=== PATIENT | female | born 1945 | race Caucasian/White ===

== ENCOUNTER 2020-11-22 07:52 | Outpatient (CLI) | payer MEDICARE, SELFPAY ==
--- NOTE | ~2020-11-22 | CT_ITS ---
EXAMINATION: CT brain wo con DATE: 11/22/2020 08:17 INDICATION: Unsteadiness on feet TECHNIQUE: Computed tomography (CT) of the head was performed without intravenous contrast. The mA wa s adjusted according to patient size. Iterative reconstruction technique was employed. Exam dose: 60 5.33 mGy-cm total exam DLP. COMPARISON: None FINDINGS: There is cerebral atrophy, with preferential frontal cortical atrophy. There is moderate ce rebellar atrophy as well. Nonspecific diminished attenuation of the cerebral white matter, likely due to chronic small vessel i schemic changes. No intracranial mass lesion or hemorrhage or cerebrovascular accident is evident. No midline shift or mass effect effect. No subdural or epidural hematoma is detected. No orbital mass lesion is evident. No fracture or bone destruction of the cranial vault. Included mastoid air cells and paranasal sinuse s are normally developed and aerated. IMPRESSION: Cerebral and cerebellar atrophy; no acute intracranial finding Reviewed, dictated and finalized at [facility]. Reviewed, dictated and finalized at [facility].
== END 2020-11-22 07:53 | disposition home or self-care (01) ==
PROVIDERS: PCP Physician Assistant; Visit Provider Physician Assistant
DX: R26.81 Unsteadiness on feet (principal)
CPT/HCPCS: 70450

== ENCOUNTER 2021-03-01 11:39 | Emergency (ER) | payer MEDICARE, SELFPAY ==
[2021-03-01 11:49] VITALS: BP 131/67; PULSE 80; RESP 16; TEMP 36.6; O2SAT 98
--- NOTE | 2021-03-01 12:25 | ED.EYEPROB ---
HPI - Eye Problem General Chief complaint: Eye Problems Stated complaint: EAR/EYE PAIN Time Seen by Provider: 03/01/21 12:05 Source: patient and RN notes reviewed Mode of arrival: ambulatory Limitations: no limitations History of Present Illness HPI Narrative: Patient presents today complaining of left lower eyelid pain x2 days. Denies drainage. Patient has history of corneal dystrophy and uses an [id number] eyedrop 3 times per day on a regular basis. She is also complaining of of a sore inside of her right ear it has been there for months. She was seen initially several months ago by her PCP and told to put Neosporin on the area. States it is not healing. Denies drainage. Related Data Home Medications Medication Instructions Recorded Confirmed atorvastatin 20 mg tablet 20 mg PO DAILY 08/14/19 03/01/21 carvedilol 12.5 mg tablet 12.5 mg PO BID tablet 08/14/19 03/01/21 cholecalciferol (vitamin D3) 25 1,000 unit PO BID cap 08/14/19 03/01/21 mcg (1,000 unit) capsule sodium chloride 5 % eye drops 1 drop EACH EYE TID 08/15/19 03/01/21 losartan 25 mg tablet 12.5 mg PO BID tablet 09/14/20 03/01/21 Allergies Allergy/AdvReac Type Severity Reaction Status Date / Time Penicillins Allergy Unknown Unknown Verified 03/01/21 11:58 Sulfa (Sulfonamide Allergy Unknown Unknown Verified 03/01/21 11:58 Antibiotics) Review of Systems Review of Systems: Narrative: CONSTITUTIONAL: Denies body aches, fever, chills, or sweats. EYES: Denies visual changes, redness, or discharge. Pain to left lower eyelid ENT: Denies rhinorrhea, congestion, sore throat, or otalgia. CARDIOVASCULAR: Denies chest pain, palpitations, or edema. RESPIRATORY: Denies cough or dyspnea. GASTROINTESTINAL: Denies abdominal pain, nausea, vomiting, or diarrhea. GENITOURINARY: Denies dysuria or hematuria. SKIN: Sore to right external ear MUSCULOSKELETAL: Denies back pain, joint pain, or myalgia. NEUROLOGIC: Denies headache, numbness, tingling, or weakness. PSYCH: Denies depression or anxiety. [facility] Past Medical History Medical History (Updated 03/01/21 @ 12:35 by Akila Riley, [facility], ) Artificial pacemaker Breast cancer Heart failure Hyperlipidemia Hypertension LBBB (left bundle branch block) Ovarian cyst Surgical History Surgical History History of appendectomy History of lumpectomy Hx of removal of ovary Family History Family History Other Diabetes mellitus Family history of thyroid disease Social History Social History Smoking status: Never smoker Second hand tobacco smoke exposure: No Alcohol intake: current Alcohol use details: Glass of wine daily. Substance use: never Substance use type: does not use Gender identity (if verbalized by the patient): Female Comments At time of signature, I have reviewed and agree with nursing past medical, surgical, social and family history unless otherwise noted. Please see nursing chart for further information. There is no relevant family history pertinent to the presenting complaint Exam Narrative: Exam Narrative: GENERAL: Well-appearing, well-nourished, and in no acute distress. HEAD: Normocephalic, atraumatic. EYES: EOMI. No redness or drainage. Conjunctivae normal.Mild erythema to the lower lateral eyelid with subtle swelling, consistent with forming stye. No active drainage. ENT: Mucous membranes pink and moist. Nares clear. No rhinorrhea. + 2 to 3 mm scabbed sore to the roman. Scant surrounding erythema. NECK: Normal AROM. Supple. No lymphadenopathy. CHEST: No respiratory distress. EXTREMITIES: Normal range of motion. No edema. SKIN: Warm, dry, no rash. Capillary refill normal. Normal skin turgor. NEURO: No focal deficits. Alert and oriented x3. Gait steady. PSYCH: Normal affect. No s
== END 2021-03-01 12:55 | disposition home or self-care (01) ==
PROVIDERS: Emergency Provider Nurse Practitioner; PCP Family Medicine
DX: H00.025 Hordeolum internum left lower eyelid (principal); Z95.0 Presence of cardiac pacemaker; I11.0 Hypertensive heart disease with heart failure; I50.9 Heart failure, unspecified; E78.5 Hyperlipidemia, unspecified; Z85.3 Personal history of malignant neoplasm of breast; I44.7 Left bundle-branch block, unspecified
CPT/HCPCS: 99213; G0463

== ENCOUNTER 2021-03-01 18:03 | Emergency (ER) | payer MEDICARE, SELFPAY ==
[2021-03-01 18:11] VITALS: BP 135/83; PULSE 86; RESP 16; TEMP 36.4; O2SAT 99
[2021-03-01] MEDS: TETANUS/DIPHTHERIA TOXOIDS ADSORB 0.5 ML VIAL (*BKC) IM (18:22)
--- NOTE | 2021-03-01 18:39 | ED.WOUNDLAC ---
HPI - Wound/Laceration General Chief Complaint: Wound/Laceration Stated Complaint: cut finger Time Seen by Provider: 03/01/21 18:33 Source: patient and RN notes reviewed Mode of arrival: ambulatory Limitations: no limitations History of Present Illness HPI narrative: Patient presents today complaint of a laceration to her left third finger that was sustained 1 hour prior to arrival. She cut it while cutting grady at home with a kitchen knife. She is not up-to-date on her tetanus vaccine. Denies any current pain. Sought treatment today because she could not get it to stop bleeding. Related Data Home Medications Medication Instructions Recorded Confirmed atorvastatin 20 mg tablet 20 mg PO DAILY 08/14/19 03/01/21 carvedilol 12.5 mg tablet 12.5 mg PO BID tablet 08/14/19 03/01/21 cholecalciferol (vitamin D3) 25 1,000 unit PO BID cap 08/14/19 03/01/21 mcg (1,000 unit) capsule sodium chloride 5 % eye drops 1 drop EACH EYE TID 08/15/19 03/01/21 losartan 25 mg tablet 12.5 mg PO BID tablet 09/14/20 03/01/21 Allergies Allergy/AdvReac Type Severity Reaction Status Date / Time Penicillins Allergy Unknown Unknown Verified 03/01/21 18:12 Sulfa (Sulfonamide Allergy Unknown Unknown Verified 03/01/21 18:12 Antibiotics) Review of Systems Review of Systems: Narrative: CONSTITUTIONAL: Denies body aches, fever, chills, or sweats. EYES: Denies visual changes, redness, or discharge. ENT: Denies rhinorrhea, congestion, sore throat, or otalgia. CARDIOVASCULAR: Denies chest pain, palpitations, or edema. RESPIRATORY: Denies cough or dyspnea. GASTROINTESTINAL: Denies abdominal pain, nausea, vomiting, or diarrhea. GENITOURINARY: Denies dysuria or hematuria. SKIN: Denies rash, itching. + Left third finger laceration MUSCULOSKELETAL: Denies back pain, joint pain, or myalgia. NEUROLOGIC: Denies headache, numbness, tingling, or weakness. PSYCH: Denies depression or anxiety. [facility] Past Medical History Medical History Artificial pacemaker Breast cancer Heart failure Hyperlipidemia Hypertension LBBB (left bundle branch block) Ovarian cyst Surgical History Surgical History History of appendectomy History of lumpectomy Hx of removal of ovary Family History Family History Other Diabetes mellitus Family history of thyroid disease Social History Social History Smoking status: Never smoker Second hand tobacco smoke exposure: No Alcohol intake: current Alcohol use details: Glass of wine daily. Substance use: never Substance use type: does not use Gender identity (if verbalized by the patient): Female Comments At time of signature, I have reviewed and agree with nursing past medical, surgical, social and family history unless otherwise noted. Please see nursing chart for further information. There is no relevant family history pertinent to the presenting complaint Exam Narrative: Exam Narrative: GENERAL: Well-appearing, well-nourished, and in no acute distress. HEAD: Normocephalic, atraumatic. EYES: EOMI. No redness or drainage. Conjunctivae normal. ENT: Mucous membranes pink and moist. NECK: Normal AROM. CHEST: No respiratory distress. EXTREMITIES: Normal range of motion. No edema. SKIN: Warm, dry, no rash. Capillary refill normal. Normal skin turgor. 0.5 cm superficial flap laceration just lateral to the left third fingernail. No active bleeding. Distal sensation intact. Capillary refill normal. Nail normal. NEURO: No focal deficits. Alert and oriented x3. Gait steady. PSYCH: Normal affect. No signs of depression or anxiety. Course Vital Signs Vital signs: Vital Signs Temperature 97.6 F 03/01/21 18:11 Pulse Rate 86 03/01/21 18:11 Respirat
== END 2021-03-01 19:04 | disposition home or self-care (01) ==
PROVIDERS: Emergency Provider Nurse Practitioner; PCP Family Medicine
DX: S61.213A Laceration without foreign body of left middle finger without damage to nail, initial encounter (principal); W26.0XXA Contact with knife, initial encounter; Z23 Encounter for immunization; Z95.0 Presence of cardiac pacemaker; Z85.3 Personal history of malignant neoplasm of breast; I11.0 Hypertensive heart disease with heart failure; I50.9 Heart failure, unspecified; E78.5 Hyperlipidemia, unspecified
CPT/HCPCS: 12001; 90471; 90714; 90715; 99213; G0463

== ENCOUNTER 2022-03-14 00:12 | Day surgery (SDC) | payer MEDICARE, SELFPAY ==
[2022-02-24 10:05] VITALS: BMI 22.0
[2022-03-14 07:12] VITALS: BP 130/64; PULSE 73; RESP 17; TEMP 36.4; O2SAT 98
[2022-03-14] MEDS: LACTATED RINGERS 1,000 ML 150 ML IV CONT (07:18)
--- NOTE | 2022-03-14 07:30 | PM.IMHP ---
H&P: HPI History of Present Illness Date/Time: 03/14/22 07:30 Chief Complaint: Neoplasia screening. Narrative: This is a 76-year-old white female patient presents for neoplasia screening colonoscopy. Patient reports that her current weight appetite if bowel movements are normal. She denies abdominal pain. She has had no bleeding. Family history is noncontributory. Patient does have a past history of breast cancer and recently diagnosed with Parkinson's disease. Plan is for surveillance colonoscopy at this time. She also has a pacemaker placed. For bundle branch block. Review of Systems Review of Systems: Review of systems noncontributory. [facility] Past Medical History Medical History Artificial pacemaker Breast cancer Fatigue Heart failure Hyperlipidemia Hypertension LBBB (left bundle branch block) Ovarian cyst Parkinson's Disease Surgical History Surgical History History of appendectomy History of lumpectomy Hx of removal of ovary Family History Family History Mother Breast cancer Goiter Father Diabetes mellitus Grandparent Diabetes mellitus Sibling Breast cancer Sibling Cancer of mouth Daughter Fuchs' corneal dystrophy of both eyes Diabetes mellitus Other Family history of thyroid disease Social History Social History Smoking status: Never smoker Second hand tobacco smoke exposure: No Alcohol intake: current Drinks per week: 5 Alcohol use details: Glass of wine daily. Substance use: never Substance use type: does not use Living arrangements: with family Gender identity (if verbalized by the patient): Female Spiritual care concerns: No Agree to blood products: Yes Meds Home Medications and Allergies Home Medications Medication Instructions Recorded Confirmed Type atorvastatin 20 mg tablet 20 mg PO DAILY 08/14/19 03/14/22 History carvedilol 12.5 mg tablet 12.5 mg PO BID 08/14/19 03/14/22 History cholecalciferol (vitamin D3) 25 1,000 unit PO BID 08/14/19 03/14/22 History mcg (1,000 unit) capsule (Vitamin D3) sodium chloride 5 % eye drops 1 drop ophthalmic (eye) TID 08/15/19 03/14/22 History (Winnie 128) losartan 25 mg tablet 12.5 mg PO BID 09/14/20 03/14/22 History carbidopa 25 mg-levodopa 100 mg 1 tablet PO TID 04/07/21 03/14/22 History tablet escitalopram oxalate 20 mg tablet 20 mg PO DAILY 02/09/22 03/14/22 History omeprazole 20 mg capsule,delayed 20 mg PO DAILY 02/09/22 03/14/22 History release trazodone 50 mg tablet 50 mg PO QHS PRN Insomnia 02/09/22 03/14/22 History Allergies Allergy/AdvReac Type Severity Reaction Status Date / Time Penicillins Allergy Mild Rash Verified 03/14/22 07:09 Sulfa (Sulfonamide Allergy Mild Rash Verified 03/14/22 07:09 Antibiotics) Vital Signs Vital Signs - 24 hr 03/14/22 07:12 Temperature 97.5 F L Pulse Rate 73 Respiratory Rate 17 Blood Pressure 130/64 Pulse Oximetry 98 Oxygen Delivery Room Air Exam Narrative: Physical exam reveals patient to be alert. Vital signs stable. HEENT exam is unremarkable. Patient is anicteric. Lungs are clear to auscultation and percussion. Heart is without murmur or extra sounds. Abdominal exam bowel sounds present soft nontender with no hepatosplenomegaly. Digital external rectal exam is normal. Assessment and Plan Assessment and plan (1) Encounter for screening colonoscopy: Code(s): Z12.11 - Encounter for screening for malignant neoplasm of colon Status: Acute Assessment and Plan: Patient presents for screening colonoscopy. Appears to be at average risk for colon polyps. Further recommendations will be given after endoscopy.
--- NOTE | 2022-03-14 08:14 | WPDANESEPPF ---
Anes - Initial Pre Proc Eval Procedure: Operation Date: 03/14/22 08:30 Proposed Procedures p Screening Colonoscopy - Umberto Bunch MD Date/Time: 03/14/22 08:14 Surgeon: Umberto Bunch MD Pre Op Diagnosis: neoplasm screening Patient Data Age: 76 Gender: F Height: 1.65 m Weight: 57.2 kg Last Vital Signs Temp 97.5 F L 03/14/22 07:12 Pulse 73 03/14/22 07:12 Resp 17 03/14/22 07:12 BP 130/64 03/14/22 07:12 Pulse Ox 98 03/14/22 07:12 O2 Del Method Room Air 03/14/22 07:12 Allergies Allergy/AdvReac Type Severity Reaction Status Date / Time Penicillins Allergy Mild Rash Verified 03/14/22 07:09 Sulfa (Sulfonamide Allergy Mild Rash Verified 03/14/22 07:09 Antibiotics) Home Medications Medication Instructions Recorded Confirmed Type atorvastatin 20 mg tablet 20 mg PO DAILY 08/14/19 03/14/22 History carvedilol 12.5 mg tablet 12.5 mg PO BID 08/14/19 03/14/22 History cholecalciferol (vitamin D3) 25 1,000 unit PO BID 08/14/19 03/14/22 History mcg (1,000 unit) capsule (Vitamin D3) sodium chloride 5 % eye drops 1 drop ophthalmic (eye) TID 08/15/19 03/14/22 History (Winnie 128) losartan 25 mg tablet 12.5 mg PO BID 09/14/20 03/14/22 History carbidopa 25 mg-levodopa 100 mg 1 tablet PO TID 04/07/21 03/14/22 History tablet escitalopram oxalate 20 mg tablet 20 mg PO DAILY 02/09/22 03/14/22 History omeprazole 20 mg capsule,delayed 20 mg PO DAILY 02/09/22 03/14/22 History release trazodone 50 mg tablet 50 mg PO QHS PRN Insomnia 02/09/22 03/14/22 History Patient hx anesthesia problems: none Family hx anesthesia problems: none Results Review: All pre-operative results and documents have been reviewed as part of the pre-operative evaluation. [facility] Past Medical History Medical History Artificial pacemaker Breast cancer Fatigue Heart failure Hyperlipidemia Hypertension LBBB (left bundle branch block) Ovarian cyst Parkinson's Disease Surgical History Surgical History History of appendectomy History of lumpectomy Hx of removal of ovary Family History Family History Mother Breast cancer Goiter Father Diabetes mellitus Grandparent Diabetes mellitus Sibling Breast cancer Sibling Cancer of mouth Daughter Fuchs' corneal dystrophy of both eyes Diabetes mellitus Other Family history of thyroid disease Social History Social History Smoking status: Never smoker Second hand tobacco smoke exposure: No Alcohol intake: current Drinks per week: 5 Alcohol use details: Glass of wine daily. Substance use: never Substance use type: does not use Living arrangements: with family Gender identity (if verbalized by the patient): Female Spiritual care concerns: No Agree to blood products: Yes Anes - Eval Final PreProcedure Day of Procedure 03/14/22 08:14 Patient weight: normal Heart: regular rate and rhythm Lungs: clear to auscultation Airway: Mallampati scale class II Neurological: alert and oriented Last oral intake: >/= 8 hours ASA classification: III Emergent: no Anesthetic plan: proceed Anesthesia type and monitoring: general GIVS and standard monitoring Results Review: All pre-operative results and documents have been reviewed as part of the pre-operative evaluation. Informed Consent: The patient's anesthetic plan and its attendant risks and benefits were discussed with the patient/family/POA. Questions were solicited and answers provided to the satisfaction of the patient/family/POA.
[2022-03-14 08:49] VITALS: BP 93/43; PULSE 70; RESP 16; O2SAT 98
[2022-03-14 08:59] VITALS: BP 100/56; PULSE 62; RESP 20; O2SAT 98
[2022-03-14 09:09] VITALS: BP 132/58; PULSE 70; RESP 20; O2SAT 98
== END 2022-03-14 09:23 | disposition home or self-care (01) ==
PROVIDERS: PCP Family Medicine; Visit Provider Internal Medicine Gastroenterology
PROC: 0DJD8ZZ Inspection of Lower Intestinal Tract, Via Natural or Artificial Opening Endoscopic (ICD-10-PCS; CPT 45378; principal; 2022-03-14 08:30)
DX: Z12.11 Encounter for screening for malignant neoplasm of colon (principal); K57.30 Diverticulosis of large intestine without perforation or abscess without bleeding; I44.7 Left bundle-branch block, unspecified; Z85.3 Personal history of malignant neoplasm of breast; I11.0 Hypertensive heart disease with heart failure; I50.9 Heart failure, unspecified; R53.83 Other fatigue; G20 Parkinson's disease; E78.5 Hyperlipidemia, unspecified
CPT/HCPCS: G0121; J2704; J7120

== ENCOUNTER 2022-06-19 13:12 | Outpatient (CLI) | payer MEDICARE, SELFPAY ==
--- NOTE | 2022-06-19 13:44 | ECG_ITS ---
Measurements Intervals [place] Rate: 70 P: 72 MT: 162 QRS: 250 QRSD: 149 T: 76 QT: 418 QTc: 454 Interpretive Statements ELECTRONIC ATRIAL PACEMAKER WITH INHIBITION ELECTRONIC VENTRICULAR PACEMAKER NO FURTHER INTERPRETATION IS POSSIBLE ATYPICAL ECG NO PREVIOUS ECG AVAILABLE FOR COMPARISON Electronically Signed On 06-19-2022 14:45:02 [employer] by Balwinder Dougherty D.O.
== END 2022-06-19 13:13 | disposition home or self-care (01) ==
PROVIDERS: PCP Family Medicine; Visit Provider Podiatrist Foot & Ankle Surgery
DX: R03.0 Elevated blood-pressure reading, without diagnosis of hypertension (principal)
CPT/HCPCS: 93005

== ENCOUNTER 2023-06-08 17:05 | Emergency (ER) | payer MEDICARE, SELFPAY ==
--- NOTE | ~2023-06-08 | XR_ITS ---
XR elbow RT min 3V 06/08/2023 17:36 Indication: Right elbow pain after fall Procedure: 4 views right elbow Comparison: No prior studies for comparison. Findings: There is a distracted intra-articular fracture of the olecranon process. Large amount of ov erlying soft tissue swelling. There is a joint effusion. Impression: 1: Distracted intra-articular fracture of the olecranon process. Reviewed, dictated and finalized at location [facility]. Impression: 1: Distracted intra-articular fracture of the olecranon process.
--- NOTE | ~2023-06-08 | CT_ITS ---
EXAMINATION: CT cervical spine wo con DATE: 06/08/2023 17:29 INDICATION: Neck pain TECHNIQUE: Computed tomography (CT) of the cervical spine was performed without intravenous contrast. The dose-length product was 150 mGy-cm. Automated exposure control and iterative reconstruction tech nique were employed. COMPARISON: None FINDINGS: Straightening of cervical lordosis. There is multilevel disc narrowing with endplate degene rative change. There is degenerative anterolisthesis at C7-T1, T1-2 and T2-3. There is multilevel unc inate and facet hypertrophy. Lung apices are unremarkable. There is carotid atherosclerosis. No signi ficant paraspinal soft tissue abnormality. IMPRESSION: 1. No acute abnormality of the cervical spine. Reviewed, dictated and finalized at location [facility].
--- NOTE | ~2023-06-08 | CT_ITS ---
EXAMINATION: CT brain wo con DATE: 06/08/2023 17:29 INDICATION: Status post fall. Head injury. TECHNIQUE: Computed tomography (CT) of the head was performed without intravenous contrast. The dose- length product was 605.33 mGy-cm. Automated exposure control and iterative reconstruction technique w ere employed. COMPARISON: CT dated 11/22/2020 FINDINGS: Mild generalized atrophy. Chronic left lacunar infarction. There are scattered mild periven tricular and subcortical white matter changes, most likely related to small vessel ischemic disease ( microangiopathy). No ventriculomegaly or midline shift. There is intracranial atherosclerosis. Parana esme sinuses and mastoids are pneumatized. No depressed skull fractures. IMPRESSION: 1. No acute intracranial abnormality. 2: Chronic left lacunar infarction. Reviewed, dictated and finalized at location A.
[2023-06-08 17:07] VITALS: BP 148/72; PULSE 78; RESP 16; TEMP 36.8; O2SAT 98
--- NOTE | 2023-06-08 19:35 | ED.FALL ---
HPI - Fall General Chief Complaint: Fall Stated Complaint: fall Time Seen by Provider: 06/08/23 19:06 Source: patient Mode of arrival: EMS Limitations: no limitations History of Present Illness HPI Narrative: This is a 77-year-old female that presents to the emergency department for right elbow pain after an injury just prior to arrival. Reports she was walking inside carrying some decorations to put away. She lost her balance and fell backwards. She hit the back of her head and her right elbow. Reports swelling and pain to the elbow. Also reports a headache and neck pain. Denies vision changes, vomiting, numbness, or weakness. Related Data Home Medications Medication Instructions Recorded Confirmed atorvastatin 20 mg tablet 20 mg PO DAILY 08/14/19 10/13/22 carvedilol 12.5 mg tablet 12.5 mg PO BID 08/14/19 10/13/22 cholecalciferol (vitamin D3) 25 1,000 unit PO BID 08/14/19 10/13/22 mcg (1,000 unit) capsule (Vitamin D3) sodium chloride 5 % eye drops 1 drop ophthalmic (eye) TID 08/15/19 10/13/22 (Winnie 128) losartan 25 mg tablet 12.5 mg PO BID 09/14/20 10/13/22 carbidopa 25 mg-levodopa 100 mg 1 tablet PO TID 04/07/21 10/13/22 tablet escitalopram oxalate 20 mg tablet 20 mg PO DAILY 02/09/22 10/13/22 omeprazole 20 mg capsule,delayed 20 mg PO DAILY 02/09/22 10/13/22 release trazodone 50 mg tablet 50 mg PO QHS PRN Insomnia 02/09/22 10/13/22 mecobalamin (vitamin B12) 1,000 1,000 mcg sublingual DAILY 12/12/22 mcg disintegrating tablet,sublingual Allergies Allergy/AdvReac Type Severity Reaction Status Date / Time Penicillins Allergy Mild Rash Verified 06/08/23 17:11 Sulfa (Sulfonamide Allergy Mild Rash Verified 06/08/23 17:11 Antibiotics) Review of Systems Review of Systems: CONSTITUTIONAL: Denies fever EYES: Denies visual changes GASTROINTESTINAL: Denies vomiting MUSCULOSKELETAL: Reports joint pain, and myalgia. NEUROLOGIC: Reports headache. Denies numbness, or weakness. All systems reviewed & are unremarkable except as noted in HPI and below PMFSH Past Medical History Medical History (Updated 06/08/23 @ 19:38 by Liane Trotter PA-C) Artificial pacemaker Replaced 2021, [facility] Breast cancer Chronic diastolic CHF (congestive heart failure), NYHA class 2 Fatigue Heart failure Hyperlipidemia Hypertension LBBB (left bundle branch block) Ovarian cyst Parkinson's Disease Surgical History Surgical History History of appendectomy History of lumpectomy Hx of removal of ovary Family History Family History Mother Breast cancer Goiter Father Diabetes mellitus Grandparent Diabetes mellitus Sibling Breast cancer Sibling Cancer of mouth Daughter Fuchs' corneal dystrophy of both eyes Diabetes mellitus Other Family history of thyroid disease Social History Social History Smoking status: Never smoker Second hand tobacco smoke exposure: No Alcohol intake: current Drinks per week: 5 Alcohol use details: Glass of wine daily. Substance use: never Substance use type: does not use Lack of Transportation: No Lack of Food: Never True Current Housing: I Have Housing Concerned About Future Housing: No Difficulty Paying Gas/Electric Bills: No Difficulty Paying for Meds: No Currently Unemployed: No Education: High School Diploma/GED Difficulty w/ Childcare or Family Care: No Living arrangements: with family Occupation/Education: retired Gender identity (if verbalized by the patient): Female Spiritual care concerns: No Agree to blood products: Yes Exam Narrative: GENERAL: Well-appearing, well-nourished, and in no acute distress. HEAD: Normocephalic, atraumatic. EYES: PERRLA and EOMI. ENT: Nares clear, no rhinorrhea or epistaxis.
[2023-06-08 19:48] VITALS: BP 169/80; PULSE 79; RESP 15; O2SAT 98
[2023-06-08] MEDS: ONDANSETRON INJ 4 MG/2 ML VIAL IV PUSH (19:49)
[2023-06-08] MEDS: MORPHINE SULFATE (*CRX) 4 MG/ML INJ IV PUSH (19:49)
[2023-06-08] MEDS: HYDROcodone/acetaminophen (*CRX) 5-325 MG TABLET 1 TAB PO (20:34)
== END 2023-06-08 21:36 | disposition home or self-care (01) ==
PROVIDERS: Emergency Provider Physician Assistant; PCP Family Medicine
DX: S52.031A Displaced fracture of olecranon process with intraarticular extension of right ulna, initial encounter for closed fracture (principal); S09.90XA Unspecified injury of head, initial encounter; I11.0 Hypertensive heart disease with heart failure; I50.32 Chronic diastolic (congestive) heart failure; E78.5 Hyperlipidemia, unspecified; G20.A1 Parkinson's disease without dyskinesia, without mention of fluctuations; Z85.3 Personal history of malignant neoplasm of breast; Z90.721 Acquired absence of ovaries, unilateral; W18.39XA Other fall on same level, initial encounter
CPT/HCPCS: 29105; 70450; 72125; 73080; 96374; 96375; 99284; A4565; A9270; J2270; J2405

== ENCOUNTER 2024-04-30 19:01 | Emergency (ER) | payer MEDICARE, SELFPAY ==
[2024-04-30 19:08] VITALS: BP 143/69; PULSE 91; RESP 16; TEMP 36.8; O2SAT 98
--- NOTE | 2024-04-30 19:09 | ED.SKABFB ---
HPI - Skin/Abscess/Foreign Bdy General Chief complaint: Skin/Abscess/Foreign Body Stated complaint: bug bite/swollen elbow right arm Time Seen by Provider: 04/30/24 19:16 Source: patient and RN notes reviewed Mode of arrival: ambulatory Limitations: dementia History of Present Illness HPI narrative: 78-year-old female presents with concern for a wasp sting to her right elbow this morning. She reports after she got stone she noticed some swelling of the lateral elbow she reports the sting site is red and itchy but not painful. She reports the swelling in the elbow is not painful MD complaint: other (Redness) Related Data Home Medications Medication Instructions Recorded Confirmed atorvastatin 20 mg tablet 40 mg PO DAILY 08/14/19 04/30/24 carvedilol 12.5 mg tablet 25 mg PO BID 08/14/19 04/30/24 cholecalciferol (vitamin D3) 25 1,000 unit PO BID 08/14/19 04/30/24 mcg (1,000 unit) capsule (Vitamin D3) sodium chloride 5 % eye drops 1 drop ophthalmic (eye) TID 08/15/19 04/30/24 (Winnie 128) losartan 25 mg tablet 12.5 mg PO BID 09/14/20 04/30/24 carbidopa 25 mg-levodopa 100 mg 1 tablet PO TID 04/07/21 04/30/24 tablet escitalopram oxalate 20 mg tablet 40 mg PO DAILY 02/09/22 04/30/24 omeprazole 20 mg capsule,delayed 20 mg PO DAILY 02/09/22 04/30/24 release trazodone 50 mg tablet 50 mg PO QHS PRN Insomnia 02/09/22 04/30/24 mecobalamin (vitamin B12) 1,000 1,000 mcg sublingual DAILY 12/12/22 04/30/24 mcg disintegrating tablet,sublingual oxybutynin chloride 5 mg 5 mg PO DAILY 04/30/24 04/30/24 tablet,extended release 24 hr perfluorohexyloctane (PF) 100 % drp 04/30/24 eye drops (Miebo (PF)) timolol maleate 0.5 % eye drops drp 04/30/24 Allergies Allergy/AdvReac Type Severity Reaction Status Date / Time Penicillins Allergy Mild Rash Verified 04/30/24 19:16 Sulfa (Sulfonamide Allergy Mild Rash Verified 04/30/24 19:16 Antibiotics) Review of Systems Review of Systems: CONSTITUTIONAL: Denies malaise, chills, sweats, or fever. EYES: Denies redness, or discharge. ENT: Denies rhinorrhea, congestion, swollen lips, swollen tongue CARDIOVASCULAR: Denies chest pain, palpitations, or edema. RESPIRATORY: Denies cough or dyspnea. GASTROINTESTINAL: Denies abdominal pain, nausea, vomiting SKIN: Reports redness, itching to her right elbow at her sting site. Denies purulent drainage, vesicles, bullae, numbness, pain beyond proportion MUSCULOSKELETAL: Denies joint pain or myalgia. Reports swelling to the elbow NEUROLOGIC: Denies headache. 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 Heart failure Hyperlipidemia Hypertension LBBB (left bundle branch block) Ovarian cyst Parkinson's Disease Surgical History Surgical History History of appendectomy History of lumpectomy Hx of removal of ovary Family History Family History Mother Breast cancer Goiter Father Diabetes mellitus Grandparent Diabetes mellitus Sibling Breast cancer Sibling Cancer of mouth Daughter Fuchs' corneal dystrophy of both eyes Diabetes mellitus Other Family history of thyroid disease Social History Social History Smoking status: Never smoker Second hand tobacco smoke exposure: No Alcohol intake: current Drinks per week: 5 Alcohol use details: Glass of wine daily. Substance use: never Substance use type: does not use Lack of Transportation: No Lack of Food: Never True Current Housing: I Have
== END 2024-04-30 19:27 | disposition home or self-care (01) ==
PROVIDERS: Emergency Provider Nurse Practitioner; PCP Family Medicine
DX: M71.9 Bursopathy, unspecified (principal); T63.461A Toxic effect of venom of wasps, accidental (unintentional), initial encounter; I11.0 Hypertensive heart disease with heart failure; I50.32 Chronic diastolic (congestive) heart failure; E78.5 Hyperlipidemia, unspecified; G20.A1 Parkinson's disease without dyskinesia, without mention of fluctuations; Z95.0 Presence of cardiac pacemaker
CPT/HCPCS: 99213; G0463

== ENCOUNTER 2025-01-12 03:27 | Emergency (ER) | payer MEDICARE, SELFPAY ==
--- NOTE | ~2025-01-12 | XR_ITS ---
Right Humerus Technique: AP and lateral views were obtained. Clinical History: Pain Findings: Suspected acute minimally displaced fracture of the greater tuberosity humerus present. No other acute fracture or dislocation seen. Visualized joint spaces are grossly preserved. Soft tissues are unremarkable. Impression: Suspected acute, nearly nondisplaced fracture of the greater tuberosity humerus. Reviewed, dictated and finalized at location . Impression: Suspected acute, nearly nondisplaced fracture of the greater tuberosity humerus .
--- OUTSIDE RECORDS SUMMARY | 2025-01-12 03:31 | XMS_ITS | Encounter Summary ---
Author Organization [facility] Address [address] [place] [address] Phone Care Team Providers Care Dairy Technologist Name Role Phone Beka Gonzales MD Primary Care Provider [phone] Myron Martinez MD Unavailable [phone] Susan Ramirez RN Unavailable [phone] Lisha Bob RN Unavailable [phone] Sara Ceballos Unavailable Unavailable Pooja Durán MD Primary Care Provider [phone] Sapna Dumont MD Primary Care Provider [phone] Shelly Thomason RN Unavailable Unavailable Shelly Thomason RN Unavailable Unavailable Shelly Thomason RN Unavailable Unavailable Kina Campbell RN Unavailable Unavailab le Encounter Details Date Type Department Care Team (Late st Contact Info) Description 10/22/2013 Orders Only [facility] Provider, MD Vijay [address] [place] [address] Social History Tobacco Use Types Packs/Day Years Used Date Smoking Tobacco: Never Assessed Comments Unknown Sex and Gender Information Value Date Recorded Sex Assigned at Not on file Legal Sex Female 12:32 AM PEDIATRIC ALLERGIST Gender Identity Female 11/24/2020 8:34 AM CDT Sexual Orientation Straight 11/24/2020 8: 34 AM CDT documented as of this encounter Plan of Treatment Not on file documented as of this encounter Procedures Procedure Name Priority Date/Time Associated Diagnosis Comments CARDIOLOGY REPORT 10/22/2013 documented in this encounter Results * CARDIOLOGY REPORT (10/22/2013) Anatomical Region Laterality Modality Other Narrative 10/22/2013 Ordered by an unspecified provider. us Historical Provider [facility] JOHN REYNOLDS Final Result documented in this encounter Visit Diagnoses Not on filedocumented in this encounter Care Teams Dairy Technologist Relationship Specialty Start Date End Date Beka Gonzales MD [address] [place] [address] PCP - General 12/12/16 10/20/18 Pooja Durán MD PCP - General Family Practice 10/21/18 12/27/20 Sapna Dumont MD PCP - General Family Medicine 12/28/20 Myron Martinez MD [address] [place] [address] Cage Shift Manager Cardiology 06/18/18 Susan Ramirez, RN [address] [facility] [address] [place] [address] Registered Nurse Cardiology 06/18/18 08/23/23 Lisha Bob, BROCK [address] [facility] [address] [place] [address] Registered Nurse Cardiology 06/18/18 04/26/22 Sara Ceballos Primary Telegraph Editor Cardiology 06/18/18 Shelly Thomason, choir accompanistManager Policy Cardiology 04/27/22 09/05/23 Shelly Thomason, aircraft maintenance instructor Failure Coordinator 08/23/23 4 Shelly Thomason, aircraft maintenance instructor Failure Coordinator Transplant 09/05/23 Kina Campbell aircraft maintenance instructor Failure Coordinator Cardiology 01/01/24 documented as of this encounter
--- OUTSIDE RECORDS SUMMARY | 2025-01-12 03:31 | XMS_ITS | Encounter Summary ---
Author Organization [facility] Address [address] [place] [address] Care Team Providers Care Spectrograph Operator Name Role Phone Unavailable Primary Care Provider Unavailabl e Encounter Details Date Type Department Care Team (Late st Contact Info) Description 10/29/2023 Lab Requisition [facility] - DermPath Lab [address] [facility], [facility] [place] [id number] Eusebia Bolivar DO [address] [facility] 3 DEPT [place] [address] Social History Tobacco Use Types Packs/Day Years Used Date Smoking Tobacco: Never Assessed Comments Unknown Sex and Gender Information Value Date Recorded Sex Assigned at Not on file Legal Sex Female 6:22 PM ADDRESSING MACHINE 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 Gender Identity Not on file Sexual Orientation Not on file documented as of this encounter Plan of Treatment Not on file documented as of this encounter Procedures Procedure Name Priority Date/Time Associated Diagnosis Comments DERMATOPATHOLOGY Routine 10/29/2023 3:25 PM CDT documented in this encounter Results * DERMATOPATHOLOGY (10/29/2023 3:25 PM CDT) Case Report Dermatopathology Report Case: [id number] Authorizing Provider: Eusebia Bolivar DO Collected: 10/29/2023 03:25 PM Ordering Location: [facility] - Received: 10/30/2023 01:46 PM DermPath Lab Pathologist: Tiffanie Rodriguez MD Specimen: Skin, right second digit nail fold 4 2:22 PM CDT DERMATOPATHOLOGY LABORATORY Final Diagnosis Specimen A. SKIN, right second digit nail fold: STRATUM CORNEUM WITH INFLAMED SERUM SCALE CRUST WITHOUT CELLULAR EPIDERMIS OR DERMIS (L98.9) (see microscopic description) 4 2:22 PM CDT DERMATOPATHOLOGY LABORATORY at 1422 CDT Clinical History Pg R/O Atypia 2:22 PM CDT DERMATOPATHOLOGY LABORATORY Gross Description Specimen A: Received is one formalin filled container labeled with the patient's name and designated right second digit nail fold. The specimen consists of a shave biopsy measuring 4x3x1 mm. Jar 0. 2:22 PM CDT DERMATOPATHOLOGY LABORATORY Microscopic Description Specimen A. SKIN, right second digit nail fold: Sections reveal stratum corneum and focal inflamed serum scale crust. Cellular epidermis and dermis are not present for evaluation. Additional deeper sections were obtained and reviewed. 2:22 PM CDT DERMATOPATHOLOGY LABORATORY Disclaimer An external and internal positive and negative controls are appropriate for the histochemical, immunohistochemical and immunofluorescence stain(s) in this case (if any), except where stated explicitly. The performance characteristics of the stain(s) cited in this report were developed and its performance characteristic determined by the Dermatopathology Laboratory at [facility], directed by Dr. Chandu Guardado. These tests need not be, and therefore are not, approved by the [place] Food and Drug Administration. The tests are used for clinical purposes. Billing Codes Specimen Charges Stain Charges 35541 1 2:22 PM CDT DERMATOPATHOLOGY LABORATORY Embedded Images 2:22 PM CDT DERMATOPATHOLOGY LABORATORY Pathology/Cytolo gy TISSUE SPECIMEN FROM SKIN / Unknown 10/29/2023 3:25 PM CDT 10/30/2023 1:46 PM CDT us Eusebia Bolivar DO LAB - PATHOLOGY/CYTOLOGY ORDERABLES Final Result DERMATOPATHOLOGY LABORATORY [facility] - Department of Dermatology [address] [place] [address], [facility] [phone] documented in this encounter Visit Diagnoses Not on filedocumented in this encounter
--- OUTSIDE RECORDS SUMMARY | 2025-01-12 03:31 | XMS_ITS | Encounter Summary ---
Author Organization [facility] Address [address] [place] [address] Care Team Providers Care Senior Java Ui Developer Name Role Phone Unavailable Primary Care Provider Unavailabl e Encounter Details Date Type Department Care Team (Late st Contact Info) Description 02/04/2020 Lab Requisition [facility] DermPath Lab [address] 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 Gender Identity Not on file Sexual Orientation Not on file documented as of this encounter Plan of Treatment Not on file documented as of this encounter Procedures Procedure Name Priority Date/Time Associated Diagnosis Comments DERMATOPATHOLOGY Routine 02/03/2020 12:0 0 AM CDT documented in this encounter Results * DERMATOPATHOLOGY (02/03/2020 12:00 AM CDT) Case Report Dermatopathology Report Case: [id number] Authorizing Provider: Kaylah Santiago MD Collected: 02/03/2020 12:00 AM Ordering Location: [facility] DermPath Lab Received: 02/04/2020 10:49 AM Pathologist: Brandon Guardado MD Specimen: Skin, right post neck 0 1:39 PM CDT DERMATOPATHOLOGY LABORATORY Final Diagnosis Specimen A. SKIN, right post neck: BENIGN VERRUCOUS KERATOSIS (L82.1) EPIDERMAL NECROSIS SUGGESTIVE OF EXCORIATION (L98.499) 0 1:39 PM CDT DERMATOPATHOLOGY LABORATORY at 1339 CDT Clinical History R/O BCC. 0 1:39 PM CDT DERMATOPATHOLOGY LABORATORY Gross Description Specimen A: Received is one formalin filled container labeled with the patient's name and designated right post neck. The specimen consists of a shave biopsy measuring 7x7x1 mm. Jar 0. 0 1:39 PM CDT DERMATOPATHOLOGY LABORATORY Microscopic Description Specimen A. SKIN, right post neck: Sections show hyperkeratosis, papillomatosis, hypergranulosis, and acanthosis. These histological findings can be seen in a verruca vulgaris or a seborrheic keratosis. The epidermis is focally necrotic and covered with a scale-crust. There is fibrin at the base. 0 1:39 PM CDT DERMATOPATHOLOGY LABORATORY Disclaimer An external and internal positive and negative controls are appropriate for the histochemical, immunohistochemical and immunofluorescence stain(s) in this case (if any), except where stated explicitly. The performance characteristics of the stain(s) cited in this report were developed and its performance characteristic determined by the Dermatopathology Laboratory at [facility], directed by Dr. Chandu Guardado. These tests need not be, and therefore are not, approved by the [place] Food and Drug Administration. The tests are used for clinical purposes. Billing Codes Specimen Charges Stain Charges 39082 1 0 1:39 PM CDT DERMATOPATHOLOGY LABORATORY Embedded Images 0 1:39 PM CDT DERMATOPATHOLOGY LABORATORY Pathology/Cytolog y TISSUE SPECIMEN FROM SKIN / Unknown 02/03/2020 02/04/2020 10:49 AM CDT us Kaylah Santiago MD LAB - PATHOLOGY/CYTOLOGY ORD ERABLES Final Result DERMATOPATHOLOGY LABORATORY [facility] - Department of Dermatology [address] [address], [facility] [phone] documented in this encounter Visit Diagnoses Not on filedocumented in this encounter
--- OUTSIDE RECORDS SUMMARY | 2025-01-12 03:31 | XMS_ITS | Encounter Summary ---
Author Organization [facility] Address [address] [place] [address] Phone Care Team Providers Care Rn Support Services Name Role Phone Beka Gonzales MD Primary Care Provider [phone] Myron Martinez MD Unavailable [phone] Susan Ramirez RN Unavailable [phone] Lisha Bob RN Unavailable [phone] Sara Ceballos Unavailable Unavailable Pooja Durán MD Primary Care Provider [phone] Sapna Dumont MD Primary Care Provider [phone] Shelly Thomason RN Unavailable Unavailable Shelly Thomason RN Unavailable Unavailable Shelly Thomason RN Unavailable Unavailable Kina Campbell RN Unavailable Unavailab le Encounter Details Date Type Department Care Team (Late st Contact Info) Description 11/14/2017 Orders Only [facility] Provider, MD Vijay [address] [place] [id number] Social History Tobacco Use Types Packs/Day Years Used Date Smoking Tobacco: Never Comments Unknown Sex and Gender Information Value Date Recorded Sex Assigned at Not on file 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 us Historical Provider [facility] REYNOLDS Final Result documented in this encounter Visit Diagnoses Not on filedocumented in this encounter Care Teams Rn Support Services Relationship Specialty Start Date End Date Beka Gonzales MD [address] [place] [address] PCP - General 12/12/16 10/20/18 Pooja Durán MD PCP - General Family Practice 10/21/18 12/27/20 Sapna Dumont MD PCP - General Family Medicine 12/28/20 Myron Martinez MD [address] [place] [address] Manager Of Marketing Cardiology 06/18/18 Susan Ramirez, RN [address] [facility] [address] [place] [address] Registered Nurse Cardiology 06/18/18 08/23/23 Lisha Bob, BROCK [address] [facility] [address] [place] [address] Registered Nurse Cardiology 06/18/18 04/26/22 Sara Ceballos Primary Fire Technician Cardiology 06/18/18 Shelly Thomason, information systems directorBlack Leather Trimmer Cardiology 04/27/22 09/05/23 Shelly Thomason, account support associate Failure Coordinator 08/23/23 4 Shelly Thomason, account support associate Failure Coordinator Transplant 09/05/23 Kina Campbell account support associate Failure Coordinator Cardiology 01/01/24 documented as of this encounter
--- OUTSIDE RECORDS SUMMARY | 2025-01-12 03:31 | XMS_ITS | Clinical Summary ---
Author Organization [facility] Address [address] [place] [address] Care Team Providers Care General Scrap Worker Name Role Phone Unavailable Primary Care Provider Unavailabl e Source Comments [facility],non-owned Affiliates and Associated Physician Practices is amultiple site organization consisting of ambulatory clinics and hospital sitesin [place], [place], [place] and [place]. This disclosure is being madepursuant to the Care Everywhere program and may not contain all information available regarding this patient. 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 Gender Identity Not on file Sexual Orientation Not on file Plan of Treatment Health Maintenance Due Date Last Done Comments BONE DENSITY TESTING 1945 HEPATITIS C SCREENING 11/10/1965 DTAP/TDAP/TD VACCINES (1 - Tdap) 11/14/1966 PNEUMOCOCCAL VACCINE 50+ (1 of 1 - PCV) 11/14/1997 ZOSTER VACCINE (1 of 2) 11/14/1997 Respiratory Syncytial Virus (RSV) Vaccine Pt: or over 60 yrs (1 - 1-dose 75+ series) 11/14/2022 COVID-19 VACCINE ( - 2023-2 5 season) 2024 DEPRESSION SCREENING 08/06/2024 MEDICARE AWV CALENDAR YEAR 2024 INFLUENZA VACCINE (Season Ended) 2025 HEPATITIS B VACCINE Aged Out No longe r eligible based on patient's age to complete this topic HIB VACCINE Aged Out No longer eligi ble based on patient's age to complete this topic HPV VACCINE Aged Out No longer eligi ble based on patient's age to complete this topic MENINGOCOCCAL (Group B) VACC INE SHARED DECISION-MAKING Aged Out No longer eligibl e based on patient's age to complete this topic MENINGOCOCCAL GROUPS A/C/Y/W VACCINE Aged Out No longer eligible b ased on patient's age to complete this topic Insurance [employer] MEDICARE ADV
--- OUTSIDE RECORDS SUMMARY | 2025-01-12 03:31 | XMS_ITS | Encounter Summary ---
[facility] Organization [facility] Address [address] [place] [address] Care Team Providers Care Director Food And Beverage Name Role Phone Sapna Dumont MD Primary Care Provider Encounter Details Date Type Department Care Team (Latest Contact Info) Description 12/20/2007 Outpatient Historical HIS [facility] Stoddard Jr., Emily Calderon MD NO ADDRESS ON FILE Malignant Neoplasm of Breast (Female), Unspecified Site (CMS/HCC); Lump or Mass in Breast; Personal History of Malignant Neoplasm of Breast; Abnormal Mammogram, Unspecified Social History Tobacco Use Types Packs/Day Years Used Date Smoking Tobacco: Never Assessed Comments Unknown Sex and Gender Information Value Date Recorded Sex Assigned at Not on file Legal Sex Female 2:46 AM [employer] Gender Identity Not on file Sexual Orientation Not on file documented as of this encounter Plan of Treatment Not on file documented as of this encounter Procedures Procedure Name Priority Date/Time Associated Diagnosis Comments US BREAST Timed Study 12/20/2007 1:18 PM CDT MAMMO DIAGNOSTIC BILATERAL W OR WO CAD Timed Study 12/20/2007 12:47 PM CDT documented in this encounter Results * US BREAST (12/20/2007 1:18 PM CDT) Anatomical Region Laterality Modality Other 12/20/2007 1:18 PM CDT Narrative 12/20/2007 7:52 PM CDT [facility] [address], [place] [address] Admit Date: 12/20/2007 KATARZYNA COHN Sex: F Admit Prov: EMILY STODDARD Date: 1945 Primary Care Prov: PCP , NONE CMRN: [id number] Room: [facility] SSN: [id number] IMAGING SERVICES Ordering Prov: EMILY STODDARD Accession Number: [id number] Interpretation BILATERAL FULL FIELD DIGITAL DIAGNOSTIC MAMMOGRAMS WITH COMPUTER AIDED DIAGNOSIS AND LEFT BREAST ULTRASOUND, 12/20/2007 History: The patient has a history of right breast cancer which was treated with breast conservation. 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 Technique: Bilateral full field digital diagnostic mammograms were performed. CAD was utilized. No prior studies are available for comparison at this institution. Breast Composition: Heterogeneously dense, which lowers the sensitivity of mammography. Findings: Posttherapeutic changes are identified within the lower-inner aspect of the right breast. Correlation with the patient's previous mammograms is recommended. Asymmetry is identified in the inferior aspect of the left breast on both the mediolateral and mediolateral oblique projections. An ultrasound of this finding is warranted. Additionally, it is recommended that the patient's old films be obtained to assess for the stability of this finding. Scattered microcalcifications are identified in the upper-outer aspect of the left breast. No suspicious masses are identified within either breast. No suspicious calcifications are identified within either breast. Left breast ultrasound was performed in the upper-outer aspect of the left breast, which is where the patient's physician felt a palpable abnormality. Additionally, an ultrasound of the inferior aspect of left breast was performed which is where the patient has an asymmetric density on the mammogram. The ultrasound of the upper-outer quadrant of the left breast reveals what appears to be scar in the upper-outer quadrant. This is located at approximately the 2:00 position. This is at the site of the patient's reported previous biopsy. Dense tissue is identified elsewhere within the breast. No definite solid masses are identified within the left breast. Overall Assessment: BI-RADS Category: 0. Needs additional imaging evaluation. Recommendation: It is recommended the patient's old films be obtained to assess for the stability of the asymmetry in the inferior aspect of the left breast on the mediolateral and mediolateral oblique projections as well as the postlumpectomy changes within the right breast. Dictated by: TESSY MCCORMICK Electronically signed by: TESSY MCCORMICK 12/20/2007 19:52 Transcribed: 12/20/2007 17:05 DKT Procedure Note Tessy Mccormick - 12/20/2007 [facility] [address] [place], [place] [address] Admit Date: 12/20/2007 KATARZYNA COHN Sex: F Admit Prov: EMILY STODDARD Date: 1945 Primary Care Prov: PCP , NONE CMRN: [id number] Room: [facility] SSN: [id number] IMAGING SERVICES Ordering Prov: EMILY STODDARD Interpretation BILATERAL FULL FIELD DIGITAL DIAGNOSTIC MAMMOGRAMS WITH COMPUTERAIDED DIAGNOSIS AND LEFT BREAST ULTRASOUND, 12/20/2007 History: The patient has a history of right breast cancer which wastreated with breast conservation. The patient has a pacemaker in the leftupper chest. Technique: Bilateral full field digital diagnostic mammograms were performed. CAD was utilized. No prior studies are available forcomparison at this institution. Breast Composition: Heterogeneously dense, which lowers thesensitivity of mammography. Findings: Posttherapeutic changes are identified within thelower-inner aspect of the right breast. Correlation with the patient's previous mammograms is recommended. Asymmetry is identified in the inferioraspect of the left breast on both the mediolateral and mediolateraloblique projections. An ultrasound of this finding is warranted.Additionally, it is recommended that the patient's old films be obtained to assess forthe stability of this finding. Scattered microcalcifications areidentified in the upper-outer aspect of the left breast. No suspicious masses are identified within either breast. No suspicious calcifications are identified within either breast. Left breast ultrasound was performed in the upper-outer aspect of theleft breast, which is where the patient's physician felt a palpableabnormality. Additionally, an ultrasound of the inferior aspect of left breastwas performed which is where the patient has an asymmetric density onthe mammogram. The ultrasound of the upper-outer quadrant of the left breast revealswhat appears to be scar in the upper-outer quadrant. This is located at approximately the 2:00 position. This is at the site of thepatient's reported previous biopsy. Dense tissue is identified elsewhere withinthe breast. No definite solid masses are identified within the leftbreast. Overall Assessment: BI-RADS Category: 0. Needs additional imaging evaluation. Recommendation: It is recommended the patient's old films be obtainedto assess for the stability of the asymmetry in the inferior aspect ofthe left breast on the mediolateral and mediolateral oblique projectionsas well as the postlumpectomy changes within the right breast. Dictated by: TESSY MCCORMICK Electronically signed by: TESSY MCCORMICK 12/20/2007 19:52 Transcribed: 12/20/2007 17:05 DKT us Emily Stoddard Jr., MD ORDERABLES Final Resu lt * MAMMO DIGITAL DIAG BILAT (12/20/2007 12:47 PM CDT) Anatomical Region Laterality Modality Breast Bilateral Other 12/20/2007 12:4 7 PM CDT Narrative 01/01/2008 12:34 PM CDT [facility] [address] [place] [address] Admit Date: 12/20/2007 KATARZYNA COHN Sex: F Admit Prov: EMILY STODDARD Date: 1945 Primary Care Prov: PCP , NONE CMRN: [id number] Room: [facility] SSN: [address] [place] [address] IMAGING SERVICES Ordering Prov: EMILY STODDARD Accession Number: [id number] Addendum ADDENDUM TO MAMMOGRAPHY REPORT OF 12/20/2007 The patient's outside films from [facility] dated March 2006 have just been made available for comparison. When comparing with the previous examination, the postlumpectomy changes in the right breast are stable. Asymmetry in the inferior aspect of the left breast on the mediolateral and mediolateral oblique projections is also essentially stable. This does appear more prominent on the current examination due to fatty involution of the breast. However, it was present on the previous examination. Furthermore, no definite abnormality was identified on the patient's ultrasound at the time of the diagnostic mammogram. Overall Assessment: BI-RADS Category: 2, benign findings. Recommendation: Annual mammography is recommended. Assessment BIRADS: 2-Benign finding Recommendation: Normal interval follow-up Dictated by: TESSY MCCORMICK Electronically signed by: TESSY MCCORMICK 01/01/2008 12:34 Transcribed: 01/01/2008 10:12 DKT Interpretation BILATERAL FULL FIELD DIGITAL DIAGNOSTIC MAMMOGRAMS WITH COMPUTER AIDED DIAGNOSIS AND LEFT BREAST ULTRASOUND, 12/20/2007 History: The patient has a history of right breast cancer which was treated with breast conservation. 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 Technique: Bilateral full field digital diagnostic mammograms were performed. CAD was utilized. No prior studies are available for comparison at this institution. Breast Composition: Heterogeneously dense, which lowers the sensitivity of mammography. Findings: Posttherapeutic changes are identified within the lower-inner aspect of the right breast. Correlation with the patient's previous mammograms is recommended. Asymmetry is identified in the inferior aspect of the left breast on both the mediolateral and mediolateral oblique projections. An ultrasound of this finding is warranted. Additionally, it is recommended that the patient's old films be obtained to assess for the stability of this finding. Scattered microcalcifications are identified in the upper-outer aspect of the left breast. No suspicious masses are identified within either breast. No suspicious calcifications are identified within either breast. Left breast ultrasound was performed in the upper-outer aspect of the left breast, which is where the patient's physician felt a palpable abnormality. Additionally, an ultrasound of the inferior aspect of left breast was performed which is where the patient has an asymmetric density on the mammogram. The ultrasound of the upper-outer quadrant of the left breast reveals what appears to be scar in the upper-outer quadrant. This is located at approximately the 2:00 position. This is at the site of the patient's reported previous biopsy. Dense tissue is identified elsewhere within the breast. No definite solid masses are identified within the left breast. Overall Assessment: BI-RADS Category: 0. Needs additional imaging evaluation. Recommendation: It is recommended the patient's old films be obtained to assess for the stability of the asymmetry in the inferior aspect of the left breast on the mediolateral and mediolateral oblique projections as well as the postlumpectomy changes within the right breast. Report revised on 01/01/2008 12:34:08 PM by TESSY MCCORMICK Assessment BIRADS: 0-Incomplete: Need additional imaging evaluation Recommendation: Old films for comparison Dictated by: TESSY MCCORMICK Electronically signed by: TESSY MCCORMICK 12/20/2007 19:52 Transcribed: 12/20/2007 17:05 DKT Procedure Note Tessy Mccormick - 01/01/2008 [facility] [address] [place], [place] [address] Admit Date: 12/20/2007 KATARZYNA COHN Sex: F Admit Prov: EMILY STODDARD Date: 1945 Primary Care Prov: PCP , NONE CMRN: [id number] Room: A SSN: [id number] IMAGING SERVICES Ordering Prov: EMILY STODDARD Addendum ADDENDUM TO MAMMOGRAPHY REPORT OF 12/20/2007 The patient's outside films [facility] March 2006 have just been made available for comparison.When comparing with the previous examination, the postlumpectomy changesin the right breast are stable. Asymmetry in the inferior aspect of theleft breast on the mediolateral and mediolateral oblique projections isalso essentially stable. This does appear more prominent on the current examination due to fatty involution of the breast. However, it waspresent on the previous examination. Furthermore, no definite abnormalitywas identified on the patient's ultrasound at the time of thediagnostic mammogram. Overall Assessment: BI-RADS Category: 2, benign findings. Recommendation: Annual mammography is recommended. Assessment BIRADS: 2-Benign finding Recommendation: Normal interval follow-up Dictated by: TESSY MCCORMICK Electronically signed by: TESSY MCCORMICK 01/01/2008 12:34 Transcribed: 01/01/2008 10:12 DKT Interpretation BILATERAL FULL FIELD DIGITAL DIAGNOSTIC MAMMOGRAMS WITH COMPUTERAIDED DIAGNOSIS AND LEFT BREAST ULTRASOUND, 12/20/2007 History: The patient has a history of right breast cancer which wastreated with breast conservation. The patient has a pacemaker in the leftupper chest. Technique: Bilateral full field digital diagnostic mammograms were performed. CAD was utilized. No prior studies are available forcomparison at this institution. Breast Composition: Heterogeneously dense, which lowers thesensitivity of mammography. Findings: Posttherapeutic changes are identified within thelower-inner aspect of the right breast. Correlation with the patient's previous mammograms is recommended. Asymmetry is identified in the inferioraspect of the left breast on both the mediolateral and mediolateraloblique projections. An ultrasound of this finding is warranted.Additionally, it is recommended that the patient's old films be obtained to assess forthe stability of this finding. Scattered microcalcifications areidentified in the upper-outer aspect of the left breast. No suspicious masses are identified within either breast. No suspicious calcifications are identified within either breast. Left breast ultrasound was performed in the upper-outer aspect of theleft breast, which is where the patient's physician felt a palpableabnormality. Additionally, an ultrasound of the inferior aspect of left breastwas performed which is where the patient has an asymmetric density onthe mammogram. The ultrasound of the upper-outer quadrant of the left breast revealswhat appears to be scar in the upper-outer quadrant. This is located at approximately the 2:00 position. This is at the site of thepatient's reported previous biopsy. Dense tissue is identified elsewhere withinthe breast. No definite solid masses are identified within the leftbreast. Overall Assessment: BI-RADS Category: 0. Needs additional imaging evaluation. Recommendation: It is recommended the patient's old films be obtainedto assess for the stability of the asymmetry in the inferior aspect ofthe left breast on the mediolateral and mediolateral oblique projectionsas well as the postlumpectomy changes within the right breast. Report revised on 01/01/2008 12:34:08 PM by TESSY MCCORMICK Assessment BIRADS: 0-Incomplete: Need additional imagingevaluation Recommendation: Old films for comparison Dictated by: TESSY MCCORMICK Electronically signed by: TESSY MCCORMICK 12/20/2007 19:52 Transcribed: 12/20/2007 17:05 DKT us Emily Stoddard Jr., MD MAMMO ORDERABLES Edited documented in this encounter Visit Diagnoses Diagnosis Malignant neoplasm of breast (female), unspecified site Lump or mass in breast Personal history of malignant neoplasm of breast Abnormal mammogram, unspecified documented in this encounter Care Teams Director Food And Beverage Relationship Specialty Start Date End Date Sapna Dumont MD [address] [place] [id number] PCP - General Family Practice 03/31/21 documented as of this encounter
--- OUTSIDE RECORDS SUMMARY | 2025-01-12 03:31 | XMS_ITS | Referral Summary ---
Author Organization [facility] Address [address] [place] [address] Care Team Providers Care Medical Support Specialist Name Role Phone Myron Martinez MD Unavailable Sara Ceballos Unavailable Unavailable Sapna Dumont MD Primary Care Provider Shelly Thomason RN Unavailable Unavailable Kina Campbell RN Unavailable Unavailab le Encounters Date Type Department Care Team Description 01/06/2025 1:00 PM CDT Office Visit [facility] Cardiology [address] [place] [address] [place] [address] [place] [address] Myron Martinez MD Chronic combined systolic and diastolic congestive heart failure (HCC) (Primary Dx); Dilated cardiomyopathy (HCC) 12/28/2024 Telephone [facility] Cardiology [address] [place] [address] 8th [place] [address] [place] [address] Sumeet Ortiz MD PhD ICD Check 12/26/2024 Telephone [facility] Cardiology [address] [place] [address] 8th [place] [address] [place] [address] Deanna Ortiz 11/19/2024 Telephone [facility] Cardiology [address] [place] [address] 8th [place] [address] [place] [address] Sumeet Ortiz MD PhD 11/18/2024 8:00 AM CDT Ancillary Procedure [facility] Cardiology [address] [facility] [address] [place] [address] Chronic combined systolic and diastolic heart failure (HCC) 11/14/2024 4:36 PM CDT - 11/14/2024 8:19 PM CDT Emergency [address] [address] Yecenia Saucedo MD Chest wall pain (Primary Dx) Discharge Disposition: Discharge to home or self care 10/28/2024 Telephone [facility] Scheduling [address] [place] [address] Kamran Garcia NP Scheduling Appointments 10/14/2024 Orders Only [facility] Movement Disorders [address] [facility] Advanced Medicine 7th [place] [id number] Tosha Angulo MD PhD Progressive supranuclear palsy (HCC) (Primary Dx); Small fiber neuropathy; Parkinson's disease with dyskinesia, unspecified whether manifestations fluctuate (HCC) 10/14/2024 8:00 AM CDT Ancillary Procedure [facility] Cardiology [address] [address] Chronic combined systolic and diastolic heart failure (HCC) from Last 3 Months Allergies Active Allergy Reactions Criticality Noted Date Comments Amoxicillin Rash Medium 03/19/2018 Ibuprofen Rash Medium 03/19/2018 Lisinopril Cough Low 06/29/2020 Sulfa (Sulfonamide Antibiotics) Rash Medium 01/04 Medications sodium chloride (JOSE 128) 2 % ophthalmic solutionIndicat ions:Corneal Edema Administer 1 drop into both eyes 2 times daily Active cholecalciferol (VITAMIN D-3) 1,000 unitIndications :supplement Take 1 tablet/capsule (1,000 Units total) by mouth 2 times daily Active traZODone (DESYREL) 50 mg tabletIndicatio ns:insomnia associated with depression Take 1 tablet (50 mg total) by mouth nightly as needed for sleep Active senna (SENOKOT) 8.6 mg tablet Take 1 tablet by mouth 2 (two) times a day for 5 days While on narcotics 10 tablet Active Additional Information Patient not taking.Reported on 01/06/2025 Miebo 100 % drops 4 Active carvediloL (COREG) 12.5 mg tablet TAKE 1 TABLET BY MOUTH 2 TIMES A DAY. 180 tablet 3 4 Active timolol (TIMOPTIC) 0.5 % ophthalmic solution APPLY 1 DROP TO FINGER TWICE DAILY 4 Active losartan (COZAAR) 25 mg tablet TAKE 1/2 OF A TABLET (12.5 MG TOTAL) BY MOUTH TWICE A DAY 90 tablet 3 4 Active triamcinolone (KENALOG) 0.1 % ointment APPLY TO LEGS TWICE DAILY NEEDED 4 Active oxyBUTYnin XL (DITROPAN-XL) 5 mg 24 hr tablet Oral 4 Active carbidopa-levod opa (SINEMET) 25-100 mg per tabletIndicatio ns:Parkinson disease (HCC) Take 0.5 tab three to four times per day 180 tablet [address] (CYMBALTA) 60 mg capsule TAKE 1 CAPSULE BY MOUTH EVERYDAY AT BEDTIME Active QUEtiapine (SEROquel) 25 mg tablet Take 1 tablet (25 mg total) by mouth nightly 5 Active azelastine (OPTIVAR) 0.05 % ophthalmic solution INSTILL 1 DROP INTO EACH EYE TWICE A DAY FOR 7 DAYS 5 Active gabapentin (NEURONTIN) 300 mg capsule Take one pill by mouth before bed for one week. Then increase to one pill with lunch and one pill before bed for one week. Then add a pill at breakfast as well, so you are taking one pill three times a day. 90 capsule 11 5 Active atorvastatin (LIPITOR) 40 mg tablet TAKE 1 TABLET BY MOUTH EVERY DAY 90 tablet 5 Active Active Problems Problem Noted Date Diagnosed Date Progressive supranuclear palsy 07/23/2024 Assessment & Plan (10/08/2024 6:06 PM STUCCO WORKER): Mrs. Chambers is a very pleasant 78yo F with 5y of progressive lethargy, dysequilibrium (falls backwards), headaches, left-sided bradykinesia, and right-sided rigidity in the setting of restricted up-gaze and negative alpha-synuclein skin testing. At this time, her most likely diagnosis is PSP. We discussed that likely her biggest barrier at this time is her lethargy, for which she needs a sleep study with sleep medicine. She will remain on carbidopa/levodopa 0.5 tabs TID at this time, as stopping this medication worsened her anxiety and general malaise, although it has not helped her stiffness. She had a more dramatic wide-eyed stare during this visit. For the discomfort in her feet, which is likely small fiber neuropathy based on the results of her skin biopsy, we will start gabapentin. Although very unlikely, IgLON5 remains on the differential, will determine if single antibody testing can be ordered or if [place] paraneoplastic panel is indicated. Plan: - Sleep study with sleep medicine - Continue levodopa 0.5 tabs TID - Start gabapentin: 300mg qHS 1 week -> 300mg BID 1 week , 300mg TID 1 week, touch base to discuss if it is working and any worsening lethargy - Exercise as able - IgLON5 antibody testing Assessment & Plan (07/23/2024 12:01 PM STUCCO WORKER): Mrs. Chambers is a very pleasant 78yo F with 5y of progressive lethargy, dysequilibrium (falls backwards), headaches, left-sided bradykinesia, and right-sided rigidity in the setting of restricted up-gaze and negative alpha-synuclein skin testing. At this time, her most likely diagnosis is PSP. We discussed at length the likely sequale of this disease and its natural history, as well as the lack of treatment options. We discussed carbidopa/levodopa as one option although it does not work for many people, vs symptom management. We discussed that likely her biggest barrier at this time is her lethargy, for which she needs a sleep study with sleep medicine. She agreed to call and schedule an appointment with them [facility]. Lethargy: set up appointment with sleep medicine, rule out JC Small fiber neuropathy: consider gabapentin for foot discomfort following sleep study; currently risk of increased lethargy outweigh possible benefits PSP: slowly down-titrate levodopa to determine if it is beneficial. If helping, restart and titrate to effect. If not helping, remain off. Address likely orthostasis once off medication. Start with cold water trick, then can consider midodrine if needed. Next step is exercise and PT, once patient feels more awake and energetic. Plan: - To see sleep medicine - Decrease levodopa to 0.5 tabs TID for one week then stop, reach out after off meds for 1 week to discuss slowness, stiffness, and dizziness - Consider gabapentin for small fiber neuropathy after sleep study - Raise BP as needed (cold water vs midodrine) - PT and exercise as able, defer PT for now Small fiber neuropathy 07/23/2024 History of stroke 06/03/2024 Gait disorder 03/11/2024 Paresthesia 03/11/2024 Generalized anxiety disorder 12/10/2023 Insomnia related to another mental disorder 01/2024 Mild recurrent major depression 12/10/2023 Fractured elbow, right, closed, initial encounte r 06/20/2023 History of permanent cardiac pacemaker placement 06/20/2023 Fracture of right olecranon process, closed, initial encounter 06/18/2023 Encounter for fitting or adj ustment of implantable cardioverter-defibrillator (ICD) 11/04/2021 Overview (11/04/2021): Added automatically from request for surgery [id number] Essential hypertension 06/29/2020 Complete heart block 12/05/2017 NICM (nonischemic cardiomyopathy) 11/08/2015 Malignant neoplasm of breast 05/30/2010 Hyperlipidemia 05/30/2010 Chronic combined systolic and diastolic heart fa ilure 05/30/2010 Resolved Problems Problem Noted Date Diagnosed Date Resolved Date Parkinson's disease ([facility]) 11/07/2023 07/23/2024 Parkinson disease 02/02/2021 07/23/2024 Assessment & Plan (04/09/2024 5:58 PM CDT): Katarzyna Chambers is a 78yo F with a 5 year history of progressive lethargy, dysequilibrium with backward falls, mild headaches, and slowness who carries a diagnosis of PD. On exam, she has restricted up-gaze and some difficulty with fixation on primary gaze, a sensory deficit to vibration in all 4 limbs (worse in the feet) and to cold on the right side, with intact soft touch, pinprick, and proprioception. She has left sided bradykinesia with right-sided rigidity (possibly some cogwheeling) in the absence of tremor, and diminished arm swing on the right. Despite her relatively mild parkinsonism, she markedly fell on the pull test. She has minimal constipation and her sense of smell is intact. It is challenging to create a cohesive diagnosis for her different problems. She lacks many of the additional synucleopathy features that would be characteristic of PD, and her rigidity and bradykinesia appear on opposite sides of her body. However, she does have both findings and a pronounced lack of postural stability. Her eye movement abnormalities may increase the concern for a Parkinson's plus condition. She has not tried high enough doses of levodopa to rule out a response, but it is not clear what we would be treating at this time. A skin biopsy for synuclein would be helpful to clarify this. JC is a concern given her snoring and extended sleep, and should be evaluated. Her sensory loss speaks to possible neuropathy, which should also be assessed. At this time, we will proceed with a more thorough workup. Plan: - Continue carbidopa/levodopa 1 tab TID for now, change to taking medication every 5 hours - Refer to sleep medicine for JC evaluation - Start exercising again - EMG/NCS for sensory neuropathy - Skin biopsy for synuclein pending insurance approval - Return in 6 months, touch base sooner as results return - NPT at next visit Assessment & Plan (05/05/2021 11:50 AM CDT): Patient continues on Sinemet 25/100 t.i.d. with good tolerability and symptomatic easing of her prior parkinsonian features. She is pleased with her symptomatic response on therapy and is requesting renewal at this time. I have renewed her Sinemet at present dosing. She will follow-up in neurology clinic in 1 year or sooner on an as-needed basis. Assessment & Plan (02/02/2021 11:47 AM CDT): Patient has a 2 year history of progressive movement disorder with clinical features of cogwheeling bradykinesia consistent with Parkinson's disease. She does not have any gait festination or tremor at this time. I did discuss with patient how the diagnosis is established in treatment options. I will start her on a trial of Sinemet 25/100 t.i.d.. I have discussed with her treatment benefits and potential adverse effects with treatment. I will see her back in the office in 3 months time for reassessment on therapy. Immunizations Immunization Administration Dates Next Due Influenza, Quadrivalent, Hig h Dose, Preservative Free, Intrr 04/12/2020 Influenza, Trivalent, IM (MDV) 05/21/2014 Influenza, Trivalent, Preservative Free, Intramu scular 05/26/2008 Pneumococcal Conjugate PCV 13 10/18/2015 Pneumococcal Polysaccharide PPV23 08/28/2016,08/2009 TD Preservative Free 03/01/2021,08/06/2011 ZOSTER LIVE 07/12/2012 ZOSTER Recombinant 09/24/2021,07/07/2021 Social History Tobacco Use Types Packs/Day Years Used Date Smoking Tobacco: Never Passive Smoke Exposure: Past Smokeless Tobacco: Never Tobacco Cessation:Counseling Given: Not Answered Comments:No AUDIT-C Answer Date Recorded Q1: How often do you have a drink containing alcohol? 4 or more times a week 06/02/2024 Q2: How many drinks containi ng alcohol do you have on a typical day when you are drinking? 1 or 2 Frequency of Binge Drinking Not on file 05/07 Personal Safety Answer Date Recorded Have you ever been in or are you currently in a harmful physical or emotional relationship or is someone making you feel afraid or unsafe? Denies 11/14/2024 Comments No Sex and Gender Information Value Date Recorded Sex Assigned at Not on file Legal Sex Female 12:32 AM STUCCO WORKER Gender Identity Female 11/24/2020 8:34 AM CDT Sexual Orientation Straight 11/24/2020 8: 34 AM CDT Last Filed Vital Signs Vital Sign Reading Time Taken Comments Blood Pressure 96/61 01/06/2025 12:52 PM CDT Pulse 88 01/06/2025 12:52 PM CDT Temperature 36.2 C (97.1 F) 04/09/2024 2:36 PM CDT Respiratory Rate 15 11/14/2024 7:00 PM CDT Oxygen Saturation 97% 01/06/2025 12:52 PM CDT Inhaled Oxygen Concentration - - Weight 4.99 kg (11 lb) 01/06/2025 12:52 PM CDT Height 165.1 cm (5' 5) 01/06/2025 12:52 PM CDT Body Mass Index 1.83 01/06/2025 12:52 PM CDT Plan of Treatment Not on file Medical Devices Implanted Type Area General Maintenance Helper Device Identifier Shelf Expiration Date Model / Serial / Lot [employer] C.R.M. G126 Defibrillator Cardiac Resynchronization Therapy Defibrillator Momentum Lv1 - [id number] - [id number] Implanted:Qty: 1 on 11/08/2021 by Sumeet Ortiz MD PhD at [facility] ICD [employer] C.R.M. 09/27/2023 G126 / [id number] / [employer] Ra Lead 4470 Lead Heart [employer] C.R.M. 4470 / [id number] / [employer] Rv Lead 0185 Lead Heart [employer] C.R.M. 0185 / [id number] / [employer] Lv Lead 4518 Lead Heart [employer] C.R.M. 4518 / [id number] / Synthes Implant Bone Plate Compression Locking 20 Hole Lcp 2.7mm [id number] - S0 - [id number] Implanted:Qty: 1 on 06/20/2023 by Primitivo Clayton MD at [facility] Plate Right: Olecranon Synthes I 04/05/2033 02.247.3 90S / 0 / [id number] Synthes Lcp 59mm 7 Hole Shaft Low Profile Cut To Length Condylar Plate 249.679 - S0 - [id number] Implanted:Qty: 1 on 06/20/2023 by Primitivo Clayton MD at [facility] Plate Right: Olecranon Synthes I 249.679 / 0 / Synthes 2.7mm 5mm 16mm 2.5mm Self Tap Stardrive Cortical T8 Screw Bone 202.876 - S0 - [id number] Implanted:Qty: 1 on 06/20/2023 by Primitivo Clayton MD at [facility] Screw Right: Olecranon Synthes I 202.876 / 0 / Synthes 2.7mm 5mm 14mm 2.5mm Self Tap Stardrive Cortical T8 Screw Bone 202.874 - S0 - [id number] Implanted:Qty: 1 on 06/20/2023 by Primitivo Clayton MD at [facility] Screw Right: Olecranon Synthes I 202.874 / 0 / Synthes 2.7mm 5mm 28mm 2.5mm Self Tap Stardrive Cortical T8 Screw Bone 202.888 - S0 - [id number] Implanted:Qty: 1 on 06/20/2023 by Primitivo Clayton MD at [facility] Screw Right: Olecranon Synthes I 202.888 / 0 / Synthes 2.4mm 18mm Self Tap Stardrive Cortex T8 Screw Bone 201.768 - S0 - [id number] Implanted:Qty: 3 on 06/20/2023 by Primitivo Clayton MD at [facility] Screw Right: Olecranon Synthes I 201.768 / 0 / Synthes 2.4mm 20mm Self Tap Stardrive Cortex T8 Screw Bone 201.770 - S0 - [id number] Implanted:Qty: 2 on 06/20/2023 by Primitivo Clayton MD at [facility] Screw Right: Olecranon Synthes I 201.770 / 0 / Synthes 2.4mm 1.9mm 20mm Self Tap Lock Stardrive Conical Head T8 Screw 212.820 - S0 - [id number] Implanted:Qty: 2 on 06/20/2023 by Primitivo Clayton MD at [facility] Screw Right: Olecranon Synthes I 212.820 / 0 / Synthes 2.4mm 1.9mm 28mm Self Tap Lock Stardrive Conical Head T8 Screw 212.828 - S0 - [id number] Implanted:Qty: 1 on 06/20/2023 by Primitivo Clayton MD at [facility] Screw Right: Olecranon Synthes I 212.828 / 0 / Synthes 2.4mm 1.9mm 18mm Self Tap Lock Stardrive Conical Head T8 Screw 212.818 - S0 - [id number] Implanted:Qty: 1 on 06/20/2023 by Primitivo Clayton MD at [facility] Screw Right: Olecranon Synthes I 212.818 / 0 / Synthes 2.4mm 1.9mm 10mm Self Tap Lock Stardrive Conical Head T8 Screw 212.810 - S0 - [id number] Implanted:Qty: 1 on 06/20/2023 by Primitivo Clayton MD at [facility] Screw Right: Olecranon Synthes I 212.810 / 0 / Synthes 2.7mm 5mm 44mm 2.5mm Self Tap Stardrive Cortical T8 Screw Bone 202.963 - S0 - [id number] Implanted:Qty: 1 on 06/20/2023 by Primitivo Clayton MD at [facility] Screw Right: Olecranon Synthes I 202.963 / 0 / Synthes Screw Bone Cortical Solid St Full Thread Locking 2.7x90mm 02.202.990 - S0 - [id number] Implanted:Qty: 1 on 06/20/2023 by Primitivo Clayton MD at [facility] Screw Right: Olecranon Synthes I 202.9 90 / 0 / Synthes 2.7mm 5mm 26mm 2.5mm Self Tap Stardrive Cortical T8 Screw Bone 202.886 - S0 - [id number] Implanted:Qty: 1 on 06/20/2023 by Primitivo Clayton MD at [facility] Screw Right: Olecranon Synthes I 202.886 / 0 / Synthes 2.7mm 5mm 20mm 2.5mm Self Tap Stardrive Cortical T8 Screw Bone 202.880 - S0 - [id number] Implanted:Qty: 1 on 06/20/2023 by Primitivo Clayton MD at [facility] Screw Right: Olecranon Synthes I 202.880 / 0 / Explanted Type Area General Maintenance Helper Device Identifier Shelf Expiration Date Model / Serial / Lot Pacemaker/Icd -10/07/2012 Implanted:Qty : 1 on 10/07/2012 Explanted:Qty : 1 on 11/08/2021 Left: Chest [employer] Synthes 2.4mm 1.9mm 20mm Self Tap Lock Stardrive Conical Head T8 Screw 212.820 - [id number] Explanted:Qty : 1 on 06/20/2023 at [facility] Right: Olecranon Synthes I 212.820 / / Procedures Procedure Name Priority Date/Time Associated Diagnosis Comments CT CHEST PE W CONTRAST ED 5 6:49 PM CDT D-DIMER, QUANTITATIVE STAT 11/14/2024 6:11 PM CDT TROPONIN T HIGH-SENSITIVITY 4-HR Timed 11/14/2024 5:34 PM CDT XR CHEST 1 VIEW ED 11/14/2024 2:22 PM CDT ECG 12-LEAD STAT 11/14/2024 1:25 PM CDT EGFR STAT 11/14/2024 1:23 PM CDT DIFFERENTIAL AUTO STAT 11/14/2024 1:2 3 PM CDT TROPONIN T HIGH-SENSITIVITY SERIES (BASELINE, 2HR, 4HR, 6HR) STAT 11/14/2024 1:23 PM CDT COMPREHENSIVE METABOLIC PANEL STAT 11/14/2024 1:23 PM CDT CBC WITH AUTO DIFFERENTIAL STAT 11/14/2024 1:23 PM CDT from Last 3 Months Results * CT Chest PE (CTA) W Contrast (11/14/2024 6:49 PM CDT) Anatomical Region Laterality Modality Body N/A Computed Tomogra phy 11/14/2024 7:37 PM CDT Narrative 11/14/2024 7:41 PM CDT EXAM DESCRIPTION: CT CHEST PE (CTA) W CONTRAST REASON FOR STUDY: Pulmonary embolism (PE) suspected, low to intermediate prob, positive D-dimer, history of breast cancer, pleurytic pain Pt to ED for chest pain that started today. Pt endorses constant pain to L side of chest that worsens with deep inspiration. TECHNIQUE: CT angiogram of the chest performed with intravenous contrast using helical scanning technique with dynamic intravenous contrast injection. Reconstructed coronal and sagittal MPR images reviewed. All images stored on PACS. 3D MIP images rendered on scanning unit and reviewed at time of interpretation. Automated exposure control was used as a dose optimization technique for this examination. CONTRAST TYPE/DOSE: 80mL of IOVERSOL 350 MG IODINE/ML INTRAVENOUS SYRINGE injected via intravenous COMPARISON: None FINDINGS: VASCULATURE: No identified pulmonary emboli. LUNGS: No nodules or masses. No pneumonia. PLEURA: No effusion. No pneumothorax. MEDIASTINUM/YUNIEL: No identified masses or abnormal nodes. HEART: Heart size is mildly prominent with no pericardial effusion. AXILLA: No adenopathy. CHEST WALL: No masses. No subcutaneous air. HARDWARE/LINES/TUBES: Left-sided pacing device is noted. UPPER ABDOMEN: No significant abnormality. MUSCULOSKELETAL: No significant abnormality. OTHER: No significant abnormality. IMPRESSION: No evidence of pulmonary embolism is seen. No acute abnormality is seen. THIS IS AN ELECTRONICALLY VERIFIED FINAL REPORT 11/14/2024 7:41 PM - Electronically signed by Mike Edmond M.D. T: Report ID: [id number] Reading Location: [place] [address] Procedure Note Mike Edmond MD - 11/14/2024 EXAM DESCRIPTION: CT CHEST PE (CTA) W CONTRAST REASON FOR STUDY: Pulmonary embolism (PE) suspected, low to intermediate prob, positive D-dimer, history of breast cancer, pleurytic pain Pt to ED for chest pain that started today. Pt endorses constant pain to L side of chest that worsens with deep inspiration. TECHNIQUE: CT angiogram of the chest performed with intravenous contrastusing helical scanning technique with dynamic intravenous contrast injection. Reconstructed coronal and sagittal MPR images reviewed. All images storedon PACS. 3D MIP images rendered on scanning unit and reviewed at time of interpretation. Automated exposure control was used as a doseoptimization technique for this examination. CONTRAST TYPE/DOSE: 80mL of IOVERSOL 350 MG IODINE/ML INTRAVENOUSSYRINGE injected via intravenous COMPARISON: None FINDINGS: VASCULATURE: No identified pulmonary emboli. LUNGS: No nodules or masses. No pneumonia. PLEURA: No effusion. No pneumothorax. MEDIASTINUM/YUNIEL: No identified masses or abnormal nodes. HEART: Heart size is mildly prominent with no pericardial effusion. AXILLA: No adenopathy. CHEST WALL: No masses. No subcutaneous air. HARDWARE/LINES/TUBES: Left-sided pacing device is noted. UPPER ABDOMEN: No significant abnormality. MUSCULOSKELETAL: No significant abnormality. OTHER: No significant abnormality. IMPRESSION: No evidence of pulmonary embolism is seen. No acuteabnormality is seen. THIS IS AN ELECTRONICALLY VERIFIED FINAL REPORT 11/14/2024 7:41 PM - Electronically signed by Mike Edmond M.D. KH T: Report ID: [id number] Reading Location: [place] [address] Yecenia Saucedo MD IMG CT PROCEDURES Final Result * (ABNORMAL) D-dimer, quantitative (11/14/2024 6:11 PM CDT) D-Dimer 1,110(H) <=499 ng/mL FEU Comment: Interpretive data FDA approved the D-dimer, in conjunction with a low or moderate pretest probability score, to exclude venous thromboembolic events (VTE) (PE and DVT) in outpatients when the D-dimer result is < 500 ng/ml FEU. Evidence supports using an age-adjusted D-dimer cut-off for outpatients older than 50 (age x 10) to improve specificity without sacrificing sensitivity. Example: age 68, VTE cut-off 680 ng/ml FEU. References; Schouten HT et al. Brit Med J. 2013;346:f2492. Mark et al. Annals Int Med. 2015;163:701-11. Current interpretive data was last revised on 2019. Blood 11/14/2024 6:11 PM CDT 11/14/2024 6:12 PM CDT Yecenia Saucedo MD LAB BLOOD ORDERABLES Final Res ult [id number] [facility] Department [place] [address] * Troponin T high-sensitivity 4-hour (11/14/2024 5:34 PM CDT) Trop T hs 7 <=14 ng/L Comment: Interpretive Data For further hscTnT resources including the diagnostic algorithm and an aid in interpretation, copy and paste this link: [email or web address] Current Interpretive Data last revised 2020. Trop T hs delta 0 ng/L BARBER MORAES Trop T hs interp Insignificant BARBER MORAES Blood 11/14/2024 5:34 PM CDT 11/14/2024 5:36 PM CDT us Yomaira CHRISTINE LAB BLOOD ORDERABLES Final Resul t BARBER MORAES [address] [facility] Department [place] [address] * XR Chest 1 Vw Portable (if patient condition/safety warrant portable) (11/14/2024 2:22 PM CDT) Anatomical Region Laterality Modality Body, Chest N/A Computed Radiogr aphy 11/14/2024 3:26 PM CDT Narrative 11/14/2024 3:30 PM CDT EXAM DESCRIPTION: XR CHEST 1 VIEW REASON FOR STUDY: chest pain Pt to ED for chest pain that started today. Pt endorses constant pain to L side of chest that worsens with deep inspiration. Pt denies SOB. Pt also endorsing L hip pain; states, I have bursitis of my hip. Pt denies n/v/d. Denies abdominal pain. Endorses having pacemaker/defibrillator. A/ox4. NAD. 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 TECHNIQUE: PA upright radiographic view(s) of the chest. COMPARISON: 02/06/2024 FINDINGS: LUNGS: There is coarsening of interstitial markings within the lungs. There is hyperinflation. No localized consolidation. No effusion or pneumothorax. HEART/MEDIASTINUM: Cardiac silhouette and mediastinal contours are within normal limits. LINES/TUBES: Left-sided pacemaker is present. Surgical clips project over the inferior right chest. BONES: No acute osseous abnormality. IMPRESSION: Hyperinflation of the lungs, without consolidation, effusion or pneumothorax. THIS IS AN ELECTRONICALLY VERIFIED FINAL REPORT 11/14/2024 3:30 PM - Electronically signed by Marta Farmer M.D. TW T: Report ID: [id number] Reading Location: [id number] Procedure Note Marta Farmer MD - 11/14/2024 EXAM DESCRIPTION: XR CHEST 1 VIEW REASON FOR STUDY: chest pain Pt to ED for chest pain that started today. Pt endorses constant pain to L side of chest that worsens with deep inspiration. Pt denies SOB. Pt also endorsing L hip pain; states, I have bursitis of my hip. Pt deniesn/v/d. Denies abdominal pain. Endorses having pacemaker/defibrillator. A/ox4.NAD. 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 TECHNIQUE: PA upright radiographic view(s) of the chest. COMPARISON: 02/06/2024 FINDINGS: LUNGS: There is coarsening of interstitial markings within the lungs. There is hyperinflation. No localized consolidation. No effusionor pneumothorax. HEART/MEDIASTINUM: Cardiac silhouette and mediastinal contours are within normal limits. LINES/TUBES: Left-sided pacemaker is present. Surgical clips projectover the inferior right chest. BONES: No acute osseous abnormality. IMPRESSION: Hyperinflation of the lungs, without consolidation, effusionor pneumothorax. THIS IS AN ELECTRONICALLY VERIFIED FINAL REPORT 11/14/2024 3:30 PM - Electronically signed by aMrta Farmer M.D. T: Report ID: [id number] Reading Location: [place] [address] [facility] Sheryl JIMENEZ IMG XR PROCEDURES Final Result * ECG 12 lead (11/14/2024 1:25 PM CDT) Ventricular Rate EKG/Min 76 BPM [facility] Atrial Rate 100 BPM [facility] QRS-Interval (MSEC) 134 ms [facility] QT-Interval (MSEC) 384 ms [facility] QTc 432 ms [facility] P [place] 62 degrees [facility] R [place] 248 degrees [facility] T [place] 56 degrees [facility] Diagnosis Ventricular-p aced rhythm Biventricular pacemaker detected Abnormal ECG When compared with ECG of 18-JUN-2023 14:33, Vent. rate has decreased BY 17 BPM Confirmed by JEFFERSON TAN M.D. ([id number]) on 11/14/2024 2:58:10 PM [facility] 11/14/2024 1:25 PM CDT 11/14/2024 2:58 PM CDT Yecenia Saucedo MD ECG ORDERABLES Final Result Performing Organization Address City/[facility]/ZIP Co de Phone Number [facility] * Troponin T high-sensitivity series (baseline, 2hr, 4hr, 6hr) (11/14/2024 1:23 PM CDT) Trop T hs 7 <=14 ng/L Comment: Interpretive Data For further hscTnT resources including the diagnostic algorithm and an aid in interpretation, copy and paste this link: https://nrl.testcatalog.org/show/hsTrop Current Interpretive Data last revised 2020. Blood 11/14/2024 1:23 PM CDT 11/14/2024 1:35 PM CDT Yecenia Saucedo MD LAB BLOOD ORDERABLES Final Res ult Performing Organization Address City/[facility] Co de Phone Number [facility] [address] [facility] Department [place] [address] * eGFR (11/14/2024 1:23 PM CDT) eGFR >90 >=60 mL/min/1. 73 m2 Comment: Interpretive Data Reference Interval Normal >/= 90 mL/min/1.73m2 Mildly decreased* 60 - 89 mL/min/1.73m2 Mildly to moderately decreased 45 - 59 mL/min/1.73m2 Moderately to severely decreased 30 - 44 mL/min/1.73m2 Severely decreased 15 - 29 mL/min/1.73m2 Kidney Failure < 15 mL/min/1.73m2 *Relative to young adult level Estimated glomerular filtration rate is determined by the 2020 CKD-EPI equation recommended by the National Kidney Foundation (A Unifying Approach to GFR Estimation: Recommendations of the NKF-ASK Task Force on Reassessing the Inclusion of Race in Diagnosing Kidney Disease, JASN 2020). The CKD-EPI equation should not be used for patients with unstable renal function and has not been validated in children and those over 70. Current interpretive data was last reviewed 2021. Blood 11/14/2024 1:23 PM CDT 11/14/2024 1:35 PM CDT Yecenia Saucedo MD LAB BLOOD ORDERABLES Final Res ult [facility] [address] [facility] Department [place] [address] * Differential, auto (11/14/2024 1:23 PM CDT) Pathologist [facility] Neutrophil abs 4.90 1.50 - 6.50 K/cumm Imm gran abs 0.02 0.00 - 0.10 K/cumm [facility] Lymphocyte abs 1.25 0.80 - 3.30 K/cumm [facility] Monocyte abs 0.56 0.20 - 0.80 K/cumm [facility] Eosinophil abs 0.03 0.00 - 0.50 K/cumm [facility] Basophil abs 0.02 0.00 - 0.10 K/cumm [facility] Neutrophil pct 72.3 % [facility] Comment: Interpretive Data Percent cell count reference ranges are not reported, since discordance with absolute values may lead to misinterpretation of CBC data. Current Interpretive Data was last revised on 2017. Imm gran pct 0.3 % [facility] Comment: Interpretive Data Percent cell count reference ranges are not reported, since discordance with absolute values may lead to misinterpretation of CBC data. Current Interpretive Data was last revised on 2017. Lymphocyte pct 18.4 % [facility] Comment: Interpretive Data Percent cell count reference ranges are not reported, since discordance with absolute values may lead to misinterpretation of CBC data. Current Interpretive Data was last revised on 2017. Monocyte pct 8.3 % [facility] Comment: Interpretive Data Percent cell count reference ranges are not reported, since discordance with absolute values may lead to misinterpretation of CBC data. Current Interpretive Data was last revised on 2017. Eosinophil pct 0.4 % [facility] Comment: Interpretive Data Percent cell count reference ranges are not reported, since discordance with absolute values may lead to misinterpretation of CBC data. Current Interpretive Data was last revised on 2017. Basophil pct 0.3 % [facility] Comment: Interpretive Data Percent cell count reference ranges are not reported, since discordance with absolute values may lead to misinterpretation of CBC data. Current Interpretive Data was last revised on 2017. Blood 11/14/2024 1:23 PM CDT 11/14/2024 1:35 PM CDT us Yecenia Saucedo MD LAB BLOOD ORDERABLES Final Res ult [facility] [address] [facility] Department [place] [address] * (ABNORMAL) CBC with auto differential (11/14/2024 1:23 PM CDT) WBC 6.78 3.80 - 9.90 K/cumm Hgb 11.7(L) 11.9 - 15.5 g/dL [facility] Hct 36.5 35.6 - 45.5 % [facility] Plt 243 150 - 400 K/cumm [facility] MPV 9.5 9.1 - 12.3 fL [facility] RBC 3.96 3.90 - 5.20 M/cumm [facility] MCV 92.2 81.3 - 96.4 fL [facility] MCH 29.5 27.1 - 33.3 pg [facility] MCHC 32.1(L) 32.3 - 35.7 g/dL [facility] RDW CV 13.3 11.1 - 14.9 % [facility] RDW SD 45.9 35.7 - 48.1 fL [facility] NRBC abs 0.00 0.00 - 0.01 K/cumm [facility] Blood Venous blood specimen / Unknown 11/14/2024 1:23 PM CDT 11/14/2024 1:35 PM CDT us Yecenia Saucedo MD LAB BLOOD ORDERABLES Final Res ult Performing Organization Address [facility]/ZIP Co de Phone Number [facility] [address] [facility] [employer] [address] * Comprehensive metabolic panel (11/14/2024 1:23 PM CDT) Sodium 140 135 - 145 mmol/L Potassium, pl 3.5 3.3 - 4.9 mmol/L [facility] Chloride 103 97 - 110 mmol/L [facility] CO2 29 22 - 32 mmol/L [facility] Anion gap 8 2 - 15 mmol/L [facility] BUN 20 6 - 25 mg/dL [facility] Creatinine 0.61 0.60 - 1.10 mg/dL [facility] Glucose 106 70 - 199 mg/dL [facility] Comment: Interpretive Data Fasting glucose >/= 126 mg/dl is diagnostic for diabetes. Fasting is defined as no caloric intake for at least 8 hours. Fasting glucose between 100 mg/dl to 125 mg/dl is diagnostic of prediabetes. In a patient with classic symptoms of hyperglycemia or hyperglycemic crisis, a random glucose >/= 200 mg/dl is diagnostic for diabetes. In the absence of unequivocal hyperglycemia, results should be confirmed by repeat testing. The classification and Diagnosis of Diabetes Diabetes Care 202; 46: S19-S40. Current interpretive data was last revised 2022. Calcium 10.0 8.5 - 10.3 mg/dL [facility] Bilirubin, total 0.3 0.1 - 1.2 mg/dL [facility] Protein, pl 6.9 6.5 - 8.5 g/dL [facility] Albumin 3.9 3.5 - 5.0 g/dL [facility] Alk phos 81 40 - 130 Units/L [facility] ALT 16 7 - 45 Units/L [facility] AST 18 10 - 45 Units/L [facility] Blood 11/14/2024 1:23 PM CDT 11/14/2024 1:35 PM CDT Yecenia Saucedo MD LAB BLOOD ORDERABLES Final Res ult Performing Organization Address [facility]/ZIP Co de Phone Number [facility] [address] [facility] [place] [address] from Last 3 Months Insurance T MEDICARE AET MEDICARE Advance Directives For more information, please contact: [phone] Documents on File Type Date Recorded Patient Assembler Expl anation ADVANCE DIRECTIVE 05/27/2015 12:00 AM [facility] [employer] ENGINEER FINANCIAL/MEDICAL ADVANCE DIRECTIVE 11/30/2014 12:00 AM FAITH REDDY WILL Care Teams Medical Support Specialist Relationship Specialty Start Date End Date Sapna Dumont MD PCP - General Family Medicine 12/28/20 Myron Martinez MD [address] [facility] [address] [place] [address] Child Abuse Worker Cardiology 06/18/18 Sara Ceballos Primary Power Brake Rebuilder Cardiology 06/18/18 Shelly Thomason, acoustical logging engineer Failure Coordinator Transplant 09/05/23 Kina Campbell, acoustical logging engineer Failure Coordinator Cardiology 01/01/24
--- OUTSIDE RECORDS SUMMARY | 2025-01-12 03:31 | XMS_ITS | Encounter Summary ---
Author Organization [facility] Address [address] [place] [address] Phone Care Team Providers Care Dairy Inspector Name Role Phone Beka Gonzales MD Primary Care Provider [phone] Myron Martinez MD Unavailable [phone] Susan Ramirez RN Unavailable [phone] Lisha Bob RN Unavailable [phone] Sara Ceballos Unavailable Unavailable Pooja Durán MD Primary Care Provider [phone] Sapna Dumont MD Primary Care Provider [phone] Shelly Thomason RN Unavailable Unavailable Shelly Thomason RN Unavailable Unavailable Shelly Thomason RN Unavailable Unavailable Kina Campbell RN Unavailable Unavailab le Encounter Details Date Type Department Care Team (Late st Contact Info) Description 11/10/2015 Orders Only [facility] CAR CLINCONV Provider, MD Vijay [address] [place] [address] Social History Tobacco Use Types Packs/Day Years Used Date Smoking Tobacco: Never Assessed Comments Unknown Sex and Gender Information Value Date Recorded Sex Assigned at Not on file Legal Sex Female 12:32 AM GLASS SELECTOR Gender Identity Female 11/24/2020 8:34 AM CDT Sexual Orientation Straight 11/24/2020 8: 34 AM CDT documented as of this encounter Plan of Treatment Not on file documented as of this encounter Procedures Procedure Name Priority Date/Time Associated Diagnosis Comments CARDIOLOGY REPORT 11/10/2015 documented in this encounter Results * CARDIOLOGY REPORT (11/10/2015) Anatomical Region Laterality Modality Other Narrative 11/10/2015 Ordered by an unspecified provider. us Historical Provider [facility] JOHN REYNOLDS Final Result documented in this encounter Visit Diagnoses Not on filedocumented in this encounter Care Teams Dairy Inspector Relationship Specialty Start Date End Date Beka Gonzales MD [address] [place] [address] PCP - General 12/12/16 10/20/18 Pooja Durán MD PCP - General Family Practice 10/21/18 12/27/20 Sapna Dumont MD PCP - General Family Medicine 12/28/20 Myron Martinez MD [address] [place] [address] Flat Screen Worker Cardiology 06/18/18 Susan Ramirez, RN [address] [facility] [address] [place] [address] Registered Nurse Cardiology 06/18/18 08/23/23 Lisha Bob, BROCK [address] [facility] [address] [place] [address] Registered Nurse Cardiology 06/18/18 04/26/22 Sara Ceballos Primary Family Medicine Chair Cardiology 06/18/18 Shelly Thomason, is consultantPrecision Optics Technician Cardiology 04/27/22 09/05/23 Shelly Thomason, shed workers supervisor Failure Coordinator 08/23/23 4 Shelly Thomason, shed workers supervisor Failure Coordinator Transplant 09/05/23 Kina Campbell shed workers supervisor Failure Coordinator Cardiology 01/01/24 documented as of this encounter
--- OUTSIDE RECORDS SUMMARY | 2025-01-12 03:31 | XMS_ITS | Clinical Summary ---
Author Organization [facility] [place] Address [address] [place] [address] Phone Care Team Providers Care Parachute Cushion Installer Name Role Phone Sapna Dumont MD Primary Care Provider [phone] Allergies Active Allergy Reactions Criticality Noted Date Comments Sulfa (Sulfonamide Antibiotics) Rash Low 01/04 Medications CALCIUM CARBONATE (CALCIUM 600 ORAL) 600 mg daily. + D. Active atorvastatin (LIPITOR) 20 mg Oral tablet 20 mg daily. Active MULTIVITAMINS WITH FLUORIDE (MULTI-VITAMIN ORAL) Active sodium chloride (JOSE 128) 2 % OP solution 1 Drop PRN. Active carvedilol (COREG) 12.5 mg tabletIndication s:Breast cancer, right ([facility]) 03/09/2014 Act [place] escitalopram oxalate (LEXAPRO) 10 mg tabletIndication s:Breast cancer, right ([facility]) 02/06/2014 Act [place] Active Problems Patient Care Coordination No te Formatting of this note migh t be different from the original. Primary Care: Beka Gonzales MD Referring Provider: B[place] [address] Other: [facility] pharm# [phone] Problem Noted Date Diagnosed Date Breast Cancer- 01/17/2010 Overview (01/20/2011): DANN patient 07/27/03 Stage IIA (T2 N0 Mx) IDC RIGHT breast ER 35% OR - HER2/jamal 2.7 Ki67 65% BRCA 1/2 NEGATIVE S/p lumpectomy and SLND AC x 4 S/p Radiation December 2003 ARIMIDEX x 5 years (BMD 2009) Assessment & Plan (07/24/2013 2:07 PM CRUDE TESTER): 10 years out mammo january Assessment & Plan (07/19/2012 11:18 AM CRUDE TESTER): 9 years out tonya Trice Osteopenia ROV 1 year CM from chemo PPM being replaced in Aug Assessment & Plan (07/14/2011 10:00 AM CRUDE TESTER): 8 years out Mammo in January BMD -penia CM from chemo ROV 1 year Assessment & Plan (01/20/2011 2:24 PM CDT): 7 1/2 years out mammo today negative; saw LAZARO BMD - osteopenia CM from chemo ROV 6 months Assessment & Plan (02/01/2010 2:37 PM CDT): 6 1/2 years out Off all meds for breast cancer [place]amm[place] last month negative ECHO stable (CM form chemo) BMD this year ROV 1 year Hyperlipidemia Osteopenia Pacemaker Resolved Problems Problem Noted Date Diagnosed Date Resolved Date Abnormal mammogram of left breast 03/28/2017 04/02/2018 Encounters Date Type Department Care Team Description 01/06/2025 External Device Data ST[facility] ABSTRACTION Provider, Abstract 12/30/2024 External Device Data [facility] ABSTRACTION Provider, Abstract 12/30/2024 External Device Data [facility] ABSTRACTION Provider, Abstract 12/24/2024 External Device Data [facility] ABSTRACTION Provider, Abstract 12/23/2024 External Device Data [facility] ABSTRACTION Provider, Abstract 10/28/2024 External Device Data [facility] ABSTRACTION Provider, Abstract 10/28/2024 External Device Data [facility] ABSTRACTION Provider, Abstract 10/28/2024 External Device Data [facility] ABSTRACTION Provider, Abstract from Last 3 Months Family History Medical History Relation Name Comments Healthy Daughter 1 Healthy Daughter 2 Other Father diabetic Breast Cancer Mother Lung Cancer Mother Breast Cancer Sister 1 Franci Healthy Sister 2 10 years younger Relation Name Status Comments Daughter 1 Alive Daughter 2 Alive Father Mother Sister 1 Franci Alive Sister 2 10 years younger Alive Sister 3 Alive Social History Tobacco Use Types Packs/Day Years Used Date Smoking Tobacco: Never Smokeless Tobacco: Never Alcohol Use Standard Drinks/Week Comments Yes 0 (1 standard drink = 0.6 oz pur e alcohol) moderate Comments No Sex and Gender Information Value Date Recorded Sex Assigned at Not on file Legal Sex Female 2:46 AM CRUDE TESTER Gender Identity Not on file Sexual Orientation Not on file Occupation Industry Job Start Date Job End Date Not on file Not on file Not on file Not on file Last Filed Vital Signs Vital Sign Reading Time Taken Comments Blood Pressure 112/65 04/02/2018 11:41 AM CDT Pulse 76 04/02/2018 11:41 AM CDT Temperature 36.7 C (98.1 F) 07/24/2013 2:12 PM CRUDE TESTER Respiratory Rate 16 07/24/2013 2:12 PM CRUDE TESTER Oxygen Saturation - - Inhaled Oxygen Concentration - - Weight 60.7 kg (133 lb 12.8 oz) 018 11:41 AM CDT Height 165.1 cm (5' 5) 04/02/2018 11:4 1 AM CDT Body Mass Index 22.27 04/02/2018 11:41 AM CDT Plan of Treatment Health Maintenance Due Date Last Done Comments OSTEOPOROSIS SCREENING 11/14/2012 DTAP/TDAP/TD VACCINES (1 - Tdap) 03/02/2021 03/01/20 21, 08/06/2011 RSV VACCINE (60+ or ) (1 - 1-dose 75+ series) 11/14/2022 INFLUENZA VACCINE (#1) 2024 0, 05/21/2014, 05/26/2008 PNEUMOCOCCAL VACCINE 50+ YEARS Completed 0 08/28/2016, 10/18/2015, 08/06/2009 ZOSTER VACCINE Completed 09/24/2021, 120 09/2020, 07/12/2012 Insurance [employer] O [facility] Care Teams Parachute Cushion Installer Relationship Specialty Start Date End Date Sapna Dumont MD [address] [place] [address] PCP - General Family Practice 03/31/21
--- OUTSIDE RECORDS SUMMARY | 2025-01-12 03:31 | XMS_ITS | Encounter Summary ---
Author Organization [facility] Address [address] [place] [address] Care Team Providers Care Crater And Packer Name Role Phone Unavailable Primary Care Provider Unavailabl e Encounter Details Date Type Department Care Team (Late st Contact Info) Description 03/06/2018 Lab Requisition [facility] Care DermPath Lab [address] [facility] [place] [address] Kaylah Santiago MD [address] [facility] [address] [place] [address] Social History Tobacco Use Types Packs/Day Years Used Date Smoking Tobacco: Never Assessed Comments Unknown Sex and Gender Information Value Date Recorded Sex Assigned at Not on file Legal Sex Female 6:22 PM LANGUAGE PATHOLOGIST Gender Identity Not on file Sexual Orientation Not on file documented as of this encounter Plan of Treatment Not on file documented as of this encounter Procedures Procedure Name Priority Date/Time Associated Diagnosis Comments DERMATOPATH TECHNICAL REPORT Routine 03/04/2018 12:00 AM CDT documented in this encounter Results * DERMATOPATH TECHNICAL REPORT (03/04/2018 12:00 AM CDT) Case Report Dermatopathology Report Case: [id number] Authorizing Provider: Kaylah Santiago MD Collected: 03/04/2018 12:00 AM Pathologist: Brandon Guardado MD Received: 03/06/2018 07:29 AM Specimen: Skin, right buttock 8 4:41 PM CDT DERMATOPATHOLOGY LABORATORY Addendum 1 At the request of the diagnosing physician, the technical component for [place] methenamine silver was performed by [facility] Dermatopathology. 8 4:41 PM CDT DERMATOPATHOLOGY LABORATORY Addendum electronically signed by Brandon Guardado MD on 03/08/2018 at 1641 CDT Clinical History Favor fixed drug vs ICD. 8 4:41 PM CDT DERMATOPATHOLOGY LABORATORY Gross Description Specimen A: Received is one formalin filled container labeled with the patient's name and designated right buttock. The specimen consists of a punch biopsy measuring 4x4x3 mm. Jar 0. [facility] Dermatopathology Laboratory performed the technical component only. 8 4:41 PM CDT DERMATOPATHOLOGY LABORATORY Embedded Images 8 4:41 PM CDT DERMATOPATHOLOGY LABORATORY DISCLAIMER An external and internal positive and negative controls are appropriate for the histochemical, immunohistochemical and immunofluorescence stain(s) in this case (if any), except where stated explicitly. The performance characteristics of the stain(s) cited in this report were developed and its performance characteristic determined by the Dermatopathology Laboratory at [facility]. These tests need not be, and therefore are not, approved by the [place] Food and Drug Administration. The tests are used for clinical purposes. 8 4:41 PM CDT DERMATOPATHOLOGY LABORATORY at 1028 CDT Pathology/Cytolog y TISSUE SPECIMEN FROM SKIN / Unknown 03/04/2018 03/06/2018 7:29 AM CDT Kaylah Santiago MD LAB - PATHOLOGY/CYTOLOGY ORD ERABLES Edited Result - Final DERMATOPATHOLOGY LABORATORY [facility] - Department of Dermatology [address] [place] [address], 5th [place] [address], [facility] [phone] documented in this encounter Visit Diagnoses Not on filedocumented in this encounter
--- OUTSIDE RECORDS SUMMARY | 2025-01-12 03:31 | XMS_ITS ---
Author Organization [facility] Address [address] [place] [address] Care Team Providers Care Ironworker Foreman Name Role Phone Myron Martinez MD Unavailable [phone] Sara Ceballos Unavailable Unavailable Sapna Dumont MD Primary Care Provider Shelly Thomason RN Unavailable Unavailable Kina Campbell RN Unavailable Unavailab le Active Problems Problem Noted Date Diagnosed Date Progressive supranuclear palsy 07/23/2024 Assessment & Plan (10/08/2024 6:06 PM CHERRY DIPPER): Mrs. Chambers is a very pleasant 78yo [...] antibody testing can be ordered or if [place] paraneoplastic panel is indicated. Plan: - Sleep study with sleep medicine - Continue levodopa 0.5 tabs TID - Start gabapentin: 300mg qHS 1 week -> 300mg BID 1 week , 300mg TID 1 week, touch base to discuss if it is working and any worsening lethargy - Exercise as able - IgLON5 antibody testing Assessment & Plan (07/23/2024 12:01 PM CHERRY DIPPER): Mrs. 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 Past Treatment and Therapy Plans No past plan information found. Lifetime Dose Tracking * Chemical Lifetime Dose Automatic Entry Manual Entr y Fluoro Time 1.332 minutes 1.332 minutes 0 minutes Air kerma at the reference point (Ka,r) 7.996 mGy 3 .21 mGy 4.786 mGy DLP 137 mGycm 137 mGycm 0 mGycm Resolved Problems Problem Noted Date Diagnosed Date Resolved Date Parkinson's disease ([facility]) 11/07/2023 07/23/2024 Parkinson disease 02/02/2021 07/23/2024 Assessment [...]
--- OUTSIDE RECORDS SUMMARY | 2025-01-12 03:31 | XMS_ITS | Clinical Summary ---
Author Organization [facility] Address [address] [place] [address] Care Team Providers Care Fund Accountant Name Role Phone Myron Martinez MD Unavailable [phone] Sara Ceballos Unavailable Unavailable Sapna Dumont MD Primary Care Provider [phone] Shelly Thomason RN Unavailable Unavailable Kina Campbell RN Unavailable Unavailab le Allergies Active Allergy Reactions Criticality Noted Date [...] 5 days While on narcotics 10 tablet 3 Active Additional Information Patient not taking.Reported on [...] 07/23/2024 Assessment & Plan (10/08/2024 6:06 PM CLINICAL SALES CONSULTANT): Mrs. Chambers is a very pleasant 78yo [...] antibody testing can be ordered or if [place] paraneoplastic panel is indicated. Plan: - Sleep study with sleep medicine - Continue levodopa 0.5 tabs TID - Start gabapentin: 300mg qHS 1 week -> 300mg BID 1 week , 300mg TID 1 week, touch base to discuss if it is working and any worsening lethargy - Exercise as able - IgLON5 antibody testing Assessment & Plan (07/23/2024 12:01 PM CLINICAL SALES CONSULTANT): Mrs. 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 Encounters Date Type Department Care Team Description 01/06/2025 1:00 PM CDT Office Visit [facility] Cardiology [facility] 8th [place] [address] [place] [address] Myron Martinez MD Chronic combined systolic and diastolic congestive heart failure (HCC) (Primary Dx); Dilated cardiomyopathy (HCC) 12/28/2024 Telephone [facility] Cardiology [facility] 8th [place] [address] [place] [address] Sumeet Ortiz MD PhD ICD Check 12/26/2024 Telephone [facility] Cardiology [address] [place] [address] 8th [place] [address] [place] [address] Diana Deanna 11/19/2024 Telephone [facility] Cardiology [address] [place] [address] [place] [address] [place] [address] Sumeet Ortiz MD PhD 11/18/2024 8:00 AM CDT Ancillary Procedure [facility] Cardiology [facility] access hospital[facility] [address] [address] Chronic combined systolic and diastolic heart failure (HCC) 11/14/2024 4:36 PM CDT - 11/14/2024 8:19 PM CDT Emergency [address] [address] Yecenia Saucedo MD Chest wall pain (Primary Dx) Discharge Disposition: Discharge to home or self care 10/28/2024 Telephone [facility] Scheduling [facility] [place] [address] Kamran Garcia NP Scheduling Appointments 10/14/2024 8:00 AM CDT Ancillary Procedure [facility] Cardiology Critical access hospital[facility] [address] [address] Chronic combined systolic and diastolic heart failure (HCC) 10/14/2024 Orders Only [facility] Movement Disorders [address] [place] [address] [address] [place] [address] Tosha Angulo MD PhD Progressive supranuclear palsy (HCC) (Primary Dx); Small fiber neuropathy; Parkinson's disease with dyskinesia, unspecified whether manifestations fluctuate (HCC) from Last 3 Months Immunizations Immunization Administration Dates Next Due Influenza, Quadrivalent, Hig h Dose, Preservative Free, Intrr 04/12/2020 Influenza, Trivalent, IM (MDV) 05/21/2014 Influenza, Trivalent, Preservative Free, Intramu scular 05/26/2008 Pneumococcal Conjugate PCV 13 10/18/2015 Pneumococcal Polysaccharide PPV23 08/28/2016,08/2009 TD Preservative Free 03/01/2021,08/06/2011 ZOSTER LIVE 07/12/2012 ZOSTER Recombinant 09/24/2021,07/07/2021 Surgical History Surgery Date Site/Laterality Comments CARDIAC DEFIBRILLATOR PLACEMENT 11/05/2006, 10/07/2012 BREAST LUMPECTOMY 08/06/2012 - 08/05/2013 Right COLONOSCOPY x2 OVARIAN CYST SURGERY 08/06/1978 - 08/05/1979 CATARACT EXTRACTION W/ INTRA OCULAR LENS IMPLANT 2000's Bilateral INSERT / REPLACE / REMOVE PACEMAKER 08/06/2021 - 022 Medical History Medical History Date Comments 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.] on file Legal Sex Female 12:32 AM CLINICAL SALES CONSULTANT Gender Identity Female 11/24/2020 8:34 AM CDT Sexual Orientation Straight 11/24/2020 8: 34 AM CDT Obstetrics History Last Filed Vital Signs Vital Sign Reading [...] 01/06/2025 12:52 PM CDT Plan of Treatment Health Maintenance Due Date Last Done Comments Hepatitis C Screening 1945 Osteoporosis Screening-Bone Density Scan 1945 Hepatitis B Screening 11/14/1965 Well Visit 65+ 11/14/2012 DTaP/Tdap/Td Vaccine (1 - Tdap) 03/02/2021 , 08/06/2011 Covid-19 Vaccine (6 2023-2 5 season) 2024 07/17/2022, 12/07/2021, 06/03/2021, Additional history exists Fall Risk Assessment 06/20/2024 06/20/2023 Influenza Vaccine (Season Ended) 2025 04/13/2023, 04/12/2020, 05/21/2014, Additional history exists Depression Screening 10/08/2025 10/08/2024 Pneumococcal vaccine 65+ Completed 017, 10/18/2015, 08/06/2009 Zoster Vaccine Completed 09/24/2021, 12/09/2020, 07/12/2012 Breast Cancer Screening-Mammogram Discontinued 04/16/2024, 04/16/2024, 04/05/2021, Additional history exists Medical Devices Implanted Type Area Supervisor Framing Mill Device Identifier Shelf Expiration Date Model / Serial / Lot [employer] C.R.M. G126 Defibrillator Cardiac Resynchronization Therapy Defibrillator Momentum Lv1 - [id number] - [id number] Implanted:Qty: 1 on 11/08/2021 by Sumeet Ortiz MD PhD at [facility] ICD [employer] C.R.M. 09/27/2023 G126 / [id number] / [employer] Ra Lead 4470 Lead Heart [employer] C.R.M. 4470 / [id number] / [employer] Rv Lead 0185 Lead Heart [employer] C.R.M. 0185 / [id number] / [employer] Lv Lead 4518 Lead Heart [employer] C.R.M. 4518 / [id number] / Synthes Implant Bone Plate Compression Locking 20 Hole Lcp 2.7mm [id number] - S0 - [id number] Implanted:Qty: 1 on 06/20/2023 by Primitivo Clayton MD at [facility] Plate Right: Olecranon Synthes I 04/05/2033 02.247.3 90S / 0 / [id number] Synthes Lcp 59mm 7 Hole Shaft Low Profile Cut To Length Condylar Plate 249.679 - S0 - [id number] Implanted:Qty: 1 on 06/20/2023 by Primitivo Clayton MD at [facility] Plate Right: Olecranon Synthes I 249.679 / 0 / Synthes 2.7mm 5mm 16mm 2.5mm Self Tap Stardrive Cortical T8 Screw Bone 202.876 - S0 - [id number] Implanted:Qty: 1 on 06/20/2023 by Primitivo Clayton MD at [facility] Screw Right: Olecranon Synthes I 202.876 / 0 / Synthes 2.7mm 5mm 14mm 2.5mm Self Tap Stardrive Cortical T8 Screw Bone 202.874 - S0 - [id number] Implanted:Qty: 1 on 06/20/2023 by Primitivo Clayton MD at [facility] Screw Right: Olecranon Synthes I 202.874 / 0 / Synthes 2.7mm 5mm 28mm 2.5mm Self Tap St[employer]rive Cortical T8 Screw Bone 202.888 - S0 - [id number] Implanted:Qty: 1 on 06/20/2023 by Primitivo Clayton MD at [facility] Screw Right: Olecranon Synthes I 202.888 / 0 / Synthes 2.4mm 18mm Self Tap Stardrive Cortex T8 Screw Bone 201.768 - S0 - [id number] Implanted:Qty: 3 on 06/20/2023 by Primitivo Clayton MD at [facility] Screw Right: Olecranon Synthes I 201.768 / 0 / Synthes 2.4mm 20mm Self Tap Stardrive Cortex T8 Screw Bone 201.770 - S0 - [id number] Implanted:Qty: 2 on 06/20/2023 by Primitivo Clayton MD at [facility] Screw Right: Olecranon Synthes I 201.770 / 0 / Synthes 2.4mm 1.9mm 20mm Self Tap Lock Stardrive Conical Head T8 Screw 212.820 - S0 - [id number] Implanted:Qty: 2 on 06/20/2023 by Primitivo Clayton MD at [facility] Screw Right: Olecranon Synthes I 212.820 / 0 / Synthes 2.4mm 1.9mm 28mm Self Tap Lock Stardrive Conical Head T8 Screw 212.828 - S0 - [id number] Implanted:Qty: 1 on 06/20/2023 by Primitivo Clayton MD at [facility] Screw Right: Olecranon Synthes I 212.828 / 0 / Synthes 2.4mm 1.9mm 18mm Self Tap Lock Stardrive Conical Head T8 Screw 212.818 - S0 - [id number] Implanted:Qty: 1 on 06/20/2023 by Primitivo Clayton MD at [facility] Screw Right: Olecranon Synthes I 212.818 / 0 / Synthes 2.4mm 1.9mm 10mm Self Tap Lock Stardrive Conical Head T8 Screw 212.810 - S0 - [id number] Implanted:Qty: 1 on 06/20/2023 by Primitivo Clayton MD at [facility] Screw Right: Olecranon Synthes I 212.810 / 0 / Synthes 2.7mm 5mm 44mm 2.5mm Self Tap Stardrive Cortical T8 Screw Bone 202.963 - S0 - [id number] Implanted:Qty: 1 on 06/20/2023 by Primitivo Clayton MD at [facility] Screw Right: Olecranon Synthes I 202.963 / 0 / Synthes Screw Bone Cortical Solid St Full Thread Locking 2.7x90mm 02..990 - S0 - [id number] Implanted:Qty: 1 on 06/20/2023 by Primitivo Clayton MD at [facility] Screw Right: Olecranon Synthes I 202.9 90 / 0 / Synthes 2.7mm 5mm 26mm 2.5mm Self Tap Stardrive Cortical T8 Screw Bone 202.886 - S0 - [id number] Implanted:Qty: 1 on 06/20/2023 by Primitivo Clayton MD at [facility] Screw Right: Olecranon Synthes I 202.886 / 0 / Synthes 2.7mm 5mm 20mm 2.5mm Self Tap Stardrive Cortical T8 Screw Bone 202.880 - S0 - [id number] Implanted:Qty: 1 on 06/20/2023 by Primitivo Clayton MD at [facility] Screw Right: Olecranon Synthes I 202.880 / 0 / Explanted Type Area Supervisor Framing Mill Device Identifier Shelf Expiration Date Model / Serial / Lot Pacemaker/Icd -10/07/2012 Implanted:Qty : 1 on 10/07/2012 Explanted:Qty : 1 on 11/08/2021 Left: Chest [employer] Synthes 2.4mm 1.9mm 20mm Self Tap Lock Stardrive Conical Head T8 Screw 212.820 - [id number] Explanted:Qty : 1 on 06/20/[address] [facility] Right: Olecranon Synthes I 212.820 / / Procedures Procedure Name Priority Date/Time Associated Diagnosis Comments CT CHEST PE W CONTRAST ED 6:49 PM CDT D-DIMER, QUANTITATIVE STAT 11/14/2024 [...] Mike Edmond M.D. KH T: Report ID: [id number] Reading Location: [id number] Procedure Note Mike Edmond MD - 11/14/2024 [...] Mike Edmond M.D. KH T: Report ID: [id number] Reading Location: [id number] Yecenia Saucedo MD IMG CT PROCEDURES Final [...] MD LAB BLOOD ORDERABLES Final Res ult [facility] [address] [facility] Department [place] [address] * Troponin T high-sensitivity 4-hour (11/14/2024 5:34 PM CDT) Trop T hs 7 <=14 ng/L Comment: Interpretive Data For further hscTnT resources including the diagnostic algorithm and an aid in interpretation, copy and paste this link: https://nrl.testcatalog.org/show/hsTrop Current Interpretive Data last revised 2020. Trop T hs delta 0 ng/L BARBER Trop T hs interp Insignificant BARBER Blood 11/14/2024 5:34 PM CDT 11/14/2024 5:36 PM CDT us Yomaira CHRISTINE LAB BLOOD ORDERABLES Final Resul t BARBER MORAES [address] [facility] Department [place] [address] * XR Chest 1 Vw Portable (if [...] administered 324mg ASA and 1x 0.1mg nitroglycerin NEON TUBE PUMPER. TECHNIQUE: PA upright radiographic view(s) of the [...] Marta Farmer M.D. TW T: Report ID: [id number] Reading Location: [id number] Procedure Note Marta Farmer MD - 11/14/2024 [...] administered 324mg ASA and 1x 0.1mg nitroglycerin NEON TUBE PUMPER. TECHNIQUE: PA upright radiographic view(s) of the [...] Marta Farmer M.D. TW T: Report ID: [id number] Reading Location: [place] [address] Yecenia Saucedo MD IMG XR PROCEDURES Final Result * ECG 12 lead (11/14/2024 1:25 PM CDT) Ventricular Rate EKG/Min 76 BPM [facility] Atrial Rate 100 BPM [facility] QRS-Interval (MSEC) 134 ms [facility] QT-Interval (MSEC) 384 ms [facility] QTc 432 ms [facility] P [place] 62 degrees [facility] R [place] 248 degrees [facility] T [place] 56 degrees [facility] Diagnosis Ventricular-p aced rhythm Biventricular pacemaker detected Abnormal ECG When compared with ECG of 18-JUN-2023 14:33, Vent. rate has decreased BY 17 BPM Confirmed by JEFFERSON TAN M.D. ([id number]) on 11/14/2024 2:58:10 PM [facility] 11/14/2024 1:25 PM CDT 11/14/2024 2:58 PM CDT us Yecenia Saucedo MD ECG ORDERABLES Final Result [facility] * Troponin T high-sensitivity series (baseline, 2hr, [...] MD LAB BLOOD ORDERABLES Final Res ult BARBER [facility] Department of Laboratories [place] [id number] * eGFR (11/14/2024 1:23 PM CDT) eGFR [...] MD LAB BLOOD ORDERABLES Final Res ult [facility] [address] [facility] [place] [address] * Differential, auto (11/14/2024 1:23 PM CDT) Neutrophil abs 4.90 1.50 - 6.50 K/cumm Imm gran abs 0.02 0.00 - 0.10 K/cumm [facility] Lymphocyte abs 1.25 0.80 - 3.30 K/cumm [facility] Monocyte abs 0.56 0.20 - 0.80 K/cumm [facility] Eosinophil abs 0.03 0.00 - 0.50 K/cumm [facility] Basophil abs 0.02 0.00 - 0.10 K/cumm [facility] Neutrophil pct 72.3 % [facility] Comment: Interpretive Data Percent cell count reference ranges are not reported, since discordance with absolute values may lead to misinterpretation of CBC data. Current Interpretive Data was last revised on 2017. Imm gran pct 0.3 % [facility] Comment: Interpretive Data Percent cell count reference ranges are not reported, since discordance with absolute values may lead to misinterpretation of CBC data. Current Interpretive Data was last revised on 2017. Lymphocyte pct 18.4 % [facility] Comment: Interpretive Data Percent cell count reference ranges are not reported, since discordance with absolute values may lead to misinterpretation of CBC data. Current Interpretive Data was last revised on 2017. Monocyte pct 8.3 % [facility] Comment: Interpretive Data Percent cell count reference ranges are not reported, since discordance with absolute values may lead to misinterpretation of CBC data. Current Interpretive Data was last revised on 2017. Eosinophil pct 0.4 % [facility] Comment: Interpretive Data Percent cell count reference ranges are not reported, since discordance with absolute values may lead to misinterpretation of CBC data. Current Interpretive Data was last revised on 2017. Basophil pct 0.3 % [facility] Comment: Interpretive Data Percent cell count reference ranges are not reported, since discordance with absolute values may lead to misinterpretation of CBC data. Current Interpretive Data was last revised on 2017. Blood 11/14/2024 1:23 PM CDT 11/14/2024 1:35 PM CDT Yecenia Saucedo MD LAB BLOOD ORDERABLES Final Res ult Performing Organization Address City/[facility] Co de Phone Number [facility] [place] [place] [address] * (ABNORMAL) CBC with auto differential (11/14/2024 1:23 PM CDT) WBC 6.78 3.80 - 9.90 K/cumm Hgb 11.7(L) 11.9 - 15.5 g/dL [facility] Hct 36.5 35.6 - 45.5 % [facility] Plt 243 150 - 400 K/cumm [facility] MPV 9.5 9.1 - 12.3 fL [facility] RBC 3.96 3.90 - 5.20 M/cumm [facility] MCV 92.2 81.3 - 96.4 fL [facility] MCH 29.5 27.1 - 33.3 pg [facility] MCHC 32.1(L) 32.3 - 35.7 g/dL [facility] RDW CV 13.3 11.1 - 14.9 % [facility] RDW SD 45.9 35.7 - 48.1 fL [facility] NRBC abs 0.00 0.00 - 0.01 K/cumm [facility] Blood Venous blood specimen / Unknown 11/14/2024 1:23 PM CDT 11/14/2024 1:35 PM CDT Yecenia Saucedo MD LAB BLOOD ORDERABLES Final Res ult Performing Organization Address City/[facility]/ZIP Co de Phone Number [facility] [address] Department [place] [address] * Comprehensive metabolic panel (11/14/2024 1:23 PM CDT) Sodium 140 135 - 145 mmol/L Potassium, pl 3.5 3.3 - 4.9 mmol/L [facility] Chloride 103 97 - 110 mmol/L [facility] CO2 29 22 - 32 mmol/L [facility] Anion gap 8 2 - 15 mmol/L [facility] BUN 20 6 - 25 mg/dL [facility] Creatinine 0.61 0.60 - 1.10 mg/dL [facility] Glucose 106 70 - 199 mg/dL [facility] Comment: Interpretive Data Fasting glucose >/= [...] classification and Diagnosis of Diabetes Diabetes Care 2021; 46: S19-S40. Current interpretive data was last revised 2022. Calcium 10.0 8.5 - 10.3 mg/dL [facility] Bilirubin, total 0.3 0.1 - 1.2 mg/dL [facility] Protein, pl 6.9 6.5 - 8.5 g/dL [facility] Albumin 3.9 3.5 - 5.0 g/dL [facility] Alk phos 81 40 - 130 Units/L [facility] ALT 16 7 - 45 Units/L [facility] AST 18 10 - 45 Units/L [facility] Blood 11/14/2024 1:23 PM CDT 11/14/2024 1:35 PM CDT Yecenia Saucedo MD LAB BLOOD ORDERABLES Final Res ult BARBER [address] [facility] Department [place] [address] from Last 3 Months Insurance T MEDICARE T MEDICARE Advance Directives For more information, please contact: [phone] Documents on File Type Date Recorded Patient Logistics Tech Expl anation ADVANCE DIRECTIVE 05/27/2015 12:00 AM [facility]LEMA ER OF OIL PIT ATTENDANT FINANCIAL/MEDICAL ADVANCE DIRECTIVE 11/30/2014 12:00 AM FAITH REDDY WILL Care Teams Fund Accountant Relationship Specialty Start Date End Date Sapna Dumont MD PCP - General Family Medicine 12/28/20 Myron Martinez MD [address] [place] [address] Prosthetic Aides Teacher Cardiology 06/18/18 Sara Ceballos Primary Electrotyper Cardiology 06/18/18 Shelly Thomason, lock tender Failure Coordinator Transplant 09/05/23 Kina Campbell, lock tender Failure Coordinator Cardiology 01/01/24
--- OUTSIDE RECORDS SUMMARY | 2025-01-12 03:31 | XMS_ITS | Encounter Summary ---
Author Organization [facility] Address [address] [facility] [place] [address] Care Team Providers Care Radiology Assistant Name Role Phone Unavailable Primary Care Provider Unavailabl e Encounter Details Date Type Department Care Team (Late st Contact Info) Description 03/31/2024 Lab Requisition [facility] - DermPath Lab [address] [facility], [facility] [place] [phone] Kaylah Santiago MD [address] [facility] [address] [place] [address] Social History Tobacco Use Types Packs/Day Years Used Date Smoking Tobacco: Never Assessed Comments Unknown Sex and Gender Information Value Date Recorded Sex Assigned at Not on file Legal Sex Female 6:22 PM POLYSOMNOGRAPHY TECHNOLOGIST Gender Identity Not on file Sexual Orientation Not on file documented as of this encounter Plan of Treatment Not on file documented as of this encounter Procedures Procedure Name Priority Date/Time Associated Diagnosis Comments DERMATOPATHOLOGY Routine 03/31/2024 11:2 1 AM CDT documented in this encounter Results * DERMATOPATHOLOGY (03/31/2024 11:21 AM CDT) Case Report Dermatopathology Report Case: [id number] Authorizing Provider: Kaylah Santiago MD Collected: 03/31/2024 11:21 AM Ordering Location: [facility] - Received: 03/31/2024 05:01 PM DermPath Lab Pathologist: Angela Pearson MD Specimen: Skin, right index finger 3:09 PM CDT DERMATOPATHOLOGY LABORATORY Final Diagnosis Specimen A. SKIN, right index finger: HEALING SKIN CHANGES, ERODED (L90.5) (see microscopic description and comment) 3:09 PM CDT DERMATOPATHOLOGY LABORATORY at 1509 CDT Clinical History Eroded papule at nail fold pg cyst no atypia 4 3:09 PM CDT DERMATOPATHOLOGY LABORATORY Gross Description Specimen A: Received is one formalin filled container labeled with the patient's name and designated right index finger. The specimen consists of a non-oriented ellipse of skin measuring 6x3x1 mm. The epidermal surface is unremarkable. The margin is inked green. The 12 o'clock and 6 o'clock tips are submitted in cassette 1. The remainder of the ellipse is serially sectioned and submitted in cassette 2. Jar 0. 4 3:09 PM CDT DERMATOPATHOLOGY LABORATORY Microscopic Description Specimen A. SKIN, right index finger: There is epidermal hyperplasia beneath which there are vascular proliferation, fibroblasts, and an edematous stroma. There is a focal epidermal erosion. Additional deeper sections were obtained and reviewed. COMMENT: Given the superficial nature of the biopsy specimen, a deeper dermal process cannot be excluded. 4 3:09 PM CDT DERMATOPATHOLOGY LABORATORY Disclaimer An external and internal positive and negative controls are appropriate for the histochemical, immunohistochemical and immunofluorescence stain(s) in this case (if any), except where stated explicitly. The performance characteristics of the stain(s) cited in this report were developed and its performance characteristic determined by the Dermatopathology Laboratory at [facility], directed by Dr. Chandu Guardado. These tests need not be, and therefore are not, approved by the [place] Food and Drug Administration. The tests are used for clinical purposes. Billing Codes Specimen Charges Stain Charges 79286 1 4 3:09 PM CDT DERMATOPATHOLOGY LABORATORY Embedded Images 4 3:09 PM CDT DERMATOPATHOLOGY LABORATORY Pathology/Cytolo gy TISSUE SPECIMEN FROM SKIN / Unknown 03/31/2024 11:21 AM CDT 03/31/2024 5:01 PM CDT us Kaylah Santiago MD LAB - PATHOLOGY/CYTOLOGY ORD ERABLES Final Result DERMATOPATHOLOGY LABORATORY [facility] - Department of Dermatology [address], [address] [phone] documented in this encounter Visit Diagnoses Not on filedocumented in this encounter
--- OUTSIDE RECORDS SUMMARY | 2025-01-12 03:31 | XMS_ITS | Encounter Summary ---
Author Organization [facility] Address [address] [place] [address] Phone Care Team Providers Care Resource Recovery Engineer Name Role Phone Beka Gonzales MD Primary Care Provider [phone] Myron Martinez MD Unavailable [phone] Susan Ramirez RN Unavailable [phone] Lisha Bob RN Unavailable [phone] Sara Ceballos Unavailable Unavailable Pooja Durán MD Primary Care Provider [phone]- [phone] Sapna Dumont MD Primary Care Provider [phone] Shelly Thomason RN Unavailable Unavailable Shelly Thomason RN Unavailable Unavailable Shelly Thomason RN Unavailable Unavailable Kina Campbell RN Unavailable Unavailab le Encounter Details Date Type Department Care Team (Late st Contact Info) Description 11/04/2014 Orders Only [facility] CLINCONV Provider, MD Vijay [address] [place] [address] Social History Tobacco Use Types Packs/Day Years Used Date Smoking Tobacco: Never Assessed Comments Unknown Sex and Gender Information Value Date Recorded Sex Assigned at Not on file Legal Sex Female 12:32 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 us Historical Provider [facility] JOHN REYNOLDS Final Result documented in this encounter Visit Diagnoses Not on filedocumented in this encounter Care Teams Resource Recovery Engineer Relationship Specialty Start Date End Date Beka Gonzales MD [address] [place] [address] PCP - General 12/12/16 10/20/18 Pooja Durán MD PCP - General Family Practice 10/21/18 12/27/20 Sapna Dumont MD PCP - General Family Medicine 12/28/20 Myron Martinez MD [address] [place] [address] Solutions Specialist Cardiology 06/18/18 Susan Ramirez, RN [address] [facility] [address] [place] [address] Registered Nurse Cardiology 06/18/18 08/23/23 Lisha Bob, BROCK [address] [facility] [address] [place] [address] Registered Nurse Cardiology 06/18/18 04/26/22 Sara Ceballos Primary Credit Associate Cardiology 06/18/18 Shelly Thomason, digital photographerSide Laster Staple Cardiology 04/27/22 09/05/23 Shelly Thomason, electrical subcontractor Failure Coordinator 08/23/23 4 Shelly Thomason, electrical subcontractor Failure Coordinator Transplant 09/05/23 Kina Campbell electrical subcontractor Failure Coordinator Cardiology 01/01/24 documented as of this encounter
--- OUTSIDE RECORDS SUMMARY | 2025-01-12 03:31 | XMS_ITS | Encounter Summary ---
Author Organization [facility] Address [address] [facility] [place] [address] Care Team Providers Care Meat Seafood Associate Name Role Phone Unavailable Primary Care Provider Unavailabl e Encounter Details Date Type Department Care Team (Late st Contact Info) Description 03/28/2023 Lab Requisition [facility] - DermPath Lab [address] [facility], [facility] [place] [address] Kaylah Santiago MD [address] [facility] [address] [place] [address] Social History Tobacco Use Types Packs/Day Years Used Date Smoking Tobacco: Never Assessed Comments Unknown Sex and Gender Information Value Date Recorded Sex Assigned at Not on file 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 Gender Identity Not on file Sexual Orientation Not on file documented as of this encounter Plan of Treatment Not on file documented as of this encounter Procedures Procedure Name Priority Date/Time Associated Diagnosis Comments DERMATOPATHOLOGY Routine 03/28/2023 2:37 PM CDT documented in this encounter Results * DERMATOPATHOLOGY (03/28/2023 2:37 PM CDT) Case Report Dermatopathology Report Case: [id number] Authorizing Provider: Kaylah Santiago MD Collected: 03/28/2023 02:37 PM Ordering Location: [facility] DermPath Lab Received: 03/30/2023 07:13 AM Pathologist: Tiffanie Rodriguez MD Specimen: Skin, lower back 3:57 PM CDT DERMATOPATHOLOGY LABORATORY Final Diagnosis Specimen A. SKIN, lower back: HEALING SKIN CHANGES (L90.5) DILATED PORE OF DANIELLE (L70.8) 3:57 PM CDT DERMATOPATHOLOGY LABORATORY at 1557 CDT Clinical History CYST CRUSTED PAPULE R/O SCC, SK 3 3:57 PM CDT DERMATOPATHOLOGY LABORATORY Gross Description Specimen A: Received is one formalin filled container labeled with the patient's name and designated lower back. The specimen consists of a shave biopsy measuring 10x8x2 mm. Jar 0. 3 3:57 PM CDT DERMATOPATHOLOGY LABORATORY Microscopic Description Specimen A. SKIN, lower back: There is epidermal hyperplasia beneath which there are vascular proliferation, fibroblasts, and an edematous stroma. There is a central, broad epidermal invagination lined by epithelium with a prominent rete pattern. 3 3:57 PM CDT DERMATOPATHOLOGY LABORATORY Disclaimer An external and internal positive and negative controls are appropriate for the histochemical, immunohistochemical and immunofluorescence stain(s) in this case (if any), except where stated explicitly. The performance characteristics of the stain(s) cited in this report were developed and its performance characteristic determined by the Dermatopathology Laboratory at [facility], directed by Dr. Chandu Guardado. These tests need not be, and therefore are not, approved by the [place] Food and Drug Administration. The tests are used for clinical purposes. Billing Codes Specimen Charges Stain Charges 51199 1 3 3:57 PM CDT DERMATOPATHOLOGY LABORATORY Embedded Images 3 3:57 PM CDT DERMATOPATHOLOGY LABORATORY Pathology/Cytolo gy TISSUE SPECIMEN FROM SKIN / Unknown 03/28/2023 2:37 PM CDT 03/30/2023 7:13 AM CDT us Kaylah Santiago MD LAB - PATHOLOGY/CYTOLOGY ORD ERABLES Final Result DERMATOPATHOLOGY LABORATORY [facility] - Department of Dermatology [address] [phone] documented in this encounter Visit Diagnoses Not on filedocumented in this encounter
--- OUTSIDE RECORDS SUMMARY | 2025-01-12 03:31 | XMS_ITS | Continuity of Care Document ---
Author Organization [facility] Address [address] [place] [address] Phone Care Team Providers Care Pattern Generator Operator Name Role Phone Angel Callahan Unavailable Unavailable [...] Pack Therapeutic Activities Neuromuscular Re-Ed Therapeutic Exercise Hot or Cold Pack Manual Therapy Therapeutic [...] Diagnoses Date Provider Providers Copied on Encounter [facility] [place] [address], [place], [place], [id number], tel:[phone] [place] No Information 4 Pernell Ortiz. . Referring Provider: Primitivo Clayton [facility] 6th floor [address], [place], [address]. tel:[phone] [facility] [facility] [employer] [address], [place], [place], [id number], tel:[phone] [place] No Information 4 Pernell Angel. . Referring Provider: Kyra Dupont [address], [place], [address]. tel:[phone] [place] [address], [address], [place], [place], [id number], [place] tel:[phone] [place] No Information 4 Pernell Jerniganyne. . Referring Provider: Kyra Dupont [address], [place], [address]. tel:[phone] [facility], [address], [place], [place], [id number], [place] tel:[phone] [place] No Information 4 Pernell Jerniganyne. . Referring Provider: Kyra Dupont [address], [place], [address]. tel:[phone] [place] [address], [address], [place], [place], [id number], [place] tel:[phone] [place] No Information 4 Pernell Jerniganyne. . Referring Provider: Kyra Dupont [address], [place], [address]. tel:[phone] [facility], [address], [place], [place], [id number], [place] tel:[phone] [place] No Information 4 Pernell Jerniganyne. . Referring Provider: Krya Dupont [address], [place], [address]. tel:[phone] [facility], [address], [place], [place], [id number], [place] tel:[phone] [place] No Information 4 Pernell Jerniganyne. . Referring Provider: Kyra Dupont [address], [place], [address]. tel:[phone] [facility], [address], [place], [place], [address], [place] tel:[phone] [place] No Information Aug-0 5- 4 Pernell Angel. . Referring Provider: Kyra Dupont [address], [place], [address]. tel:[phone] [place] [address], [address] [place], [place] [address], [place], [place], [address], [place] tel:[phone] [place] No Information Aug-0 3-202 4 Pernell Angel. . Referring Provider: Kyra Dupont [address], [place], [address]. tel:[phone] [place] [address], [place], [address], [place] tel:[phone] [place] No Information Dec-2 - 3 Pernell Angel. . Referring Provider: Kyra Dupont [address], [place], [address]. tel:[phone] [place] [address], [address] [place], [place] [address] [address], [place], [place], [id number], [place] tel:[phone] [place] No Information Dec-2 7- 3 Pernell Angel. . Referring Provider: Kyra Dupont [address], [place], [address]. tel:[phone] [place] [address], [place], [place], [id number], [place] tel:[phone] [place] No Information Dec-2 2-202 3 Pernell Angel. . Referring Provider: Kyra Dupont [address], [place], [address]. tel:[phone] [facility], [facility] [address], [place], [place], [address], [place] tel:[phone] [place] No Information Dec-2 0-202 3 Pernell Angel. . Referring Provider: Kyra Dupont [address], [place], [address]. tel:[phone] [facility], [address] [facility] [address], [place], [place], [id number], tel:[phone] [place] No Information 3 Pernell Ortiz. . Referring Provider: Primitivo Clayton [address] [facility] 6th floor [address], [place], [address]. tel:[phone] [facility], [address] [facility] [address], [place], [place], [id number], tel:[phone] [place] No Information 3 Pernell Ortiz. . Referring Provider: Primitivo Clayton [address] [facility] 6th floor [address], [place], [address]. tel:[phone] Family History Family Member Type Diagnosis Age At Onset No Information Payers Payer name Insurance type Covered green party ID Rogelio burciaga(s) [employer] Medicare Replacement CI [id number] Social History Type Description Quantity Date Captured [...]
--- OUTSIDE RECORDS SUMMARY | 2025-01-12 03:31 | XMS_ITS | Encounter Summary ---
Author Organization [facility] Address 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
--- OUTSIDE RECORDS SUMMARY | 2025-01-12 03:31 | XMS_ITS | Encounter Summary ---
Author Organization [facility] Address [address] [place] [address] Phone Care Team Providers Care Contract Clerk Automobile Name Role Phone Beka Gonzales MD Primary Care Provider [phone] Myron Martinez MD Unavailable [phone] Susan Ramirez RN Unavailable [phone] Lisha Bob RN Unavailable [phone] Sara Ceballos Unavailable Unavailable Pooja Durán MD Primary Care Provider [phone] Sapna Dumont MD Primary Care Provider [phone] Shelly Thomason RN Unavailable Unavailable Shelly Thomason RN Unavailable Unavailable Shelly Thomason RN Unavailable Unavailable Kina Campbell RN Unavailable Unavailab le Encounter Details Date Type Department Care Team (Late st Contact Info) Description 2016 Orders Only [facility] IM CAR CLINCONV Provider, MD Vijay [address] [place] [address] Social History Tobacco Use Types Packs/Day Years Used Date Smoking Tobacco: Never Assessed Comments Unknown Sex and Gender Information Value Date Recorded Sex Assigned at Not on file 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 us Historical Provider [facility] JOHN REYNOLDS Final Result documented in this encounter Visit Diagnoses Not on filedocumented in this encounter Care Teams Contract Clerk Automobile Relationship Specialty Start Date End Date Beka Gonzales MD [address] [place] [address] PCP - General 12/12/16 10/20/18 Pooja Durán MD PCP - General Family Practice 10/21/18 12/27/20 Sapna Dumont MD PCP - General Family Medicine 12/28/20 Myron Martinez MD [address] [place] [address] Textile Pin Worker Cardiology 06/18/18 Susan Ramirez, RN [address] [facility] [address] [place] [address] Registered Nurse Cardiology 06/18/18 08/23/23 Lisha Bob, BROKC [address] [facility] [address] [place] [address] Registered Nurse Cardiology 06/18/18 04/26/22 Sara Ceballos Primary Special Technical Operations Officer Cardiology 06/18/18 Shelly Thomason, chiller operatorGrubber Cardiology 04/27/22 09/05/23 Shelly Thomason, insurance instructor Failure Coordinator 08/23/23 4 Shelly Thomason, insurance instructor Failure Coordinator Transplant 09/05/23 Kina Campbell insurance instructor Failure Coordinator Cardiology 01/01/24 documented as of this encounter
--- OUTSIDE RECORDS SUMMARY | 2025-01-12 03:31 | XMS_ITS | Patient Health Record ---
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 Teacher Name Role Phone Sapna Dumont MD Primary Care Provider Jason Daily Unavailable [phone] Allergies Allergen (clinical drug ingredient) Drug/Non Drug Allergy documented on EMR Reaction Allergy Type Onset Date Status Substance with sulfonamide structure and antibacterial mechanism of action (substance) SULFA (SULFONAMIDE ANTIBIOTICS) (uncoded) Unknown Allergy 12/10/2023 Active Reason For Referral No Information Medications Medication SIG (Take, Route, Frequency, Duration) Notes Start Date End Date Status Carbidopa-Levodopa 25-100 MG Oral 12/10/2023 Active Fluconazole 200 MG Oral 12/10/2023 Active QUEtiapine Fumarate 25 MG 1 tablet at bedtime Orally Once a day for 90 days Active Losartan Potassium 25 MG Oral 12/10/2023 Active HYDROcodone-Acetami nophen 5-325 MG Oral 12/10/2023 Active DULoxetine HCl 60 MG TAKE 1 CAPSULE BY MOUTH AT BEDTIME for 90 Not-Taking oxyCODONE-Acetamino phen 5-325 MG Oral 12/10/2023 Active QUEtiapine Fumarate 25 MG TAKE 1 TABLET BY MOUTH EVERYDAY AT BEDTIME for 90 Active Mupirocin 2% External 12/10/2023 Active Doxycycline Hyclate 100 MG Oral 12/10/2023 Active MIEBO 100 % EYE DROPS *Reorder from [employer] for eRx and Interaction Alerts* 12/10/2023 Active oxyBUTYnin Chloride ER 5 MG Oral 12/10/2023 Active Carvedilol 12.5 MG Oral 12/10/2023 Active Atorvastatin Calcium 20 MG Oral 12/10/2023 Active DULoxetine HCl 60 MG 1 capsule Orally Once a day for 14 days 08/21/2024 Active DULoxetine HCl 60 MG 1 capsule Oral Once a day for 90 days Active Immunizations Vaccine Route Administration Date Status Comme nts RSV-MAb (Respiratory syncyti al virus immune globulin) Unknown 08/14/2023 Administered Pfizer Biontech Covid-19 Vac cine 2nd dose Unknown 06/03/2021 Administered Pfizer [employer] Covid-19 Vac cine 2nd dose Unknown 12/07/2021 Administered Moderna Covid-19 Vaccine 2nd dose Unknown 07/17/2022 Ad ministered Moderna Covid-19 Vaccine 1st dose Unknown 09/06/2020 Ad ministered Moderna Covid-19 Vaccine 1st dose Unknown 10/04/2020 Ad ministered Influenza, unspecified formulation Unknown 04/13/2023 A dministered Social History Sex Assigned At : Social History Observation Description Sex Assigned At Female Problems Problem Type SNOMED Code ICD Code Onset Dates Problem Status W/U Status Risk Notes Problem Mild recurrent major depression (96698283) Major depressive disorder, recurrent, mild (F33.0) 4 Active confirmed Problem Generalized anxiety disorder (F41.1) 4 Active confirmed Problem Insomnia disorder related to another mental disorder (38117980) Insomnia due to other mental disorder (F51.05) 4 Active confirmed Problem 213017601 Small fiber neuropathy (G62.9) Active confirmed Vital Signs Heart Rate 100 /min 10/16/2024 Height-cm 165.10 cm 10/16/2024 Blood pressure diastolic 77 mm Hg 10/16/2024 Weight-kg 49.44 kg 10/16/2024 Height 65.00 in 10/16/2024 Blood pressure systolic 130 mm Hg 10/16/2024 Weight 109 lbs 10/16/2024 BMI 18.14 kg/m2 10/16/2024 Encounters Encounter Location Date Provider Diagnosis [facility] [employer] [address] [place] [address] 04/10/2024 Jason Bolanos Insomnia due to othe r mental disorder F51.05 ; Major depressive disorder, recurrent, mild F33.0 and Generalized anxiety disorder F41.1 [facility] [employer] [address] [place] [address] 08/21/2024 Jason Bolanos Insomnia due to othe r mental disorder F51.05 ; Major depressive disorder, recurrent, mild F33.0 ; Generalized anxiety disorder F41.1 ; Small fiber neuropathy G62.9 and Progressive supranuclear palsy G23.1 [place] [address] [address] [facility] [address] [place] [address] 09/18/2024 Jason Bolanos Benign essential HTN I10 ; Insomnia due to other mental disorder F51.05 ; Major depressive disorder, recurrent, mild F33.0 ; Generalized anxiety disorder F41.1 ; Small fiber neuropathy G62.9 and Progressive supranuclear palsy G23.[address] [place] [address] 10/16/2024 Jason Bolanos Major depressive disorder, recurrent, mild F33.0 ; Encounter for screening for cardiovascular disorders Z13.6 ; Encounter for screening for depression Z13.31 ; Benign essential HTN I10 ; Insomnia due to other mental disorder F51.05 ; Generalized anxiety disorder F41.1 ; Small fiber neuropathy G62.9 and Progressive supranuclear palsy G23.1 Assessments Encounter Date Diagnosis (ICD Code) Assessment Notes Treatment Notes Treatment Clinical Notes Section Notes 04/10/2024 Insomnia due to other mental disorder (ICD-10 - F51.05) trazodone 50 mg tablet take 1-2 tablets at bedtime as needed 1. Mood and Anxiety: - Patient reports stable mood and denies depression. She experiences occasional anxiety but does not report significant interference with daily activities. Plan: - Continue current treatment with Lexapro (escitalopram) 20 mg daily. - Encourage patient to engage in regular physical activity to help manage anxiety. 2. Sleep: - Patient reports good sleep with the help of Trazodone 50 mg, one to two tablets at bedtime. Plan: - Continue current treatment and monitor for any changes in sleep quality. 3. General Health: - Patient reports feeling tired and has some difficulty with physical tasks. Plan: - Encourage patient to engage in regular physical activity and maintain a healthy lifestyle. - Monitor for any changes in energy levels or physical abilities. Plan: - Refill Lexapro (escitalopram) 20 mg daily and Trazodone 50 mg, one to two tablets at bedtime. [facility] - Encourage patient to engage in regular physical activity and maintain a healthy lifestyle. - Schedule a follow-up appointment in four months to monitor progress and address any concerns. - Continue to monitor Parkinson's symptoms, mood, anxiety, sleep, and general health. Adjust treatment as needed. 08/21/2024 Insomnia due to other mental disorder (ICD-10 - F51.05) trazodone 50 mg tablet take 1-2 tablets at bedtime as needed 09/18/2024 Benign essential HTN (ICD-10 - I10) 10/16/2024 Major depressive disorder, recurrent, mild (ICD-10 - F33.0) 10/16/2024 Encounter for screening for cardiovascular disorders (ICD-10 - Z13.6) 08/21/2024 Major depressive disorder, recurrent, mild (ICD-10 - F33.0) 09/18/2024 Insomnia due to other mental disorder (ICD-10 - F51.05) trazodone 50 mg tablet take 1-2 tablets at bedtime as needed [employer] Response got Denied on 2024-10-16 14:51:54 for 'traZODone HCl 50 MG Tablet'Pharmac y Notes: Prescription not found. Contact Pharmacy by other means 04/10/2024 Major depressive disorder, recurrent, mild (ICD-10 - F33.0) escitalopram 20mg daily 1. Mood and Anxiety: - Patient reports stable mood and denies depression. She experiences occasional anxiety but does not report significant interference with daily activities. Plan: - Continue current treatment with Lexapro (escitalopram) 20 mg daily. - Encourage patient to engage in regular physical activity to help manage anxiety. 2. Sleep: - Patient reports good sleep with the help of Trazodone 50 mg, one to two tablets at bedtime. Plan: - Continue current treatment and monitor for any changes in sleep quality. 3. General Health: - Patient reports feeling tired and has some difficulty with physical tasks. Plan: - Encourage patient to engage in regular physical activity and maintain a healthy lifestyle. - Monitor for any changes in energy levels or physical abilities. Plan: - Refill Lexapro (escitalopram) 20 mg daily and Trazodone 50 mg, one to two tablets at bedtime. [facility] - Encourage patient to engage in regular physical activity and maintain a healthy lifestyle. - Schedule a follow-up appointment in four months to monitor progress and address any concerns. - Continue to monitor Parkinson's symptoms, mood, anxiety, sleep, and general health. Adjust treatment as needed. 04/10/2024 Generalized anxiety disorder (ICD-10 - F41.1) 1. Mood and Anxiety: - Patient reports stable mood and denies depression. She experiences occasional anxiety but does not report significant interference with daily activities. Plan: - Continue current treatment with Lexapro (escitalopram) 20 mg daily. - Encourage patient to engage in regular physical activity to help manage anxiety. 2. Sleep: - Patient reports good sleep with the help of Trazodone 50 mg, one to two tablets at bedtime. Plan: - Continue current treatment and monitor for any changes in sleep quality. 3. General Health: - Patient reports feeling tired and has some difficulty with physical tasks. Plan: - Encourage patient to engage in regular physical activity and maintain a healthy lifestyle. - Monitor for any changes in energy levels or physical abilities. Plan: - Refill Lexapro (escitalopram) 20 mg daily and Trazodone 50 mg, one to two tablets at bedtime. [facility] - Encourage patient to engage in regular physical activity and maintain a healthy lifestyle. - Schedule a follow-up appointment in four months to monitor progress and address any concerns. - Continue to monitor Parkinson's symptoms, mood, anxiety, sleep, and general health. Adjust treatment as needed. 09/18/2024 Major depressive disorder, recurrent, mild (ICD-10 - F33.0) 08/21/2024 Generalized anxiety disorder (ICD-10 - F41.1) 10/16/2024 Encounter for screening for depression (ICD-10 - Z13.31) 10/16/2024 Benign essential HTN (ICD-10 - I10) 08/21/2024 Small fiber neuropathy (ICD-10 - G62.9) 09/18/2024 Generalized anxiety disorder (ICD-10 - F41.1) 09/18/2024 Small fiber neuropathy (ICD-10 - G62.9) 08/21/2024 Progressive supranuclear palsy (ICD-10 - G23.1) managed by neurologist 10/16/2024 Insomnia due to other mental disorder (ICD-10 - F51.05) trazodone 50 mg tablet take 1-2 tablets at bedtime as needed 10/16/2024 Generalized anxiety disorder (ICD-10 - F41.1) 09/18/2024 Progressive supranuclear palsy (ICD-10 - G23.1) managed by neurologist 10/16/2024 Small fiber neuropathy (ICD-10 - G62.9) 10/16/2024 Progressive supranuclear palsy (ICD-10 - G23.1) managed by neurologist 08/21/2024 Other 1. Progressive supranuclear palsy: - Patient was recently diagnosed with progressive supranuclear palsy, a degenerative neurological condition causing slowness, stiffness, changes in eye movements, palsy, and eventually changes in speaking and walking. Plan: - No specific treatment plan for this condition at this time. - Continue to monitor symptoms and provide support. 2. Anxiety: - Patient reports increased anxiety since the diagnosis of progressive supranuclear palsy. - Currently on Lexapro 20 mg daily. Plan: - Discontinue Lexapro. Taper down to 10 mg daily for one week and then stop. - Start Duloxetine 30 mg daily for two weeks, then increase to 60 mg daily. - Follow up in one month to assess response to medication change. 3. Small fiber neuropathy: - Patient reports numbness and tingling in her feet due to small fiber neuropathy. Plan: - Switch from Lexapro to Duloxetine, which may help with neuropathy symptoms in addition to anxiety. - Follow up in one month to assess response to medication change. 4. Insomnia: - Patient is currently taking Trazodone 50 mg, 1-2 tablets at bedtime for sleep. Plan: - Continue Trazodone for sleep as it seems to be helping. - No changes needed at this time. 5. Memory problems: - Patient reports some forgetfulness, which may be related to her progressive supranuclear palsy or anxiety. Plan: - Monitor memory issues during follow-up visits. - If memory problems worsen or become more concerning, consider further evaluation and potential interventions. Follow-up: - Schedule a follow-up appointment in one month to assess the patient's response to the medication change and monitor her symptoms related to progressive supranuclear palsy, anxiety, neuropathy, and memory problems. 09/18/2024 Other 1. Major Depressive Disorder: - Patient is currently on duloxetine 60 mg, started last month. - Reports some improvement in mood but still experiencing fatigue and anxiety. Plan: - Continue duloxetine 60 mg daily. - Monitor for further improvement in depressive symptoms. 2. Anxiety: - Patient reports fluctuating anxiety levels, affecting sleep and daily activities. Plan: - Add quetiapine 25 mg at bedtime to help with anxiety, depression, and sleep. - Reevaluate in 4 weeks or sooner if needed. 3. Insomnia: - Patient reports inconsistent sleep patterns, sometimes sleeping too much or not enough. Plan: - Discontinue trazodone. - Start quetiapine 25 mg at bedtime for sleep, depression, and anxiety. - Reassess sleep quality in 4 weeks or sooner if needed. 4. Poor appetite and weight loss: - Patient reports a poor appetite and weight loss, currently at 107 pounds. Plan: - Add quetiapine 25 mg at bedtime, which may help increase appetite. - Encourage patient to eat small, frequent meals and monitor weight. - Reevaluate in 4 weeks or sooner if needed. 5. Peripheral neuropathy: - Patient reports persistent tingling in hands and feet, causing discomfort. Plan: - Continue monitoring symptoms. - Encourage patient to report any worsening or new symptoms. - Consider referral to a neurologist if symptoms persist or worsen. 6. Follow-up: - Schedule a follow-up appointment in 4 weeks to assess the effectiveness of the new medication regimen and address any concerns or side effects. 10/16/2024 Other 1. Depression and Anxiety: - Patient reports improvement in symptoms with current medication regimen. - Describes mood as decent with better sleep and increased appetite. - Addition of quetiapine at bedtime has been beneficial for sleep, appetite, depression, and anxiety. - Reports positive psychosocial factors, including a recent enjoyable visit from family members. Plan: - Continue current medication regimen: * Quetiapine at bedtime (dose not specified) * Duloxetine 60 mg (frequency and route not specified) - Discontinue trazodone (previously stopped) Follow-up: - Schedule a follow-up appointment in 3 months Plan Of Treatment No Information Insurance Providers Payer Name Payer Address Payer Phone Subscriber Number Group Number Insured Name Patient Relationship to Insured Coverage Start Date Coverage End Date [employer] Replacemen t/Advantag e - Ppo [address] [place] [address] [id number] DRAKE COHN Self - patient is the insured Medical (General) History Medical History History ICD Code Problems: Anxiety Fuchs' corneal dystrophy Generalized anxiety disorder Insomnia disorder related to another men yolette disorder Mild recurrent major depression Moderate recurrent major depression Parkinson's disease , Surgical History Surgery Date(Month/Year) Cataract surgery (86274) Cardiac pacemaker procedure ([id number]) Unlisted procedure breast (88112) Appendectomy (87137) Breast surgery () 06/06/2003
[2025-01-12 03:38] VITALS: BP 131/69; PULSE 90; RESP 20; O2SAT 98
--- NOTE | 2025-01-12 04:25 | ED_ITS ---
HPI - General Adult General Chief complaint: Extremity Injury, Upper Stated complaint: broke my right arm Time Seen by Provider: 01/12/25 04:18 History of Present Illness HPI narrative: Patient is a 79-year-old female who presents the emergency department this evening status post a fall that occurred at home. Patient states that she slipped and fell hitting her right humerus on her bathtub. Patient is able to move the right shoulder but states that it does hurt with movement. She has full range of motion at the right shoulder joint. No deformity noted. Denies hitting her head and denies any loss of consciousness. Admits that the fall was purely mechanical. No additional symptoms or concerns at this time. Related Data Home Medications ?Medication ?Instructions ?Recorded ?Confirmed ?Last Taken ?Type carvedilol 12.5 mg tablet 25 mg PO BID 08/14/19 10/22/24 03/13/22 History cholecalciferol (vitamin D3) 25 1,000 unit PO BID 08/14/19 10/22/24 03/13/22 History mcg (1,000 unit) capsule (Vitamin D3) sodium chloride 5 % eye drops 1 drop ophthalmic (eye) TID 08/15/19 10/22/24 03/13/22 History (Winnie 128) losartan 25 mg tablet 12.5 mg PO BID 09/14/20 10/22/24 03/13/22 History carbidopa 25 mg-levodopa 100 mg 1 tablet PO TID 04/07/21 10/22/24 03/13/22 History tablet trazodone 50 mg tablet 50 mg PO QHS PRN Insomnia 02/09/22 10/22/24 03/13/22 History mecobalamin (vitamin B12) 1,000 1,000 mcg sublingual DAILY 12/12/22 10/22/24 Unknown History mcg disintegrating tablet,sublingual oxybutynin chloride 5 mg 5 mg PO DAILY 04/30/24 10/22/24 Unknown History tablet,extended release 24 hr perfluorohexyloctane (PF) 100 % drp 04/30/24 10/22/24 Unknown History eye drops (Miebo (PF)) timolol maleate 0.5 % eye drops drp 04/30/24 10/22/24 Unknown History atorvastatin 40 mg tablet 40 mg PO .QD 08/17/24 10/22/24 Unknown History Allergies Allergy/AdvReac Type Severity Reaction Status Date / Time Penicillins Allergy Mild Rash Verified 01/12/25 03:37 Sulfa (Sulfonamide Allergy Mild Rash Verified 01/12/25 03:37 Antibiotics) Review of Systems Review of Systems: All systems are reviewed and are negative unless stated otherwise in the HPI. [facility] Past Medical History Medical History Fracture of olecranon process of right ulna with intraarticular extension Chronic diastolic CHF (congestive heart failure), NYHA class 2 Fatigue Parkinson's Disease Hypertension Hyperlipidemia Ovarian cyst Heart failure LBBB (left bundle branch block) Artificial pacemaker Replaced 2021, [facility] Breast cancer Surgical History Surgical History History of appendectomy Hx of removal of ovary History of lumpectomy Family History Family History Mother Breast cancer Goiter Father Diabetes mellitus Grandparent Diabetes mellitus Sibling Breast cancer Sibling Cancer of mouth Daughter Fuchs' corneal dystrophy of both eyes Diabetes mellitus Other Family history of thyroid disease Social History Social History Smoking status: Never smoker Second hand tobacco smoke exposure: No Alcohol intake: current Drinks per week: 5 Alcohol use details: Glass of wine daily. Substance use: never Substance use type: does not use Lack of Transportation: No Lack of Food: Never True Current Housing: I Have Housing Concerned About Future Housing: No Difficulty Paying Gas/Electric Bills: No Difficulty Paying for Meds: No Currently Unemployed: No Education: High School Diploma/GED Difficulty w/ Childcare or Family Care: No Living arrangements: with family Occupation/Education: retired Gender identity (if verbalized by the patient): Female Spiritual care concerns: No Agree to blood products: Yes Exam Narrative: General: Alert, awake, afebrile, in no acute distress. HEENT: PERRL, no rhinorrhea, no post nasal drip, oropharynx clear. Neck: Trachea midline, no JVD, no lymphadenopathy. Cardiovascular: Regular rate and rhythm, no murmurs, rubs or gallops, no peripheral edema. Respiratory: Clear to auscultation bilaterally, no tachypnea, no wheezing, no rhonchi, no rubs, no respiratory distress. Abdomen: Soft, nontender, nondistended, no rebound, no guarding, no peritoneal signs. Musculoskeletal: No joint swelling or deformity specifically in the right shoulder joint/humerus, intact full range of motion at the right shoulder joint patient does have mild pain with shoulder abduction past 90, normal muscle tone. Skin: No rashes or petechia, no signs of infection. Psychiatric: Alert and oriented, normal behavior and judgment for situation. Neurological: Alert and oriented to person, place, and time. Follows all commands. No focal deficits, speech is clear and fluent. Course Vital Signs Vital signs: Vital Signs Pulse Rate 90 01/12/25 03:38 Respiratory Rate 20 01/12/25 03:38 Blood Pressure 131/69 01/12/25 03:38 Pulse Oximetry 98 01/12/25 03:38 Pulse Rate 90 01/12/25 03:38 Respiratory Rate 20 01/12/25 03:38 Blood Pressure 131/69 01/12/25 03:38 Pulse Oximetry 98 01/12/25 03:38 Medical Decision Making MDM Narrative Medical decision making narrative: The patient was evaluated by myself in the emergency department. History is obtained from patient who is an independent historian and physical exam was performed. External medical records were reviewed at this time. Patient was administered 400 mg of oral ibuprofen. Imaging studies obtained included right humerus x-ray which was independently interpreted by me revealing no acute process, which is pending final radiology interpretation. Differential diagnosis considerations include shoulder dislocation, humerus fracture, musculoskeletal sprain, rotator cuff injury. Comorbidities impacting this visit include none. I have evaluated and discussed social determinants of health with the patient that could potentially impact subsequent diagnosis and treatment plans. On repeat assessment of the patient, reevaluation revealed that the patient is doing well and is in no acute distress. Patient symptoms have improved since she arrived to our emergency department. Repeat vital signs were all reviewed and noted to be stable. Differential diagnosis and treatment plan were discussed with the patient at bedside. Patient agrees with discussion and after shared medical decision making agrees with discharge. All questions were answered to the patient's satisfaction. Patient will follow up with her PCP in 3-5 days. Patient was provided with strict return precautions and instructed to return to the emergency department if any new or worsening symptoms develop. The patient was discharged in stable condition. Vital Signs Vital Signs: Vital Signs Pulse Rate 90 01/12/25 03:38 Respiratory Rate 20 01/12/25 03:38 Blood Pressure 131/69 01/12/25 03:38 Pulse Oximetry 98 01/12/25 03:38 Pulse Rate 90 01/12/25 03:38 Respiratory Rate 20 01/12/25 03:38 Blood Pressure 131/69 01/12/25 03:38 Pulse Oximetry 98 01/12/25 03:38 Discharge Plan Discharge Clinical Impression: Fall from ground level, Injury of right shoulder Patient Disposition: Home Condition: Improved Instructions: Antibiotic Form, Shoulder Sprain (ED) Additional Instructions: Please follow-up with your family doctor within the next 3-5 days. Rest, ice your right shoulder joint. Take ibuprofen and Tylenol alternating between the 2 for pain. Return to the ED if any new or worsening symptoms develop. Patient Language: Azeri Prescriptions: No Action oxybutynin chloride 5 mg tablet extended release 24hr 5 mg PO DAILY timolol maleate 0.5 % drops Miebo (PF) 100 % drops atorvastatin 40 mg tablet 40 mg PO .QD azelastine 0.05 % drops 1 drp EACH EYE BID 7 Days Qty: 6 0RF trazodone 50 mg tablet 50 mg PO QHS PRN (Reason: Insomnia) mecobalamin (vitamin B12) 1,000 mcg tablet,disintegrating 1,000 mcg sublingual DAILY Rx Instructions: place tablet under tongue and allow to dissolve for at least30 secs before swallowing sodium chloride [Winnie 128] 5 % drops 1 drop EACH EYE TID carbidopa-levodopa 25-100 mg tablet 1 tablet PO TID carvedilol 12.5 mg tablet 25 mg PO BID Rx Instructions: take 1 tablet by oral route 2 times every day with food cholecalciferol (vitamin D3) [Vitamin D3] 25 mcg (1,000 unit) capsule 1,000 unit PO BID Rx Instructions: One twice daily losartan 25 mg tablet 12.5 mg PO BID Patient Comments: 1/2 tablet bid per cardiology appt 06/29/2020 tramadol 50 mg tablet 50 mg PO Q6H PRN (Reason: pain) Qty: 30 0RF Follow-up/Referrals: Sapna Dumont MD [Primary Care Provider] - 3 Days Time of Disposition: 04:26
--- OUTSIDE RECORDS SUMMARY | 2025-01-12 04:45 | XMS_ITS | Continuity of Care Document ---
Author Organization [facility] Address [address] [place] [address] Phone Care Team Providers Care Disk Sharpener Name Role Phone Angel Callahan Unavailable Unavailable [...] Diagnoses Date Provider Providers Copied on Encounter [facility] [address], [place], [place], [id number], tel:[phone] [place] No Information 4 Pernell Ortiz. . Referring Provider: Primitivo Clayton [facility] 6th floor [address], [place], [address]. tel:[phone] [facility], [place], [place], [id number], tel:[phone] [place] No Information 4 Pernell Angel. . Referring Provider: Kyra Dupont [address], [place], [address]. tel:[phone] [place] [address], [address], [place], [place], [address], [place] tel:[phone] [place] No Information 4 Pernell Jerniganyne. . Referring Provider: Kyra Dupont [address], [place], [address]. tel:[phone] [facility], [address], [place], [place], [id number], [place] tel:[phone] [place] No Information 4 Pernell Jerniganyne. . Referring Provider: Kyra Dupont [address], [place], [address]. tel:[phone] [place] [address], [address], [place], [place], [address], [place] tel:[phone] [place] No Information 4 Pernell Jerniganyne. . Referring Provider: Kyra Dupont [address], [place], [address]. tel:[phone] [facility], [address], [place], [place], [address], [place] tel:[phone] [place] No Information 4 Pernell Jerniganyne. . Referring Provider: Kyra Dupont [address], [place], [address]. tel:[phone] [facility], [address], [place], [place], [id number], [place] tel:[phone] [place] No Information 4 Pernell Jerniganyne. . Referring Provider: Kyra Dupont [address], [place], [address]. tel:[phone] [facility], [address], [place], [place], [id number], [place] tel:[phone] [place] No Information Aug-0 5- 4 Pernell Angel. . Referring Provider: Kyra Dupont [address], [place], [address]. tel:[phone] [place] [address], [address] [place], [place] [address], [place], [place], [address], [place] tel:[phone] [place] No Information Aug-0 3-202 4 Pernell Angel. . Referring Provider: Kyra Dupont [address], [place], [address]. tel:[phone] [place] [address], [place], [id number], [place] tel:[phone] [place] No Information Dec-2 - 3 Pernell Angel. . Referring Provider: Kyra Dupont [address], [place], [address]. tel:[phone] [place] [address], [address] [place], [place] [address], [place], [place], [address], [place] tel:[phone] [place] No Information Dec-2 7- 3 Pernell Angel. . Referring Provider: Kyra Dupont [address], [place], [address]. tel:[phone] [place] [address], [place], [id number], [place] tel:[phone] Pear[place] No Information Dec-2 2-202 3 Pernell Angel. . Referring Provider: Kyra Dupont [address], [place], [address]. tel:[phone] [facility], [facility], [place], [place], [id number], [place] tel:[phone] [place] No Information Dec-2 0-202 3 Pernell Angel. . Referring Provider: Kyra Dupont [address], [place], [address]. tel:[phone] [facility], [address] [facility] [address], [place], [place], [address], tel:[phone] [place] No Information 3 Pernell Ortiz. . Referring Provider: Primitivo Clayton [address] [facility] 6th floor [address], [place], [address]. tel:[phone] [facility], [address] [facility] 300, [place], [place], [id number], tel:[phone] [place] No Information 3 Pernell Ortiz. . Referring Provider: Primtiivo Clayton [address] [facility] 6th floor [address], [place], [address]. tel:[phone] Family History Family Member Type Diagnosis Age At Onset No Information Payers Payer name Insurance type Covered republican ID Rogelio burciaga(s) [employer] Medicare Replacement CI [id number] Social History Type Description Quantity Date Captured [...]
--- OUTSIDE RECORDS SUMMARY | 2025-01-12 04:45 | XMS_ITS | Encounter Summary ---
Author Organization [facility] Address [address] [place] [address] Care Team Providers Care Bag Filler Name Role Phone Unavailable Primary Care Provider Unavailabl e Encounter Details Date Type Department Care Team (Late st Contact Info) Description 03/06/2018 Lab Requisition [facility] Care DermPath Lab [address] [facility], [place] [id number] Kaylah Santiago MD [address] [facility] 3 [place] [address] Social History Tobacco Use Types Packs/Day Years Used Date Smoking Tobacco: Never Assessed Comments Unknown Sex and Gender Information Value Date Recorded Sex Assigned at Not on file 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 Gender Identity Not on file Sexual Orientation Not on file documented as of this encounter Plan of Treatment Not on file documented as of this encounter Procedures Procedure Name Priority Date/Time Associated Diagnosis Comments DERMATOPATH TECHNICAL REPORT Routine 03/04/2018 12:00 AM CDT documented in this encounter Results * DERMATOPATH TECHNICAL REPORT (03/04/2018 12:00 AM CDT) Case Report Dermatopathology Report Case: [id number] Authorizing Provider: Kaylah Santiago MD Collected: 03/04/2018 12:00 AM Pathologist: Brandon Guardado MD Received: 03/06/2018 07:29 AM Specimen: Skin, right buttock 8 4:41 PM CDT DERMATOPATHOLOGY LABORATORY Addendum 1 At the request of the diagnosing physician, the technical component for [place] methenamine silver was performed by [facility] Dermatopathology. 8 4:41 PM CDT DERMATOPATHOLOGY LABORATORY Addendum electronically signed by Brandon Guardado MD on 03/08/2018 at 1641 CDT Clinical History Favor fixed drug vs ICD. 8 4:41 PM CDT DERMATOPATHOLOGY LABORATORY Gross Description Specimen A: Received is one formalin filled container labeled with the patient's name and designated right buttock. The specimen consists of a punch biopsy measuring 4x4x[address] [facility] Dermatopathology Laboratory performed the technical component only. [...] characteristic determined by the Dermatopathology Laboratory at [facility]. These tests need not be, and therefore are not, approved by the [place] Food and Drug Administration. The tests are used for clinical purposes. 8 4:41 PM CDT DERMATOPATHOLOGY LABORATORY at 1028 CDT Pathology/Cytolog y TISSUE SPECIMEN FROM SKIN / Unknown 03/04/2018 03/06/2018 7:29 AM CDT Kaylah Santiago MD LAB - PATHOLOGY/CYTOLOGY ORD ERABLES Edited Result - Final DERMATOPATHOLOGY LABORATORY [facility] - Department of Dermatology [address] [place] [address], 5th [place] [address], [facility] [phone] documented in this encounter Visit Diagnoses Not on filedocumented in this encounter
--- OUTSIDE RECORDS SUMMARY | 2025-01-12 04:45 | XMS_ITS | Clinical Summary ---
Author Organization [facility] Address [address] [facility] [place] [address] Care Team Providers Care Tunnel Elastic Operator Lockstitch Name Role Phone Unavailable Primary Care Provider Unavailabl e Source Comments [facility],non-owned Affiliates and Associated Physician Practices is amultiple site organization consisting of ambulatory clinics and hospital sitesin [place], [place], [place] and [place]. This disclosure is being madepursuant to the Care Everywhere program and may not contain all information available regarding this patient. 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
--- OUTSIDE RECORDS SUMMARY | 2025-01-12 04:46 | XMS_ITS | Encounter Summary ---
Author Organization [facility] Address [address] [place] [address] Phone Care Team Providers Care Entry Level Name Role Phone Beka Gonzales MD Primary Care Provider [phone] Myron Martinez MD Unavailable [phone] Susan Ramirez RN Unavailable [phone] Lisha Bob RN Unavailable [phone] Sara Ceballos Unavailable Unavailable Pooja Durán MD Primary Care Provider [phone] Sapna Dumont MD Primary Care Provider [phone] Shelly Thomason RN Unavailable Unavailable Shelly Thomason RN Unavailable Unavailable Shelly Thomason RN Unavailable Unavailable Kina Campbell RN Unavailable Unavailab le Encounter Details Date Type Department Care Team (Late st Contact Info) Description 11/04/2014 Orders Only [facility] Provider, MD Vijay [address] [place] [address] Social History Tobacco Use Types Packs/Day Years Used Date Smoking Tobacco: Never Assessed Comments Unknown Sex and Gender Information Value Date Recorded Sex Assigned at Not on file 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 Sex Female 12:32 AM 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 Gender Identity Female 11/24/2020 8:34 AM CDT [...] on filedocumented in this encounter Care Teams Entry Level Relationship Specialty Start Date End Date Beka Gonzales MD [address] [place] [address] PCP - General 12/12/16 10/20/18 Pooja Durán MD PCP - General Family Practice 10/21/18 12/27/20 Sapna Dumont MD PCP - General Family Medicine 12/28/20 Myron Martinez MD [address] [place] [address] Nursing Service Director Cardiology 06/18/18 Susan Ramirez, RN [address] [facility] [address] [place] [address] Registered Nurse Cardiology 06/18/18 08/23/23 Lisha Bob, [place] [address] [facility] [address] [place] [address] Registered Nurse Cardiology 06/18/18 04/26/22 Sara Ceballos Primary Distillery Worker General Cardiology 06/18/18 Shelly Thomason, auto care center managerAccess Clerk Cardiology 04/27/22 09/05/23 Shelly Thomason, online activist Failure Coordinator 08/23/23 4 Shelly Thomason, online activist Failure Coordinator Transplant 09/05/23 Kina Campbell online activist Failure Coordinator Cardiology 01/01/24 documented as of this encounter
--- OUTSIDE RECORDS SUMMARY | 2025-01-12 04:46 | XMS_ITS | Encounter Summary ---
Author Organization [facility] Address [address] [place] [address] Phone Care Team Providers Care Manager Risk Management Name Role Phone Beka Gonzales MD Primary Care Provider [phone] Myron Martinez MD Unavailable [phone] Susan Ramirez RN Unavailable [phone] Lisha Bob RN Unavailable [phone] Sara Ceballos Unavailable Unavailable Pooja Durán MD Primary Care Provider [phone] Sapna Dumont MD Primary Care Provider [phone] Shelly Thomason RN Unavailable Unavailable Shelly Thomason RN Unavailable Unavailable Shelly Thomason RN Unavailable Unavailable Kina Campbell RN Unavailable Unavailab le Encounter Details Date Type Department Care Team (Late st Contact Info) Description 11/14/2017 Orders Only [facility] Provider, MD Vijay [address] [place] [address] Social History Tobacco Use Types Packs/Day Years Used Date Smoking Tobacco: Never Comments Unknown Sex and Gender Information Value Date Recorded Sex Assigned at Not on file 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 Gender Identity Female 11/24/2020 8:34 AM CDT [...] on filedocumented in this encounter Care Teams Manager Risk Management Relationship Specialty Start Date End Date Beka Gonzales MD [address] [place] [address] PCP - General 12/12/16 10/20/18 Pooja Durán MD PCP - General Family Practice 10/21/18 12/27/20 Sapna Dumont MD PCP - General Family Medicine 12/28/20 Myron Martinez MD [address] [place] [address] Automatic I Threading Machine Feeder Cardiology 06/18/18 Susan Ramirez, RN [address] [facility] [address] [place] [address] Registered Nurse Cardiology 06/18/18 08/23/23 Lisha Bob, BROCK [address] [facility] [address] [place] [address] Registered Nurse Cardiology 06/18/18 04/26/22 Sara Ceballos Primary Paper Stacker Cardiology 06/18/18 Shelly Thomason, motorcycle sales associateIndustrial Workers Cardiology 04/27/22 09/05/23 Shelly Thomason, torch operator Failure Coordinator 08/23/23 4 Shelly Thomason, torch operator Failure Coordinator Transplant 09/05/23 Kina Campbell torch operator Failure Coordinator Cardiology 01/01/24 documented as of this encounter
--- OUTSIDE RECORDS SUMMARY | 2025-01-12 04:46 | XMS_ITS | Encounter Summary ---
Author Organization [facility] Address [address] [place] [address] Phone Care Team Providers Care Prop Setter Name Role Phone Beka Gonzales MD Primary Care Provider [phone] Myron Martinez MD Unavailable [phone] Susan Ramirez RN Unavailable [phone] Lisha Bob RN Unavailable [phone] Sara Ceballos Unavailable Unavailable Pooja Durán MD Primary Care Provider [phone] Sapna Dumont MD Primary Care Provider [phone] Shelly Thomason RN Unavailable Unavailable Shelly Thomason RN Unavailable Unavailable Shelly Thomason RN Unavailable Unavailable Kina Campbell RN Unavailable Unavailab le Encounter Details Date Type Department Care Team (Late st Contact Info) Description 2016 Orders Only [facility] Provider, MD Vijay [address] [place] [address] Social History Tobacco Use Types Packs/Day Years Used Date Smoking Tobacco: Never Assessed Comments Unknown Sex and Gender Information Value Date Recorded Sex Assigned at Not on file 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 [address] [place] [address] Registered Nurse Cardiology 06/18/18 08/23/23 Lisha Bob, BROCK [address] [facility] [address] [place] [address] Registered Nurse Cardiology 06/18/18 04/26/22 Sara Ceballos Primary Revenue Stamp Cutter Cardiology 06/18/18 Shelly Thomason, real estate brokerCity Weighmaster Cardiology 04/27/22 09/05/23 Shelly Thomason, manager media relations Failure Coordinator 08/23/23 4 Shelly Thomason, manager media relations Failure Coordinator Transplant 09/05/23 Kina Campbell manager media relations Failure Coordinator Cardiology 01/01/24 documented as of this encounter
--- OUTSIDE RECORDS SUMMARY | 2025-01-12 04:46 | XMS_ITS | Encounter Summary ---
Author Organization [facility] Address [address] [place] [address] Care Team Providers Care User Experience Architect Name Role Phone Unavailable Primary Care Provider Unavailabl e Encounter Details Date Type Department Care Team (Late st Contact Info) Description 02/04/2020 Lab Requisition [facility] DermPath Lab [address] [facility], [place] [id number] Kaylah Santiago MD [address] 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 Gender Identity Not on file Sexual Orientation Not on file documented as of this encounter Plan of Treatment Not on file documented as of this encounter Procedures Procedure Name Priority Date/Time Associated Diagnosis Comments DERMATOPATHOLOGY Routine 02/03/2020 12:0 0 AM CDT documented in this encounter Results * DERMATOPATHOLOGY (02/03/2020 12:00 AM CDT) Case Report Dermatopathology Report Case: [id number] Authorizing Provider: Kaylah Santiago MD Collected: 02/03/2020 12:00 AM Ordering Location: [facility] DermPath Lab Received: 02/04/2020 10:49 [...] characteristic determined by the Dermatopathology Laboratory at [facility], directed by Dr. Chandu Guardado. These tests need not be, and therefore are not, approved by the [place] Food and Drug Administration. The tests are used for clinical purposes. Billing Codes Specimen Charges Stain Charges 29632 1 0 1:39 PM CDT DERMATOPATHOLOGY LABORATORY Embedded Images 0 1:39 PM CDT DERMATOPATHOLOGY LABORATORY Pathology/Cytolog y TISSUE SPECIMEN FROM SKIN / Unknown 02/03/2020 02/04/2020 10:49 AM CDT us Kaylah Santiago MD LAB - PATHOLOGY/CYTOLOGY ORD ERABLES Final Result DERMATOPATHOLOGY LABORATORY [facility] - Department of Dermatology Outreach Representative [place] [address], [facility] [phone] documented in this encounter Visit Diagnoses Not on filedocumented in this encounter
--- OUTSIDE RECORDS SUMMARY | 2025-01-12 04:46 | XMS_ITS ---
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 Chambers is a very pleasant 78yo [...] antibody testing can be ordered or if [place] paraneoplastic panel is indicated. Plan: - Sleep study with sleep medicine - Continue levodopa 0.5 tabs TID - Start gabapentin: 300mg qHS 1 week -> 300mg BID 1 week , 300mg TID 1 week, touch base to discuss if it is working and any worsening lethargy - Exercise as able - IgLON5 antibody testing Assessment & Plan (07/23/2024 12:01 PM HAND OUTSIDE CUTTER): Mrs. Chambers is a very pleasant 78yo [...] (11/04/2021): Added automatically from request for surgery [id number] Essential hypertension 06/29/2020 Complete heart block 12/05/2017 [...] Date Diagnosed Date Resolved Date Parkinson's disease ([facility]) 11/07/2023 07/23/2024 Parkinson disease 02/02/2021 07/23/2024 Assessment [...]
--- OUTSIDE RECORDS SUMMARY | 2025-01-12 04:46 | XMS_ITS | Referral Summary ---
Author Organization [facility] Address [address] [place] [address] Care Team Providers Care Network Systems Administrator Name Role Phone Myron Martinez MD Unavailable [phone] Sara Ceballos Unavailable Unavailable Sapna Dumont MD Primary Care Provider Shelly Thomason RN Unavailable Unavailable Kina Campbell RN Unavailable Unavailab le Encounters Date Type Department Care Team Description 01/06/2025 1:00 PM CDT Office Visit [facility] [address] [place] [address] [place] [address] [place] [address] Myron Martinez MD Chronic combined systolic and diastolic congestive heart failure (HCC) (Primary Dx); Dilated cardiomyopathy (HCC) 12/28/2024 Telephone [facility] [address] [place] [address] 8th [place] [address] [place] [address] Sumeet Ortiz MD PhD ICD Check 12/26/2024 Telephone [facility] [address] [place] [address] 8th [place] [address] [place] [address] Deanna Ortiz 11/19/2024 Telephone [facility] [address] [place] [address] 8th [place] [address] [place] [address] Sumeet Ortiz MD PhD 11/18/2024 8:00 AM CDT Ancillary Procedure [facility] [address] [facility] [address] [place] [address] Chronic combined systolic and diastolic heart failure (HCC) 11/14/2024 4:36 PM CDT - 11/14/2024 8:19 PM CDT Emergency [address] [address] Yecenia Saucedo MD Chest wall pain (Primary Dx) Discharge Disposition: Discharge to home or self care 10/28/2024 Telephone [facility] [address] [place] [address] Kamran Garcia NP Scheduling Appointments 10/14/2024 Orders Only [facility] [address] [facility] Advanced Medicine 7th [place] [address] Tosha Angulo MD PhD Progressive supranuclear palsy (HCC) (Primary Dx); Small fiber neuropathy; Parkinson's disease with dyskinesia, unspecified whether manifestations fluctuate (HCC) 10/14/2024 8:00 AM CDT Ancillary Procedure [facility] [address] [address] Chronic combined systolic and diastolic heart failure [...] 07/23/2024 Assessment & Plan (10/08/2024 6:06 PM TRANSPORTATION PLANNING TECHNICIAN): Mrs. Chambers is a very pleasant 78yo [...] antibody testing can be ordered or if Rogers paraneoplastic panel is indicated. Plan: - Sleep study with sleep medicine - Continue levodopa 0.5 tabs TID - Start gabapentin: 300mg qHS 1 week -> 300mg BID 1 week , 300mg TID 1 week, touch base to discuss if it is working and any worsening lethargy - Exercise as able - IgLON5 antibody testing Assessment & Plan (07/23/2024 12:01 PM TRANSPORTATION PLANNING TECHNICIAN): Mrs. Chambers is a very pleasant 78yo [...] (11/04/2021): Added automatically from request for surgery [id number] Essential hypertension 06/29/2020 Complete heart block 12/05/2017 NICM (nonischemic cardiomyopathy) 11/08/2015 Malignant neoplasm of breast 05/30/2010 Hyperlipidemia 05/30/2010 Chronic combined systolic and diastolic heart fa ilure 05/30/2010 Resolved Problems Problem Noted Date Diagnosed Date Resolved Date Parkinson's disease ([facility]) 11/07/2023 07/23/2024 Parkinson disease 02/02/2021 07/23/2024 Assessment [...] on file Legal Sex Female 12:32 AM TRANSPORTATION PLANNING TECHNICIAN Gender Identity Female 11/24/2020 8:34 AM CDT [...] on file Medical Devices Implanted Type Area Air Table Operator Device Identifier Shelf Expiration Date Model / Serial / Lot [employer] C.R.M. G126 Defibrillator Cardiac Resynchronization Therapy Defibrillator Momentum Lv1 - [id number] - [id number] Implanted:Qty: 1 on 11/08/2021 by Sumeet Ortiz MD PhD at [facility] ICD [employer] C.R.M. 09/27/2023 G126 / [id number] / [employer] Ra Lead 4470 Lead Heart [employer] C.R.M. 4470 / [id number] / [employer] Rv Lead 0185 Lead Heart [employer] C.R.M. 0185 / [id number] / [employer] Lv Lead 4518 Lead Heart [employer] C.R.M. 4518 / [id number] / Synthes Implant Bone Plate Compression Locking 20 Hole Lcp 2.7mm [id number] - S0 - [id number] Implanted:Qty: 1 on 06/20/2023 by Primitivo Clayton MD at [facility] Plate Right: Olecranon Synthes I 04/05/2033 02.247.3 90S / 0 / [id number] Synthes Lcp 59mm 7 Hole Shaft Low Profile Cut To Length Condylar Plate 249.679 - S0 - [id number] Implanted:Qty: 1 on 06/20/2023 by Primitivo Clayton MD at [facility] Plate Right: Olecranon Synthes I 249.679 / 0 / Synthes 2.7mm 5mm 16mm 2.5mm Self Tap Stardrive Cortical T8 Screw Bone 202.876 - S0 - [id number] Implanted:Qty: 1 on 06/20/2023 by Primitivo Clayton MD at [facility] Screw Right: Olecranon Synthes I 202.876 / 0 / Synthes 2.7mm 5mm 14mm 2.5mm Self Tap Stardrive Cortical T8 Screw Bone 202.874 - S0 - [id number] Implanted:Qty: 1 on 06/20/2023 by Primitivo Clayton MD at [facility] Screw Right: Olecranon Synthes I 202.874 / 0 / Synthes 2.7mm 5mm 28mm 2.5mm Self Tap Stardrive Cortical T8 Screw Bone 202.888 - S0 - [id number] Implanted:Qty: 1 on 06/20/2023 by Primitivo Clayton MD at [facility] Screw Right: Olecranon Synthes I 202.888 / 0 / Synthes 2.4mm 18mm Self Tap St[employer]rive Cortex T8 Screw Bone 201.768 - S0 - [id number] Implanted:Qty: 3 on 06/20/2023 by Primitivo Clayton MD at [facility] Screw Right: Olecranon Synthes I 201.768 / 0 / Synthes 2.4mm 20mm Self Tap Stardrive Cortex T8 Screw Bone 201.770 - S0 - [id number] Implanted:Qty: 2 on 06/20/2023 by Primitivo Clayton MD at [facility] Screw Right: Olecranon Synthes I 201.770 / 0 / Synthes 2.4mm 1.9mm 20mm Self Tap Lock Stardrive Conical Head T8 Screw 212.820 - S0 - [id number] Implanted:Qty: 2 on 06/20/2023 by Primitivo Clayton MD at [facility] Screw Right: Olecranon Synthes I 212.820 / 0 / Synthes 2.4mm 1.9mm 28mm Self Tap Lock Stardrive Conical Head T8 Screw 212.828 - S0 - [id number] Implanted:Qty: 1 on 06/20/2023 by Primitivo Clayton MD at [facility] Screw Right: Olec[employer]on Synthes I 212.828 / 0 / Synthes 2.4mm 1.9mm 18mm Self Tap Lock Stardrive Conical Head T8 Screw 212.818 - S0 - [id number] Implanted:Qty: 1 on 06/20/2023 by Primitivo Clayton MD at [facility] Screw Right: Olecranon Synthes I 212.818 / 0 / Synthes 2.4mm 1.9mm 10mm Self Tap Lock Stardrive Conical Head T8 Screw 212.810 - S0 - [id number] Implanted:Qty: 1 on 06/20/2023 by Primitivo Clayton MD at [facility] Screw Right: Olecranon Synthes I 212.810 / 0 / Synthes 2.7mm 5mm 44mm 2.5mm Self Tap Stardrive Cortical T8 Screw Bone 202.963 - S0 - [id number] Implanted:Qty: 1 on 06/20/2023 by Primitivo Clayton MD at [facility] Screw Right: Olecranon Synthes I 202.963 / 0 / Synthes Screw Bone Cortical Solid St Full Thread Locking 2.7x90mm 02.202.990 - S0 - [id number] Implanted:Qty: 1 on 06/20/2023 by Primitivo Clayton MD at [facility] Screw Right: Olecranon Synthes I 202.9 90 / 0 / Synthes 2.7mm 5mm 26mm 2.5mm Self Tap Stardrive Cortical T8 Screw Bone 202.886 - S0 - [id number] Implanted:Qty: 1 on 06/20/2023 by Primitivo Clayton MD at [facility] Screw Right: Olecranon Synthes I 202.886 / 0 / Synthes 2.7mm 5mm 20mm 2.5mm Self Tap Stardrive Cortical T8 Screw Bone 202.880 - S0 - [id number] Implanted:Qty: 1 on 06/20/2023 by Primitivo Clayton MD at [facility] Screw Right: Olecranon Synthes I 202.880 / 0 / Explanted Type Area Air Table Operator Device Identifier Shelf Expiration Date Model / Serial / Lot Pacemaker/Icd -10/07/2012 Implanted:Qty : 1 on 10/07/2012 Explanted:Qty : 1 on 11/08/2021 Left: Chest [employer] Synthes 2.4mm 1.9mm 20mm Self Tap Lock Stardrive Conical Head T8 Screw 212.820 - [id number] Explanted:Qty : 1 on 06/20/2023 at [facility] Right: Olecranon Synthes I 212.820 / / [...] by Mike Edmond M.D. T: Report ID: [id number] Reading Location: [place] [address] Procedure Note Mike Edmond MD - 11/14/2024 [...] Mike Edmond M.D. KH T: Report ID: [id number] Reading Location: [place] [address] Yecenia Saucedo MD IMG CT PROCEDURES Final [...] MD LAB BLOOD ORDERABLES Final Res ult [id number] [address] [facility] Department [place] [address] * Troponin T high-sensitivity 4-hour [...] ORDERABLES Final Resul t BARBER MORAES [address] [facility] [place] [address] * XR Chest 1 Vw Portable (if [...] administered 324mg ASA and 1x 0.1mg nitroglycerin TECHNICAL SALES SUPPORT SPECIALIST. TECHNIQUE: PA upright radiographic view(s) of the [...] Marta Farmer M.D. TW T: Report ID: [id number] Reading Location: [id number] Procedure Note Marta Farmer MD - 11/14/2024 [...] administered 324mg ASA and 1x 0.1mg nitroglycerin TECHNICAL SALES SUPPORT SPECIALIST. TECHNIQUE: PA upright radiographic view(s) of the [...] - Electronically signed by Marta Farmer M.D. T: Report ID: [id number] Reading Location: [place] [address] [facility] Sheryl JIMENEZ IMG XR PROCEDURES Final Result * ECG 12 lead (11/14/2024 1:25 PM CDT) Ventricular Rate EKG/Min 76 BPM [facility] Atrial Rate 100 BPM [facility] QRS-Interval (MSEC) 134 ms [facility] QT-Interval (MSEC) 384 ms [facility] QTc 432 ms [facility] P [place] 62 degrees [facility] R [place] 248 degrees [facility] T [place] 56 degrees [facility] Diagnosis Ventricular-p aced rhythm Biventricular pacemaker detected Abnormal ECG When compared with ECG of 18-JUN-2023 14:33, Vent. rate has decreased BY 17 BPM Confirmed by JEFFERSON TAN M.D. ([id number]) on 11/14/2024 2:58:10 PM [facility] 11/14/2024 1:25 PM CDT 11/14/2024 2:58 PM CDT Yecenia Saucedo MD ECG ORDERABLES Final Result Performing Organization Address City/[facility]/ZIP Co de Phone Number [facility] * Troponin T high-sensitivity series (baseline, [...] ORDERABLES Final Res ult Performing Organization Address City/[facility] Co de Phone Number BARBER [address] [facility] Department [place] [address] * eGFR (11/14/2024 1:23 PM CDT) eGFR [...] MD LAB BLOOD ORDERABLES Final Res ult [facility] [address] [facility] [place] [address] * Differential, auto (11/14/2024 1:23 PM CDT) Pathologist [facility] Neutrophil abs 4.90 1.50 - 6.50 K/cumm Imm gran abs 0.02 0.00 - 0.10 K/cumm [facility] Lymphocyte abs 1.25 0.80 - 3.30 K/cumm [facility] Monocyte abs 0.56 0.20 - 0.80 K/cumm [facility] Eosinophil abs 0.03 0.00 - 0.50 K/cumm [facility] Basophil abs 0.02 0.00 - 0.10 K/cumm [facility] Neutrophil pct 72.3 % [facility] Comment: Interpretive Data Percent cell count reference ranges are not reported, since discordance with absolute values may lead to misinterpretation of CBC data. Current Interpretive Data was last revised on 2017. Imm gran pct 0.3 % [facility] Comment: Interpretive Data Percent cell count reference ranges are not reported, since discordance with absolute values may lead to misinterpretation of CBC data. Current Interpretive Data was last revised on 2017. Lymphocyte pct 18.4 % [facility] Comment: Interpretive Data Percent cell count reference ranges are not reported, since discordance with absolute values may lead to misinterpretation of CBC data. Current Interpretive Data was last revised on 2017. Monocyte pct 8.3 % [facility] Comment: Interpretive Data Percent cell count reference ranges are not reported, since discordance with absolute values may lead to misinterpretation of CBC data. Current Interpretive Data was last revised on 2017. Eosinophil pct 0.4 % [facility] Comment: Interpretive Data Percent cell count reference ranges are not reported, since discordance with absolute values may lead to misinterpretation of CBC data. Current Interpretive Data was last revised on 2017. Basophil pct 0.3 % [facility] Comment: Interpretive Data Percent cell count reference ranges are not reported, since discordance with absolute values may lead to misinterpretation of CBC data. Current Interpretive Data was last revised on 2017. Blood 11/14/2024 1:23 PM CDT 11/14/2024 1:35 PM CDT us Yecenia Saucedo MD LAB BLOOD ORDERABLES Final Res ult [facility] [address] [facility] Department [place] [address] * (ABNORMAL) CBC with auto differential (11/14/2024 1:23 PM CDT) WBC 6.78 3.80 - 9.90 K/cumm Hgb 11.7(L) 11.9 - 15.5 g/dL [facility] Hct 36.5 35.6 - 45.5 % [facility] Plt 243 150 - 400 K/cumm [facility] MPV 9.5 9.1 - 12.3 fL [facility] RBC 3.96 3.90 - 5.20 M/cumm [facility] MCV 92.2 81.3 - 96.4 fL [facility] MCH 29.5 27.1 - 33.3 pg [facility] MCHC 32.1(L) 32.3 - 35.7 g/dL [facility] RDW CV 13.3 11.1 - 14.9 % [facility] RDW SD 45.9 35.7 - 48.1 fL [facility] NRBC abs 0.00 0.00 - 0.01 K/cumm [facility] Blood Venous blood specimen / Unknown 11/14/2024 1:23 PM CDT 11/14/2024 1:35 PM CDT us Yecenia Saucedo MD LAB BLOOD ORDERABLES Final Res ult Performing Organization Address [facility]/ZIP Co de Phone Number BARBER [address] [facility] [employer] [place] [address] * Comprehensive metabolic panel (11/14/2024 1:23 PM CDT) Sodium 140 135 - 145 mmol/L Potassium, pl 3.5 3.3 - 4.9 mmol/L [facility] Chloride 103 97 - 110 mmol/L [facility] CO2 29 22 - 32 mmol/L [facility] Anion gap 8 2 - 15 mmol/L [facility] BUN 20 6 - 25 mg/dL [facility] Creatinine 0.61 0.60 - 1.10 mg/dL [facility] Glucose 106 70 - 199 mg/dL [facility] Comment: Interpretive Data Fasting glucose >/= [...] 2022. Calcium 10.0 8.5 - 10.3 mg/dL [facility] Bilirubin, total 0.3 0.1 - 1.2 mg/dL [facility] Protein, pl 6.9 6.5 - 8.5 g/dL [facility] Albumin 3.9 3.5 - 5.0 g/dL [facility] Alk phos 81 40 - 130 Units/L [facility] ALT 16 7 - 45 Units/L [facility] AST 18 10 - 45 Units/L [facility] Blood 11/14/2024 1:23 PM CDT 11/14/2024 1:35 PM CDT Yecenia Saucedo MD LAB BLOOD ORDERABLES Final Res ult Performing Organization Address [facility]/ZIP Co de Phone Number BARBER [address] [facility] [place] [address] from Last 3 Months Insurance T MEDICARE AET MEDICARE Advance Directives For more information, please contact: [phone] Documents on File Type Date Recorded Patient County Historian Expl anation ADVANCE DIRECTIVE 05/27/2015 12:00 AM [facility] [place] HELPER FINANCIAL/MEDICAL ADVANCE DIRECTIVE 11/30/2014 12:00 AM [facility] Care Teams Network Systems Administrator Relationship Specialty Start Date End Date Sapna Dumont MD PCP - General Family Medicine 12/28/20 Myron Martinez MD [address] [facility] [address] [place] [address] Entry Level Sales Representative Cardiology 06/18/18 Sara Ceballos Primary Former Hand Cardiology 06/18/18 Shelly Thomason, sounding device operator Failure Coordinator Transplant 09/05/23 Kina Campbell, sounding device operator Failure Coordinator Cardiology 01/01/24
--- OUTSIDE RECORDS SUMMARY | 2025-01-12 04:46 | XMS_ITS | Encounter Summary ---
Author Organization [facility] Address [address] [facility] [place] [address] Care Team Providers Care Agricultural Engineering Technologist Name Role Phone Unavailable Primary Care Provider Unavailabl e Encounter Details Date Type Department Care Team (Late st Contact Info) Description 03/31/2024 Lab Requisition [facility] - DermPath Lab [address] [facility], [facility] [place] [address] Kaylah Santiago MD [address] [facility] 3 [place] [address] Social History Tobacco Use Types Packs/Day Years Used Date Smoking Tobacco: Never Assessed Comments Unknown Sex and Gender Information Value Date Recorded Sex Assigned at Not on file Legal Sex Female 6:22 PM BYPRODUCTS SUPERVISOR Gender Identity Not on file Sexual Orientation Not on file documented as of this encounter Plan of Treatment Not on file documented as of this encounter Procedures Procedure Name Priority Date/Time Associated Diagnosis Comments DERMATOPATHOLOGY Routine 03/31/2024 11:2 1 AM CDT documented in this encounter Results * DERMATOPATHOLOGY (03/31/2024 11:21 AM CDT) Case Report Dermatopathology Report Case: [id number] Authorizing Provider: Kaylah Santiago MD Collected: 03/31/2024 11:21 AM Ordering Location: [facility] - Received: 03/31/2024 05:01 PM [...] characteristic determined by the Dermatopathology Laboratory at [facility], directed by Dr. Chandu Guardado. These tests need not be, and therefore are not, approved by the [place] Food and Drug Administration. The tests are used for clinical purposes. Billing Codes Specimen Charges Stain Charges 22860 1 4 3:09 PM CDT DERMATOPATHOLOGY LABORATORY Embedded Images 4 3:09 PM CDT DERMATOPATHOLOGY LABORATORY Pathology/Cytolo gy TISSUE SPECIMEN FROM SKIN / Unknown 03/31/2024 11:21 AM CDT 03/31/2024 5:01 PM CDT us Kaylah Santiago MD LAB - PATHOLOGY/CYTOLOGY ORD ERABLES Final Result DERMATOPATHOLOGY LABORATORY [facility] - Department of Dermatology [address], [address] [phone] documented in this encounter Visit Diagnoses Not on filedocumented in this encounter
--- OUTSIDE RECORDS SUMMARY | 2025-01-12 04:46 | XMS_ITS | Encounter Summary ---
Author Organization [facility] Address [address] [facility] [place] [address] Care Team Providers Care Sql Database Programmer Name Role Phone Unavailable Primary Care Provider Unavailabl e Encounter Details Date Type Department Care Team (Late st Contact Info) Description 03/28/2023 Lab Requisition [facility] - DermPath Lab [address] [facility], [facility] [place] [address] Kaylah Santiago MD [address] [facility] 3 [place] [address] Social History Tobacco Use Types Packs/Day Years Used Date Smoking Tobacco: Never Assessed Comments Unknown Sex and Gender Information Value Date Recorded Sex Assigned at Not on file Legal Sex Female 6:22 PM DRY GOODS CLERK Gender Identity Not on file Sexual Orientation Not on file documented as of this encounter Plan of Treatment Not on file documented as of this encounter Procedures Procedure Name Priority Date/Time Associated Diagnosis Comments DERMATOPATHOLOGY Routine 03/28/2023 2:37 PM CDT documented in this encounter Results * DERMATOPATHOLOGY (03/28/2023 2:37 PM CDT) Case Report Dermatopathology Report Case: [id number] Authorizing Provider: Kaylah Santiago MD Collected: 03/28/2023 02:37 PM Ordering Location: [facility] DermPath Lab Received: 03/30/2023 07:13 AM [...] characteristic determined by the Dermatopathology Laboratory at [facility], directed by Dr. Chandu Guardado. These tests need not be, and therefore are not, approved by the [place] Food and Drug Administration. The tests are used for clinical purposes. Billing Codes Specimen Charges Stain Charges 59375 1 3 3:57 PM CDT DERMATOPATHOLOGY LABORATORY Embedded Images 3 3:57 PM CDT DERMATOPATHOLOGY LABORATORY Pathology/Cytolo gy TISSUE SPECIMEN FROM SKIN / Unknown 03/28/2023 2:37 PM CDT 03/30/2023 7:13 AM CDT us Kaylah Santiago MD LAB - PATHOLOGY/CYTOLOGY ORD ERABLES Final Result DERMATOPATHOLOGY LABORATORY [facility] - Department of Dermatology [address], [address] [phone] documented in this encounter Visit Diagnoses Not on filedocumented in this encounter
--- OUTSIDE RECORDS SUMMARY | 2025-01-12 04:46 | XMS_ITS | Encounter Summary ---
Author Organization [facility] Address [address] [place] [address] Care Team Providers Care Pari Mutuel Ticket Cashier Name Role Phone Unavailable Primary Care Provider Unavailabl e Encounter Details Date Type Department Care Team (Late st Contact Info) Description 10/29/2023 Lab Requisition [facility] - DermPath Lab [address] [facility], [facility] [place] [address] Eusebia Bolivar DO [address] [facility] 3 [place] [address] Social History Tobacco Use Types Packs/Day Years Used Date Smoking Tobacco: Never Assessed Comments Unknown Sex and Gender Information Value Date Recorded Sex Assigned at Not on file Legal Sex Female 6:22 PM METAL ENGRAVER Gender Identity Not on file Sexual Orientation Not on file documented as of this encounter Plan of Treatment Not on file documented as of this encounter Procedures Procedure Name Priority Date/Time Associated Diagnosis Comments DERMATOPATHOLOGY Routine 10/29/2023 3:25 PM CDT documented in this encounter Results * DERMATOPATHOLOGY (10/29/2023 3:25 PM CDT) Case Report Dermatopathology Report Case: [id number] Authorizing Provider: Eusebia Bolivar DO Collected: 10/29/2023 03:25 PM Ordering Location: [facility] Physician [facility] - Received: 10/30/2023 01:46 PM DermPath Lab [...] characteristic determined by the Dermatopathology Laboratory at [facility], directed by Dr. Chandu Guardado. These tests need not be, and therefore are not, approved by the [place] Food and Drug Administration. The tests are used for clinical purposes. Billing Codes Specimen Charges Stain Charges 12290 1 2:22 PM CDT DERMATOPATHOLOGY LABORATORY Embedded Images 2:22 PM CDT DERMATOPATHOLOGY LABORATORY Pathology/Cytolo gy TISSUE SPECIMEN FROM SKIN / Unknown 10/29/2023 3:25 PM CDT 10/30/2023 1:46 PM CDT us Eusebia Bolivar DO LAB - PATHOLOGY/CYTOLOGY ORDERABLES Final Result DERMATOPATHOLOGY LABORATORY [facility] - Department of Dermatology [address] [place] [address], [facility] [phone] documented in this encounter Visit Diagnoses Not on filedocumented in this encounter
--- OUTSIDE RECORDS SUMMARY | 2025-01-12 04:46 | XMS_ITS | Encounter Summary ---
Author Organization [facility] Address [address] [place] [address] Care Team Providers Care Explosives Detonator Name Role Phone Sapna Dumont MD Primary Care Provider [phone] Encounter Details Date Type Department Care Team (Latest Contact Info) Description 06/20/2004 Outpatient Historical [facility] Umberto Rodriguez MD [address] [place] [address] MALIGN NEOPL BREAST NOS (CMS/HCC) (Primary Dx) Social History Tobacco Use Types Packs/Day Years Used Date Smoking Tobacco: Never Assessed Comments Unknown Sex and Gender Information Value Date Recorded Sex Assigned at Not on file Legal Sex Female 2:46 AM CASTING CARRIER Gender Identity Not on file Sexual Orientation Not on file documented as of this encounter Plan of Treatment Not on file documented as of this encounter Visit Diagnoses Diagnosis Malignant neoplasm of breast (female), unspecified site- Primary documented in this encounter Care Teams Explosives Detonator Relationship Specialty Start Date End Date Sapna Dumont MD [address] [place] [id number] PCP - General Family Practice 03/31/21 documented as of this encounter
--- OUTSIDE RECORDS SUMMARY | 2025-01-12 04:46 | XMS_ITS | Clinical Summary ---
Author Organization [facility] Address [address] [place] [address] Phone Care Team Providers Care Tassel Making Machine Operator Name Role Phone Sapna Dumont MD Primary Care Provider [phone] Allergies Active Allergy Reactions Criticality Noted Date Comments Sulfa (Sulfonamide Antibiotics) Rash Low 01/04 Medications CALCIUM CARBONATE (CALCIUM 600 ORAL) 600 mg daily. + D. Active atorvastatin (LIPITOR) 20 mg Oral tablet 20 mg daily. Active MULTIVITAMINS WITH FLUORIDE (MULTI-VITAMIN ORAL) Active sodium chloride (JOSE 128) 2 % OP solution 1 Drop PRN. Active carvedilol (COREG) 12.5 mg tabletIndication s:Breast cancer, right ([facility]) 03/09/2014 Act [facility]all escitalopram oxalate (LEXAPRO) 10 mg tabletIndication s:Breast cancer, right ([facility]) 02/06/2014 Act marshall Active Problems Patient Care Coordination No te Formatting of this note migh t be different from the original. Primary Care: Beka Gonzales MD Referring Provider: Beka Gonzales [place] [address] Other: [facility] pharm# [id number] Problem Noted Date Diagnosed Date Breast Cancer- 01/17/2010 Overview (01/20/2011): [facility] patient 07/27/03 Stage IIA (T2 N0 Mx) IDC RIGHT breast ER 35% [place] - HER2/jamal 2.7 Ki67 65% BRCA 1/2 NEGATIVE S/p lumpectomy and SLND AC x 4 S/p Radiation December 2003 ARIMIDEX x 5 years (BMD 2009) Assessment & Plan (07/24/2013 2:07 PM FAMILY SPECIALIST): 10 years out mammo january Assessment & Plan (07/19/2012 11:18 AM FAMILY SPECIALIST): 9 years out tonya Trice Osteopenia ROV 1 year CM from chemo PPM being replaced in Aug Assessment & Plan (07/14/2011 10:00 AM FAMILY SPECIALIST): 8 years out Mammo in January BMD [...] on file Legal Sex Female 2:46 AM FAMILY SPECIALIST Gender Identity Not on file Sexual Orientation Not on file Occupation Industry Job Start Date Job End Date Not on file Not on file Not on file Not on file Last Filed Vital Signs Vital Sign Reading Time Taken Comments Blood Pressure 112/65 04/02/2018 11:41 AM CDT Pulse 76 04/02/2018 11:41 AM CDT Temperature 36.7 C (98.1 F) 07/24/2013 2:12 PM FAMILY SPECIALIST Respiratory Rate 16 07/24/2013 2:12 PM FAMILY SPECIALIST Oxygen Saturation - - Inhaled Oxygen Concentration [...] 09/24/2021, 120 09/2020, 07/12/2012 Insurance [employer] O [facility] Care Teams Tassel Making Machine Operator Relationship Specialty Start Date End Date Sapna Dumont MD [address] [place] [address] PCP - General Family Practice 03/31/21
--- OUTSIDE RECORDS SUMMARY | 2025-01-12 04:46 | XMS_ITS | Encounter Summary ---
Author Organization [facility] Address [address] [place] [address] Phone Care Team Providers Care Residential Pest Control Technician Name Role Phone Beka Gonzales MD Primary Care Provider [phone] Myron Martinez MD Unavailable [phone] Susan Ramirez RN Unavailable [phone] Lisha Bob RN Unavailable [phone] Sara Ceballos Unavailable Unavailable Pooja Durán MD Primary Care Provider [phone] Sapna Dumont MD Primary Care Provider [phone] Shelly Thomason RN Unavailable Unavailable Shelly Thomason RN Unavailable Unavailable Shelly Thomason RN Unavailable Unavailable Kina Campbell RN Unavailable Unavailab le Encounter Details Date Type Department Care Team (Late st Contact Info) Description 11/10/2015 Orders Only [facility] CAR CLINCONV Provider, MD Vijay [address] [place] [address] Social History Tobacco Use Types Packs/Day Years Used Date Smoking Tobacco: Never Assessed Comments Unknown Sex and Gender Information Value Date Recorded Sex Assigned at Not on file Legal Sex Female 12:32 AM GAS CHARGER Gender Identity Female 11/24/2020 8:34 AM CDT [...] on filedocumented in this encounter Care Teams Residential Pest Control Technician Relationship Specialty Start Date End Date Beka Gonzales MD [address] [place] [address] PCP - General 12/12/16 10/20/18 Pooja Durán MD PCP - General Family Practice 10/21/18 12/27/20 Sapna Dumont MD PCP - General Family Medicine 12/28/20 Myron Martinez MD [address] [place] [address] Bulb Planter Cardiology 06/18/18 Susan Ramirez, RN [address] [facility] [address] [place] [address] Registered Nurse Cardiology 06/18/18 08/23/23 Lisha Bob, BROCK [address] [facility] [address] [place] [address] Registered Nurse Cardiology 06/18/18 04/26/22 Sara Ceballos Primary Electrical Line Mechanic Cardiology 06/18/18 Shelly Thomason, bleacher lardWash And Greaser Cardiology 04/27/22 09/05/23 Shelly Thomason, pipe changer Failure Coordinator 08/23/23 4 Shelly Thomason, pipe changer Failure Coordinator Transplant 09/05/23 Kina Campbell pipe changer Failure Coordinator Cardiology 01/01/24 documented as of this encounter
--- OUTSIDE RECORDS SUMMARY | 2025-01-12 04:46 | XMS_ITS | Encounter Summary ---
Author Organization [facility] Address [address] [place] [address] Care Team Providers Care Principal Technical Architect Name Role Phone Sapna Dumont MD Primary Care Provider [phone] Encounter Details Date Type Department Care Team (Latest Contact Info) Description 12/20/2007 Outpatient Historical [facility] Stoddard Jr., Emily Calderon MD [...] on file Legal Sex Female 2:46 AM HSE COORDINATOR Gender Identity Not on file Sexual Orientation [...] PM CDT Narrative 12/20/2007 7:52 PM CDT [facility] [address], [place] [address] Admit Date: 12/20/2007 KATARZYNA COHN Sex: F Admit Prov: EMILY STODDARD Date: 1945 Primary Care Prov: PCP , NONE CMRN: [id number] Room: [facility] SSN: [id number] IMAGING SERVICES Ordering Prov: EMILY STODDARD Accession Number: [id number] Interpretation BILATERAL FULL FIELD DIGITAL DIAGNOSTIC MAMMOGRAMS [...] DKT Procedure Note Tessy Mccormick - 12/20/2007 [facility] [address] [place], [place] [address] Admit Date: 12/20/2007 KATARZYNA COHN Sex: F Admit Prov: EMILY STODDARD Date: 1945 Primary Care Prov: PCP , NONE CMRN: [id number] Room: [facility] SSN: [id number] IMAGING SERVICES Ordering Prov: EMILY STODDARD Interpretation [...] PM CDT Narrative 01/01/2008 12:34 PM CDT [facility] [address] [place] [address] Admit Date: 12/20/2007 KATARZYNA COHN Sex: F Admit Prov: EMILY STODDARD Date: 1945 Primary Care Prov: PCP , NONE CMRN: [id number] Room: [facility] SSN: [id number] [place] [address] IMAGING SERVICES Ordering Prov: EMILY STODDARD Accession Number: [id number] Addendum ADDENDUM TO MAMMOGRAPHY REPORT OF 12/20/2007 The patient's outside films from [facility] dated March 2006 [...] DKT Procedure Note Tessy Mccormick - 01/01/2008 [facility] [address] [facility] [address] [place], [place] [address] Admit Date: 12/20/2007 KATARZYNA COHN Sex: F Admit Prov: EMILY STODDARD Date: 1945 Primary Care Prov: PCP , NONE CMRN: [id number] Room: A SSN: [id number] IMAGING SERVICES Ordering Prov: EMILY STODDARD Addendum ADDENDUM TO MAMMOGRAPHY REPORT OF 12/20/2007 The patient's outside films from [facility] dated March 2006 have [...] unspecified documented in this encounter Care Teams Principal Technical Architect Relationship Specialty Start Date End Date Sapna Dumont MD [address] [place] [id number] PCP - General Family Practice 03/31/21 documented as of this encounter
--- OUTSIDE RECORDS SUMMARY | 2025-01-12 04:46 | XMS_ITS | Clinical Summary ---
Author Organization [facility], formerly [facility] Address [address] [place] [address] Care Team Providers Care It Security Consultant Name Role Phone Myron Martinez MD Unavailable [phone] Sara Ceballos Unavailable Unavailable Sapna Dumont MD Primary Care Provider [phone] Shelly Thomason RN Unavailable Unavailable Kina Campbell [...] 07/23/2024 Assessment & Plan (10/08/2024 6:06 PM WINDOWS AND DOORS INSTALLER): Mrs. Chambers is a very pleasant 78yo [...] antibody testing can be ordered or if [place] paraneoplastic panel is indicated. Plan: - Sleep study with sleep medicine - Continue levodopa 0.5 tabs TID - Start gabapentin: 300mg qHS 1 week -> 300mg BID 1 week , 300mg TID 1 week, touch base to discuss if it is working and any worsening lethargy - Exercise as able - IgLON5 antibody testing Assessment & Plan (07/23/2024 12:01 PM WINDOWS AND DOORS INSTALLER): Mrs. Chambers is a very pleasant 78yo [...] (11/04/2021): Added automatically from request for surgery [id number] Essential hypertension 06/29/2020 Complete heart block 12/05/2017 NICM (nonischemic cardiomyopathy) 11/08/2015 Malignant neoplasm of breast 05/30/2010 Hyperlipidemia 05/30/2010 Chronic combined systolic and diastolic heart fa ilure 05/30/2010 Resolved Problems Problem Noted Date Diagnosed Date Resolved Date Parkinson's disease ([facility]) 11/07/2023 07/23/2024 Parkinson disease 02/02/2021 07/23/2024 Assessment [...] Description 01/06/2025 1:00 PM CDT Office Visit [facility] Cardiology [facility] 8th [place] [address] [place] [address] Myron Martinez MD Chronic combined systolic and diastolic congestive heart failure (HCC) (Primary Dx); Dilated cardiomyopathy (HCC) 12/28/2024 Telephone [facility] Cardiology [facility] 8th [place] [address] [place] [address] Sumeet Ortiz MD PhD ICD Check 12/26/2024 Telephone [facility] Cardiology [address] [place] [address] 8th [place] [address] [place] [address] Diana Deanna 11/19/2024 Telephone [facility] Cardiology [address] [place] [address] [place] [address] [place] [address] Sumeet Ortiz MD PhD 11/18/2024 8:00 AM CDT Ancillary Procedure [facility] Cardiology [facility] [address] [address] Chronic combined systolic and diastolic heart failure (HCC) 11/14/2024 4:36 PM CDT - 11/14/2024 8:19 PM CDT Emergency [address] [address] Yecenia Saucedo MD Chest wall pain (Primary Dx) Discharge Disposition: Discharge to home or self care 10/28/2024 Telephone [facility] Scheduling [facility] [place] [address] Kamran Garcia NP Scheduling Appointments 10/14/2024 8:00 AM CDT Ancillary Procedure [facility] Cardiology [facility] [address] [address] Chronic combined systolic and diastolic heart failure (HCC) 10/14/2024 Orders Only [facility] Movement Disorders [address] [place] [address] [address] [place] [address] Tosha Angulo MD PhD Progressive supranuclear palsy [...] History Date Comments 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 G126 Defibrillator Cardiac Resynchronization Therapy Defibrillator Momentum Lv1 - [id number] - [id number] Implanted:Qty: 1 on 11/08/2021 by Sumeet Ortiz MD PhD at [facility] ICD [employer] C.[employer].M. 09/27/2023 [id number] / [id number] / [employer] Ra Lead 4470 Lead Heart [employer] C.R.M. 4470 / [id number] / [employer] Rv Lead 0185 Lead Heart [employer] C.R.M. 0185 / [id number] / [employer] Lv Lead 4518 Lead Heart [employer] C.R.M. 4518 / [id number] / Synthes Implant Bone Plate Compression Locking 20 Hole Lcp 2.7mm [id number] - S0 - [id number] Implanted:Qty: 1 on 06/20/2023 by Primitivo Clayton MD at [facility] Plate Right: Olecranon Synthes I 04/05/2033 02.247.3 90S / 0 / [id number] Synthes Lcp 59mm 7 Hole Shaft Low Profile Cut To Length Condylar Plate 249.679 - S0 - [id number] Implanted:Qty: 1 on 06/20/2023 by Primitivo Clayton MD at [facility] Plate Right: [employer] Synthe[employer] I 249.679 / 0 / Synthes 2.7mm 5mm 16mm 2.5mm Self Tap Stardrive Cortical T8 Screw Bone 202.876 - S0 - [id number] Implanted:Qty: 1 on 06/20/2023 by Primitivo Clayton MD at [facility] Screw Right: [employer] Synthes I 202.876 / 0 / Synthes 2.7mm 5mm 14mm 2.5mm Self Tap [employer] Cortical T8 Screw Bone 202.874 - S0 - [id number] Implanted:Qty: 1 on 06/20/2023 by Primitivo Clayton MD at [facility] Screw Right: [employer] Synthes I 202.874 / 0 / Synthes 2.7mm 5mm 28mm 2.5mm Self Tap [employer] Cortical T8 Screw Bone 202.888 - S0 - [id number] Implanted:Qty: 1 on 06/20/2023 by Primitivo Clayton MD at [facility] Screw Right: Olecranon Synthes I 202.888 / 0 / Synthes 2.4mm 18mm Self Tap [employer] Cortex T8 Screw Bone 201.768 - S0 - [id number] Implanted:Qty: 3 on 06/20/2023 by Primitivo Clayton MD at [facility] Screw Right: [employer] Synthes I 201.768 / 0 / Synthes 2.4mm 20mm Self Tap [employer] Cortex T8 Screw Bone 201.770 - S0 - [id number] Implanted:Qty: 2 on 06/20/2023 by Primitivo Clayton MD at [facility] Screw Right: [employer] Synthes I 201.770 / 0 / Synthes 2.4mm 1.9mm 20mm Self Tap Lock [employer]rive Conical Head T8 Screw 212.820 - S0 - [id number] Implanted:Qty: 2 on 06/20/2023 by Primitivo Clayton MD at [facility] Screw Right: Ole[employer] Synthes I 212.820 / 0 / Synthes 2.4mm 1.9mm 28mm Self Tap Lock [employer]rive Conical Head T8 Screw 212.828 - S0 - [id number] Implanted:Qty: 1 on 06/20/2023 by Primitivo Clayton MD at [facility] Screw Right: Ole[employer]ynthe[employer] I 212.828 / 0 / Synthes 2.4mm 1.9mm 18mm Self Tap Lock [employer]rive Conical Head T8 Screw 212.818 - S0 - [id number] Implanted:Qty: 1 on 06/20/2023 by Primitivo Clayton MD at [facility] Screw Right: Olecranon Synthes I 212.818 / 0 / Synthes 2.4mm 1.9mm 10mm Self Tap Lock St[employer]rive Conical Head T8 Screw 212.810 - S0 - [id number] Implanted:Qty: 1 on 06/20/2023 by Primitivo Clayton MD at [facility] Screw Right: Olecranon Synthes I 212.810 / 0 / Synthes 2.7mm 5mm 44mm 2.5mm Self Tap St[employer]rive Cortical T8 Screw Bone 202.963 - S0 - [id number] Implanted:Qty: 1 on 06/20/2023 by Primitivo Clayton MD at [facility] Screw Right: Olecranon Synthes I 202.963 / 0 / Synthes Screw Bone Cortical Solid St Full Thread Locking 2.7x90mm 02..990 - S0 - [id number] Implanted:Qty: 1 on 06/20/2023 by Primitivo Clayton MD at [facility] Screw Right: Olec[employer]on Synthes I 202.9 90 / 0 / Synthes 2.7mm 5mm 26mm 2.5mm Self Tap St[employer]rive Cortical T8 Screw Bone 202.886 - S0 - [id number] Implanted:Qty: 1 on 06/20/2023 by Primitivo Clayton MD at [facility] Screw Right: Olec[employer]on Synthes I 202.886 / 0 / Synthes 2.7mm 5mm 20mm 2.5mm Self Tap St[employer]rive Cortical T8 Screw Bone 202.880 - S0 - [id number] Implanted:Qty: 1 on 06/20/2023 by Primitivo Clayton MD at [facility] Screw Right: Olecranon Synthes I 202.880 / 0 / Explanted Type Area Leadership Program Intern Device Identifier Shelf Expiration Date Model / Serial / Lot Pacemaker/Icd -10/07/2012 Implanted:Qty : 1 on 10/07/2012 Explanted:Qty : 1 on 11/08/2021 Left: Chest [employer] Synthes 2.4mm 1.9mm 20mm Self Tap Lock Stardrive Conical Head T8 Screw 212.820 - [id number] Explanted:Qty : 1 on 06/20/2023 at [facility] Right: Olecranon Synthes I [...] Mike Edmond M.D. KH T: Report ID: [id number] Reading Location: [id number] Procedure Note Mike Edmond MD - 11/14/2024 [...] Mike Edmond M.D. KH T: Report ID: [id number] Reading Location: [id number] Yecenia Saucedo MD IMG CT PROCEDURES Final [...] LAB BLOOD ORDERABLES Final Res ult [facility] [address] [facility] Department [place] [address] * Troponin T high-sensitivity 4-hour [...] ORDERABLES Final Resul t [facility]BER MORAES [address] [facility] Department [place] [address] * XR Chest 1 Vw Portable (if [...] administered 324mg ASA and 1x 0.1mg nitroglycerin SPRIGGER. TECHNIQUE: PA upright radiographic view(s) of the [...] Marta Farmer M.D. TW T: Report ID: [id number] Reading Location: [id number] Procedure Note Marta Farmer MD - 11/14/2024 [...] administered 324mg ASA and 1x 0.1mg nitroglycerin SPRIGGER. TECHNIQUE: PA upright radiographic view(s) of the [...] Marta Farmer M.D. TW T: Report ID: [id number] Reading Location: [place] [address] Yecenia Saucedo MD IMG XR PROCEDURES Final Result * ECG 12 lead (11/14/2024 1:25 PM CDT) Ventricular Rate EKG/Min 76 BPM [facility] Atrial Rate 100 BPM [facility] QRS-Interval (MSEC) 134 ms [facility] QT-Interval (MSEC) 384 ms [facility] QTc 432 ms [facility] P [place] 62 degrees [facility] R [place] 248 degrees [facility] T [place] 56 degrees [facility] Diagnosis Ventricular-p aced rhythm Biventricular pacemaker detected Abnormal ECG When compared with ECG of 18-JUN-2023 14:33, Vent. rate has decreased BY 17 BPM Confirmed by JEFFERSON TAN M.D. ([id number]) on 11/14/2024 2:58:10 PM [facility] 11/14/2024 1:25 PM CDT 11/14/2024 2:58 PM CDT us Yecenia Saucedo MD ECG ORDERABLES Final Result [facility] * Troponin T high-sensitivity series (baseline, 2hr, [...] LAB BLOOD ORDERABLES Final Res ult [facility] Department of Laboratories [place] [id number] * eGFR (11/14/2024 1:23 PM CDT) eGFR [...] MD LAB BLOOD ORDERABLES Final Res ult [facility] [address] [facility] Department [place] [address] * Differential, auto (11/14/2024 1:23 PM CDT) Neutrophil abs 4.90 1.50 - 6.50 K/cumm Imm gran abs 0.02 0.00 - 0.10 K/cumm [facility] Lymphocyte abs 1.25 0.80 - 3.30 K/cumm [facility] Monocyte abs 0.56 0.20 - 0.80 K/cumm [facility] Eosinophil abs 0.03 0.00 - 0.50 K/cumm [facility] Basophil abs 0.02 0.00 - 0.10 K/cumm [facility] Neutrophil pct 72.3 % [facility] Comment: Interpretive Data Percent cell count reference ranges are not reported, since discordance with absolute values may lead to misinterpretation of CBC data. Current Interpretive Data was last revised on 2017. Imm gran pct 0.3 % [facility] Comment: Interpretive Data Percent cell count reference ranges are not reported, since discordance with absolute values may lead to misinterpretation of CBC data. Current Interpretive Data was last revised on 2017. Lymphocyte pct 18.4 % [facility] Comment: Interpretive Data Percent cell count reference ranges are not reported, since discordance with absolute values may lead to misinterpretation of CBC data. Current Interpretive Data was last revised on 2017. Monocyte pct 8.3 % [facility] Comment: Interpretive Data Percent cell count reference ranges are not reported, since discordance with absolute values may lead to misinterpretation of CBC data. Current Interpretive Data was last revised on 2017. Eosinophil pct 0.4 % [facility] Comment: Interpretive Data Percent cell count reference ranges are not reported, since discordance with absolute values may lead to misinterpretation of CBC data. Current Interpretive Data was last revised on 2017. Basophil pct 0.3 % [facility] Comment: Interpretive Data Percent cell count reference ranges are not reported, since discordance with absolute values may lead to misinterpretation of CBC data. Current Interpretive Data was last revised on 2017. Blood 11/14/2024 1:23 PM CDT 11/14/2024 1:35 PM CDT Yecenia Saucedo MD LAB BLOOD ORDERABLES Final Res ult Performing Organization Address City/[facility] Co de Phone Number [facility] [place] [address] * (ABNORMAL) CBC with auto differential (11/14/2024 1:23 PM CDT) WBC 6.78 3.80 - 9.90 K/cumm Hgb 11.7(L) 11.9 - 15.5 g/dL [facility] Hct 36.5 35.6 - 45.5 % [facility] Plt 243 150 - 400 K/cumm [facility] MPV 9.5 9.1 - 12.3 fL [facility] RBC 3.96 3.90 - 5.20 M/cumm [facility] MCV 92.2 81.3 - 96.4 fL [facility] MCH 29.5 27.1 - 33.3 pg [facility] MCHC 32.1(L) 32.3 - 35.7 g/dL [facility] RDW CV 13.3 11.1 - 14.9 % [facility] RDW SD 45.9 35.7 - 48.1 fL [facility] NRBC abs 0.00 0.00 - 0.01 K/cumm [facility] Blood Venous blood specimen / Unknown 11/14/2024 1:23 PM CDT 11/14/2024 1:35 PM CDT Yecenia Saucedo MD LAB BLOOD ORDERABLES Final Res ult Performing Organization Address City/[facility]/ZIP Co de Phone Number [facility] [address] Department [place] [address] * Comprehensive metabolic panel (11/14/2024 1:23 PM CDT) Sodium 140 135 - 145 mmol/L Potassium, pl 3.5 3.3 - 4.9 mmol/L [facility] Chloride 103 97 - 110 mmol/L [facility] CO2 29 22 - 32 mmol/L [facility] Anion gap 8 2 - 15 mmol/L [facility] BUN 20 6 - 25 mg/dL [facility] Creatinine 0.61 0.60 - 1.10 mg/dL [facility] Glucose 106 70 - 199 mg/dL [facility] Comment: Interpretive Data Fasting glucose >/= [...] 2022. Calcium 10.0 8.5 - 10.3 mg/dL [facility] Bilirubin, total 0.3 0.1 - 1.2 mg/dL [facility] Protein, pl 6.9 6.5 - 8.5 g/dL [facility] Albumin 3.9 3.5 - 5.0 g/dL [facility] Alk phos 81 40 - 130 Units/L [facility] ALT 16 7 - 45 Units/L [facility] AST 18 10 - 45 Units/L [facility] Blood 11/14/2024 1:23 PM CDT 11/14/2024 1:35 PM CDT Yecenia Saucedo MD LAB BLOOD ORDERABLES Final Res ult [facility] [address] [facility] Department [place] [address] from Last 3 Months Insurance T MEDICARE T MEDICARE Advance Directives For more information, please contact: [phone] Documents on File Type Date Recorded Patient Vegetable Sorter Expl anation ADVANCE DIRECTIVE 05/27/2015 12:00 AM [facility] [employer] FINANCIAL/MEDICAL ADVANCE DIRECTIVE 11/30/2014 12:00 AM FAITH REDDY WILL Care Teams It Security Consultant Relationship Specialty Start Date End Date Sapna Dumont MD PCP - General Family Medicine 12/28/20 Myron Martinez MD [address] [place] [address] Ironworker Apprentice Shop Cardiology 06/18/18 Sara Ceballos Primary Detective Bowling [place]ley Cardiology 06/18/18 Shelly Thomason, vegetable thinner Failure Coordinator Transplant 09/05/23 Kina Campbell, vegetable thinner Failure Coordinator Cardiology 01/01/24
--- OUTSIDE RECORDS SUMMARY | 2025-01-12 04:46 | XMS_ITS | Encounter Summary ---
Author Organization [facility] Address [address] [place] [address] Phone Care Team Providers Care Business Administration Teacher Name Role Phone Beka Gonzales MD Primary Care Provider [phone] Myron Martinez MD Unavailable [phone] Susan Ramirez RN Unavailable [phone] Lisha Bob RN Unavailable [phone] Sara Ceballos Unavailable Unavailable Pooja Durán MD Primary Care Provider [phone] Sapna Dumont MD Primary Care Provider [phone] Shelly Thomason RN Unavailable Unavailable Shelly Thomason RN Unavailable Unavailable Shelly Thomason RN Unavailable Unavailable Kina Campbell RN Unavailable Unavailab le Encounter Details Date Type Department Care Team (Late st Contact Info) Description 10/22/2013 Orders Only [facility] IM CAR CLINCONV Provider, MD Vijay [address] [place] [id number] Social History Tobacco Use Types Packs/Day Years Used Date Smoking Tobacco: Never Assessed Comments Unknown Sex and Gender Information Value Date Recorded Sex Assigned at Not on file Legal Sex Female 12:32 AM INSPECTOR FUEL HOSE Gender Identity Female 11/24/2020 8:34 AM CDT [...] on filedocumented in this encounter Care Teams Business Administration Teacher Relationship Specialty Start Date End Date Beka Gonzales MD [address] [place] [address] PCP - General 12/12/16 10/20/18 Pooja Durán MD PCP - General Family Practice 10/21/18 12/27/20 Sapna Dumont MD PCP - General Family Medicine 12/28/20 Myron Martinez MD [address] [place] [address] Profile Grinder Technician Cardiology 06/18/18 Susan Ramirez, RN [address] [facility] [address] [place] [address] Registered Nurse Cardiology 06/18/18 08/23/23 Lisha Bob, BROCK [address] [facility] [address] [place] [address] Registered Nurse Cardiology 06/18/18 04/26/22 Sara Ceballos Primary Photoengraver Cardiology 06/18/18 Shelly Thomason, safety coordinatorPark Naturalist Cardiology 04/27/22 09/05/23 Shelly Thomason, therapy site coordinator Failure Coordinator 08/23/23 4 Shelly Thomason, therapy site coordinator Failure Coordinator Transplant 09/05/23 Kina Campbell therapy site coordinator Failure Coordinator Cardiology 01/01/24 documented as of this encounter
[2025-01-12] MEDS: IBUPROFEN 400 MG TABLET PO (04:52)
== END 2025-01-12 04:56 | disposition home or self-care (01) ==
LOC: ANHED 04:44
PROVIDERS: Emergency Provider Emergency Medicine; PCP Family Medicine
DX: S49.91XA Unspecified injury of right shoulder and upper arm, initial encounter (principal); I11.0 Hypertensive heart disease with heart failure; I50.9 Heart failure, unspecified; Z95.0 Presence of cardiac pacemaker; G20.A1 Parkinson's disease without dyskinesia, without mention of fluctuations; E78.5 Hyperlipidemia, unspecified; Z85.3 Personal history of malignant neoplasm of breast; W01.0XXA Fall on same level from slipping, tripping and stumbling without subsequent striking against object, initial encounter
CPT/HCPCS: 73060; 99283; A9270

== ENCOUNTER 2025-03-20 06:49 | Emergency (ER) | payer OTHER, MEDICARE, SELFPAY ==
--- NOTE | ~2025-03-20 | CT_ITS ---
EXAMINATION: CT cervical spine wo con DATE: 03/20/2025 07:30 INDICATION: Status post fall. Neck pain TECHNIQUE: Computed tomography (CT) of the cervical spine was performed without intravenous contrast. The dose-length product was 151 mGy-cm. Automated exposure control and iterative reconstruction tech [email or web address]laque were employed. COMPARISON: CT dated 06/08/2023 FINDINGS: Straightening of cervical lordosis. There is multilevel degenerative spondylosis involving C3-4 through C6-7. Craniovertebral junction is normal. No evidence for perched facet. Spinous process es are normal. No paraspinal soft tissue abnormality. Lung apices are normal. There is carotid atherosclerosis. Ther e is advanced multilevel uncinate and facet hypertrophy. There is levocurvature of the cervical spine . IMPRESSION: 1. No acute abnormality of the cervical spine. 2: Moderate-severe cervical spondylosis. Reviewed, dictated and finalized at location A.
--- NOTE | ~2025-03-20 | CT_ITS ---
EXAMINATION: CT facial bones wo con DATE: 03/20/2025 08:15 INDICATION: Possible left orbital floor fracture TECHNIQUE: Computed tomography (CT) of the facial bones was performed without intravenous contrast. T he dose-length product was 308.65 mGy-cm. COMPARISON: CT brain dated 03/20/2025 FINDINGS: There is a left orbital floor fracture. No evidence for entrapment of the rectus muscle. No post septal abnormality. Mild left periorbital soft tissue swelling with locules of gas above the orbit, most likely secondary to laceration. There is air-fluid level in the left maxillary sinus, con sistent with hemorrhage. Zygomatic arches are normal. Pterygoid plates intact. No mandibular fracture . Leftward nasal septal deviation. IMPRESSION: 1. Left orbital floor fracture with hemorrhage in the left maxillary sinus. Reviewed, dictated and finalized at location A.
--- NOTE | ~2025-03-20 | CT_ITS ---
EXAMINATION: CT brain wo con DATE: 03/20/2025 07:31 INDICATION: Status post fall. Headache. TECHNIQUE: Computed tomography (CT) of the head was performed without intravenous contrast. The dose- length product was 605.33 mGy-cm. Automated exposure control and iterative reconstruction technique w ere employed. COMPARISON: CT dated 06/08/2023 FINDINGS: Generalized atrophy. There are scattered mild periventricular and subcortical white matter changes, most likely related to small vessel ischemic disease (microangiopathy). Chronic left lacunar infarction. Normal boo-white differentiation. No acute intracranial hemorrhage, infarction, mass or mass effect. There is a probable left orbital floor fracture with fluid in the left maxillary sinus, consistent with hemorrhage. Mastoids are pneumatized. Mild left frontal scalp hematoma. Midline sagi ttal images demonstrate a normal corpus callosum and craniovertebral junction. IMPRESSION: 1. Probable left orbital floor fracture, although the orbit is incompletely visualized. Probable hemo rrhage left maxillary sinus. Correlate with maxillofacial CT. 2: No acute intracranial abnormality. Reviewed, dictated and finalized at location A. IMPRESSION: 1. Probable left orbital floor fracture, although the orbit is incompletely vis ualized. Probable hemorrhage left maxillary sinus. Correlate with maxillofacial CT. 2: No acute intracranial abnormality.
[2025-03-20 06:49] VITALS: PULSE 95; RESP 15; TEMP 36.6; O2SAT 98
--- NOTE | 2025-03-20 07:01 | PC.NURSE ---
This RN just called [facility] to discuss faxing over pt DNR. This RN was told that the pt Nurse would be notified and will fax.
--- NOTE | 2025-03-20 08:04 | ED_ITS ---
HPI - General Adult General Chief complaint: Fall Stated complaint: FALL, CRANE Time Seen by Provider: 03/20/25 06:59 History of Present Illness HPI narrative: This is a 79-year-old female with history PSP presenting after a fall. She is in her wheelchair and fell forward. She struck her head. She did not lose consciousness. She is not on blood thinners. She sustained a laceration over left eyebrow. No other injuries. Related Data Home Medications ?Medication ?Instructions ?Recorded ?Confirmed ?Last Taken ?Type carvedilol 12.5 mg tablet 25 mg PO BID 08/14/19 10/22/24 03/13/22 History cholecalciferol (vitamin D3) 25 1,000 unit PO BID 08/14/19 10/22/24 03/13/22 History mcg (1,000 unit) capsule (Vitamin D3) sodium chloride 5 % eye drops 1 drop ophthalmic (eye) TID 08/15/19 10/22/24 03/13/22 History (Winnie 128) losartan 25 mg tablet 12.5 mg PO BID 09/14/20 10/22/24 03/13/22 History carbidopa 25 mg-levodopa 100 mg 1 tablet PO TID 04/07/21 10/22/24 03/13/22 History tablet trazodone 50 mg tablet 50 mg PO QHS PRN Insomnia 02/09/22 10/22/24 03/13/22 History mecobalamin (vitamin B12) 1,000 1,000 mcg sublingual DAILY 12/12/22 10/22/24 Unknown History mcg disintegrating tablet,sublingual oxybutynin chloride 5 mg 5 mg PO DAILY 04/30/24 10/22/24 Unknown History tablet,extended release 24 hr perfluorohexyloctane (PF) 100 % drp 04/30/24 10/22/24 Unknown History eye drops (Miebo (PF)) timolol maleate 0.5 % eye drops drp 04/30/24 10/22/24 Unknown History atorvastatin 40 mg tablet 40 mg PO .QD 08/17/24 10/22/24 Unknown History Allergies Allergy/AdvReac Type Severity Reaction Status Date / Time Penicillins Allergy Mild Rash Verified 03/20/25 06:58 Sulfa (Sulfonamide Allergy Mild Rash Verified 03/20/25 06:58 Antibiotics) [facility] Past Medical History Medical History Fracture of olecranon process of right ulna with intraarticular extension Chronic diastolic CHF (congestive heart failure), NYHA class 2 Fatigue Parkinson's Disease Hypertension Hyperlipidemia Ovarian cyst Heart failure LBBB (left bundle branch block) Artificial pacemaker Replaced 2021, [facility] Breast cancer Surgical History Surgical History History of appendectomy Hx of removal of ovary History of lumpectomy Family History Family History Mother Breast cancer Goiter Father Diabetes mellitus Grandparent Diabetes mellitus Sibling Breast cancer Sibling Cancer of mouth Daughter Fuchs' corneal dystrophy of both eyes Diabetes mellitus Other Family history of thyroid disease Social History Social History Smoking status: Never smoker Second hand tobacco smoke exposure: No Alcohol intake: current Drinks per week: 5 Alcohol use details: Glass of wine daily. Substance use: never Substance use type: does not use Lack of Transportation: No Lack of Food: Never True Current Housing: I Have Housing Concerned About Future Housing: No Difficulty Paying Gas/Electric Bills: No Difficulty Paying for Meds: No Currently Unemployed: No Education: High School Diploma/GED Difficulty w/ Childcare or Family Care: No Living arrangements: with family Occupation/Education: retired Gender identity (if verbalized by the patient): Female Spiritual care concerns: No Agree to blood products: Yes Exam Narrative: APPEARANCE: No apparent distress. Head: 3 cm laceration over left eyebrow EYES: EOMI, NOSE: Atraumatic NECK: Trachea midline RESPIRATORY: No increased rate of breathing clear to auscultation CARDIOVASCULAR: RRR, ABDOMINAL: Non-distended MUSCULOSKELETAl: Head to toe trauma exam performed with no obvious injuries NEURO: Alert. Cranial nerves 2-12 grossly intact. Sensation light touch, motor function cerebellar function intact for 3/4 extremities. Gait exam was deferred. Patient has weakness in her right arm which is chronic for last 2 months since a fall. SKIN:: Warm, dry. Normal color PSYCHIATRIC: Normal affect Course Vital Signs Vital signs: Vital Signs Temperature 98 F 03/20/25 06:49 Pulse Rate 95 03/20/25 06:49 Respiratory Rate 15 03/20/25 06:49 Pulse Oximetry 98 03/20/25 06:49 Oxygen Delivery Room Air 03/20/25 06:49 Temperature 98 F 03/20/25 06:49 Pulse Rate 95 03/20/25 06:49 Respiratory Rate 15 03/20/25 06:49 Pulse Oximetry 98 03/20/25 06:49 Oxygen Delivery Room Air 03/20/25 06:49 Procedures Laceration Laceration 1: Date: 03/20/25 Site: face Side (If applicable): left Size (cm): 3 Description: linear Depth: simple, single layer Local Anesthetic: bupivacaine 0.25% Amount of anesthesia used (mL): 3 Pre-repair: wound explored, irrigated extensively and deep structures intact ====== Skin Level ====== Skin layer closed with: prolene Size (cm): 4-0 Number of sutures: 5 ====== Subcutaneous Layer ====== ====== Muscle Layer ====== ====== Tendon Layer ====== Medical Decision Making MDM Narrative Medical decision making narrative: -Course: 79-year-old female presenting ED after a mechanical fall. Patient has unsteady gait due to PSP. CT brain negative but caught a portion of an orbital wall fracture. CT facial bones showed a orbital wall fracture with hemorrhage in the maxillary sinus. No evidence of entrapment on exam. No eye pain or blurry vision. Her wound was repaired. She will be discharged follow-up with ophthalmology. Further care per hospice. -DDX includes but is not limited to: Intracranial hemorrhage, concussion, orbital wall fracture, facial laceration -Co-morbidities complicating care: PSP Vital Signs Vital Signs: Vital Signs Temperature 98 F 03/20/25 06:49 Pulse Rate 95 03/20/25 06:49 Respiratory Rate 15 03/20/25 06:49 Pulse Oximetry 98 03/20/25 06:49 Oxygen Delivery Room Air 03/20/25 06:49 Temperature 98 F 03/20/25 06:49 Pulse Rate 95 03/20/25 06:49 Respiratory Rate 15 03/20/25 06:49 Pulse Oximetry 98 03/20/25 06:49 Oxygen Delivery Room Air 03/20/25 06:49 Discharge Plan Discharge Clinical Impression: Closed fracture of orbital wall, Facial laceration Patient Disposition: Home Condition: Stable Instructions: Antibiotic Form, Care For Your Stitches (DC), Facial Fracture (DC) Additional Instructions: He was seen after a fall. The stitches in your eyebrow need to be removed in 5- 7 days. You have a orbital wall fracture. Please follow-up with your practice management consultant in 24-48 hours for an eye exam. Return if you develop any new or worsening symptoms. Patient Language: Georgian Prescriptions: No Action oxybutynin chloride 5 mg tablet extended release 24hr 5 mg PO DAILY timolol maleate 0.5 % drops Miebo (PF) 100 % drops atorvastatin 40 mg tablet 40 mg PO .QD azelastine 0.05 % drops 1 drp EACH EYE BID 7 Days Qty: 6 0RF trazodone 50 mg tablet 50 mg PO QHS PRN (Reason: Insomnia) mecobalamin (vitamin B12) 1,000 mcg tablet,disintegrating 1,000 mcg sublingual DAILY Rx Instructions: place tablet under tongue and allow to dissolve for at least30 secs before swallowing sodium chloride [Winnie 128] 5 % drops 1 drop EACH EYE TID carbidopa-levodopa 25-100 mg tablet 1 tablet PO TID carvedilol 12.5 mg tablet 25 mg PO BID Rx Instructions: take 1 tablet by oral route 2 times every day with food cholecalciferol (vitamin D3) [Vitamin D3] 25 mcg (1,000 unit) capsule 1,000 unit PO BID Rx Instructions: One twice daily losartan 25 mg tablet 12.5 mg PO BID Patient Comments: 1/2 tablet bid per cardiology appt 06/29/2020 tramadol 50 mg tablet 50 mg PO Q6H PRN (Reason: pain) Qty: 30 0RF Follow-up/Referrals: Sapna Dumont MD [Primary Care Provider] -
[2025-03-20 09:00] VITALS: BP 150/79; PULSE 95; RESP 17; TEMP 36.6; O2SAT 98
--- NOTE | 2025-03-20 09:23 | PC.NURSE ---
Attempted to call pt spouse Jey Maddox with pt approval as she is up for discharge. Attempted to call pt twice, no answer. Message left
--- NOTE | 2025-03-20 09:32 | PC.NURSE ---
Pt requests RN call her again, RN attempted to contact pt , received no answer
--- NOTE | 2025-03-20 09:50 | PC.NURSE ---
Pt requested RN call her again, This RN called pt , call was forwarded and this RN left another message
== END 2025-03-20 10:05 | disposition home or self-care (01) ==
PROVIDERS: Emergency Provider Emergency Medicine; PCP Family Medicine
DX: S02.32XA Fracture of orbital floor, left side, initial encounter for closed fracture (principal); S01.112A Laceration without foreign body of left eyelid and periocular area, initial encounter; I50.32 Chronic diastolic (congestive) heart failure; I11.0 Hypertensive heart disease with heart failure; G20.A1 Parkinson's disease without dyskinesia, without mention of fluctuations; E78.5 Hyperlipidemia, unspecified; Z95.0 Presence of cardiac pacemaker; Z85.3 Personal history of malignant neoplasm of breast; Z79.899 Other long term (current) drug therapy; M47.812 Spondylosis without myelopathy or radiculopathy, cervical region; W05.0XXA Fall from non-moving wheelchair, initial encounter
CPT/HCPCS: 12013; 70450; 70486; 72125; 99284

== ENCOUNTER 2025-03-28 05:40 | Emergency (ER) | payer MEDICARE, SELFPAY ==
--- OUTSIDE RECORDS SUMMARY | 2023-09-07 06:00 | XMS_ITS | Continuity of Care Document ---
Author Organization [facility] Address [address] [place] [phone] Phone Care Team Providers Care Commercial Lines Assistant Name Role Phone Angel Callahan Unavailable Unavailable [...] Date Provider Providers Copied on Encounter [facility] [address], [place], [place], [address], tel:[phone] [place] No Information 4 Pernell Ortiz. . Referring Provider: Primitivo Clayton [facility]1 [facility] 6th floor [address], [place], [address]. tel:[phone] [facility], [place], [place], [address], tel:[phone] [place] No Information 4 Pernell Angel. . Referring Provider: Kyra Dupont [address] [place] [address], [place], [address]. tel:[phone] [place] [address], [address], [place], [place], [address], [place] tel:[phone] [place] No Information 4 Pernell Jerniganyne. . Referring Provider: Kyra Dupont [address], [place], [address]. tel:[phone] [facility], [address], [place], [place], [address], [place] tel:[phone] [place] No Information 4 Pernell Jerniganyne. . Referring Provider: Kyra Dupont [address], [place], [address]. tel:[phone] [place] [address], [address], [place], [place], [address], [place] tel:[phone] [place] No Information 4 Pernell Jerniganyne. . Referring Provider: Kyra Dupont [address], [place], [address]. tel:[phone] [facility], [address], [place], [place], [address], [place] tel:[phone] [place] No Information 4 Pernell Jerniganyne. . Referring Provider: Kyra Dupont [address] [place] [address], [place], [address]. tel:[phone] [facility], [address], [place], [place], [address], [place] tel:[phone] [place] No Information 4 Pernell Jerniganyne. . Referring Provider: Kyra Dupont [address], [place], [address]. tel:[phone] [facility], [address], [place], [place], [address], [place] tel:[phone] [place] No Information Aug-0 5- 4 Pernell Angel. . Referring Provider: Kyra Dupont [address], [place], [address]. tel:[phone] [place] [address], [address] [place], [place] [address], [place], [place], [address], [place] tel:[phone] [place] No Information Aug-0 3-202 4 Pernell Angel. . Referring Provider: Kyra Dupont [address], [place], [address]. tel:[phone] [place] [address], [place], [place], [address], [place] tel:[phone] [place] No Information Dec-2 - 3 Pernell Angel. . Referring Provider: Kyra Dupont [address], [place], [address]. tel:[phone] [place] [address], [address] [place], [place] [address], [place], [place], [address], [place] tel:[phone] [place] No Information Dec-2 7- 3 Pernell Angel. . Referring Provider: Kyra Dupont [address], [place], [address]. tel:[phone] [place] [address], [place], [place], [address], [place] tel:[phone] [place] No Information Dec-2 2-202 3 Pernell Angel. . Referring Provider: Kyra Dupont [address], [place], [address]. tel:[phone] [facility], [facility], [place], [place], [address], [place] tel:[phone] [place] No Information Dec-2 0-202 3 Pernell Angel. . Referring Provider: Kyra Dupont [address], [place], [address]. tel:[phone] [facility], [address] [facility] 300, [place], [place], [address], tel:[phone] [place] No Information 3 Pernell Ortiz. . Referring Provider: Primitivo Clayton [address] [facility] 6th floor [address], [place], [address]. tel:[phone] [facility], [address] [facility] 300, [place], [place], [address], tel:[phone] [place] No Information 3 Pernell Ortiz. . Referring Provider: Primitivo Clayton [address] [facility] 6th floor [address], [place], [address]. tel:[phone] Family History Family Member Type Diagnosis Age At Onset No Information Payers Payer name Insurance type Covered libertarian ID Rogelio burciaga(s) Aetna Medicare Replacement CI [id number] Social History Type Description Quantity Date Captured [...]
--- NOTE | ~2025-03-28 | XR_ITS ---
XR forearm RT 2V 03/28/2025 06:05 INDICATION: Right forearm pain after fall PROCEDURE: 2 views right forearm COMPARISON: 06/08/2023 FINDINGS: Fracture, dislocation or subluxation is not identified. There is a side plate and screws transfixing the proximal aspect of the ulna. The soft tissues appear within normal limits. No foreign bodies are identified. IMPRESSION: 1: NO ACUTE BONE OR JOINT ABNORMALITY IDENTIFIED. Reviewed, dictated and finalized at location O.
--- NOTE | ~2025-03-28 | CT_ITS ---
EXAMINATION: CT brain wo con DATE: 03/28/2025 06:15 INDICATION: Status post fall. Head trauma. TECHNIQUE: Computed tomography (CT) of the abdomen and pelvis was performed without intravenous contrast. The dose-length product was 605.33 mGy-cm. Automated exposure control and iterative reconstruction technique were employed. COMPARISON: CT dated 03/20/2025. FINDINGS: No ventriculomegaly or midline shift. Mild generalized atrophy. There are scattered mild periventricular and subcortical white matter changes, most likely related to small vessel ischemic disease (microangiopathy). Basilar cisterns are patent. Paranasal sinuses and mastoids are pneumatized. No depressed skull fractures. IMPRESSION: 1. No acute intracranial abnormality. Reviewed, dictated and finalized at location O.
--- NOTE | ~2025-03-28 | CT_ITS ---
EXAMINATION: CT facial bones wo con DATE: 03/28/2025 06:15 INDICATION: Status post fall. TECHNIQUE: Computed tomography (CT) of the maxillofacial bones was performed without intravenous contrast. The dose-length product was 325.27 mGy-cm. Automated exposure control and iterative reconstruction technique were employed. COMPARISON: CT dated 03/20/2025 FINDINGS: Persistent mildly displaced left orbital floor fracture with herniation of extraconal fat into the maxillary sinus. No significant change. Mild mucosal thickening left maxillary sinus and right maxillary sinuses. Mastoids are pneumatized. No acute maxillofacial fractures. The ocular globes, e xtraocular muscles and optic nerves are within normal limits. IMPRESSION: 1. No significant change to left orbital floor fracture 03/20/2025. No new facial fractures. Reviewed, dictated and finalized at location O. IMPRESSION: 1. No significant change to left orbital floor fracture 03/20/2025. No new facia l fractures.
[2025-03-28 05:42] VITALS: BP 135/70; PULSE 80; RESP 14; TEMP 36.8; O2SAT 98
--- OUTSIDE RECORDS SUMMARY | 2025-03-28 06:01 | XMS_ITS | Encounter Summary ---
Author Organization [facility] Address [address] [place] [address] Care Team Providers Care Kier Pleater Name Role Phone Unavailable Primary Care Provider Unavailabl e Encounter Details Date Type Department Care Team (Late st Contact Info) Description 03/28/2023 Lab Requisition [facility] - DermPath Lab [address] [facility] [place] [address] Kaylah Santiago MD [address] [facility] [address] [place] [address] Social History Tobacco Use Types Packs/Day Years Used Date Smoking Tobacco: Never Assessed Comments Unknown Sex and Gender Information Value Date Recorded Sex Assigned at Not on file Legal Sex 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 Gender Identity Not on file Sexual Orientation Not on file documented as of this encounter Plan of Treatment Not on file documented as of this encounter Procedures Procedure Name Priority Date/Time Associated Diagnosis Comments DERMATOPATHOLOGY Routine 03/28/2023 2:37 PM CDT documented in this encounter Results * DERMATOPATHOLOGY (03/28/2023 2:37 PM CDT) Case Report Dermatopathology Report Case: [id number] Authorizing Provider: Kaylah Santiago MD Collected: 03/28/2023 02:37 PM Ordering Location: [facility] DermPath Lab Received: 03/30/2023 [...] characteristic determined by the Dermatopathology Laboratory at [facility], directed by Dr. Chandu Guardado. These tests need not be, and therefore are not, approved by the [place] Food and Drug Administration. The tests are used for clinical purposes. Billing Codes Specimen Charges Stain Charges 60654 1 3 3:57 PM CDT DERMATOPATHOLOGY LABORATORY Embedded Images 3 3:57 PM CDT DERMATOPATHOLOGY LABORATORY Pathology/Cytolo gy TISSUE SPECIMEN FROM SKIN / Unknown 03/28/2023 2:37 PM CDT 03/30/2023 7:13 AM CDT us Kaylah Santiago MD LAB - PATHOLOGY/CYTOLOGY ORD ERABLES Final Result DERMATOPATHOLOGY LABORATORY [facility] - Department of Dermatology [address], [address] [phone] documented in this encounter Visit Diagnoses Not on filedocumented in this encounter
--- OUTSIDE RECORDS SUMMARY | 2025-03-28 06:01 | XMS_ITS ---
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 Chambers is a very pleasant 78yo [...] antibody testing can be ordered or if Steptoe paraneoplastic panel is indicated. Plan: - Sleep study with sleep medicine - Continue levodopa 0.5 tabs TID - Start gabapentin: 300mg qHS 1 week -> 300mg BID 1 week , 300mg TID 1 week, touch base to discuss if it is working and any worsening lethargy - Exercise as able - IgLON5 antibody testing Assessment & Plan (07/23/2024 12:01 PM COFFEE FARMER): Mrs. Chambers is a very pleasant 78yo [...] (11/04/2021): Added automatically from request for surgery [id number] Essential hypertension 06/29/2020 Complete heart block 12/05/2017 [...] Diagnosed Date Resolved Date Parkinson's disease ([facility]) 11/07/2023 07/23/2024 Parkinson disease 02/02/2021 07/23/2024 [...]
--- OUTSIDE RECORDS SUMMARY | 2025-03-28 06:01 | XMS_ITS | Encounter Summary ---
Author Organization [facility] Address [address] [facility] [place] [address] Care Team Providers Care Government Auditor Name Role Phone Unavailable Primary Care Provider Unavailabl e Encounter Details Date Type Department Care Team (Late st Contact Info) Description 10/29/2023 Lab Requisition [facility] - DermPath Lab [address] [facility] [place] [address] Eusebia Bolivar DO [address] [facility] [address] [place] [address] Social History Tobacco Use Types Packs/Day Years Used Date Smoking Tobacco: Never Assessed Comments Unknown Sex and Gender Information Value Date Recorded Sex Assigned at Not on file Legal Sex Female 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 Gender Identity Not on file Sexual Orientation Not on file documented as of this encounter Plan of Treatment Not on file documented as of this encounter Procedures Procedure Name Priority Date/Time Associated Diagnosis Comments DERMATOPATHOLOGY Routine 10/29/2023 3:25 PM CDT documented in this encounter Results * DERMATOPATHOLOGY (10/29/2023 3:25 PM CDT) Case Report Dermatopathology Report Case: [id number] Authorizing Provider: Eusebia Bolivar DO Collected: 10/29/2023 03:25 PM Ordering Location: [facility] - Received: 10/30/2023 01:46 PM DermPath Lab [...] characteristic determined by the Dermatopathology Laboratory at [facility], directed by Dr. Chandu Guardado. These tests need not be, and therefore are not, approved by the [place] Food and Drug Administration. The tests are used for clinical purposes. Billing Codes Specimen Charges Stain Charges 98761 1 2:22 PM CDT DERMATOPATHOLOGY LABORATORY Embedded Images 2:22 PM CDT DERMATOPATHOLOGY LABORATORY Pathology/Cytolo gy TISSUE SPECIMEN FROM SKIN / Unknown 10/29/2023 3:25 PM CDT 10/30/2023 1:46 PM CDT us Eusebia Bolivar DO LAB - PATHOLOGY/CYTOLOGY ORDERABLES Final Result DERMATOPATHOLOGY LABORATORY [facility] - Department of Dermatology [address] [place] [address], [facility] [phone] documented in this encounter Visit Diagnoses Not on filedocumented in this encounter
--- OUTSIDE RECORDS SUMMARY | 2025-03-28 06:01 | XMS_ITS | Encounter Summary ---
Author Organization [facility] Address [address] [facility] [place] [address] Care Team Providers Care Advertising Project Manager Name Role Phone Unavailable Primary Care Provider Unavailabl e Encounter Details Date Type Department Care Team (Late st Contact Info) Description 03/31/2024 Lab Requisition [facility] - DermPath Lab [address] 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 Gender Identity Not on file Sexual Orientation Not on file documented as of this encounter Plan of Treatment Not on file documented as of this encounter Procedures Procedure Name Priority Date/Time Associated Diagnosis Comments DERMATOPATHOLOGY Routine 03/31/2024 11:2 1 AM CDT documented in this encounter Results * DERMATOPATHOLOGY (03/31/2024 11:21 AM CDT) Case Report Dermatopathology Report Case: [id number] Authorizing Provider: Kaylah Santiago MD Collected: 03/31/2024 11:21 AM Ordering Location: [facility] - Received: 03/31/2024 05:01 [...] characteristic determined by the Dermatopathology Laboratory at [facility], directed by Dr. Chandu Guardado. These tests need not be, and therefore are not, approved by the [place] Food and Drug Administration. The tests are used for clinical purposes. Billing Codes Specimen Charges Stain Charges 50488 1 4 3:09 PM CDT DERMATOPATHOLOGY LABORATORY Embedded Images 4 3:09 PM CDT DERMATOPATHOLOGY LABORATORY Pathology/Cytolo gy TISSUE SPECIMEN FROM SKIN / Unknown 03/31/2024 11:21 AM CDT 03/31/2024 5:01 PM CDT us Kaylah Santiago MD LAB - PATHOLOGY/CYTOLOGY ORD ERABLES Final Result DERMATOPATHOLOGY LABORATORY [facility] - Department of Dermatology [address] [phone] documented in this encounter Visit Diagnoses Not on filedocumented in this encounter
--- OUTSIDE RECORDS SUMMARY | 2025-03-28 06:01 | XMS_ITS | Encounter Summary ---
Author Organization [facility] Address [address] [place] [address] Phone Care Team Providers Care Blacksmith Farm Name Role Phone Beka Gonzales MD Primary Care Provider [phone] Myron Martinez MD Unavailable Susan Ramirez RN Unavailable [phone] Lisha Bob RN Unavailable [phone] Sara Ceballos Unavailable Unavailable Pooja Durán MD Primary Care Provider [phone] Sapna Dumont MD Primary Care Provider [phone] Shelly Thomason RN Unavailable Unavailable Shelly Thomason RN Unavailable Unavailable Shelly Thomason RN Unavailable Unavailable Kina Campbell RN Unavailable Unavailab le Encounter Details Date Type Department Care Team (Late st Contact Info) Description 2016 Orders Only [facility] CLINCONV Provider, MD Vijay [address] [place] [address] Social History Tobacco Use Types Packs/Day Years Used Date Smoking Tobacco: Never Assessed Comments Unknown Sex and Gender Information Value Date Recorded Sex Assigned at Not on file Legal Sex Female 12:32 AM OUTSIDE CONTRACTOR SALES Gender Identity Female 11/24/2020 8:34 AM CDT [...] on filedocumented in this encounter Care Teams [employer]smith Farm Relationship Specialty Start Date End Date Beka Gonzales MD [address] [place] [address] PCP - General 12/12/16 10/20/18 Pooja Durán MD PCP - General Family Practice 10/21/18 12/27/20 Sapna Dumont MD PCP - General Family Medicine 12/28/20 Myron Martinez MD [address] [place] [address] Vegetable Tier Cardiology 06/18/18 Susan Ramirez, RN [address] [address] Registered Nurse Cardiology 06/18/18 08/23/23 Lisha Bob RN [address] [address] Registered Nurse Cardiology 06/18/18 04/26/22 Sara Ceballos Primary Pastor Cardiology 06/18/18 Shelly Thomason, ship harbor pilotRug Cleaner Cardiology 04/27/22 09/05/23 Shelly Thomason, special education bus driver Failure Coordinator 08/23/23 4 Shelly Thomason, special education bus driver Failure Coordinator Transplant 09/05/23 Kina Campbell special education bus driver Failure Coordinator Cardiology 01/01/24 documented as of this encounter
--- OUTSIDE RECORDS SUMMARY | 2025-03-28 06:01 | XMS_ITS | Encounter Summary ---
Author Organization [facility] Address [address] [place] [address] Care Team Providers Care Pet Counselor Name Role Phone Unavailable Primary Care Provider Unavailabl e Encounter Details Date Type Department Care Team (Late st Contact Info) Description 02/04/2020 Lab Requisition [facility] [address] [place] [id number] Kaylah Santiago MD [address] [facility] [address] [place] [address] Social History Tobacco Use Types Packs/Day Years Used Date Smoking Tobacco: Never Assessed Comments Unknown Sex and Gender Information Value Date Recorded Sex Assigned at Not on file 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 Sex Female 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 Gender Identity Not on file Sexual Orientation Not on file documented as of this encounter Plan of Treatment Not on file documented as of this encounter Procedures Procedure Name Priority Date/Time Associated Diagnosis Comments DERMATOPATHOLOGY Routine 02/03/2020 12:0 0 AM CDT documented in this encounter Results * DERMATOPATHOLOGY (02/03/2020 12:00 AM CDT) Case Report Dermatopathology Report Case: [id number] Authorizing Provider: Kaylah Santiago MD Collected: 02/03/2020 12:00 AM Ordering Location: [facility] Received: 02/04/2020 10:49 AM Pathologist: [...] characteristic determined by the Dermatopathology Laboratory at [facility], directed by Dr. Chandu Guardado. These tests need not be, and therefore are not, approved by the [place] Food and Drug Administration. The tests are used for clinical purposes. Billing Codes Specimen Charges Stain Charges 02450 1 0 1:39 PM CDT DERMATOPATHOLOGY LABORATORY Embedded Images 0 1:39 PM CDT DERMATOPATHOLOGY LABORATORY Pathology/Cytolog y TISSUE SPECIMEN FROM SKIN / Unknown 02/03/2020 02/04/2020 10:49 AM CDT us Kaylah Santiago MD LAB - PATHOLOGY/CYTOLOGY ORD ERABLES Final Result DERMATOPATHOLOGY LABORATORY [facility] - Department of Dermatology [employer] [place] [address], [facility] [phone] documented in this encounter Visit Diagnoses Not on filedocumented in this encounter
--- OUTSIDE RECORDS SUMMARY | 2025-03-28 06:01 | XMS_ITS | Encounter Summary ---
Author Organization [facility] Address [address] [place] [address] Phone Care Team Providers Care Apprentice Technician Name Role Phone Beka Gonzales MD Primary Care Provider [phone] Myron Martinez MD Unavailable [phone] Suasn Ramirez RN Unavailable [phone] Lisha Bob RN Unavailable [phone] Sara Ceballos Unavailable Unavailable Pooja Durán MD Primary Care Provider [phone] aSpna Dumont MD Primary Care Provider [phone] Shelly Thomason RN Unavailable Unavailable Shelly Thomason RN Unavailable Unavailable Shelly Thomason RN Unavailable Unavailable Kina Campbell RN Unavailable Unavailab le Encounter Details Date Type Department Care Team (Late st Contact Info) Description 11/10/2015 Orders Only [facility] Provider, MD Vijay [address] [place] [address] Social History Tobacco Use Types Packs/Day Years Used Date Smoking Tobacco: Never Assessed Comments Unknown Sex and Gender Information Value Date Recorded Sex Assigned at Not on file Legal Sex Female 12:32 AM DOCTOR PODIATRIC MEDICINE Gender Identity Female 11/24/2020 8:34 AM CDT [...] on filedocumented in this encounter Care Teams Apprentice Technician Relationship Specialty Start Date End Date Beka Gonzales MD [address] [place] [address] PCP - General 12/12/16 10/20/18 Pooja Durán MD PCP - General Family Practice 10/21/18 12/27/20 Sapna Dumont MD PCP - General Family Medicine 12/28/20 Myron Martinez MD [address] [place] [address] Electron Beam Welder Setter Cardiology 06/18/18 Susan Ramirez, RN [address] [address] Registered Nurse Cardiology 06/18/18 08/23/23 Lisha Bob RN [address] [address] Registered Nurse Cardiology 06/18/18 04/26/22 Sara Ceballos Primary Nurse Staff [facility] Cardiology 06/18/18 Shelly Thomason, baking factory workerRenewable Energy Consultant Cardiology 04/27/22 09/05/23 Shelly Thomason, supply controller Failure Coordinator 08/23/23 4 Shelly Thomason, supply controller Failure Coordinator Transplant 09/05/23 Kina Campbell supply controller Failure Coordinator Cardiology 01/01/24 documented as of this encounter
--- OUTSIDE RECORDS SUMMARY | 2025-03-28 06:01 | XMS_ITS | Encounter Summary ---
Author Organization [facility] Address [address] [place] [address] Phone Care Team Providers Care Exchange Floor Manager Name Role Phone Beka Gonzales MD Primary Care Provider [phone] Myron Martinez MD Unavailable Susan Ramirez RN Unavailable [phone] Lisha Bob RN Unavailable [phone] Sara Ceballos Unavailable Unavailable Pooja Durán MD Primary Care Provider [phone] Sapna Dumont MD Primary Care Provider [phone] Shelly Thomason RN Unavailable Unavailable Shelly Thomason RN Unavailable Unavailable Shelly Thomason RN Unavailable Unavailable Kina Campbell RN Unavailable Unavailab le Encounter Details Date Type Department Care Team (Late st Contact Info) Description 11/14/2017 Orders Only [facility] Provider, MD Vijay [address] [place] [address] Social History Tobacco Use Types Packs/Day Years Used Date Smoking Tobacco: Never Comments Unknown Sex and Gender Information Value Date Recorded Sex Assigned at Not on file Legal Sex Female 12:32 AM TUGBOAT ENGINEER Gender Identity Female 11/24/2020 8:34 AM CDT [...] on filedocumented in this encounter Care Teams Exchange Floor Manager Relationship Specialty Start Date End Date Beka Gonzales MD [address] [place] [address] PCP - General 12/12/16 10/20/18 Pooja Durán MD PCP - General Family Practice 10/21/18 12/27/20 Sapna Dumont MD PCP - General Family Medicine 12/28/20 Myron Martinez MD [address] [place] [address] Consultant Technology Cardiology 06/18/18 Susan Ramirez, RN [address] [address] Registered Nurse Cardiology 06/18/18 08/23/23 Lisha Bob RN [address] [address] Registered Nurse Cardiology 06/18/18 04/26/22 Sara Ceballos Primary Intelligence Consultant Cardiology 06/18/18 Shelly Thomason, online merchantSanitation Manager Cardiology 04/27/22 09/05/23 Shelly Thomason, cold header Failure Coordinator 08/23/23 4 Shelly Thomason, cold header Failure Coordinator Transplant 09/05/23 Kina Campbell cold header Failure Coordinator Cardiology 01/01/24 documented as of this encounter
--- OUTSIDE RECORDS SUMMARY | 2025-03-28 06:01 | XMS_ITS | Clinical Summary ---
Author Organization [facility] Address [address] [place] [address] Phone Care Team Providers Care Marketing Producer Name Role Phone Sapna Dumont MD Primary Care Provider [phone] Allergies Active Allergy Reactions Criticality Noted Date Comments Sulfa (Sulfonamide Antibiotics) Rash Low 01/04 Medications CALCIUM CARBONATE (CALCIUM 600 ORAL) 600 mg daily. + D. Active atorvastatin (LIPITOR) 20 mg Oral tablet 20 mg daily. Active MULTIVITAMINS WITH FLUORIDE (MULTI-VITAMIN ORAL) Active sodium chloride (JOSE 128) 2 % OP solution 1 Drop PRN. Active carvedilol (COREG) 12.5 mg tabletIndication s:Breast cancer, right ([facility]) 03/09/2014 Act marshall escitalopram oxalate (LEXAPRO) 10 mg tabletIndication s:Breast cancer, right ([facility]) 02/06/2014 Act marshall Active Problems Patient Care Coordination No te Formatting of this note migh t be different from the original. Primary Care: Beka Gonzales MD Referring Provider: [place] [address] Other: [facility] pharm# [id number] Problem Noted Date Diagnosed Date Breast Cancer- 01/17/2010 Overview (01/20/2011): DANN patient 07/27/03 Stage IIA (T2 N0 Mx) IDC RIGHT breast ER 35% WA - HER2/jamal 2.7 Ki67 65% BRCA 1/2 NEGATIVE S/p lumpectomy and SLND AC x 4 S/p Radiation December 2003 ARIMIDEX x 5 years (BMD 2009) Assessment & Plan (07/24/2013 2:07 PM CSR): 10 years out mammo january Assessment & Plan (07/19/2012 11:18 AM CSR): 9 years out tonya Trice Osteopenia ROV 1 year CM from chemo PPM being replaced in Aug Assessment & Plan (07/14/2011 10:00 AM CSR): 8 years out Mammo in January BMD [...] Encounters Date Type Department Care Team Description 03/25/2025 External Device Data ST[facility] ABSTRACTION Provider, Abstract 03/10/2025 External Device Data [facility] ABSTRACTION Provider, Abstract 02/18/2025 External Device Data [facility] ABSTRACTION Provider, Abstract 02/17/2025 External Device Data [facility] ABSTRACTION Provider, Abstract 01/27/2025 External Device Data [facility] ABSTRACTION Provider, Abstract 01/06/2025 External Device Data [facility] ABSTRACTION Provider, [...] on file Legal Sex Female 2:46 AM CSR Gender Identity Not on file Sexual Orientation Not on file Occupation Industry Job Start Date Job End Date Not on file Not on file Not on file Not on file Last Filed Vital Signs Vital Sign Reading Time Taken Comments Blood Pressure 112/65 04/02/2018 11:41 AM CDT Pulse 76 04/02/2018 11:41 AM CDT Temperature 36.7 C (98.1 F) 07/24/2013 2:12 PM CSR Respiratory Rate 16 07/24/2013 2:12 PM CSR Oxygen Saturation - - Inhaled Oxygen Concentration [...] 1-dose 75+ series) 11/14/2022 INFLUENZA VACCINE (#1) 2025 0, 05/21/2014, 05/26/2008 PNEUMOCOCCAL VACCINE 50+ YEARS Completed 0 08/28/2016, 10/18/2015, 08/06/2009 ZOSTER VACCINE Completed 09/24/2021, 120 09/2020, 07/12/2012 Insurance [employer] O [facility] Care Teams Marketing Producer Relationship Specialty Start Date End Date Sapna Dumont MD [address] [place] [address] PCP - General Family Practice 03/31/21
--- OUTSIDE RECORDS SUMMARY | 2025-03-28 06:01 | XMS_ITS | Clinical Summary ---
Author Organization [facility] Address [address] [place] [address] Care Team Providers Care Special Education Director Name Role Phone Unavailable Primary Care Provider Unavailabl e Source Comments [facility] [employer],non-owned Affiliates and Associated Physician Practices is amultiple site organization consisting of ambulatory clinics and hospital sitesin [place], [place], [place] and [place]. This disclosure is being madepursuant to the Care Everywhere program and may not contain all information available regarding this patient. Last updated 18.[facility] [employer] Social History Tobacco Use Types Packs/Day Years Used Date Smoking Tobacco: Never Assessed Comments Unknown Sex and Gender Information Value Date Recorded Sex Assigned at Not on file Legal Sex Female 6:22 PM SYSTEM CONFIGURATION SPECIALIST Gender Identity Not on file Sexual [...] MEDICARE AWV CALENDAR YEAR 2024 INFLUENZA VACCINE (#1) 2025 HEPATITIS B VACCINE Aged Out No [...]
--- OUTSIDE RECORDS SUMMARY | 2025-03-28 06:01 | XMS_ITS | Encounter Summary ---
Author Organization [facility] Address [address] [place] [address] Phone Care Team Providers Care Director Of Dance Name Role Phone Beka Gonzales MD Primary Care Provider [phone] Myron Martinez MD Unavailable [phone] Susan Ramirez RN Unavailable [phone] Lisha Bob RN Unavailable Sara Ceballos Unavailable Unavailable Pooja Durán MD Primary Care Provider [phone] Sapna Dumont MD Primary Care Provider [phone] Shelly Thomason RN Unavailable Unavailable Shelly Thomason RN Unavailable Unavailable Shelly Thomason RN Unavailable Unavailable Kina Campbell RN Unavailable Unavailab le Encounter Details Date Type Department Care Team (Late st Contact Info) Description 11/04/2014 Orders Only [facility]IN[facility] Provider, MD Vijay [address] [place] [address] Social History Tobacco Use Types Packs/Day Years Used Date Smoking Tobacco: Never Assessed Comments Unknown Sex and Gender Information Value Date Recorded Sex Assigned at Not on file Legal Sex Female 12:32 AM PROJECT MANAGER Gender Identity Female 11/24/2020 8:34 AM CDT [...] on filedocumented in this encounter Care Teams Director Of Dance Relationship Specialty Start Date End Date Beka Gonzales MD [address] [place] [address] PCP - General 12/12/16 10/20/18 Pooja Durán MD PCP - General Family Practice 10/21/18 12/27/20 Sapna Dumont MD PCP - General Family Medicine 12/28/20 Myron Martinez MD [address] [place] [address] Director Of Counterintelligence Cardiology 06/18/18 Susan Ramirez, RN [address] [address] Registered Nurse Cardiology 06/18/18 08/23/23 Lisha Bob RN [address] [address] Registered Nurse Cardiology 06/18/18 04/26/22 Sara Ceballos Primary Automotive Service Cashier Cardiology 06/18/18 Shelly Thomason, perch menderHydrogen Plant Operator Cardiology 04/27/22 09/05/23 Shelly Thomason, vacuum pan operator Failure Coordinator 08/23/23 4 Shelly Thomason, vacuum pan operator Failure Coordinator Transplant 09/05/23 Kina Campbell vacuum pan operator Failure Coordinator Cardiology 01/01/24 documented as of this encounter
--- OUTSIDE RECORDS SUMMARY | 2025-03-28 06:01 | XMS_ITS | Encounter Summary ---
Author Organization [facility] Address [address] [place] [address] Care Team Providers Care Agricultural Mechanic Name Role Phone Sapna Dumont MD Primary Care Provider [phone] Encounter Details Date Type Department Care Team (Latest Contact Info) Description 06/20/2004 Outpatient Historical [facility] Umberto Rodriguez MD [address] [place] [address] MALIGN NEOPL BREAST NOS (CMS/HCC) (Primary Dx) Social History Tobacco Use Types Packs/Day Years Used Date Smoking Tobacco: Never Assessed Comments Unknown Sex and Gender Information Value Date Recorded Sex Assigned at Not on file Legal Sex Female 2:46 AM JINRIKISHA DRIVER Gender Identity Not on file Sexual Orientation Not on file documented as of this encounter Plan of Treatment Not on file documented as of this encounter Visit Diagnoses Diagnosis Malignant neoplasm of breast (female), unspecified site- Primary documented in this encounter Care Teams Agricultural Mechanic Relationship Specialty Start Date End Date Sapna Dumont MD [address] [place] [address] PCP - General Family Practice 03/31/21 documented as of this encounter
--- OUTSIDE RECORDS SUMMARY | 2025-03-28 06:01 | XMS_ITS | Clinical Summary ---
Author Organization [facility] Address [address] [place] [address] Care Team Providers Care Scuba Diver Name Role Phone Myron Martinez MD Unavailable [phone] Sara Ceballos Unavailable Unavailable Sapna Dumont MD Primary Care Provider [phone] Shelly Thomason RN Unavailable Unavailable Kina Campbell [...] 07/23/2024 Assessment & Plan (10/08/2024 6:06 PM JEWELRY APPRAISER): Mrs. Chambers is a very pleasant 78yo [...] antibody testing can be ordered or if [place] paraneoplastic panel is indicated. Plan: - Sleep study with sleep medicine - Continue levodopa 0.5 tabs TID - Start gabapentin: 300mg qHS 1 week -> 300mg BID 1 week , 300mg TID 1 week, touch base to discuss if it is working and any worsening lethargy - Exercise as able - IgLON5 antibody testing Assessment & Plan (07/23/2024 12:01 PM JEWELRY APPRAISER): Mrs. Chambers is a very pleasant 78yo [...] (11/04/2021): Added automatically from request for surgery [id number] Essential hypertension 06/29/2020 Complete heart block 12/05/2017 NICM (nonischemic cardiomyopathy) 11/08/2015 Malignant neoplasm of breast 05/30/2010 Hyperlipidemia 05/30/2010 Chronic combined systolic and diastolic heart fa ilure 05/30/2010 Resolved Problems Problem Noted Date Diagnosed Date Resolved Date Parkinson's disease ([facility]) 11/07/2023 07/23/2024 Parkinson disease 02/02/2021 [...] Description 01/06/2025 1:00 PM CDT Office Visit [facility] Cardiology [address] [place] [address] [place] [id number] Myron Martinez MD Chronic combined systolic and diastolic congestive heart failure (HCC) (Primary Dx); Dilated cardiomyopathy (HCC) 12/28/2024 Telephone [facility] Cardiology [address] [place] [address] [place] [phone] Sumeet Ortiz MD PhD ICD Check 12/26/2024 Telephone [facility] Cardiology [address] [place] [address] [place] [phone] Deanna Ortiz from Last 3 Months Immunizations Immunization Administration [...] History Date Comments 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 - (Added by TW Conv) Cataract Cataract of both eyes - (Added by TW Conv) Cardiomyopathy Complete heart block (HCC) CHF (congestive heart [...] on file Legal Sex Female 12:32 AM JEWELRY APPRAISER Gender Identity Female 11/24/2020 8:34 AM CDT [...] - Tdap) 03/02/2021 , 08/06/2011 Covid-19 Vaccine (2023-2 5 season) 2024 07/17/2022, 12/07/2021, 06/03/2021, Additional history exists Fall Risk Assessment 06/20/2024 06/20/2023 Influenza Vaccine (#1) 2025 , 04/12/2020, 05/21/2014, Additional history exists Depression Screening 10/08/2025 10/08/2024 Pneumococcal vaccine 65+ Completed 017, 10/18/2015, 08/06/2009 Zoster Vaccine Completed 09/24/2021, 1209/2020, 07/12/2012 Breast Cancer Screening-Mammogram Discontinued 04/16/2024, 04/16/2024, 04/05/2021, Additional history exists Medical Devices Implanted Type Area Environmental Aid Device Identifier Shelf Expiration Date Model / Serial / Lot [employer] C.R.M. G126 Defibrillator Cardiac Resynchronization Therapy Defibrillator Momentum Lv1 - [id number] - [id number] Implanted:Qty: 1 on 11/08/2021 by Sumeet Ortiz MD PhD at [facility] ICD [employer] C.R.M. 09/27/2023 G126 / [id number] / [employer] Ra Lead 4470 Lead Heart [employer] C.R.M. 4470 / [id number] / [employer] Rv Lead 0185 Lead Heart [employer] C.R.M. 0185 / [id number] / [employer] Lv Lead 4518 Lead Heart [employer] C.R.M. 4518 / [id number] / Synthes Implant Bone Plate Compression Locking 20 Hole Lcp 2.7mm [id number] - S0 - [id number] Implanted:Qty: 1 on 06/20/2023 by Primitivo Clayton MD at [facility] Plate Right: Olecranon Synthes I 04/05/2033 02.247.3 90S / 0 / [id number] Synthes Lcp 59mm 7 Hole Shaft Low Profile Cut To Length Condylar Plate 249.679 - S0 - [id number] Implanted:Qty: 1 on 06/20/2023 by Primitivo Clayton MD at [facility] Plate Right: [employer]ran[employer] Synthes I 249.679 / 0 / Synthes 2.7mm 5mm 16mm 2.5mm Self Tap Stardrive Cortical T8 Screw Bone 202.876 - S0 - [id number] Implanted:Qty: 1 on 06/20/2023 by Primitivo Clayton MD at [facility] Screw Right: [employer]ran[employer] Synthes I 202.876 / 0 / Synthes 2.7mm 5mm 14mm 2.5mm Self Tap Stardrive Cortical T8 Screw Bone 202.874 - S0 - [id number] Implanted:Qty: 1 on 06/20/2023 by Primitivo Clayton MD at [facility] Screw Right: Ole[employer]ranon Synthes I 202.874 / 0 / Synthes 2.7mm 5mm 28mm 2.5mm Self Tap Stardrive Cortical T8 Screw Bone 202.888 - S0 - [id number] Implanted:Qty: 1 on 06/20/2023 by Primitivo Clayton MD at [facility] Screw Right: Ole[employer]ranon Synthes I 202.888 / 0 / Synthes 2.4mm 18mm Self Tap Stardrive Cortex T8 Screw Bone 201.768 - S0 - [id number] Implanted:Qty: 3 on 06/20/2023 by Primitivo Clayton MD at [facility] Screw Right: Ole[employer] Synthes I 201.768 / 0 / Synthes 2.4mm 20mm Self Tap Stardrive Cortex T8 Screw Bone 201.770 - S0 - [id number] Implanted:Qty: 2 on 06/20/2023 by Primitivo Clayton MD at [facility] Screw Right: Ole[employer]ranon Synthes I 201.770 / 0 / Synthes 2.4mm 1.9mm 20mm Self Tap Lock Stardrive Conical Head T8 Screw 212.820 - S0 - [id number] Implanted:Qty: 2 on 06/20/2023 by Primitivo Clayton MD at [facility] Screw Right: [employer] Synthes I 212.820 / 0 / Synthes 2.4mm 1.9mm 28mm Self Tap Lock Stardrive Conical Head T8 Screw 212.828 - S0 - [id number] Implanted:Qty: 1 on 06/20/2023 by Primitivo Clayton MD at [facility] Screw Right: Ole[employer]ran[employer] Synthes I 212.828 / 0 / Synthes 2.4mm 1.9mm 18mm Self Tap Lock Stardrive Conical Head T8 Screw 212.818 - S0 - [id number] Implanted:Qty: 1 on 06/20/2023 by Primitivo Clayton MD at [facility] Screw Right: Ole[employer]ranon Synthes I 212.818 / 0 / Synthes 2.4mm 1.9mm 10mm Self Tap Lock Stardrive Conical Head T8 Screw 212.810 - S0 - [id number] Implanted:Qty: 1 on 06/20/2023 by Primitivo Clayton MD at [facility] Screw Right: Ole[employer]ranon Synthes I 212.810 / 0 / Synthes 2.7mm 5mm 44mm 2.5mm Self Tap Stardrive Cortical T8 Screw Bone 202.963 - S0 - [id number] Implanted:Qty: 1 on 06/20/2023 by Primitivo Clayton MD at [facility] Screw Right: Ole[employer] Synthes I 202.963 / 0 / Synthes Screw Bone Cortical Solid St Full Thread Locking 2.7x90mm 02.202.990 - S0 - [id number] Implanted:Qty: 1 on 06/20/2023 by Primitivo Clayton MD at [facility] Screw Right: Ole[employer] Synthes I 02.202.9 90 / 0 / Synthes 2.7mm 5mm 26mm 2.5mm Self Tap Stardrive Cortical T8 Screw Bone 202.886 - S0 - [id number] Implanted:Qty: 1 on 06/20/2023 by Primitivo Clayton MD at [facility] Screw Right: [employer] Synthes I 202.886 / 0 / Synthes 2.7mm 5mm 20mm 2.5mm Self Tap Stardrive Cortical T8 Screw Bone 202.880 - S0 - [id number] Implanted:Qty: 1 on 06/20/2023 by Primitivo Clayton MD at [facility] Screw Right: Ole[employer] Synthes I 202.880 / 0 / Explanted Type Area Environmental Aid Device Identifier Shelf Expiration Date Model / Serial / Lot Pacemaker/Icd -10/07/2012 Implanted:Qty : 1 on 10/07/2012 Explanted:Qty : 1 on 11/08/2021 Left: Chest [employer] Synthes 2.4mm 1.9mm 20mm Self Tap Lock Stardrive Conical Head T8 Screw 212.820 - [id number] Explanted:Qty : 1 on 06/20/2023 at [facility] Right: Ole[employer]ranon Synthes I 212.820 / / Insurance [facility] MEDICARE AET MEDICARE Advance Directives For more information, please contact: [phone] Documents on File Type Date Recorded Patient Wood Machine Carver Expl anation ADVANCE DIRECTIVE 05/27/2015 12:00 AM POW ER OF DUPLICATING MACHINE MECHANIC FINANCIAL/MEDICAL ADVANCE DIRECTIVE 11/30/2014 12:00 AM FAITH REDDY WILL Care Teams Scuba Diver Relationship Specialty Start Date End Date Sapna Dumont MD PCP - General Family Medicine 12/28/20 Myron Martinez MD [address] [facility] [address] [place] [address] Slurry Tank Operator Cardiology 06/18/18 Sara Ceballos Primary Territory Sales Professional Cardiology 06/18/18 Shelly Thomason, avionics shop supervisor Failure Coordinator Transplant 09/05/23 Kina Campbell avionics shop supervisor Failure Coordinator Cardiology 01/01/24
--- OUTSIDE RECORDS SUMMARY | 2025-03-28 06:01 | XMS_ITS | Encounter Summary ---
Author Organization [facility] Address [address] [place] [address] Phone Care Team Providers Care Powder Room Attendant Name Role Phone Beka Gonzales MD Primary Care Provider [phone] Myron Martinez MD Unavailable [phone] Susan Ramirez RN Unavailable [phone] Lisha Bob RN Unavailable [phone] Sara Ceballos Unavailable Unavailable Pooja Durán MD Primary Care Provider [phone] Sapna Dumont MD Primary Care Provider [phone] Shelly Thomason RN Unavailable Unavailable Shelly Thomason RN Unavailable Unavailable Shelly Thomason RN Unavailable Unavailable Kina Campbell RN Unavailable Unavailab le Encounter Details Date Type Department Care Team (Late st Contact Info) Description 10/22/2013 Orders Only [facility] CAR CLINCONV Provider, MD Vijay [address] [place] [address] Social History Tobacco Use Types Packs/Day Years Used Date Smoking Tobacco: Never Assessed Comments Unknown Sex and Gender Information Value Date Recorded Sex Assigned at Not on file Legal Sex Female 12:32 AM CODER Gender Identity Female 11/24/2020 8:34 AM CDT [...] on filedocumented in this encounter Care Teams Powder Room Attendant Relationship Specialty Start Date End Date Beka Gonzales MD [address] [place] [address] PCP - General 12/12/16 10/20/18 Pooja Durán MD PCP - General Family Practice 10/21/18 12/27/20 Sapna Dumont MD PCP - General Family Medicine 12/28/20 Myron Martinez MD [address] [place] [address] Waste Cotton Cleaner Cardiology 06/18/18 Susan Ramirez, RN [address] [address] Registered Nurse Cardiology 06/18/18 08/23/23 Lisha Bob RN [address] [address] Registered Nurse Cardiology 06/18/18 04/26/22 Sara Ceballos Primary Sling Operator Cardiology 06/18/18 Shelly Thomason, finger cobblerBook Cutter Cardiology 04/27/22 09/05/23 Shelly Thomason, bureau chief Failure Coordinator 08/23/23 4 Shelly Thomason, bureau chief Failure Coordinator Transplant 09/05/23 Kina Campbell bureau chief Failure Coordinator Cardiology 01/01/24 documented as of this encounter
--- OUTSIDE RECORDS SUMMARY | 2025-03-28 06:01 | XMS_ITS | Encounter Summary ---
Author Organization [facility] Address [address] [place] [address] Care Team Providers Care Photoengraving Proofer Name Role Phone Sapna Dumont MD Primary Care Provider [phone] Encounter Details Date Type Department Care Team (Latest Contact Info) Description 12/20/2007 Outpatient Historical HIS [facility] Stoddard Jr., Emily Calderon MD NO [...] on file Legal Sex Female 2:46 AM MACHINE PACK ASSEMBLER Gender Identity Not on file Sexual Orientation [...] PM CDT Narrative 12/20/2007 7:52 PM CDT [facility] [place] [address], [place] [address] Admit Date: 12/20/2007 KATARZYNA COHN Sex: F Admit Prov: EMILY STODDARD Date: 1945 Primary Care Prov: PCP , NONE CMRN: [id number] Room: [facility] SSN: [id number] IMAGING SERVICES Ordering Prov: EMILY STODDARD Accession Number: [id number] Interpretation BILATERAL FULL FIELD DIGITAL DIAGNOSTIC MAMMOGRAMS [...] DKT Procedure Note Tessy Mccormick - 12/20/2007 [facility] [place] [address] [place], [place] [address] Admit Date: 12/20/2007 KATARZYNA COHN Sex: F Admit Prov: EMILY STODDARD Date: 1945 Primary Care Prov: PCP , NONE CMRN: [id number] Room: [facility] SSN: [id number] IMAGING SERVICES Ordering Prov: EMILY STODDARD Interpretation [...] PM CDT Narrative 01/01/2008 12:34 PM CDT [facility] [place] [address] [place] [address] Admit Date: 12/20/2007 KATARZYNA COHN Sex: F Admit Prov: EMILY STODDARD Date: 1945 Primary Care Prov: PCP , NONE CMRN: [id number] Room: [facility] SSN: [id number] [address] IMAGING SERVICES Ordering Prov: EMILY STODDARD Accession Number: [id number] Addendum ADDENDUM TO MAMMOGRAPHY REPORT OF 12/20/2007 The patient's outside films from [facility] dated March [...] DKT Procedure Note Tessy Mccormick - 01/01/2008 [facility] [place] [address] [place], [place] [address] Admit Date: 12/20/2007 KATARZYNA COHN Sex: F Admit Prov: EMILY STODDARD Date: 1945 Primary Care Prov: PCP , NONE CMRN: [id number] Room: A SSN: [id number] IMAGING SERVICES Ordering Prov: EMILY STODDARD Addendum ADDENDUM TO MAMMOGRAPHY REPORT OF 12/20/2007 The patient's outside films from [facility] dated March 2006 [...] unspecified documented in this encounter Care Teams Photoengraving Proofer Relationship Specialty Start Date End Date Sapna Dumont MD [address] [place] [address] PCP - General Family Practice 03/31/21 documented as of this encounter
--- OUTSIDE RECORDS SUMMARY | 2025-03-28 06:01 | XMS_ITS | Encounter Summary ---
Author Organization [facility] Address [address] [place] [address] Care Team Providers Care Manager Corporate Responsibility Name Role Phone Unavailable Primary Care Provider Unavailabl e Encounter Details Date Type Department Care Team (Late st Contact Info) Description 03/06/2018 Lab Requisition [facility] Care DermPath Lab [address] [place] [id number] Kaylah Santiago MD [address] [facility] [address] [place] [address] Social History Tobacco Use Types Packs/Day Years Used Date Smoking Tobacco: Never Assessed Comments Unknown Sex and Gender Information Value Date Recorded Sex Assigned at Not on file Legal Sex Female 6:22 PM 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 Gender Identity Not on file Sexual Orientation Not on file documented as of this encounter Plan of Treatment Not on file documented as of this encounter Procedures Procedure Name Priority Date/Time Associated Diagnosis Comments DERMATOPATH TECHNICAL REPORT Routine 03/04/2018 12:00 AM CDT documented in this encounter Results * DERMATOPATH TECHNICAL REPORT (03/04/2018 12:00 AM CDT) Case Report Dermatopathology Report Case: [id number] Authorizing Provider: Kaylah Santiago MD Collected: 03/04/2018 12:00 AM Pathologist: Brandon Guardado MD Received: 03/06/2018 07:29 AM Specimen: Skin, right buttock 8 4:41 PM CDT DERMATOPATHOLOGY LABORATORY Addendum 1 At the request of the diagnosing physician, the technical component for [place] methenamine silver was performed by [facility] Dermatopathology. 8 4:41 PM CDT [...] punch biopsy measuring 4x4x3 mm. Jar 0. [facility] Dermatopathology Laboratory performed the technical [...] characteristic determined by the Dermatopathology Laboratory at [facility]. These tests need not be, and therefore are not, approved by the [place] Food and Drug Administration. The tests are used for clinical purposes. 8 4:41 PM CDT DERMATOPATHOLOGY LABORATORY at 1028 CDT Pathology/Cytolog y TISSUE SPECIMEN FROM SKIN / Unknown 03/04/2018 03/06/2018 7:29 AM CDT Kaylah Santiago MD LAB - PATHOLOGY/CYTOLOGY ORD ERABLES Edited Result - Final DERMATOPATHOLOGY LABORATORY [facility] - Department of Dermatology [address] [place] [address], 5th [place] [address], [facility] [phone] documented in this encounter Visit Diagnoses Not on filedocumented in this encounter
--- NOTE | 2025-03-28 06:02 | ED.FALL ---
HPI - Fall General Chief Complaint: Fall Stated Complaint: Fall Time Seen by Provider: 03/28/25 05:40 History of Present Illness HPI Narrative: Patient is a 79-year-old female who presents to the emergency department this morning from local long term status post a ground level unwitnessed fall. Patient states that she was in the bathroom and she tripped falling forward hitting her right eyebrow on the ground. Denies any loss of consciousness. Denies any blood thinner use. Patient does have some bruising to the left orbital region from a recent fall. Patient is complaining of pain to her right forearm otherwise denies any additional symptoms or concerns. Denies any neck pain. Related Data Home Medications ?Medication ?Instructions ?Recorded ?Confirmed ?Last Taken ?Type carvedilol 12.5 mg tablet 25 mg PO BID 08/14/19 10/22/24 03/13/22 History cholecalciferol (vitamin D3) 25 1,000 unit PO BID 08/14/19 10/22/24 03/13/22 History mcg (1,000 unit) capsule (Vitamin D3) sodium chloride 5 % eye drops 1 drop ophthalmic (eye) TID 08/15/19 10/22/24 03/13/22 History (Winnie 128) losartan 25 mg tablet 12.5 mg PO BID 09/14/20 10/22/24 03/13/22 History carbidopa 25 mg-levodopa 100 mg 1 tablet PO TID 04/07/21 10/22/24 03/13/22 History tablet trazodone 50 mg tablet 50 mg PO QHS PRN Insomnia 02/09/22 10/22/24 03/13/22 History mecobalamin (vitamin B12) 1,000 1,000 mcg sublingual DAILY 12/12/22 10/22/24 Unknown History mcg disintegrating tablet,sublingual oxybutynin chloride 5 mg 5 mg PO DAILY 04/30/24 10/22/24 Unknown History tablet,extended release 24 hr perfluorohexyloctane (PF) 100 % drp 04/30/24 10/22/24 Unknown History eye drops (Miebo (PF)) timolol maleate 0.5 % eye drops drp 04/30/24 10/22/24 Unknown History atorvastatin 40 mg tablet 40 mg PO .QD 08/17/24 10/22/24 Unknown History Allergies Allergy/AdvReac Type Severity Reaction Status Date / Time Penicillins Allergy Mild Rash Verified 03/20/25 06:58 Sulfa (Sulfonamide Allergy Mild Rash Verified 03/20/25 06:58 Antibiotics) Review of Systems Review of Systems: All systems are reviewed and are negative unless stated otherwise in the HPI. [facility] Past Medical History Medical History Fracture of olecranon process of right ulna with intraarticular extension Chronic diastolic CHF (congestive heart failure), NYHA class 2 Fatigue Parkinson's Disease Hypertension Hyperlipidemia Ovarian cyst Heart failure LBBB (left bundle branch block) Artificial pacemaker Replaced 2021, [facility] Breast cancer Surgical History Surgical History History of appendectomy Hx of removal of ovary History of lumpectomy Family History Family History Mother Breast cancer Goiter Father Diabetes mellitus Grandparent Diabetes mellitus Sibling Breast cancer Sibling Cancer of mouth Daughter Fuchs' corneal dystrophy of both eyes Diabetes mellitus Other Family history of thyroid disease Social History Social History Smoking status: Never smoker Second hand tobacco smoke exposure: No Alcohol intake: current Drinks per week: 5 Alcohol use details: Glass of wine daily. Substance use: never Substance use type: does not use Lack of Transportation: No Lack of Food: Never True Current Housing: I Have Housing Concerned About Future Housing: No Difficulty Paying Gas/Electric Bills: No Difficulty Paying for Meds: No Currently Unemployed: No Education: High School Diploma/GED Difficulty w/ Childcare or Family Care: No Living arrangements: with family Occupation/Education: retired Gender identity (if verbalized by the patient): Female Spiritual care concerns: No Agree to blood products: Yes Exam Narrative: General: Alert, awake, afebrile, in no acute distress. HEENT: PERRL, no rhinorrhea, no post nasal drip, oropharynx clear, ecchymosis to left orbital region, small abrasion to right eyebrow. Neck: Trachea midline, no JVD, no lymphadenopathy, no midline tenderness to palpation over the cervical spine. Cardiovascular: Regular rate and rhythm, no murmurs, rubs or gallops, no peripheral edema. Respiratory: Clear to auscultation bilaterally, no tachypnea, no wheezing, no rhonchi, no rubs, no respiratory distress. Abdomen: Soft, nontender, nondistended, no rebound, no guarding, no peritoneal signs. Musculoskeletal: No joint swelling or deformity noted to the right upper extremity, normal muscle tone. Skin: No rashes or petechia, no signs of infection. Psychiatric: Alert and oriented, normal behavior and judgment for situation. Neurological: Alert and oriented to person, place, and time. Follows all commands. No focal deficits, speech is clear and fluent. Course Vital Signs Vital signs: Vital Signs Temperature 98.3 F 03/28/25 05:42 Pulse Rate 80 03/28/25 05:42 Respiratory Rate 14 03/28/25 05:42 Blood Pressure 135/70 03/28/25 05:42 Pulse Oximetry 98 03/28/25 05:42 Oxygen Delivery Room Air 03/28/25 05:42 Temperature 98.3 F 03/28/25 05:42 Pulse Rate 80 03/28/25 05:42 Respiratory Rate 14 03/28/25 05:42 Blood Pressure 135/70 03/28/25 05:42 Pulse Oximetry 98 03/28/25 05:42 Oxygen Delivery Room Air 03/28/25 05:42 MDM - Fall MDM Narrative Medical decision making narrative: The patient was evaluated by myself in the emergency department. History is obtained from patient who is an independent historian and physical exam was performed. External medical records were reviewed at this time. Imaging studies obtained included CT brain and facial bones without IV contrast, right forearm x-ray which was independently interpreted by me revealing no acute process, which is pending final radiology interpretation. Differential diagnosis considerations include fractures, dislocations, intracranial hemorrhage. Comorbidities impacting this visit include none. I have evaluated and discussed social determinants of health with the patient that could potentially impact subsequent diagnosis and treatment plans. On repeat assessment of the patient, reevaluation revealed that the patient is doing well and is in no acute distress. Patient symptoms have improved since she arrived to our emergency department. Repeat vital signs were all reviewed and noted to be stable. Differential diagnosis and treatment plan were discussed with the patient at bedside. Patient agrees with discussion and after shared medical decision making agrees with discharge. All questions were answered to the patient's satisfaction. Patient will follow up with her PCP in 3-5 days. Patient was provided with strict return precautions and instructed to return to the emergency department if any new or worsening symptoms develop. The patient was discharged in stable condition. Discharge Plan Discharge Clinical Impression: Fall from ground level, Head injury Patient Disposition: SNF Condition: Improved Instructions: Fall Prevention for Older Adults (ED), Head Injury (ED) Additional Instructions: Please follow-up with the family doctor within the next 3-5 days. Return to the emergency department if any new or worsening symptoms develop. Patient Language: Irish Prescriptions: No Action oxybutynin chloride 5 mg tablet extended release 24hr 5 mg PO DAILY timolol maleate 0.5 % drops Miebo (PF) 100 % drops atorvastatin 40 mg tablet 40 mg PO .QD azelastine 0.05 % drops 1 drp EACH EYE BID 7 Days Qty: 6 0RF trazodone 50 mg tablet 50 mg PO QHS PRN (Reason: Insomnia) mecobalamin (vitamin B12) 1,000 mcg tablet,disintegrating 1,000 mcg sublingual DAILY Rx Instructions: place tablet under tongue and allow to dissolve for at least30 secs before swallowing sodium chloride [Winnie 128] 5 % drops 1 drop EACH EYE TID carbidopa-levodopa 25-100 mg tablet 1 tablet PO TID carvedilol 12.5 mg tablet 25 mg PO BID Rx Instructions: take 1 tablet by oral route 2 times every day with food cholecalciferol (vitamin D3) [Vitamin D3] 25 mcg (1,000 unit) capsule 1,000 unit PO BID Rx Instructions: One twice daily losartan 25 mg tablet 12.5 mg PO BID Patient Comments: 1/2 tablet bid per cardiology appt 06/29/2020 tramadol 50 mg tablet 50 mg PO Q6H PRN (Reason: pain) Qty: 30 0RF Follow-up/Referrals: Sapna Dumont MD [Primary Care Provider, Family Practice] - 3 Days Time of Disposition: 07:07
[2025-03-28] MEDS: ACETAMINOPHEN 500 MG TABLET 1000 MG PO (06:44)
[2025-03-28 07:21] VITALS: BP 135/70; PULSE 88; RESP 16; O2SAT 99
--- NOTE | 2025-03-28 08:06 | PC.NURSE ---
Family here to take pt back to [facility] via private car.
== END 2025-03-28 08:07 ==
PROVIDERS: Emergency Provider Emergency Medicine; PCP Family Medicine
DX: S05.12XA Contusion of eyeball and orbital tissues, left eye, initial encounter (principal); S00.211A Abrasion of right eyelid and periocular area, initial encounter; I50.32 Chronic diastolic (congestive) heart failure; I11.0 Hypertensive heart disease with heart failure; G20.A1 Parkinson's disease without dyskinesia, without mention of fluctuations; E78.5 Hyperlipidemia, unspecified; Z95.0 Presence of cardiac pacemaker; Z85.3 Personal history of malignant neoplasm of breast; Z90.721 Acquired absence of ovaries, unilateral; W18.30XA Fall on same level, unspecified, initial encounter
CPT/HCPCS: 70450; 70486; 73090; 99284; A9270

== ENCOUNTER 2025-04-02 20:23 | Emergency (ER) | payer MEDICARE, SELFPAY ==
--- OUTSIDE RECORDS SUMMARY | 2023-09-07 06:00 | XMS_ITS | Continuity of Care Document ---
Author Organization [facility] Address [address] [place] [phone] Phone Care Team Providers Care Filbert Grower Name Role Phone Angel Callahan Unavailable Unavailable [...] or Cold Pack Therapeutic Activities Neuromuscular Re-Ed Manual Therapy Therapeutic Exercise Therapeutic Activities Neuromuscular Re-Ed Therapeutic Exercise Manual [...] Diagnoses Date Provider Providers Copied on Encounter [facility] [address], [place], [place], [address], tel:[phone] [place] No Information 4 Pernell Ortiz. . Referring Provider: Primitivo Clayton [facility]1 [facility] [place] [facility] 6th floor [address], [place], [address]. tel:[phone] [facility], [place], [place], [address], tel:[phone] [place] No Information 4 Pernell Angel. . Referring Provider: Kyra Dupont [address], [place], [address]. tel:[phone] [place] [address], [address], [place], [place], [address], [place] tel:[phone] [place] No Information 4 Pernell Jerniganyne. . Referring Provider: Kyra Dupont [address], [place], [address]. tel:[phone] [facility], [address], [place], [place], [address], [place] tel:[phone] [place] No Information 4 Pernell Jerniganyne. . Referring Provider: Kyra Dupont [address], [place], [address]. tel:[phone] [place] [address], [address], [place], [place], [address], [place] tel:[phone] [place] No Information 4 Pernell Jerniganyne. . Referring Provider: Kyra Dupont [address], [place], [address]. tel:[phone] [facility], [address], [place], [place], [address], [place] tel:[phone] [place] No Information 4 Pernell Jerniganyne. . Referring Provider: Kyra Dupont [address], [place], [address]. tel:[phone] [facility], [address], [place], [place], [address], [place] tel:[phone] [place] No Information 4 Pernell Jerniganyne. . Referring Provider: Kyra Dupont [address], [place], [address]. tel:[phone] [facility], [address], [place], [place], [address], [place] tel:[phone] [place] No Information Aug-0 5- 4 Pernell Angel. . Referring Provider: Kyra Dupont [address], [place], [address]. tel:[phone] [place] [address], [address] [place], [place] [address] [address], [place], [place], [address], [place] tel:[phone] [place] No Information Aug-0 3-202 4 Pernell Angel. . Referring Provider: Kyra Dupont [address], [place], [address]. tel:[phone] [place] [address], [place], [place], [address], [place] tel:[phone] [place] No Information Dec-2 - 3 Pernell Angel. . Referring Provider: Kyra Dupont [address], [place], [address]. tel:[phone] [place] [address], [address] [place], [place] [address], [place], [place], [address], [place] tel:[phone] [place] No Information Dec-2 7- 3 Pernell Angel. . Referring Provider: Kyra Dupont [address], [place], [address]. tel:[phone] [place] [address], [place], [place], [address], [place] tel:[phone] [place] No Information Dec-2 2-202 3 Pernell Angel. . Referring Provider: Kyra Dupont [address], [place], [address]. tel:[phone] [facility], [facility], [place], [place], [address], [place] tel:[phone] [place] No Information Dec-2 0-202 3 Pernell Angel. . Referring Provider: Kyra Dupont [address], [place], [address]. tel:[phone] [facility], [address] [facility] [address], [place], [place], [address], tel:[phone] [place] No Information 3 Pernell Ortiz. . Referring Provider: Primitivo Clayton [address] [facility] 6th floor [address], [place], [address]. tel:[phone] [facility], [address] [facility] [address], [place], [place], [address], tel:[phone] [place] No Information 3 Pernell Ortiz. . Referring Provider: Primitivo Clayton [address] [facility] 6th floor [address], [place], [address]. tel:[phone] Family History Family Member Type Diagnosis Age At Onset No Information Payers Payer name Insurance type Covered constitution party ID Rogelio burciaga(s) Aetna Medicare Replacement CI [id number] Social History Type Description Quantity Date Captured [...]
--- OUTSIDE RECORDS SUMMARY | 2025-04-01 02:15 | XMS_ITS ---
Author Organization [facility] Address [address] [place] [address] [id number] Care Team Providers Care Rehab Liaison Name Role Phone MYKEL BRIEC Primary Care Provider Keila Banksberly Unavailable [phone] REASON FOR VISIT LV, ED f/u dx: fall (03/28) Medications Medication SIG (Take, Route, Frequency, Duration) Notes Start Date End Date Status Gabapentin 300 MG Capsule 1 capsule Oral ly 3 times a day Active Ondansetron 4 MG Tablet Disintegrating 1 tablet on the tongue and allow to dissolve Orally every 8 hours As needed Active Morphine Sulfate (Concentrat e) 100 MG/5ML Solution 0.25 mL as needed Orally every 4 hrs Active Perfluorohexyloctane 1.338 GM/ML Solution 1 drop into both eyes as needed Ophthalmic every 2 hours Active Losartan Potassium 25 MG Tablet 0.5 tabl et Orally twice a day Active Cipro 250 MG Tablet 1 tablet Orally ever y 12 hrs Active traMADol HCl 25 MG Tablet 1 tablet Orally every 6 hours As needed Active SEROquel 25 MG Tablet 1 tablet at bedtim e Orally Once a day Active Senna Lax 8.6 MG Tablet 1 tablet Orally twice a day As needed Active QUEtiapine Fumarate 50 MG Tablet 1 tablet at bedtime Orally Once a day Active LORazepam 0.5 MG Tablet 1 tablet at bedt festus as needed Orally twice a day Active Carvedilol 12.5 MG Tablet 1 tablet with food Orally Twice a day Active Bisacodyl 10 MG Suppository 1 suppositor y as needed Rectal Once a day Active Atropine Sulfate 1 % Solution 2 drops as needed sublingual every 4 hours Active Acetaminophen 650 MG Suppository 1 suppository as needed Rectal every 6 hrs Active DULoxetine HCl 60 MG Capsule Delayed Release Particles 1 capsule Orally Once a day Active Encounters Encounter Location Date Provider Diagnosis [facility] [address] [place] [address] 04/01/2025 Mary Banks Falls frequently R29.6 Assessments Encounter Date Diagnosis (ICD Code) Assessment Notes Treatment Notes Treatment Clinical Notes Section Notes 04/01/2025 Falls frequently (ICD-10 - R29.6) Patient has had numerous falls since admitting to the facility due to her condition. She is on hospice. She was seen in the emergency room on 03/20/2025 due to falling out of her wheelchair and sustaining a laceration to the left eyebrow. She does have five sut[address] that will be removed on 03/27/2025. 04/01/2025 Other Continue current treatment plan. Staff to continue to monitor and report any changes. Patient education provided and questions/marlo rns addressed. Follow up in 2-4 weeks unless necessary sooner. Plan Of Treatment Treatment Notes Assessment Notes Falls frequently Patient has had nume singh falls since admitting to the facility due to her condition. She is on hospice. She was seen in the emergency room on 03/20/2025 due to falling out of her wheelchair and sustaining a laceration to the left eyebrow. She does have five sut[address] that will be removed on 03/27/2025. Other Continue current treatment plan. Staff to continue to monitor and report any changes. Patient education provided and questions/concerns addressed. Follow up in 2-4 weeks unless necessary sooner. Next Appt Details Follow Up: 2-4 Weeks, Reason : History and Physical Notes * Examination Category Sub-Category Detail Notes Category Not es General Examination General appearance: alert, p leasant, well-nourished and in no acute distress Head: normocephalic, atrau matic Ears: normal Nose: nares patent Throat: clear, no erythema, no exudate, uvula midline Neck / thyroid: no masses and/or ten derness, normal thyroid size and shape without nodules, or tenderness, trachea midline Heart: regular rate and rhy thm without murmurs, gallops, clicks or rubs, no jugular venous distention Lungs: clear to auscultatio n bilaterally, with good air movement and no rales, rhonchi or wheezes Abdomen: soft with good bowel sounds, nontender, and no masses or hepatosplenomegaly Neurologic: alert, cooperative w ith exam, gait abnormal, abnormal upper and lower extremity motor strength and function Skin: bruising noted aroun d the entire left eye and small laceration with five sutures noted on left eyebrow Extremities: normal extremity wit h no clubbing, cyanosis or edema Musculoskeletal: wheelchair for ambul ation Lymph nodes: no axillary, supracl avicular or inguinal lymphadenopathy, nontender Psych: alert and oriented x 2, cooperative with exam, maintains good eye contact, normal affect / mood Oral cavity: normal, mucosa moist Progress Notes * Katarzyna COHNDOB:1945 (79 yo F)Acc No.[id number]:04/01/2025 Patient: Katarzyna Chapin Provider: PARESH Reid :1945 A ge:79 Y S ex:Female Date:04/01/2025 Address:[address] [place] [address] Pcp:MYKEL BRICE Subjective: * Chief Complaints: * L V, ED f/u dx: fall (shannan 03/28) * HPI: T ransition of Care: Patient is being seen at [facility] for an ED evaluation. Patient was seen in the emergency room on 03/20/2025 due to falling out of her wheelchair and sustaining a laceration to her left eyebrow. She was seen in the emergency room and they did a brain CT that was negative, but it caught a portion of an orbital wall fracture. So a CT of the facial bones was done and it showed orbital wall fracture with hemorrhage in the maxillary sinus. They did put in five sutures to the laceration to the left eyebrow. Once discharged, she was stabilized and discharged back to the facility with orders to follow-up with an dog breeder outpatient and to remove the sutures in 5-7 days. They have an order to remove the sutures on 03/27/2025. was going to talk with hospice about if she would be able to go to the ophthalmology appointment and he would let them know. Patient is alert and oriented x2, able to make needs known. Staff do not have any other concerns other than her frequent falls. Patient encouraged to use call light when needing help. * ROS: G eneral / Constitutional: Patient denies f atigue, headache, lightheadedness, sleep disturbance, weight gain. P atient complains of w eakness. E NT: Patient denies e ar pain, hoarseness, nasal congestion, pain, sinus pain, sore throat. R espiratory: Patient denies c hest pain, cough, shortness of breath, sputum production. C ardiovascular: Patient denies c hest pain, chest pain with exertion, irregular heartbeat, palpitations, shortness of breath. G astrointestinal: Patient denies a bdominal pain, constipation, diarrhea, rectal bleeding, vomiting, weight loss, blood in stool. G enitourinary: Patient denies b lood in the urine, difficulty urinating, frequent urination, painful urination. M usculoskeletal: Patient denies a rthritis / arthralgia, back pain, back problems, painful joints. P eripheral Vascular: Patient denies c old extremities, decreased sensation in extremities, painful extremities. S kin: Patient denies d ry skin, rash, ulcerations, itching. P atient complains of d iscoloration, laceration with sutures noted to the left eyebrow. N eurologic: Patient denies c onfusion, dizziness, tingling / numbness, tremor. P atient complains of g ait abnormality, loss of strength. P sychiatric: Patient denies a nxiety, depressed mood, loss of appetite, mood disorder, suicidal thoughts. * Medications: T akingLORazepam 0.5 MG Tablet 1 tablet at bedtime as needed Orally twice a day Cipro 250 MG Tablet 1 tablet Orally every 12 hrs traMADol HCl 25 MG Tablet 1 tablet Orally every 6 hours As neededSEROquel 25 MG Tablet 1 tablet at bedtime Orally Once a day Senna Lax 8.6 MG Tablet 1 tablet Orally twice a day As neededQUEtiapine Fumarate 50 MG Tablet 1 tablet at bedtime Orally Once a day Ondansetron 4 MG Tablet Disintegrating 1 tablet on the tongue and allow to dissolve Orally every 8 hours As neededMorphine Sulfate (Concentrate) 100 MG/5ML Solution 0.25 mL as needed Orally every 4 hrs Perfluorohexyloctane 1.338 GM/ML Solution 1 drop into both eyes as needed Ophthalmic every 2 hours Losartan Potassium 25 MG Tablet 0.5 tablet Orally twice a day Gabapentin 300 MG Capsule 1 capsule Orally 3 times a day DULoxetine HCl 60 MG Capsule Delayed Release Particles 1 capsule Orally Once a day Carvedilol 12.5 MG Tablet 1 tablet with food Orally Twice a day Bisacodyl 10 MG Suppository 1 suppository as needed Rectal Once a day Atropine Sulfate 1 % Solution 2 drops as needed sublingual every 4 hours Acetaminophen 650 MG Suppository 1 suppository as needed Rectal every 6 hrs Taking LORazepam 0.5 MG Tablet 1 tablet at bedtime as needed Orally twice a day Taking Cipro 250 MG Tablet 1 tablet Orally every 12 hrs Taking traMADol HCl 25 MG Tablet 1 tablet Orally every 6 hours As neededTaking SEROquel 25 MG Tablet 1 tablet at bedtime Orally Once a day Taking Senna Lax 8.6 MG Tablet 1 tablet Orally twice a day As neededTaking QUEtiapine Fumarate 50 MG Tablet 1 tablet at bedtime Orally Once a day Taking Ondansetron 4 MG Tablet Disintegrating 1 tablet on the tongue and allow to dissolve Orally every 8 hours As neededTaking Morphine Sulfate (Concentrate) 100 MG/5ML Solution 0.25 mL as needed Orally every 4 hrs Taking Perfluorohexyloctane 1.338 GM/ML Solution 1 drop into both eyes as needed Ophthalmic every 2 hours Taking Losartan Potassium 25 MG Tablet 0.5 tablet Orally twice a day Taking Gabapentin 300 MG Capsule 1 capsule Orally 3 times a day Taking DULoxetine HCl 60 MG Capsule Delayed Release Particles 1 capsule Orally Once a day Taking Carvedilol 12.5 MG Tablet 1 tablet with food Orally Twice a day Taking Bisacodyl 10 MG Suppository 1 suppository as needed Rectal Once a day Taking Atropine Sulfate 1 % Solution 2 drops as needed sublingual every 4 hours Taking Acetaminophen 650 MG Suppository 1 suppository as needed Rectal every 6 hrs Objective: * Examination: G eneral Examination: General appearance: a lert, pleasant, well-nourished and in no acute distress. Head: n ormocephalic, atraumatic. Ears: n ormal. Nose: n yen patent. Oral cavity: n ormal, mucosa moist. Throat: c lear, no erythema, no exudate, uvula midline.? Neck / thyroid: n o masses and/or tenderness, normal thyroid size and shape without nodules, or tenderness, trachea midline. Lymph nodes: n o axillary, supraclavicular or inguinal lymphadenopathy, nontender. Skin: b ruising noted around the entire left eye and small laceration with five sutures noted on left eyebrow. Heart: r egular rate and rhythm without murmurs, gallops, clicks or rubs, no jugular venous distention. Lungs: c lear to auscultation bilaterally, with good air movement and no rales, rhonchi or wheezes. Abdomen: s oft with good bowel sounds, nontender, and no masses or hepatosplenomegaly. Musculoskeletal: w heelchair for ambulation. Extremities: n ormal extremity with no clubbing, cyanosis or edema. Neurologic: a lert, cooperative with exam, gait abnormal, abnormal upper and lower extremity motor strength and function. Psych: a lert and oriented x 2, cooperative with exam, maintains good eye contact, normal affect / mood. Assessment: * Assessment: 1. F alls frequently - R29.6 (Primary) Plan: * Treatment: 2. O thers Notes: Continue current treatment plan. Staff to continue to monitor and report any changes. Patient education provided and questions/concerns addressed. Follow up in 2-4 weeks unless necessary sooner. * Follow Up: 2 -4 Weeks * Electronic signature of BEVERLY Bartlett on 04/02/2025 at 09:35 PM CDT Sign off status: Pending * Provider: PARESH Reid Date: 04/01/2025 Generated for Guillermo ryan/Renee/Graceitting on: 04/02/2025 09:35 PM CDT
--- NOTE | ~2025-04-02 | CT_ITS ---
EXAMINATION: CT BRAIN W/O DATE: 04/02/2025 22:03 INDICATION: Status post fall. Head injury. TECHNIQUE: Computed tomography (CT) of the head was performed without intravenous contrast. The dose-length product was 605.33 mGy-cm. Automated exposure control and iterative reconstruction technique were employed. COMPARISON: CT dated 03/28/2025 FINDINGS: Normal brain parenchymal volume for age. Normal boo-white differentiation. No acute intracranial hemorrhage, infarction, mass or mass effect. Mild posterior scalp swelling with subcutaneous gas. No ventriculomegaly or midline shift. Midline sagittal images demonstrate a normal corpus callosum, craniovertebral junction and sella turcica. Basilar cisterns are patent. Paranasal sinuses and mastoids are pneumatized. No depressed skull fractures. IMPRESSION: 1. No acute intracranial abnormality. Reviewed, dictated and finalized at location O.
--- NOTE | ~2025-04-02 | XR_ITS ---
XR shoulder RT min 2V 04/02/2025 21:24 Indication: Right shoulder pain after fall Procedure: 3 views right shoulder Comparison: 01/12/2025 Findings: There is mildly angulated comminuted right humeral neck fracture. There are degenerative changes of the shoulder. Osteopenia. There are surgical clips in the axilla. Impression: 1: Mildly angulated comminuted right humeral neck fracture. Reviewed, dictated and finalized at location O. Impression: 1: Mildly angulated comminuted right humeral neck fracture.
--- NOTE | ~2025-04-02 | CT_ITS ---
EXAMINATION: CT cervical spine wo con DATE: 04/02/2025 22:04 INDICATION: Neck pain after fall TECHNIQUE: Computed tomography (CT) of the cervical spine was performed without intravenous contrast. The dose-length product was 120 mGy-cm. COMPARISON: CT dated 03/20/2025 and 06/08/2023 FINDINGS: Lung apices are normal. No significant soft tissue abnormality. Reversal of cervical lordosis. There is disc narrowing and endplate degenerative change at C3-4 through C7-T1. Odontoid process is normal. Moderate multilevel uncinate hypertrophy. Craniovertebral junction is normal. Odontoid process within normal limits. No evidence for perched facet. IMPRESSION: 1. No acute abnormality of the cervical spine. Reviewed, dictated and finalized at location O.
[2025-04-02 20:28] VITALS: BP 173/75; PULSE 103; RESP 21; TEMP 37; O2SAT 100
[2025-04-02 20:30] VITALS: BP 170/95; PULSE 101; RESP 21; O2SAT 93
[2025-04-02] MEDS: ONDANSETRON INJ 4 MG/2 ML VIAL IV PUSH (21:19)
[2025-04-02] MEDS: MORPHINE SULFATE (*CRX) 4 MG/ML INJ IV PUSH (21:19)
--- NOTE | 2025-04-02 21:25 | ED.FALL ---
HPI - Fall General Chief Complaint: Fall <Guille Berger MD - Last Filed: 04/02/25 21:35> Stated Complaint: FALL, HEAD LAC, ?LOC <Guille Berger MD - Last Filed: 04/02/25 21:35> Time Seen by Provider: 04/02/25 21:05 <Guille Berger MD - Last Filed: 04/02/25 21:35> Source: patient <Guille Berger MD - Last Filed: 04/02/25 21:35> Mode of arrival: EMS <Guille Berger MD - Last Filed: 04/02/25 21:35> Limitations: no limitations <Guille Berger MD - Last Filed: 04/02/25 21:35> History of Present Illness HPI Narrative: Parkinson's with the was but was brought in from local assisted with a complains of fall. Patient states that she was at the toilet lost her balance and fell hit her head. No LOC complains of right shoulder pain. In 79-year-old with a history of CAD diastolic CHF, frequent falls, <Guille Berger MD - Last Filed: 04/02/25 21:35> complaint: fall <Guille Berger MD - Last Filed: 04/02/25 21:35> Onset (ago): hour(s) (1) <Guille Berger MD - Last Filed: 04/02/25 21:35> Fall from: standing <Guille Berger MD - Last Filed: 04/02/25 21:35> Fall witnessed: no <Guille Berger MD - Last Filed: 04/02/25 21:35> Place fall occurred: assisted/SNF <Guille Berger MD - Last Filed: 04/02/25 21:35> Loss of consciousness: none <Guille Berger MD - Last Filed: 04/02/25 21:35> Symptoms prior to fall: none <Guille Berger MD - Last Filed: 04/02/25 21:35> Context: history of frequent falls <Guille Berger MD - Last Filed: 04/02/25 21:35> Location of injury: head <Guille Berger MD - Last Filed: 04/02/25 21:35> Related Data Home Medications: Home Medications ?Medication ?Instructions ?Recorded ?Confirmed ?Last Taken ?Type carvedilol 12.5 mg tablet 25 mg PO BID 08/14/19 10/22/24 03/13/22 History cholecalciferol (vitamin D3) 25 1,000 unit PO BID 08/14/19 10/22/24 03/13/22 History mcg (1,000 unit) capsule (Vitamin D3) sodium chloride 5 % eye drops 1 drop ophthalmic (eye) TID 08/15/19 10/22/24 03/13/22 History (Winnie 128) losartan 25 mg tablet 12.5 mg PO BID 09/14/20 10/22/24 03/13/22 History carbidopa 25 mg-levodopa 100 mg 1 tablet PO TID 04/07/21 10/22/24 03/13/22 History tablet trazodone 50 mg tablet 50 mg PO QHS PRN Insomnia 02/09/22 10/22/24 03/13/22 History mecobalamin (vitamin B12) 1,000 1,000 mcg sublingual DAILY 12/12/22 10/22/24 Unknown History mcg disintegrating tablet,sublingual oxybutynin chloride 5 mg 5 mg PO DAILY 04/30/24 10/22/24 Unknown History tablet,extended release 24 hr perfluorohexyloctane (PF) 100 % drp 04/30/24 10/22/24 Unknown History eye drops (Miebo (PF)) timolol maleate 0.5 % eye drops drp 04/30/24 10/22/24 Unknown History atorvastatin 40 mg tablet 40 mg PO .QD 08/17/24 10/22/24 Unknown History <Guille Berger MD - Last Filed: 04/02/25 21:35> Allergies/Adverse Reactions: Allergies Allergy/AdvReac Type Severity Reaction Status Date / Time Penicillins Allergy Mild Rash Verified 03/20/25 06:58 Sulfa (Sulfonamide Allergy Mild Rash Verified 03/20/25 06:58 Antibiotics) <Guille Berger MD - Last Filed: 04/02/25 21:35> Review of Systems Review of Systems: All systems reviewed & are unremarkable except as noted in HPI and below <Guille Berger MD - Last Filed: 04/02/25 21:35> Constitutional: Constitutional: Reports no additional constitutional complaints <Guille Berger MD - Last Filed: 04/02/25 21:35> Eyes: Eyes: Reports no additional eye complaints <Guille Berger MD - Last Filed: 04/02/25 21:35> ENT: Reports system reviewed and no additional complaints, except as documented <Guille Berger MD - Last Filed: 04/02/25 21:35> Cardiovascular: Cardiovascular: Reports no additional cardiovascular complaints <Guille Berger MD - Last Filed: 04/02/25 21:35> Respiratory: Respiratory: Reports no additional respiratory complaints <Guille Berger MD - Last Filed: 04/02/25 21:35> Gastrointestinal: Gastrointestinal: Reports no additional gastrointestinal complaints <Guille Berger MD - Last Filed: 04/02/25 21:35> Musculoskeletal: Musculoskeletal: Reports no additional musculoskeletal complaints <Guille Berger MD - Last Filed: 04/02/25 21:35> Integumentary/Breasts: Skin/Breast: Reports system reviewed and no additional complaints, except as docu <uGille Berger MD - Last Filed: 04/02/25 21:35> PMFSH Past Medical History Medical History: Medical History Fracture of olecranon process of right ulna with intraarticular extension Chronic diastolic CHF (congestive heart failure), NYHA class 2 Fatigue Parkinson's Disease Hypertension Hyperlipidemia Ovarian cyst Heart failure LBBB (left bundle branch block) Artificial pacemaker Replaced 2021, [facility] Breast cancer <Guille Berger MD - Last Filed: 04/02/25 21:35> Surgical History Surgical History: Surgical History History of appendectomy Hx of removal of ovary History of lumpectomy <Guille Berger MD - Last Filed: 04/02/25 21:35> Family History Family History: Family History Mother Breast cancer Goiter Father Diabetes mellitus Grandparent Diabetes mellitus Sibling Breast cancer Sibling Cancer of mouth Daughter Fuchs' corneal dystrophy of both eyes Diabetes mellitus Other Family history of thyroid disease <Guille Berger MD - Last Filed: 04/02/25 21:35> Social History Social History: Social History Smoking status: Never smoker Second hand tobacco smoke exposure: No Alcohol intake: current Drinks per week: 5 Alcohol use details: Glass of wine daily. Substance use: never Substance use type: does not use Lack of Transportation: No Lack of Food: Never True Current Housing: I Have Housing Concerned About Future Housing: No Difficulty Paying Gas/Electric Bills: No Difficulty Paying for Meds: No Currently Unemployed: No Education: High School Diploma/GED Difficulty w/ Childcare or Family Care: No Living arrangements: with family Occupation/Education: retired Gender identity (if verbalized by the patient): Female Spiritual care concerns: No Agree to blood products: Yes <Guille Berger MD - Last Filed: 04/02/25 21:35> Exam Narrative: GENERAL: Well-appearing, well-nourished, and in no acute distress. HEAD: Normocephalic, atraumatic. EYES: PERRLA and EOMI. Old bruising noted on the left infraorbital area ENT: Nares clear, no rhinorrhea or epistaxis. Mucous membranes moist. NECK: Supple. CHEST: Clear to auscultation. No respiratory distress. HEART: Regular rate and rhythm. No murmur heard. Normal peripheral pulses. ABDOMEN: Soft, nontender, nondistended, normal active bowel sounds. EXTREMITIES: Normal range of motion. No edema. SKIN: Warm, dry, no rash. NEURO: No focal deficits. Alert and oriented x3. PSYCH: Normal mood and affect. <Guille Berger MD - Last Filed: 04/02/25 21:35> Course Course Emergency Course: ZYCH: Patient signed out pending imaging. CT head and C-spine negative for acute injury. X-ray of the right shoulder showed a proximal humerus fracture. Arm is neurovascularly intact. 1 cm laceration of posterior scalp was repaired with samson. Samson will need to be removed in 7 days. <Beka Bone MD - Last Filed: 04/03/25 00:48> Vital Signs Vital signs: Vital Signs Temperature 98.6 F 04/02/25 20:28 Pulse Rate 103 H 04/02/25 20:28 Respiratory Rate 21 H 04/02/25 20:28 Blood Pressure 173/75 H 04/02/25 20:28 Pulse Oximetry 100 04/02/25 20:28 Oxygen Delivery Room Air 04/02/25 20:28 Temperature 98.6 F 04/02/25 20:28 Pulse Rate 114 H 04/02/25 22:15 Respiratory Rate 19 04/02/25 22:15 Blood Pressure 165/74 H 04/02/25 22:15 Pulse Oximetry 96 04/02/25 22:15 Oxygen Delivery Room Air 04/02/25 20:28 <Guille Berger MD - Last Filed: 04/02/25 21:35> Vital Signs Temperature 98.6 F 04/02/25 20:28 Pulse Rate 103 H 04/02/25 20:28 Respiratory Rate 21 H 04/02/25 20:28 Blood Pressure 173/75 H 04/02/25 20:28 Pulse Oximetry 100 04/02/25 20:28 Oxygen Delivery Room Air 04/02/25 20:28 Temperature 98.6 F 04/02/25 20:28 Pulse Rate 114 H 04/02/25 22:15 Respiratory Rate 19 04/02/25 22:15 Blood Pressure 165/74 H 04/02/25 22:15 Pulse Oximetry 96 04/02/25 22:15 Oxygen Delivery Room Air 04/02/25 20:28 <Beka Bone MD - Last Filed: 04/03/25 00:48> Procedures Laceration Laceration 1: Date: 04/03/25 <Beka Bone MD - Last Filed: 04/03/25 00:48> Site: scalp <Beka Bone MD - Last Filed: 04/03/25 00:48> Side (If applicable): right <Beka Bone MD - Last Filed: 04/03/25 00:48> Size (cm): 1 <Beka Bone MD - Last Filed: 04/03/25 00:48> Description: linear <Beka Bone MD - Last Filed: 04/03/25 00:48> Depth: simple, single layer <Beka Bone MD - Last Filed: 04/03/25 00:48> Local Anesthetic: lidocaine 1% <Beka Bone MD - Last Filed: 04/03/25 00:48> Amount of anesthesia used (mL): 3 <Beka Bone MD - Last Filed: 04/03/25 00:48> Pre-repair: wound explored <Beka Bone MD - Last Filed: 04/03/25 00:48> ====== Skin Level ======: Skin layer closed with: samson <Beka Bone MD - Last Filed: 04/03/25 00:48> Number of sutures: 3 <Beka Bone MD - Last Filed: 04/03/25 00:48> ====== Subcutaneous Layer ======: ====== Muscle Layer ======: ====== Tendon Layer ======: Discharge Plan Discharge Clinical Impression: Fracture, humerus, Laceration of scalp <Guille Berger MD - Last Filed: 04/02/25 21:35> Patient Disposition: Home <MD Mike Loyola Last Filed: 04/02/25 21:35> Condition: Stable <Guille Berger MD - Last Filed: 04/02/25 21:35> Instructions: Antibiotic Form, Arm Fracture in Adults (DC), Staple Care (ED) <Guille Berger MD - Last Filed: 04/02/25 21:35> Additional Instructions: You were seen in the emergency department after a fall. You have a proximal humerus fracture. Please use the arm sling for comfort. Please call the clinic of the orthopedic surgeon listed below tomorrow morning to arrange follow-up. Use Tylenol for pain. Use oxycodone for breakthrough pain. Return to the ED if he develops severe pain or weakness your arm. You also have a laceration to the back of her head that was repaired with samson. The samson should be removed by medical professional in 7 days. <Guille Berger MD - Last Filed: 04/02/25 21:35> Patient Language: Indonesian <Guille Berger MD - Last Filed: 04/02/25 21:35> Prescriptions: New oxycodone 5 mg tablet 5 mg PO Q4H PRN (Reason: pain) Qty: 14 0RF No Action oxybutynin chloride 5 mg tablet extended release 24hr 5 mg PO DAILY timolol maleate 0.5 % drops Miebo (PF) 100 % drops atorvastatin 40 mg tablet 40 mg PO .QD azelastine 0.05 % drops 1 drp EACH EYE BID 7 Days Qty: 6 0RF trazodone 50 mg tablet 50 mg PO QHS PRN (Reason: Insomnia) mecobalamin (vitamin B12) 1,000 mcg tablet,disintegrating 1,000 mcg sublingual DAILY Rx Instructions: place tablet under tongue and allow to dissolve for at least30 secs before swallowing sodium chloride [Winnie 128] 5 % drops 1 drop EACH EYE TID carbidopa-levodopa 25-100 mg tablet 1 tablet PO TID carvedilol 12.5 mg tablet 25 mg PO BID Rx Instructions: take 1 tablet by oral route 2 times every day with food cholecalciferol (vitamin D3) [Vitamin D3] 25 mcg (1,000 unit) capsule 1,000 unit PO BID Rx Instructions: One twice daily losartan 25 mg tablet 12.5 mg PO BID Patient Comments: 1/2 tablet bid per cardiology appt 06/29/2020 tramadol 50 mg tablet 50 mg PO Q6H PRN (Reason: pain) Qty: 30 0RF <Guille Berger MD - Last Filed: 04/02/25 21:35> Follow-up/Referrals: Sapna Dumont MD [Primary Care Provider, Family Practice] Pato Payne MD [Physician, Orthopedics] - 1 Day Referral Note: proximal humerus fracture <Guille Berger MD - Last Filed: 04/02/25 21:35>
--- OUTSIDE RECORDS SUMMARY | 2025-04-02 21:34 | XMS_ITS | Patient Health Record ---
Author Organization [facility] Address [address] [id number] Care Team Providers Care Jewel Bearing Broacher Name Role Phone MYKEL BRICE Primary Care Provider DarrenKeilaMary Unavailable [phone] Allergies Allergen (clinical drug ingredient) Drug/Non Drug Allergy documented on EMR Reaction Allergy Type Onset Date Status Substance with sulfonamide structure and antibacterial mechanism of action (substance) Sulfa Antibiotics Unknown Drug Allergy Active Reason For Referral No Information Medications Medication SIG (Take, Route, Frequency, Duration) Notes Start Date End Date Status Morphine Sulfate (Concentrat e) 100 MG/5ML Solution 0.25 mL as needed Orally every 4 hrs Active Ondansetron 4 MG Tablet Disintegrating 1 tablet on the tongue and allow to dissolve Orally every 8 hours As needed Active Losartan Potassium 25 MG Tablet 0.5 tabl et Orally twice a day Active Perfluorohexyloctane 1.338 GM/ML Solution 1 drop into both eyes as needed Ophthalmic every 2 hours Active SEROquel 25 MG Tablet 1 tablet at bedtim e Orally Once a day Active Atropine Sulfate 1 % Solution 2 drops as needed sublingual every 4 hours Active Bisacodyl 10 MG Suppository 1 suppositor y as needed Rectal Once a day Active QUEtiapine Fumarate 50 MG Tablet 1 tablet at bedtime Orally Once a day Active Senna Lax 8.6 MG Tablet 1 tablet Orally twice a day As needed Active Acetaminophen 650 MG Suppository 1 suppository as needed Rectal every 6 hrs Active LORazepam 0.5 MG Tablet 1 tablet at bedt festus as needed Orally twice a day Active DULoxetine HCl 60 MG Capsule Delayed Release Particles 1 capsule Orally Once a day Active Gabapentin 300 MG Capsule 1 capsule Oral ly 3 times a day Active traMADol HCl 25 MG Tablet 1 tablet Orally every 6 hours As needed Active Carvedilol 12.5 MG Tablet 1 tablet with food Orally Twice a day Active Social History Tobacco Use: Social History Observation Description Date Details (start date - stop date) Never Smoker NA - NA Social History Tobacco Use: Social Info Question Answer Notes Tobacco Control (Standard) Tobacco use: Nonsmoker Problems Problem Type SNOMED Code ICD Code Onset Dates Problem Status W/U Status Risk Notes Problem Anxiety disorder (305209248) Anxiety disorder, unspecified (F41.9) Active confirmed Problem 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-Denney -Dat] (G23.1) Active confirmed Problem Hereditary disorder of nervous system (280198263) Hereditary and idiopathic neuropathy, unspecified (G60.9) Active confirmed Problem Tear film insufficiency (75571775) Dry eye syndrome of bilateral lacrimal glands (H04.123) Active confirmed Problem Essential hypertension (13478599) Essential (primary) hypertension (I10) Active confirmed Problem Complete atrioventricular block (24807174) Atrioventricular block, complete (I44.2) Active confirmed Problem Chronic combined systolic and diastolic heart failure (812993590154632) Chronic combined systolic (congestive) and diastolic (congestive) heart failure (I50.42) Active confirmed Problem Constipation (56910184) Constipation, unspecified (K59.00) Active confirmed Problem Restlessness and agitation (624295132) Restlessness and agitation (R45.1) Active confirmed Problem Personal history of primary malignant neoplasm of urinary bladder (648536577) Personal history of malignant neoplasm of bladder (Z85.51) Active confirmed Problem Cardiac pacemaker in situ (197845957) Presence of cardiac pacemaker (Z95.0) Active confirmed Problem Parkinson's disease (disorder) (32412931) Parkinson's disease without dyskinesia or fluctuating manifestations (G20.A1) Active confirmed Problem Recurrent falls (519729804) Falls frequently (R29.6) Active confirmed Vital Signs Heart Rate 89 /min 03/25/2025 Temperature 98.8 degrees Fahrenheit 03/25/2025 Respiratory Rate 16 /min 03/25/2025 Oximetry 98 % 03/17/2025 Blood pressure diastolic 82 mm Hg 03/25/2025 Blood pressure systolic 160 mm Hg 03/25/2025 Encounters Encounter Location Date Provider Diagnosis [address] [address] 04/01/2025 Mary Banks [place] frequently R29 .[address] [address] 03/17/2025 Mary Banks Progressive supranuc lear ophthalmoplegia [Eqbvte-Auqzdrjsri-Ctxbk wski] G23.1 ; Presence of cardiac pacemaker Z95.0 ; Chronic combined systolic (congestive) and diastolic (congestive) heart failure I50.42 and Hospice care Z51.[address] [address] 03/25/2025 Mary Banks [place] frequently R29 .[address] [address] 02/20/[address] [address] 03/12/2025 Mary Banks [address] [address] 03/17/2025 MYKEL BRICE [address] [address] 03/18/2025 MYKEL BRICE [address] [address] 03/19/2025 MYKEL BRICE [address] [address] 03/25/2025 MYKEL BRICE [address] [address] 03/25/2025 MYKEL BRICE [address] [address] 03/25/2025 MYKEL BRICE [address] [address] 03/28/2025 MYKEL BRICE [address] [address] 04/01/2025 MYKEL BRICE Assessments Encounter Date Diagnosis (ICD Code) Assessment Notes Treatment Notes Treatment Clinical Notes Section Notes 03/17/2025 Progressive supranuclear ophthalmoplegia [Garcia-Denney- Dat] (ICD-10 - G23.1) Patient has progressive supranuclear palsy, which causes her to have balance issues and which has resulted in multiple falls at home and while in the facility. Patient is on hospice care. Encouraged patient to use call murphy for help. 03/17/2025 Presence of cardiac pacemaker (ICD-10 - Z95.0) Patient has left upper chest pacemaker noted. 03/25/2025 Falls frequently (ICD-10 - R29.6) Patient has had numerous falls since admitting to the facility due to her condition. She is on hospice. She was seen in the emergency room on 03/20/2025 due to falling out of her wheelchair and sustaining a laceration to the left eyebrow. She does have five sut[address] that will be removed on 03/27/2025. 04/01/2025 Falls frequently (ICD-10 - R29.6) Patient has had numerous falls since admitting to the facility due to her condition. She is on hospice. She was seen in the emergency room on 03/20/2025 due to falling out of her wheelchair and sustaining a laceration to the left eyebrow. She does have five sut[address] that will be removed on 03/27/2025. 03/17/2025 Chronic combined systolic (congestive) and diastolic (congestive) heart failure (ICD-10 - I50.42) No signs and symptoms of fluid overload at this time. Not currently on a diuretic. Continue to monitor and update page provider with any changes. 03/17/2025 Hospice care (ICD-10 - Z51.5) Patient is a patient with [facility] and they manage her pain and anxiety. 04/01/2025 Other Continue current treatment plan. Staff to continue to monitor and report any changes. Patient education provided and questions/concer ns addressed. Follow up in 2-4 weeks unless necessary sooner. 03/17/2025 Other Continue dami[place] treatment plan.Staff to continue to monitor and report any changes.Patient education provided and questions/concer ns addressed.Follow up in 2-4 weeks unless necessary sooner. 03/25/2025 Other Continue current treatment plan. Staff to continue to monitor and report any changes. Patient education provided and questions/concer ns addressed. Follow up in 2-4 weeks unless necessary sooner. Plan Of Treatment No Information Insurance Providers Payer Name Payer Address Payer Phone Subscriber Number Group Number Insured Name Patient Relationship to Insured Coverage Start Date Coverage End Date Medicare of [place] [address] [facility] [place] [id number] Katarzyna Chambers Self - patient is the insured Medical (General) History Medical History History ICD Code Progressive supranuclear ophthalmoplegia [Julissa] G23.1 Dry eye syndrome of bilateral lacrimal g lands H04.123 Essential (primary) hypertension I10 Atrioventricular block, complete I44.2 Chronic combined systolic (c ongestive) and diastolic (congestive) heart failure I50.42 Disturbances of salivary secretion K11.7 Constipation, unspecified K59.00 Nausea R11.0 Restlessness and agitation R45.1 Fever, unspecified R50.9 Pain, unspecified R52 Personal history of malignant neoplasm o f bladder Z85.51 Personal history of transien t ischemic attack (TIA), and cerebral infarction without residual deficits Z86.73 Presence of cardiac pacemaker Z95.0 Depression, unspecified F32.A Parkinson's disease without dyskinesia o r fluctuating manifestations G20.A1 Hereditary and idiopathic neuropathy, un specified G60.9 Anxiety disorder, unspecified F41.9 Surgical History Surgery Date(Month/Year) breast lumpectomy cardiac defibrillator placement cataract extraction with intraocular meng s implant colonoscopy insert/replace/remove pacemaker ovarian cyst surgery
--- OUTSIDE RECORDS SUMMARY | 2025-04-02 21:34 | XMS_ITS | Patient Health Record ---
Author Organization [facility] Address [address] [place] [address] Care Team Providers Care Demolitionist Name Role Phone Sapna Dumont MD Primary Care Provider Jason Daily Unavailable [phone] Allergies Allergen (clinical drug ingredient) Drug/Non Drug Allergy documented on EMR Reaction Allergy Type Onset Date Status Substance with sulfonamide structure and antibacterial mechanism of action (substance) SULFA (SULFONAMIDE ANTIBIOTICS) (uncoded) Unknown Allergy 12/10/2023 Active Reason For Referral No Information Medications Medication SIG (Take, Route, Frequency, Duration) Notes Start Date End Date Status Carbidopa-Levodopa 25-100 MG Tablet Oral 12/10/2023 Active DULoxetine HCl 60 MG Capsule Delayed Release Particles TAKE 1 CAPSULE BY MOUTH EVERY DAY FOR 90 DAYS; Duration: 90 Active Fluconazole 200 MG Tablet Oral 12/10/2023 Active QUEtiapine Fumarate 25 MG Tablet 1 tablet at bedtime Orally Once a day; Duration: 90 days Active Losartan Potassium 25 MG Tablet Oral 12/10/2023 Active HYDROcodone-Acetamino phen 5-325 MG Tablet Oral 12/10/2023 Active oxyCODONE-Acetaminoph en 5-325 MG Tablet Oral 12/10/2023 Active QUEtiapine Fumarate 25 MG Tablet TAKE 1 TABLET BY MOUTH EVERYDAY AT BEDTIME; Duration: 90 Active Mupirocin 2% Ointment External 12/10/2023 Active Doxycycline Hyclate 100 MG Capsule Oral 12/10/2023 Active MIEBO 100 % EYE DROPS *Reorder f rom Medispan for eRx and Interaction Alerts* 12/10/2023 Active oxyBUTYnin Chloride ER 5 MG Tablet Extended Release 24 Hour Oral 12/10/2023 Active Carvedilol 12.5 MG Tablet Oral 12/10/2023 Active Atorvastatin Calcium 20 MG Tablet Oral 12/10/2023 Active Immunizations Vaccine Route Administration Date Status [...] History Observation Description Sex Assigned At Female Social History Additional Details Category Social Info Options Details Migrated Social History Migrated Social History Alcohol Intake: Moderate 11/24/2022,Tobacco Years: Never smoker 11/04/2021 Problems Problem Type SNOMED Code ICD Code Onset Dates Problem Status W/U Status Risk Notes Problem Mild recurrent major depression (67175840) Major depressive disorder, recurrent, mild (F33.0) 4 Active confirmed Problem Generalized anxiety disorder (92231437) Generalized anxiety disorder (F41.1) 4 Active confirmed Problem Insomnia disorder related to another mental disorder (83303588) Insomnia due to other mental disorder (F51.05) 4 Active confirmed Problem Small fiber neuropathy (608848927) Small fiber neuropathy (G62.9) Active confirmed Vital Signs Heart Rate 100 /min 10/16/2024 Height-cm 165.10 cm 10/16/2024 Blood pressure diastolic 77 mm Hg 10/16/2024 Weight-kg 49.44 kg 10/16/2024 Height 65.00 in 10/16/2024 Blood pressure systolic 130 mm Hg 10/16/2024 Weight 109 lbs 10/16/2024 BMI 18.14 kg/m2 10/16/2024 Encounters Encounter Location Date Provider Diagnosis [facility] [address] [facility] [address] [place] [address] 04/10/2024 Jason Bolanos Insomnia due to othe r mental disorder F51.05 ; Major depressive disorder, recurrent, mild F33.0 and Generalized anxiety disorder F41.1 [facility] [place] [address] [place] [address] 08/21/2024 Jason Bolanos Insomnia due to othe r mental disorder F51.05 ; Major depressive disorder, recurrent, mild F33.0 ; Generalized anxiety disorder F41.1 ; Small fiber neuropathy G62.9 and Progressive supranuclear palsy G23.1 [facility] [place] [address] [place] [address] 09/18/2024 Jason Bolanos Benign essential HTN I10 ; Insomnia due to other mental disorder F51.05 ; Major depressive disorder, recurrent, mild F33.0 ; Generalized anxiety disorder F41.1 ; Small fiber neuropathy G62.9 and Progressive supranuclear palsy G23.1 [place] [address] [address] [facility] [address] [facility] [address] [place] [address] 10/16/2024 Jason Bolanos Major depressive disorder, recurrent, [...] two tablets at bedtime. Send prescriptions to [facility] at [facility]. - Encourage patient to engage in regular [...] 1-2 tablets at bedtime as needed 10/16/2024 Major depressive disorder, recurrent, mild (ICD-10 - F33.0) 09/18/2024 Benign essential HTN (ICD-10 - I10) 09/18/2024 Insomnia due to other mental disorder (ICD-10 - F51.05) trazodone 50 mg tablet take 1-2 tablets at bedtime as needed [facility] Response got Denied on 2024-10-16 14:51:54 for 'traZODone HCl 50 MG Tablet'Pharmac y Notes: Prescription not found. Contact Pharmacy by other means 10/16/2024 Encounter for screening for cardiovascular disorders (ICD-10 - Z13.6) 08/21/2024 Major depressive disorder, recurrent, mild (ICD-10 - F33.0) 04/10/2024 Major depressive disorder, recurrent, mild (ICD-10 [...] general health. Adjust treatment as needed. 08/21/2024 Generalized anxiety disorder (ICD-10 - F41.1) 10/16/2024 Encounter for screening for depression (ICD-10 - Z13.31) 09/18/2024 Major depressive disorder, recurrent, mild (ICD-10 - F33.0) 09/18/2024 Generalized anxiety disorder (ICD-10 - F41.1) 10/16/2024 Benign essential HTN (ICD-10 - I10) 08/21/2024 Small fiber neuropathy (ICD-10 - G62.9) 08/21/2024 Progressive supranuclear palsy (ICD-10 - G23.1) managed by neurologist 09/18/2024 Small fiber neuropathy (ICD-10 - G62.9) 10/16/2024 Insomnia due to other mental disorder (ICD-10 - F51.05) trazodone 50 mg tablet take 1-2 tablets at bedtime as needed 09/18/2024 Progressive supranuclear palsy (ICD-10 - G23.1) managed by neurologist 10/16/2024 Generalized anxiety disorder (ICD-10 - F41.1) 10/16/2024 Small fiber neuropathy (ICD-10 - G62.9) [...] Replacemen t/Advantag e - Ppo [address] [place] [address] [id number] DRAKE COHN Self - patient is the insured Medical (General) History Medical History History ICD Code Problems: Anxiety Fuchs' corneal dystrophy Generalized anxiety disorder Insomnia disorder related to another men yolette disorder Mild recurrent major depression Moderate recurrent major depression Parkinson's disease , Surgical History Surgery Date(Month/Year) Cataract surgery (77171) Cardiac pacemaker procedure (256230754) Unlisted procedure breast (88978) Appendectomy (06516) Breast surgery () 06/06/2003
--- OUTSIDE RECORDS SUMMARY | 2025-04-02 21:35 | XMS_ITS | Encounter Summary ---
Author Organization [facility] Address [address] [facility] [place] [address] Care Team Providers Care Video Conference Specialist Name Role Phone Unavailable Primary Care Provider Unavailabl e Encounter Details Date Type Department Care Team (Late st Contact Info) Description 03/31/2024 Lab Requisition [facility] - DermPath Lab [address] [facility], [facility] [place] [address] Kaylah Santiago MD [address] [facility] [address] [place] [address] Social History Tobacco Use Types Packs/Day Years Used Date Smoking Tobacco: Never Assessed Comments Unknown Sex and Gender Information Value Date Recorded Sex Assigned at Not on file Legal Sex Female 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 Gender Identity Not on file Sexual Orientation Not on file documented as of this encounter Plan of Treatment Not on file documented as of this encounter Procedures Procedure Name Priority Date/Time Associated Diagnosis Comments DERMATOPATHOLOGY Routine 03/31/2024 11:2 1 AM CDT documented in this encounter Results * DERMATOPATHOLOGY (03/31/2024 11:21 AM CDT) Case Report Dermatopathology Report Case: [id number] Authorizing Provider: Kaylah Santiago MD Collected: 03/31/2024 11:21 AM Ordering Location: [facility] - Received: 03/31/2024 05:01 PM DermPath Lab Pathologist: Angela Pearson MD Specimen: Skin, right index finger 3:09 PM CDT DERMATOPATHOLOGY LABORATORY Final Diagnosis Specimen A. SKIN, right index finger: HEALING SKIN CHANGES, ERODED (L90.5) (see microscopic description and comment) 4 3:09 PM CDT DERMATOPATHOLOGY LABORATORY at 1509 [...] characteristic determined by the Dermatopathology Laboratory at [facility], directed by Dr. Chandu Guardado. These tests need not be, and therefore are not, approved by the [place] Food and Drug Administration. The tests are used for clinical purposes. Billing Codes Specimen Charges Stain Charges 74752 1 4 3:09 PM CDT DERMATOPATHOLOGY LABORATORY Embedded Images 4 3:09 PM CDT DERMATOPATHOLOGY LABORATORY Pathology/Cytolo gy TISSUE SPECIMEN FROM SKIN / Unknown 03/31/2024 11:21 AM CDT 03/31/2024 5:01 PM CDT us Kaylah Santiago MD LAB - PATHOLOGY/CYTOLOGY ORD ERABLES Final Result DERMATOPATHOLOGY LABORATORY [facility] - Department of Dermatology [address], [address] [phone] documented in this encounter Visit Diagnoses Not on filedocumented in this encounter
--- OUTSIDE RECORDS SUMMARY | 2025-04-02 21:35 | XMS_ITS ---
Author Organization [facility] Address [address] [place] [address] Care Team Providers Care Director Database Name Role Phone Myron Martinez MD Unavailable [phone] Sara Ceballos Unavailable Unavailable Sapna Dumont MD Primary Care Provider Shelly Thomason RN Unavailable Unavailable Kina Campbell RN Unavailable Unavailab le Active Problems Problem Noted Date Diagnosed Date Progressive supranuclear palsy 07/23/2024 Assessment & Plan (10/08/2024 6:06 PM CLAY MIXER): Mrs. Chambers is a very pleasant 78yo [...] antibody testing can be ordered or if Colman paraneoplastic panel is indicated. Plan: - Sleep study with sleep medicine - Continue levodopa 0.5 tabs TID - Start gabapentin: 300mg qHS 1 week -> 300mg BID 1 week , 300mg TID 1 week, touch base to discuss if it is working and any worsening lethargy - Exercise as able - IgLON5 antibody testing Assessment & Plan (07/23/2024 12:01 PM CLAY MIXER): Mrs. Chambers is a very pleasant 78yo [...] 12/10/2023 Insomnia related to another mental disorder 0 01/2024 Mild recurrent major depression 12/10/2023 Fractured elbow, right, closed, initial encounte r 06/20/2023 History of permanent cardiac pacemaker placement 06/20/2023 Fracture of right olecranon process, closed, initial encounter 06/18/2023 Encounter for fitting or adj ustment of implantable cardioverter-defibrillator (ICD) 11/04/2021 Overview (11/04/2021): Added automatically from request for surgery [id number] Essential hypertension 06/29/2020 Complete heart block 12/05/2017 NICM (nonischemic cardiomyopathy) 11/08/2015 Malignant neoplasm of breast 05/30/2010 Hyperlipidemia 05/30/2010 Chronic combined systolic and diastolic heart fa ilure 05/30/2010 Current Treatment and Therapy Plans No current plan information found. Past Treatment and Therapy Plans No past plan information found. Lifetime Dose Tracking * Chemical Lifetime Dose Automatic Entry Manual Entr y Fluoro Time 1.432 minutes 1.332 minutes 0.1 minutes Air kerma at the reference point (Ka,r) 7.996 mGy 3 .21 mGy 4.786 mGy DLP 137 mGycm 137 mGycm 0 mGycm DAP 0.648 Gy-cm2 0 Gy-cm2 0.648 Gy-cm2 Resolved Problems Problem Noted Date Diagnosed Date Resolved Date Parkinson's disease ([facility]) 11/07/2023 07/23/2024 Parkinson disease 02/02/2021 [...]
--- OUTSIDE RECORDS SUMMARY | 2025-04-02 21:35 | XMS_ITS | Encounter Summary ---
Author Organization [facility] Address [address] [place] [address] Care Team Providers Care Lpn Medical Assistant Name Role Phone Sapna Dumont MD Primary Care Provider [phone] Encounter Details Date Type Department Care Team (Latest Contact Info) Description 06/20/2004 Outpatient Historical [facility] Umberto Rodriguez MD [address] [place] [address] MALIGN NEOPL BREAST NOS (CMS/HCC) (Primary Dx) Social History Tobacco Use Types Packs/Day Years Used Date Smoking Tobacco: Never Assessed Comments Unknown Sex and Gender Information Value Date Recorded Sex Assigned at Not on file Legal Sex Female 2:46 AM TOOL ADJUSTER Gender Identity Not on file Sexual Orientation Not on file documented as of this encounter Plan of Treatment Not on file documented as of this encounter Visit Diagnoses Diagnosis Malignant neoplasm of breast (female), unspecified site- Primary documented in this encounter Care Teams Lpn Medical Assistant Relationship Specialty Start Date End Date Sapna Dumont MD [address] [place] [address] PCP - General Family Practice 03/31/21 documented as of this encounter
--- OUTSIDE RECORDS SUMMARY | 2025-04-02 21:35 | XMS_ITS | Encounter Summary ---
Author Organization [facility] Address [address] [place] [address] Phone Care Team Providers Care Machining Department Supervisor Name Role Phone Beka Gonzales MD Primary Care Provider [phone] Myron Martinez MD Unavailable [phone] Susan Ramirez RN Unavailable [phone] Lisha Bob RN Unavailable [phone] Sara Ceballos Unavailable Unavailable Pooja Durán MD Primary Care Provider [phone] Sapna Dumont MD Primary Care Provider [phone] Shelly Thomason RN Unavailable Unavailable Shelly Thomason RN Unavailable Unavailable Shelly Thomason RN Unavailable Unavailable Kina Campbell RN Unavailable Unavailab le Encounter Details Date Type Department Care Team (Late st Contact Info) Description 2016 Orders Only [facility]INCON[facility] Provider, MD Vijay [address] [place] [address] Social History Tobacco Use Types Packs/Day Years Used Date Smoking Tobacco: Never Assessed Comments Unknown Sex and Gender Information Value Date Recorded Sex Assigned at Not on file 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 Gender Identity Female 11/24/2020 8:34 AM CDT [...] on filedocumented in this encounter Care Teams Machining Department Supervisor Relationship Specialty Start Date End Date Beka Gonzales MD [address] [place] [address] PCP - General 12/12/16 10/20/18 Pooja Durán MD PCP - General Family Practice 10/21/18 12/27/20 Sapna Dumont MD PCP - General Family Medicine 12/28/20 Myron Martinez MD [address] [place] [address] Rating Officer Cardiology 06/18/18 Susan Ramirez, RN [address] [address] Registered Nurse Cardiology 06/18/18 08/23/23 Lisha Bob RN [address] [address] Registered Nurse Cardiology 06/18/18 04/26/22 Sara Ceballos Primary Dry Folder Cloth Cardiology 06/18/18 Shelly Thomason, rail technicianExtrusion Former Cardiology 04/27/22 09/05/23 Shelly Thomason, gmat tutor Failure Coordinator 08/23/23 4 Shelly Thomason, gmat tutor Failure Coordinator Transplant 09/05/23 Kina Campbell gmat tutor Failure Coordinator Cardiology 01/01/24 documented as of this encounter
--- OUTSIDE RECORDS SUMMARY | 2025-04-02 21:35 | XMS_ITS | Clinical Summary ---
Author Organization [facility] Address [address] [place] [address] Care Team Providers Care Display Coordinator Name Role Phone Unavailable Primary Care Provider Unavailabl e Source Comments [facility] [employer],non-owned Affiliates and Associated Physician Practices is amultiple site organization consisting of ambulatory clinics and hospital sitesin [place], [place], [place] and [place]. This disclosure is being madepursuant to the Care Everywhere program and may not contain all information available regarding this patient. 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
--- OUTSIDE RECORDS SUMMARY | 2025-04-02 21:35 | XMS_ITS | Encounter Summary ---
Author Organization [facility] Address [address] [place] [address] Care Team Providers Care School Bus Driver/Custodian Name Role Phone Unavailable Primary Care Provider Unavailabl e Encounter Details Date Type Department Care Team (Late st Contact Info) Description 03/28/2023 Lab Requisition 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 Derm[facility] Lab Received: 03/30/2023 07:13 AM Pathologist: [...] characteristic determined by the Dermatopathology Laboratory at [facility], directed by Dr. Chandu Guardado. These tests need not be, and therefore are not, approved by the [place] Food and Drug Administration. The tests are used for clinical purposes. Billing Codes Specimen Charges Stain Charges 56417 1 3 3:57 PM CDT DERMATOPATHOLOGY LABORATORY Embedded Images 3 3:57 PM CDT DERMATOPATHOLOGY LABORATORY Pathology/Cytolo gy TISSUE SPECIMEN FROM SKIN / Unknown 03/28/2023 2:37 PM CDT 03/30/2023 7:13 AM CDT us Kaylah Santiago MD LAB - PATHOLOGY/CYTOLOGY ORD ERABLES Final Result DERMATOPATHOLOGY LABORATORY [facility] - Department of Dermatology [address], [address] [phone] documented in this encounter Visit Diagnoses Not on filedocumented in this encounter
--- OUTSIDE RECORDS SUMMARY | 2025-04-02 21:35 | XMS_ITS | Encounter Summary ---
Author Organization [facility] Address [address] [place] [address] Phone Care Team Providers Care Monotype Caster Name Role Phone Myron Martinez MD Unavailable [phone] Sara Ceballos Unavailable Unavailable Sapna Dumont MD Primary Care Provider Shelly Thomason RN Unavailable Unavailable Kina Campbell RN Unavailable Unavailab le Reason for Visit * Reason Onset Date Comments Appointment Request 03/31/2025 Encounter Details Date Type Department Care Team (Late st Contact Info) Description 03/31/2025 Telephone [facility] Medicine Cardiology [address] [facility] 8th [place] [address] [place] [address] Sumeet Ortiz MD PhD [address] [address] Appointment Request Social History Tobacco Use Types Packs/Day Years Used Date Smoking Tobacco: Never Passive Smoke Exposure: Past Smokeless Tobacco: Never Comments:No AUDIT-C Answer Date Recorded Q1: How [...] on file 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 * Telephone Encounter - Didier Meade RN - 03/31/2025 8:35 AM CDT Pt missed last device check appointment; please call and reschedule. Thanks documented in this encounter Plan of Treatment Not on file documented as of this encounter Visit Diagnoses Not on filedocumented in this encounter Care Teams Monotype Caster Relationship Specialty Start Date End Date Sapna Dumont MD PCP - General Family Medicine 12/28/20 Myron Martinez MD [address] [facility] [address] [address] [place] [address] Promotions Intern Cardiology 06/18/18 Sara Ceballos Primary Tip Mender Cardiology 06/18/18 Shelly Thomason, research subject Failure Coordinator Transplant 09/05/23 Kina Campbell research subject Failure Coordinator Cardiology 01/01/24 documented as of this encounter
--- OUTSIDE RECORDS SUMMARY | 2025-04-02 21:35 | XMS_ITS | Encounter Summary ---
Author Organization [facility] Address [address] [place] [address] Phone Care Team Providers Care Sales Teacher Name Role Phone Beka Gonzales MD Primary Care Provider [phone] Myron Martinez MD Unavailable Susan Ramirez RN Unavailable [phone] Lisha Bob RN Unavailable [phone] Sara Ceballos Unavailable Unavailable Pooja Durán MD Primary Care Provider [phone] Sapna Dumont MD Primary Care Provider [phone] Shelly Thomason RN Unavailable Unavailable Shelly Thomason RN Unavailable Unavailable Shelly Thomason RN Unavailable Unavailable Kina Campbell RN Unavailable Unavailab le Encounter Details Date Type Department Care Team (Late st Contact Info) Description 11/14/2017 Orders Only [facility] IM CAR CLINCONV Provider, MD Vijay [address] [place] [address] Social History Tobacco Use Types Packs/Day Years Used Date Smoking Tobacco: Never Comments Unknown Sex and Gender Information Value Date Recorded Sex Assigned at Not on file Legal Sex Female 12:32 AM AGENCY OWNER Gender Identity Female 11/24/2020 8:34 AM CDT [...] on filedocumented in this encounter Care Teams Sales Teacher Relationship Specialty Start Date End Date Beka Gonzales MD [address] [place] [address] PCP - General 12/12/16 10/20/18 Pooja Durán MD PCP - General Family Practice 10/21/18 12/27/20 Sapna Dumont MD PCP - General Family Medicine 12/28/20 Myron Martinez MD [address] [place] [address] Cardiology Nurse Practitioner Cardiology 06/18/18 Susan Ramirez, RN [address] [address] Registered Nurse Cardiology 06/18/18 08/23/23 Lisha Bob RN [address] [address] Registered Nurse Cardiology 06/18/18 04/26/22 Sara Ceballos Primary Primary Operator Cardiology 06/18/18 Shelly Thomason, contract specialistLow Pressure Boiler Tender Cardiology 04/27/22 09/05/23 Shelly Thomason, solid waste engineer Failure Coordinator 08/23/23 4 Shelly Thomason, solid waste engineer Failure Coordinator Transplant 09/05/23 Kina Campbell solid waste engineer Failure Coordinator Cardiology 01/01/24 documented as of this encounter
--- OUTSIDE RECORDS SUMMARY | 2025-04-02 21:35 | XMS_ITS | Encounter Summary ---
Author Organization [facility] Address [address] [facility] [place] [address] Care Team Providers Care Feller Operator Name Role Phone Unavailable Primary Care Provider Unavailabl e Encounter Details Date Type Department Care Team (Late st Contact Info) Description 10/29/2023 Lab Requisition [facility] - DermPath Lab [address] 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 Gender Identity Not on file Sexual Orientation Not on file documented as of this encounter Plan of Treatment Not on file documented as of this encounter Procedures Procedure Name Priority Date/Time Associated Diagnosis Comments DERMATOPATHOLOGY Routine 10/29/2023 3:25 PM CDT documented in this encounter Results * DERMATOPATHOLOGY (10/29/2023 3:25 PM CDT) Case Report Dermatopathology Report Case: [id number] Authorizing Provider: Eusebia Bolivar DO Collected: 10/29/2023 03:25 PM Ordering Location: [facility] Physician [facility] - Received: 10/30/2023 01:46 PM DermPath Lab [...] characteristic determined by the Dermatopathology Laboratory at [facility], directed by Dr. Chandu Guardado. These tests need not be, and therefore are not, approved by the [place] Food and Drug Administration. The tests are used for clinical purposes. Billing Codes Specimen Charges Stain Charges 03246 1 2:22 PM CDT DERMATOPATHOLOGY LABORATORY Embedded Images 2:22 PM CDT DERMATOPATHOLOGY LABORATORY Pathology/Cytolo gy TISSUE SPECIMEN FROM SKIN / Unknown 10/29/2023 3:25 PM CDT 10/30/2023 1:46 PM CDT us Eusebia Bolivar DO LAB - PATHOLOGY/CYTOLOGY ORDERABLES Final Result DERMATOPATHOLOGY LABORATORY [facility] - Department of Dermatology [address] [place] [address], [facility] [phone] documented in this encounter Visit Diagnoses Not on filedocumented in this encounter
--- OUTSIDE RECORDS SUMMARY | 2025-04-02 21:35 | XMS_ITS | Encounter Summary ---
Author Organization [facility] Address [address] [place] [address] Phone Care Team Providers Care Regional Clinical Research Associate Name Role Phone Beka Gonzales MD Primary Care Provider [phone] Myron Martinez MD Unavailable [phone] Susan aRmirez RN Unavailable [phone] Lisha Bob RN Unavailable [phone] Sara Ceballos Unavailable Unavailable Pooja Durán MD Primary Care Provider [phone] Sapna Dumont MD Primary Care Provider [phone] Shelly Thomason RN Unavailable Unavailable Shelly Thomason RN Unavailable Unavailable Shelly Thomason RN Unavailable Unavailable Kina Campbell RN Unavailable Unavailab le Encounter Details Date Type Department Care Team (Late st Contact Info) Description 10/22/2013 Orders Only [facility]INCONV Provider, MD Vijay [address] [place] [address] Social History Tobacco Use Types Packs/Day Years Used Date Smoking Tobacco: Never Assessed Comments Unknown Sex and Gender Information Value Date Recorded Sex Assigned at Not on file 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 Sex Female 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 BOX 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 Gender Identity Female 11/24/2020 8:34 AM [...] on filedocumented in this encounter Care Teams Regional Clinical Research Associate Relationship Specialty Start Date End Date Beka Gonzales MD [address] [place] [address] PCP - General 12/12/16 10/20/18 Pooja Durán MD PCP - General Family Practice 10/21/18 12/27/20 Sapna Dumont MD PCP - General Family Medicine 12/28/20 Myron Martinez MD [address] [place] [address] Gis Analyst Cardiology 06/18/18 Susan Ramirez, RN [address] [address] Registered Nurse Cardiology 06/18/18 08/23/23 Lisha Bob RN [address] [address] Registered Nurse Cardiology 06/18/18 04/26/22 Sara Ceballos Primary Machine Gunner Cardiology 06/18/18 Shelly Thomason, garment finisherDirector Selection And Administration Cardiology 04/27/22 09/05/23 Shelly Thomason, concrete grinder operator Failure Coordinator 08/23/23 4 Shelly Thomason, concrete grinder operator Failure Coordinator Transplant 09/05/23 Kina Campbell concrete grinder operator Failure Coordinator Cardiology 01/01/24 documented as of this encounter
--- OUTSIDE RECORDS SUMMARY | 2025-04-02 21:35 | XMS_ITS | Encounter Summary ---
Author Organization [facility] Address [address] [place] [address] Phone Care Team Providers Care Flame Cutting Machine Operator Helper Name Role Phone Beka Gonzales MD Primary Care Provider [phone] Myron Martinez MD Unavailable [phone] Susan Ramirez RN Unavailable [phone] Lisha Bob RN Unavailable [phone] Sara Ceballos Unavailable Unavailable Pooja Durán MD Primary Care Provider [phone] Sapna Dumont MD Primary Care Provider [phone] Shelly Thomason RN Unavailable Unavailable Shelly Thomason RN Unavailable Unavailable Shelly Thomason RN Unavailable Unavailable Kina Campbell RN Unavailable Unavailab le Encounter Details Date Type Department Care Team (Late st Contact Info) Description 11/10/2015 Orders Only [facility] CLINCONV Provider, MD Vijay [address] [place] [address] Social History Tobacco Use Types Packs/Day Years Used Date Smoking Tobacco: Never Assessed Comments Unknown Sex and Gender Information Value Date Recorded Sex Assigned at Not on file Legal Sex Female 12:32 AM PLASTER BLOCK LAYER Gender Identity Female 11/24/2020 8:34 AM CDT [...] on filedocumented in this encounter Care Teams Flame Cutting Machine Operator Helper Relationship Specialty Start Date End Date Beka Gonzales MD [address] [place] [address] PCP - General 12/12/16 10/20/18 Pooja Durán MD PCP - General Family Practice 10/21/18 12/27/20 Sapna Dumont MD PCP - General Family Medicine 12/28/20 Myron Martinez MD [address] [place] [address] Halver Machine Operator Cardiology 06/18/18 Susan aRmirez, RN [address] [address] Registered Nurse Cardiology 06/18/18 08/23/23 Lisha Bob RN [address] [address] Registered Nurse Cardiology 06/18/18 04/26/22 Sara Ceballos Primary Marine Drafter Cardiology 06/18/18 Shelly Thomason, drafting clerkHvac Controls Technician Cardiology 04/27/22 09/05/23 Shelly Thomason, ham clerk Failure Coordinator 08/23/23 4 Shelly Thomason, ham clerk Failure Coordinator Transplant 09/05/23 Kina Campbell ham clerk Failure Coordinator Cardiology 01/01/24 documented as of this encounter
--- OUTSIDE RECORDS SUMMARY | 2025-04-02 21:35 | XMS_ITS | Encounter Summary ---
Author Organization [facility] Address [address] [place] [address] Care Team Providers Care Cigarette Stamper Name Role Phone Sapna Dumont MD Primary Care Provider [phone] Encounter Details Date Type Department Care Team (Latest Contact Info) Description 12/20/[address] [facility] Stoddard Jr., Emily Calderon MD [...] on file Legal Sex Female 2:46 AM COIL STRAPPER Gender Identity Not on file Sexual Orientation [...] PM CDT Narrative 12/20/2007 7:52 PM CDT [facility] [address], [place] [address] Admit Date: 12/20/2007 KATARZYNA COHN Sex: F Admit Prov: EMILY STODDARD Date: 1945 Primary Care Prov: PCP , NONE CMRN: [id number] Room: [facility] SSN: [id number] IMAGING SERVICES Ordering Prov: EMILY STODDARD Accession Number: [id number] Interpretation BILATERAL FULL FIELD DIGITAL DIAGNOSTIC MAMMOGRAMS [...] DKT Procedure Note Tessy Mccormick - 12/20/2007 [facility] [address] [place], [place] [address] Admit Date: 12/20/2007 KATARZYNA COHN Sex: F Admit Prov: EMILY STODDARD Date: 1945 Primary Care Prov: PCP , NONE CMRN: [id number] Room: [facility] SSN: [id number] IMAGING SERVICES Ordering Prov: EMILY STODDARD Interpretation [...] PM CDT Narrative 01/01/2008 12:34 PM CDT [facility] [address] [place] [address] Admit Date: 12/20/2007 KATARZYNA COHN Sex: F Admit Prov: EMILY STODDARD Date: 1945 Primary Care Prov: PCP , NONE CMRN: [id number] Room: [facility] SSN: [address] [place] [address] IMAGING SERVICES Ordering Prov: EMILY STODDARD Accession Number: [id number] Addendum ADDENDUM TO MAMMOGRAPHY REPORT OF 12/20/2007 The patient's outside films from [facility] dated [...] DKT Procedure Note Tessy Mccormick - 01/01/2008 [facility] [address] [place], [place] [address] Admit Date: 12/20/2007 KATARZYNA COHN Sex: F Admit Prov: EMILY STODDARD Date: 1945 Primary Care Prov: PCP , NONE CMRN: [id number] Room: A SSN: [id number] IMAGING SERVICES Ordering Prov: EMILY STODDARD Addendum ADDENDUM TO MAMMOGRAPHY REPORT OF 12/20/2007 The patient's outside films from [facility] dated March [...] unspecified documented in this encounter Care Teams Cigarette Stamper Relationship Specialty Start Date End Date Sapna Dumont MD [address] [place] [address] PCP - General Family Practice 03/31/21 documented as of this encounter
--- OUTSIDE RECORDS SUMMARY | 2025-04-02 21:35 | XMS_ITS | Encounter Summary ---
Author Organization [facility] Address [address] [facility] [place] [address] Care Team Providers Care Central Service Tech Name Role Phone Unavailable Primary Care Provider Unavailabl e Encounter Details Date Type Department Care Team (Late st Contact Info) Description 02/04/2020 Lab Requisition [facility] DermPath Lab [address] [facility], [place] [address] Kaylah Santiago MD [address] [facility] 3 [place] [address] Social History Tobacco Use Types Packs/Day Years Used Date Smoking Tobacco: Never Assessed Comments Unknown Sex and Gender Information Value Date Recorded Sex Assigned at Not on file Legal Sex Female 6:22 PM DIRECTOR OF FOOD AND BEVERAGE SERVICES Gender Identity Not on file Sexual Orientation Not on file documented as of this encounter Plan of Treatment Not on file documented as of this encounter Procedures Procedure Name Priority Date/Time Associated Diagnosis Comments DERMATOPATHOLOGY Routine 02/03/2020 12:0 0 AM CDT documented in this encounter Results * DERMATOPATHOLOGY (02/03/2020 12:00 AM CDT) Case Report Dermatopathology Report Case: [id number] Authorizing Provider: Kaylah Santiago MD Collected: 02/03/2020 [...] characteristic determined by the Dermatopathology Laboratory at [facility], directed by Dr. Chandu Guardado. These tests need not be, and therefore are not, approved by the [place] Food and Drug Administration. The tests are used for clinical purposes. Billing Codes Specimen Charges Stain Charges 56809 1 0 1:39 PM CDT DERMATOPATHOLOGY LABORATORY Embedded Images 0 1:39 PM CDT DERMATOPATHOLOGY LABORATORY Pathology/Cytolog y TISSUE SPECIMEN FROM SKIN / Unknown 02/03/2020 02/04/2020 10:49 AM CDT us Kaylah Santiago MD LAB - PATHOLOGY/CYTOLOGY ORD ERABLES Final Result DERMATOPATHOLOGY LABORATORY [facility] - Department of Dermatology Phone [place] [address], [facility] [phone] documented in this encounter Visit Diagnoses Not on filedocumented in this encounter
--- OUTSIDE RECORDS SUMMARY | 2025-04-02 21:35 | XMS_ITS | Encounter Summary ---
Author Organization [facility] Address [address] [facility] [place] [address] Care Team Providers Care Diesel Powerplant Mechanic Helper Name Role Phone Unavailable Primary Care Provider Unavailabl e Encounter Details Date Type Department Care Team (Late st Contact Info) Description 03/06/2018 Lab Requisition [facility] Care DermPath Lab [address] [facility], [place] [phone] Kaylah Santiago MD [address] [facility] 3 [place] [address] Social History Tobacco Use Types Packs/Day Years Used Date Smoking Tobacco: Never Assessed Comments Unknown Sex and Gender Information Value Date Recorded Sex Assigned at Not on file Legal Sex Female 6:22 PM MOLD PULLER Gender Identity Not on file Sexual Orientation Not on file documented as of this encounter Plan of Treatment Not on file documented as of this encounter Procedures Procedure Name Priority Date/Time Associated Diagnosis Comments DERMATOPATH TECHNICAL REPORT Routine 03/04/2018 12:00 AM CDT documented in this encounter Results * DERMATOPATH TECHNICAL REPORT (03/04/2018 12:00 AM CDT) Case Report Dermatopathology Report Case: [id number] Authorizing Provider: Kaylah Santiago MD Collected: 03/04/2018 12:00 AM Pathologist: Brandon Guardado MD Received: 03/06/2018 07:29 AM Specimen: Skin, right buttock 8 4:41 PM CDT DERMATOPATHOLOGY LABORATORY Addendum 1 At the request of the diagnosing physician, the technical component for [place] methenamine silver was performed by [facility] Dermatopathology. 8 4:41 PM CDT DERMATOPATHOLOGY LABORATORY Addendum electronically signed by Brandon Guardado MD on 03/08/2018 at 1641 CDT Clinical History Favor fixed drug vs ICD. 8 4:41 PM CDT DERMATOPATHOLOGY LABORATORY Gross Description Specimen A: Received is one formalin filled container labeled with the patient's name and designated right buttock. The specimen consists of a punch biopsy measuring 4x4x3 mm. Jar 0. [facility] Dermatopathology Laboratory performed the technical component only. [...] determined by the Dermatopathology Laboratory at [facility]. These tests need not be, and therefore are not, approved by the [place] Food and Drug Administration. The tests are used for clinical purposes. 8 4:41 PM CDT DERMATOPATHOLOGY LABORATORY at 1028 CDT Pathology/Cytolog y TISSUE SPECIMEN FROM SKIN / Unknown 03/04/2018 03/06/2018 7:29 AM CDT Kaylah Santiago MD LAB - PATHOLOGY/CYTOLOGY ORD ERABLES Edited Result - Final DERMATOPATHOLOGY LABORATORY [facility] - Department of Dermatology [address] [place] [address], 5th [place] [address], [facility] [phone] documented in this encounter Visit Diagnoses Not on filedocumented in this encounter
--- OUTSIDE RECORDS SUMMARY | 2025-04-02 21:35 | XMS_ITS | Encounter Summary ---
Author Organization [facility] Address [address] [place] [address] Phone Care Team Providers Care Armature Winder Repair Helper Name Role Phone Beka Gonzales MD Primary Care Provider [phone] Myron Martinez MD Unavailable [phone] Susan Ramirez RN Unavailable [phone] Lisha Bob RN Unavailable [phone] Sara Ceballos Unavailable Unavailable Pooja Durán MD Primary Care Provider [phone] Sapna Dumont MD Primary Care Provider [phone] Shelly Thomason RN Unavailable Unavailable Shelly Thomason RN Unavailable Unavailable Shelly Thomason RN Unavailable Unavailable Kina Campbell RN Unavailable Unavailab le Encounter Details Date Type Department Care Team (Late st Contact Info) Description 11/04/2014 Orders Only [facility]INCONV Provider, MD Vijay [address] [place] [id number] Social History Tobacco Use Types Packs/Day Years Used Date Smoking Tobacco: Never Assessed Comments Unknown Sex and Gender Information Value Date Recorded Sex Assigned at Not on file Legal Sex Female 12:32 AM DRYING MACHINE OPERATOR PACKAGE YARNS Gender Identity Female 11/24/2020 8:34 AM CDT [...] on filedocumented in this encounter Care Teams Armature Winder Repair Helper Relationship Specialty Start Date End Date Beka Gonzales MD [address] [place] [address] PCP - General 12/12/16 10/20/18 Pooja Durán MD PCP - General Family Practice 10/21/18 12/27/20 Sapna Dumont MD PCP - General Family Medicine 12/28/20 Myron Martinez MD [address] [place] [address] Machine Greaser Cardiology 06/18/18 Susan Ramirez, RN [address] [address] Registered Nurse Cardiology 06/18/18 08/23/23 Lisha Bob RN [address] [address] Registered Nurse Cardiology 06/18/18 04/26/22 Sara Ceballos Primary Curtain Mender Cardiology 06/18/18 Shelly Thomason, program medical directorIn Home Nanny Cardiology 04/27/22 09/05/23 Shelly Thomason, water attendant Failure Coordinator 08/23/23 4 Shelly Thomason, water attendant Failure Coordinator Transplant 09/05/23 Kina Campbell water attendant Failure Coordinator Cardiology 01/01/24 documented as of this encounter
--- OUTSIDE RECORDS SUMMARY | 2025-04-02 21:35 | XMS_ITS | Clinical Summary ---
Author Organization [facility] Address [address] [place] [address] Phone Care Team Providers Care Access Control Specialist Name Role Phone Sapna Dumont MD Primary Care Provider [phone] Allergies Active Allergy Reactions Criticality Noted Date Comments Sulfa (Sulfonamide Antibiotics) Rash Low 01/04 Medications CALCIUM CARBONATE (CALCIUM 600 ORAL) 600 mg daily. + D. Active atorvastatin (LIPITOR) 20 mg Oral tablet 20 mg daily. Active MULTIVITAMINS WITH FLUORIDE (MULTI-VITAMIN ORAL) Active sodium chloride (JOSE 128) 2 % OP solution 1 Drop PRN. Active carvedilol (COREG) 12.5 mg tabletIndication s:Breast cancer, right ([facility]) 03/09/2014 Act marshall escitalopram oxalate (LEXAPRO) 10 mg tabletIndication s:Breast cancer, right ([facility]) 02/06/2014 Act marshall Active Problems Patient Care Coordination No te Formatting of this note migh t be different from the original. Primary Care: Beka Gonzales MD Referring Provider: [place] [address] Other: [facility] pharm# [id number] Problem Noted Date Diagnosed Date Breast Cancer- 01/17/2010 Overview (01/20/2011): DANN patient 07/27/03 Stage IIA (T2 N0 Mx) IDC RIGHT breast ER 35% NM - HER2/jamal 2.7 Ki67 65% BRCA 1/2 NEGATIVE S/p lumpectomy and SLND AC x 4 S/p Radiation December 2003 ARIMIDEX x 5 years (BMD 2009) Assessment & Plan (07/24/2013 2:07 PM COMPUTER GRAPHICS ILLUSTRATOR): 10 years out mammo january Assessment & Plan (07/19/2012 11:18 AM COMPUTER GRAPHICS ILLUSTRATOR): 9 years out tonya Trice Osteopenia ROV 1 year CM from chemo PPM being replaced in Aug Assessment & Plan (07/14/2011 10:00 AM COMPUTER GRAPHICS ILLUSTRATOR): 8 years out Mammo in January BMD [...] on file Legal Sex Female 2:46 AM COMPUTER GRAPHICS ILLUSTRATOR Gender Identity Not on file Sexual Orientation Not on file Occupation Industry Job Start Date Job End Date Not on file Not on file Not on file Not on file Last Filed Vital Signs Vital Sign Reading Time Taken Comments Blood Pressure 112/65 04/02/2018 11:41 AM CDT Pulse 76 04/02/2018 11:41 AM CDT Temperature 36.7 C (98.1 F) 07/24/2013 2:12 PM COMPUTER GRAPHICS ILLUSTRATOR Respiratory Rate 16 07/24/2013 2:12 PM COMPUTER GRAPHICS ILLUSTRATOR Oxygen Saturation - - Inhaled Oxygen Concentration [...] 08/28/2016, 10/18/2015, 08/06/2009 ZOSTER VACCINE Completed 09/24/2021, 12/0 09/2020, 07/12/2012 Insurance [employer] O [facility] Care Teams Access Control Specialist Relationship Specialty Start Date End Date Sapna Dumont MD [address] [place] [address] PCP - General Family Practice 03/31/21
--- OUTSIDE RECORDS SUMMARY | 2025-04-02 21:35 | XMS_ITS | Clinical Summary ---
Author Organization [facility] Address [address] [place] [address] Care Team Providers Care Investigation Manager Name Role Phone Myron Martinez MD Unavailable [phone] Sara Ceballos Unavailable Unavailable Sapna Dumont MD Primary Care Provider [phone] Shelly Thomason RN Unavailable Unavailable Kina Campbell [...] Assessment & Plan (10/08/2024 6:06 PM HAND STITCHER): Mrs. Chambers is a very pleasant 78yo [...] antibody testing can be ordered or if [place] paraneoplastic panel is indicated. Plan: - Sleep study with sleep medicine - Continue levodopa 0.5 tabs TID - Start gabapentin: 300mg qHS 1 week -> 300mg BID 1 week , 300mg TID 1 week, touch base to discuss if it is working and any worsening lethargy - Exercise as able - IgLON5 antibody testing Assessment & Plan (07/23/2024 12:01 PM HAND STITCHER): Mrs. Chambers is a very pleasant 78yo [...] (11/04/2021): Added automatically from request for surgery [id number] Essential hypertension 06/29/2020 Complete heart block 12/05/2017 NICM (nonischemic cardiomyopathy) 11/08/2015 Malignant neoplasm of breast 05/30/2010 Hyperlipidemia 05/30/2010 Chronic combined systolic and diastolic heart fa ilure 05/30/2010 Resolved Problems Problem Noted Date Diagnosed Date Resolved Date Parkinson's disease ([facility]) 11/07/2023 07/23/2024 Parkinson disease 02/02/2021 07/23/2024 [...] Encounters Date Type Department Care Team Description 03/31/2025 Telephone [facility] [address] [place] [address] [place] [id number] Sumeet Ortiz MD PhD Appointment Request 01/06/2025 1:00 PM CDT Office Visit [facility] [address] [place] [address] [place] [address] Myron Martinez MD Chronic combined systolic and diastolic congestive heart failure (HCC) (Primary Dx); Dilated cardiomyopathy (HCC) from Last 3 Months Immunizations Immunization [...] History Date Comments 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 - (Added by TW [...] on file Legal Sex Female 12:32 AM HAND STITCHER Gender Identity Female 11/24/2020 8:34 AM CDT [...] Assessment 06/20/2024 06/20/2023 Influenza Vaccine (#1) 2025 3, 04/12/2020, 05/21/2014, Additional history exists Depression Screening 10/08/2025 10/08/2024 Pneumococcal vaccine 65+ Completed 017, 10/18/2015, 08/06/2009 Zoster Vaccine Completed 09/24/2021, 1209/2020, 07/12/2012 Breast Cancer Screening-Mammogram Discontinued 04/16/2024, 04/16/2024, 04/05/2021, Additional history exists Medical Devices Implanted Type Area Quilt Stuffer Device Identifier Shelf Expiration Date Model / Serial / Lot [employer] C.R.M. G126 Defibrillator Cardiac Resynchronization Therapy Defibrillator Momentum Lv1 - [id number] - [id number] Implanted:Qty: 1 on 11/08/2021 by Sumeet Ortiz MD PhD at [facility] ICD [employer] C.R.M. 09/27/2023 G126 / [id number] / [employer] Ra Lead 4470 Lead Heart [employer] C.R.M. 4470 / [id number] / [employer] Rv Lead 0185 Lead Heart [employer] C.R.M. 0185 / [id number] / [employer] Lv Lead 4518 Lead Heart [employer] C.R.M. 4518 / [id number] / Synthes Implant Bone Plate Compression Locking 20 Hole Lcp 2.7mm [id number] - S0 - [id number] Implanted:Qty: 1 on 06/20/2023 by Primitivo Clayton MD at [facility] Plate Right: Olecranon Synthes I 04/05/2033 02.247.3 90S / 0 / [id number] Synthes Lcp 59mm 7 Hole Shaft Low Profile Cut To Length Condylar Plate 249.679 - S0 - [id number] Implanted:Qty: 1 on 06/20/2023 by Primitivo Clayton MD at [facility] Plate Right: Olecranon Synthes I 249.679 / 0 / Synthes 2.7mm 5mm 16mm 2.5mm Self Tap Stardrive Cortical T8 Screw Bone 202.876 - S0 - [id number] Implanted:Qty: 1 on 06/20/2023 by Primitivo Clayton MD at [facility] Screw Right: Olecranon Synthes I 202.876 / 0 / Synthes 2.7mm 5mm 14mm 2.5mm Self Tap Stardrive Cortical T8 Screw Bone 202.874 - S0 - [id number] Implanted:Qty: 1 on 06/20/2023 by Primitivo Clayton MD at [facility] Screw Right: Olecranon Synthes I 202.874 / 0 / Synthes 2.7mm 5mm 28mm 2.5mm Self Tap St[employer]rive Cortical T8 Screw Bone 202.888 - S0 - [id number] Implanted:Qty: 1 on 06/20/2023 by Primitivo Clayton MD at [facility] Screw Right: Olecranon Synthes I 202.888 / 0 / Synthes 2.4mm 18mm Self Tap St[employer]rive Cortex T8 Screw Bone 201.768 - S0 - [id number] Implanted:Qty: 3 on 06/20/2023 by Primitivo Clayton MD at [facility] Screw Right: Olecranon Synthes I 201.768 / 0 / Synthes 2.4mm 20mm Self Tap St[employer]rive Cortex T8 Screw Bone 201.770 - S0 - [id number] Implanted:Qty: 2 on 06/20/2023 by Primitivo Clayton MD at [facility] Screw Right: Olecranon Synthes I 201.770 / 0 / Synthes 2.4mm 1.9mm 20mm Self Tap Lock Stardrive Conical Head T8 Screw 212.820 - S0 - [id number] Implanted:Qty: 2 on 06/20/2023 by Primitivo Clayton MD at [facility] Screw Right: Olecranon Synthes I 212.820 / 0 / Synthes 2.4mm 1.9mm 28mm Self Tap Lock Stardrive Conical Head T8 Screw 212.828 - S0 - [id number] Implanted:Qty: 1 on 06/20/2023 by Primitivo Clayton MD at [facility] Screw Right: Olecranon Synthes I 212.828 / 0 / Synthes 2.4mm 1.9mm 18mm Self Tap Lock Stardrive Conical Head T8 Screw 212.818 - S0 - [id number] Implanted:Qty: 1 on 06/20/2023 by Primitivo Clayton MD at [facility] Screw Right: Olecranon Synthes I 212.818 / 0 / Synthes 2.4mm 1.9mm 10mm Self Tap Lock Stardrive Conical Head T8 Screw 212.810 - S0 - [id number] Implanted:Qty: 1 on 06/20/2023 by Primitivo Clayton MD at [facility] Screw Right: Olecranon Synthes I 212.810 / 0 / Synthes 2.7mm 5mm 44mm 2.5mm Self Tap Stardrive Cortical T8 Screw Bone 202.963 - S0 - [id number] Implanted:Qty: 1 on 06/20/2023 by Primitivo Clayton MD at [facility] Screw Right: Olecranon Synthes I 202.963 / 0 / Synthes Screw Bone Cortical Solid St Full Thread Locking 2.7x90mm 02.202.990 - S0 - [id number] Implanted:Qty: 1 on 06/20/2023 by Primitivo Clayton MD at [facility] Screw Right: Olecranon Synthes I 02.202.9 90 / 0 / Synthes 2.7mm 5mm 26mm 2.5mm Self Tap Stardrive Cortical T8 Screw Bone 202.886 - S0 - [id number] Implanted:Qty: 1 on 06/20/2023 by Pirmitivo Clayton MD at [facility] Screw Right: Olecranon Synthes I 202.886 / 0 / Synthes 2.7mm 5mm 20mm 2.5mm Self Tap Stardrive Cortical T8 Screw Bone 202.880 - S0 - [id number] Implanted:Qty: 1 on 06/20/2023 by Primitivo Clayton MD at [facility] Screw Right: Olecranon Synthes I 202.880 / 0 / Explanted Type Area Quilt Stuffer Device Identifier Shelf Expiration Date Model / Serial / Lot Pacemaker/Icd -10/07/2012 Implanted:Qty : 1 on 10/07/2012 Explanted:Qty : 1 on 11/08/2021 Left: Chest [employer] Synthes 2.4mm 1.9mm 20mm Self Tap Lock Stardrive Conical Head T8 Screw 212.820 - [id number] Explanted:Qty : 1 on 06/20/2023 at [facility] Right: Oleaaron Synthes I 212.820 / / Insurance T MEDICARE AET MEDICARE Advance Directives For more information, please contact: [phone] Documents on File Type Date Recorded Patient Packaging Designer Expl anation ADVANCE DIRECTIVE 05/27/2015 12:00 AM POW ER OF MOTHER SUPERIOR FINANCIAL/MEDICAL ADVANCE DIRECTIVE 11/30/2014 12:00 AM FAITH REDDY WILL Care Teams Investigation Manager Relationship Specialty Start Date End Date Sapna Dumont MD PCP - General Family Medicine 12/28/20 Myron Martinez MD [address] [place] [address] Mortician Helper Cardiology 06/18/18 Sara Ceballos Primary Negotiations Director Cardiology 06/18/18 Shelly Thomason, funeral service practitioner/embalmer Failure Coordinator Transplant 09/05/23 Kina Campbell, funeral service practitioner/embalmer Failure Coordinator Cardiology 01/01/24
[2025-04-02 22:15] VITALS: BP 165/74; PULSE 114; RESP 19; O2SAT 96
[2025-04-02] MEDS: HYDROcodone/acetaminophen (*CRX) 5-325 MG TABLET 2 TAB PO (23:43)
== END 2025-04-03 01:14 ==
PROVIDERS: Emergency Provider Family Medicine; PCP Family Medicine
DX: S01.01XA Laceration without foreign body of scalp, initial encounter (principal); S42.211A Unspecified displaced fracture of surgical neck of right humerus, initial encounter for closed fracture; G20.A1 Parkinson's disease without dyskinesia, without mention of fluctuations; I25.10 Atherosclerotic heart disease of native coronary artery without angina pectoris; I50.30 Unspecified diastolic (congestive) heart failure; I11.0 Hypertensive heart disease with heart failure; E78.5 Hyperlipidemia, unspecified; Z95.0 Presence of cardiac pacemaker; Z90.721 Acquired absence of ovaries, unilateral; Z79.899 Other long term (current) drug therapy; W18.11XA Fall from or off toilet without subsequent striking against object, initial encounter
CPT/HCPCS: 12002; 70450; 72125; 73030; 96374; 96375; 99284; A4565; A9270; J2003; J2270; J2405

== ENCOUNTER 2025-07-25 23:17 | Emergency (ER) | payer MEDICARE, SELFPAY ==
--- OUTSIDE RECORDS SUMMARY | 2023-09-07 05:00 | XMS_ITS | Continuity of Care Document ---
Author Organization [facility] Address [address] [place] [phone] Phone Care Team Providers Care Crime Lab Analyst Name Role Phone Angel Callahan Unavailable Unavailable Procedures Procedure Date Therapeutic Activities Neuromuscular Re-Ed Therapeutic Exercise Manual Therapy Hot or Cold Pack Therapeutic Activities Neuromuscular Re-Ed Therapeutic Exercise Manual Therapy Hot or Cold Pack Therapeutic Activities Neuromuscular Re-Ed Therapeutic Exercise Manual Therapy Hot or Cold Pack Therapeutic Activities Neuromuscular Re-Ed Therapeutic Exercise Manual Therapy Hot or Cold Pack Therapeutic Activities Neuromuscular Re-Ed Therapeutic Exercise Manual Therapy Hot or Cold Pack Therapeutic Activities Neuromuscular Re-Ed Therapeutic Exercise Manual Therapy Hot or Cold Pack Therapeutic Activities Neuromuscular Re-Ed Therapeutic Exercise Manual Therapy Therapeutic Activities Neuromuscular Re-Ed Therapeutic Exercise Manual Therapy Therapeutic Activities Neuromuscular Re-Ed Therapeutic Exercise Manual Therapy Hot or Cold Pack Therapeutic Activities Neuromuscular Re-Ed Therapeutic Exercise Manual Therapy Hot or Cold Pack Progress Note Therapeutic Activities Neuromuscular Re-Ed Therapeutic Exercise Manual Therapy Hot or Cold Pack Therapeutic Activities Therapeutic Exercise Neuromuscular Re-Ed Manual Therapy Hot or Cold Pack Therapeutic Activities Therapeutic Exercise Neuromuscular Re-Ed Hot or Cold Pack Manual Therapy Therapeutic Activities Neuromuscular Re-Ed Therapeutic Exercise Manual Therapy Hot or Cold Pack Doc neg elder mal no plan PRES/ABSN URINE INCON ASSESS OT Evaluation Low Complexity Therapeutic Activities Therapeutic Exercise Manual Therapy Advance Directives Directive Yes / No Effective Date File Name No Information Encounters Encounter Description Practice Location Reason(s) For Visit Diagnoses Date Provider Providers Copied on Encounter [facility] [address], [place], [place], [id number], tel:[phone] [place] No Information 4 Pernell Ortiz. . Referring Provider: Primitivo Clayton [facility]1 [facility] 6th floor [address], [place], [address]. tel:[phone] [facility], [place], [place], [address], tel:[phone] [place] No Information 4 Pernell Angel. . Referring Provider: Kyra Dupont [address], [place], [address]. tel:[phone] [place] [address], [address], [place], [place], [address], [place] tel:[phone] [place] No Information 4 Pernell Jerniganyne. . Referring Provider: Kyra Dupont [address], [place], [address]. tel:[phone] [facility], [address], [place], [place], [address], [place] tel:[phone] [place] No Information 4 Pernell Jerniganyne. . Referring Provider: Kyra Dupont [address], [place], [address]. tel:[phone] [place] [address], [address], [place], [place], [address], [place] tel:[phone] [place] No Information 4 Pernell Jerniganyne. . Referring Provider: Kyra Dupont [address], [place], [address]. tel:[phone] [facility], [address], [place], [place], [address], [place] tel:[phone] [place] No Information 4 Pernell Jerniganyne. . Referring Provider: Kyra Dupont [address], [place], [address]. tel:[phone] [facility], [address], [place], [place], [address], [place] tel:[phone] [place] No Information 4 Pernell Jerniganyne. . Referring Provider: Kyra Dupont [address], [place], [address]. tel:[phone] [facility], [address], [place], [place], [address], [place] tel:[phone] [place] No Information Aug-0 5- 4 Pernell Angel. . Referring Provider: Kyra Dupont [address], [place], [address]. tel:[phone] [place] [address], [address] [place], [place] [address], [place], [place], [address], [place] tel:[phone] [place] No Information Aug-0 3-202 4 Pernell Angel. . Referring Provider: Kyra Dupont [address], [place], [address]. tel:[phone] [place] [address], [place], [place], [address], [place] tel:[phone] [place] No Information Dec-2 - 3 Pernell Angel. . Referring Provider: Kyra Dupont [address], [place], [address]. tel:[phone] [place] [address], [address] [place] [address] [address], [place], [place], [address], [place] tel:[phone] [place] No Information Dec-2 7- 3 Pernell Angel. . Referring Provider: Kyra Dupont [address], [place], [address]. tel:[phone] [place] [address], [place], [place], [address], [place] tel:[phone] [place] No Information Dec-2 2-202 3 Pernell Angel. . Referring Provider: Kyra Dupont [address], [place], [address]. tel:[phone] [facility], [facility], [place], [place], [address], [place] tel:[phone] [place] No Information Dec-2 0-202 3 Pernell Angel. . Referring Provider: Kyra Dupont [address], [place], [address]. tel:[phone] [facility], [address] [facility] 300, [place], [place], [address], tel:[phone] [place] No Information 3 Pernell Ortiz. . Referring Provider: Primitivo Clayton [address] [facility] 6th floor [address], [place], [address]. tel:[phone] [facility], [address] [facility] 300, [place], [place], [address], tel:[phone] [place] No Information 3 Pernell Ortiz. . Referring Provider: Primitivo Clayton [address] [facility] 6th floor [address], [place], [address]. tel:[phone] Family History Family Member Type Diagnosis Age At Onset No Information Payers Payer name Insurance type Covered libertarian ID Rogelio burciaga(s) Aetna Medicare Replacement CI [id number] Social History Type Description Quantity Date Captured Comments Sex Female Smoking Status No Information Chief Complaint And Reason For Visit No Information Reason For Referral Reason For Referral No Information History Of Present Illness Encounter Date Complaint History Of Prese nt Illness No Information Functional Status Date Functional Assessmen t No Information Instructions Date Instruction Additional Infor mation No Information Assessments Type Assessment Date No Information Patient Care Teams Name Effective Dates (start - stop) Status Members No Information
--- OUTSIDE RECORDS SUMMARY | 2025-07-24 | XMS_ITS ---
Author Organization [facility] Address [address] [place] [phone] Care Team Providers Care Provider Engagement Executive Name Role Phone DR. MYEKL BRICE Primary Care Provider Mary Banks Unavailable [phone] Allergies Allergen (clinical drug ingredient) Drug/Non Drug Allergy documented on EMR Reaction Allergy Type Onset Date Status Substance with sulfonamide structure and antibacterial mechanism of action (substance) Sulfa Antibiotics Unknown Drug Allergy Active REASON FOR VISIT Lv, routine Medications Medication SIG (Take, Route, Frequency, Duration) Notes Start Date End Date Status Bisacodyl 10 MG Suppository 1 suppositor y as needed Rectal Once a day Active Acetaminophen 650 MG Suppository 1 suppository as needed Rectal every 6 hrs Active Atropine Sulfate 1 % Solution 2 drops as needed sublingual every 4 hours Active LORazepam 0.5 MG Tablet 1 tablet Orally twice a day 05/11/2025 Active oxyCODONE HCl 5 MG Tablet 1 tablet Orall y 3 times a day 04/19/2025 Active DULoxetine HCl 60 MG Capsule Delayed Release Particles 1 capsule Orally Once a day Active Gabapentin 300 MG Capsule 1 capsule Oral ly 3 times a day Active Carvedilol 12.5 MG Tablet 1 tablet with food Orally Twice a day Active Perfluorohexyloctane 1.338 GM/ML Solution amt: 1 gtt each eye; ophthalmic (eye) Special Instructions: Every 2 hours as needed As Needed Ophthalmic 3 times a day Active Losartan Potassium 25 MG Tablet 0.5 tabl et Orally twice a day Active Senna Lax 8.6 MG Tablet 1 tablet Orally twice a day As needed Active traMADol HCl 25 MG Tablet 1 tablet Orally every 6 hours As needed Active Ondansetron 4 MG Tablet Disintegrating 1 tablet on the tongue and allow to dissolve Orally every 8 hours As needed Active QUEtiapine Fumarate 100 MG Tablet amt: 100mg; oral Three Times A Day Orally Active Morphine Sulfate (Concentrat e) 100 MG/5ML Solution 0.25 mL as needed Orally every 4 hrs Active Acetaminophen 500 MG Tablet amt: 2 tabs (1000mg); oral Special Instructions: Give 2 tabs (1000mg) three times daily Three Times A Day Orally Active Social History Tobacco Use: Social History Observation Description Date Details (start date - stop date) Never Smoker NA - NA Social History Tobacco Use: Social Info Question Answer Notes Tobacco Control (Standard) Tobacco use: Nonsmoker Vital Signs Temperature 98.2 degrees Fahrenheit 07/24/20 25 Blood pressure systolic 90 mm Hg 07/24/20 25 Blood pressure diastolic 48 mm Hg 025 Heart Rate 85 /min 07/24/2025 Respiratory Rate 16 /min 07/24/2025 Oximetry 92 % 07/24/2025 Encounters Encounter Location Date Provider Diagnosis [facility] [address] [place] [id number] 07/24/2025 Mary Banks Progressive supranuc lear ophthalmoplegia [Cemdii-Jlxyinkiub-Hcmio wski] G23.1 ; Presence of cardiac pacemaker Z95.0 ; Chronic combined systolic (congestive) and diastolic (congestive) heart failure I50.42 ; Hospice care Z51.5 and Acute COVID-19 U07.1 Assessments Encounter Date Diagnosis (ICD Code) Assessment Notes Treatment Notes Treatment Clinical Notes Section Notes 07/24/2025 Progressive supranuclear ophthalmoplegia [Garcia-Denney- Dat] (ICD-10 - G23.1) Patient has progressive supranuclear palsy, which causes her to have balance issues and which has resulted in multiple falls at home and while in the facility. Patient is on hospice care. Encouraged patient to use call murphy for help. 07/24/2025 Presence of cardiac pacemaker (ICD-10 - Z95.0) Patient has left upper chest pacemaker noted. 07/24/2025 Chronic combined systolic (congestive) and diastolic (congestive) heart failure (ICD-10 - I50.42) No signs and symptoms of fluid overload at this time. Not currently on a diuretic. Continue to monitor and update page provider with any changes. 07/24/2025 Hospice care (ICD-10 - Z51.5) Patient is a patient with [facility] and they manage her pain and anxiety. 07/24/2025 Acute COVID-19 (ICD-10 - U07.1) She is currently on isolation for COVID. She was tested yesterday due to multiple cases in the facility, she does not have any symptoms at this time. She will be on isolation until 08/02/2025 unless she develops symptoms. 07/24/2025 Other Patient with multiple chronic conditions, each requiring ongoing management and coordination of care. Reviewed and interpreted most recent laboratory results available, diagnostic studies, and prior specialist notes. Staff to continue to monitor and report any changes. Patient education provided and questions/concer ns addressed. Close follow-up required; reassess in 2-4 weeks or sooner if condition worsens. Plan Of Treatment Treatment Notes Assessment Notes Progressive supranuclear oph thalmoplegia [Julissa] Patient has progressive supranuclear palsy, which causes her to have balance issues and which has resulted in multiple falls at home and while in the facility. Patient is on hospice care. Encouraged patient to use call [facility]phy for help. Presence of cardiac pacemaker Patient han s left upper chest pacemaker noted. Chronic combined systolic (c ongestive) and diastolic (congestive) heart failure No signs and symptoms of fluid overload at this time. Not currently on a diuretic. Continue to monitor and update page provider with any changes. Hospice care Patient is a patient with [facility] and they manage her pain and anxiety. Acute COVID-19 She is currently on isolation for COVID. She was tested yesterday due to multiple cases in the facility, she does not have any symptoms at this time. She will be on isolation until 08/02/2025 unless she develops symptoms. Other Patient with multiple chronic conditions, each requiring ongoing management and coordination of care. Reviewed and interpreted most recent laboratory results available, diagnostic studies, and prior specialist notes. Staff to continue to monitor and report any changes. Patient education provided and questions/concerns addressed. Close follow-up required; reassess in 2-4 weeks or sooner if condition worsens. Next Appt Details Follow Up: 2-4 Weeks, [...] lower extremity motor strength and function Skin: skin is warm and dry , with no rashes, good skin turgor and normal hair distribution, with no suspicious skin lesions Extremities: normal extremity wit h no clubbing, cyanosis or edema Musculoskeletal: wheelchair for ambul ation Lymph nodes: no axillary, supracl avicular or inguinal lymphadenopathy, nontender Psych: alert and oriented x 1, pleasant, confused, and forgetful at baseline, cooperative with exam. Oral cavity: normal, mucosa moist Progress Notes * Katarzyna COHNDOB:1945 (79 yo F)Acc No.[id number]:07/24/2025 Patient: Katarzyna Chapin Provider: PARESH Reid :1945 A ge:79 Y S ex:Female Date:07/24/2025 Address:[address] [place] [address] Pcp:DR. MYKEL BRICE Subjective: * Chief Complaints: * L v, routine * HPI: T ransition of Care: Patient is being seen at [facility] for a routine visit. She is alert and oriented x1, pleasantly confused and forgetful, able to make needs known. She consented to today's exam. Patient was seen while taking a nap after breakfast, she is currently on isolation for COVID. She was tested yesterday due to multiple cases in the facility, she does not have any symptoms at this time. She will be on isolation until 08/02/2025 unless she develops symptoms. She has multiple chronic medical conditions that were reviewed. She is a new admission to this facility for fdc care while on hospice, she was admitted for progressive supranuclear palsy or Sumtoy-Yotiqwzmfr-Imytbbxwe syndrome, which causes her balance issues and she has had multiple falls at home prior to admission and multiple falls since being on admission at the facility. Patient denies having any pain or discomfort. She utilizes a wheelchair for ambulation. * ROS: G eneral / Constitutional: Patient [...] painful extremities. S kin: Patient denies d iscoloration, dry skin, rash, ulcerations, itching. N eurologic: Patient denies c onfusion, dizziness, tingling / numbness, tremor. P atient complains of g ait abnormality, loss of strength. P sychiatric: Patient denies a nxiety, depressed mood, loss of appetite, mood disorder, suicidal thoughts. 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 * Hospitalization/Major Diagno stic Procedure: No Hospitalization Documented. Hospitalization Verified. * Family History: F ather: dementia, diagnosed with Diabetes. M other: breast cancer, lung cancer. S ister: breast cancer, mouth cancer. F amily History Verified.. * Social History: T obacco Use: T obacco Control (Standard) T obacco use: N onsmoker. Social History Verified. * Medications: T akingAcetaminophen 500 MG Tablet amt: 2 tabs (1000mg); oral Special Instructions: Give 2 tabs (1000mg) three times daily Three Times A Day Orally traMADol HCl 25 MG Tablet 1 tablet Orally every 6 hours As neededSenna Lax 8.6 MG Tablet 1 tablet Orally twice a day As neededQUEtiapine Fumarate 100 MG Tablet amt: 100mg; oral Three Times A Day Orally Ondansetron 4 MG Tablet Disintegrating 1 tablet on the tongue and allow to dissolve Orally every 8 hours As neededMorphine Sulfate (Concentrate) 100 MG/5ML Solution 0.25 mL as needed Orally every 4 hrs Perfluorohexyloctane 1.338 GM/ML Solution amt: 1 gtt each eye; ophthalmic (eye) Special Instructions: Every 2 hours as needed As Needed Ophthalmic 3 times a day Losartan Potassium 25 MG Tablet 0.5 tablet [...] suppository as needed Rectal every 6 hrs oxyCODONE HCl 5 MG Tablet 1 tablet Orally 3 times a day LORazepam 0.5 MG Tablet 1 tablet Orally twice a day Medication List reviewed and reconciled with the patientTaking Acetaminophen 500 MG Tablet amt: 2 tabs (1000mg); oral Special Instructions: Give 2 tabs (1000mg) three times daily Three Times A Day Orally Taking traMADol HCl 25 MG Tablet 1 tablet Orally every 6 hours As neededTaking Senna Lax 8.6 MG Tablet 1 tablet Orally twice a day As neededTaking QUEtiapine Fumarate 100 MG Tablet amt: 100mg; oral Three Times A Day Orally Taking Ondansetron 4 MG Tablet Disintegrating 1 tablet on the tongue and allow to dissolve Orally every 8 hours As neededTaking Morphine Sulfate (Concentrate) 100 MG/5ML Solution 0.25 mL as needed Orally every 4 hrs Taking Perfluorohexyloctane 1.338 GM/ML Solution amt: 1 gtt each eye; ophthalmic (eye) Special Instructions: Every 2 hours as needed As Needed Ophthalmic 3 times a day Taking Losartan Potassium 25 MG Tablet 0.5 [...] as needed Rectal every 6 hrs Taking oxyCODONE HCl 5 MG Tablet 1 tablet Orally 3 times a day Taking LORazepam 0.5 MG Tablet 1 tablet Orally twice a day Medication List reviewed and reconciled with the patient * Allergies: S ulfa AntibioticsyesAllergies Verified. Objective: * Vitals: B P: 90/48 mm Hg, HR: 85 /min, RR: 16 /min, Temp: 98.2 F, Oxygen sat %: 92 %. * Examination: G eneral Examination: General appearance: [...] axillary, supraclavicular or inguinal lymphadenopathy, nontender. Skin: s kin is warm and dry, with no rashes, good skin turgor and normal hair distribution, with no suspicious skin lesions. Heart: r egular rate and rhythm without [...] and function. Psych: a lert and oriented x1, pleasant, confused, and forgetful at baseline, cooperative with exam. . Assessment: * Assessment: 1. P rogressive supranuclear ophthalmoplegia [Fncrdp-Mwlmtsvjxp-Mhpetqaje] - G23.1 (Primary)? 2. P resence of cardiac pacemaker - Z95.0 3 . C hronic combined systolic (congestive) and diastolic (congestive) heart failure - I50.42 4 . H ospice care - Z51.5 5 . A cute COVID-19 - U07.1 Plan: * Treatment: 2. P resence of cardiac pacemaker Notes: Patient has left upper chest pacemaker noted. 3. C hronic combined systolic (congestive) and diastolic (congestive) heart failure Notes: No signs and symptoms of fluid overload at this time. Not currently on a diuretic. Continue to monitor and update page provider with any changes. 4. H ospice care Notes: Patient is a patient with [facility] and they manage her pain and anxiety. ? 5. A cute COVID-19 Notes: She is currently on isolation for COVID. She was tested yesterday due to multiple cases in the facility, she does not have any symptoms at this time. She will be on isolation until 08/02/2025 unless she develops symptoms. 6. O thers Notes:Patient with multiple chronic conditions, each requiring ongoing management and coordination of care. Reviewed and interpreted most recent laboratory results available, diagnostic studies, and prior specialist notes. Staff to continue to monitor and report any changes. Patient education provided and questions/concerns addressed. Close follow-up required; reassess in 2-4 weeks or sooner if condition worsens. * Preventive Medicine: Screenings: F all risk screening F all Risk Assessment: T wo or more falls with injury in the past year, S creening: T wo or more falls with injury in the past year, Plan of Care: D ocumented, T ype of fall plan of care: B alance, strength and gait training or instruction provided, Referral to exercise program for balance, strength or gait training, Referral to physical therapy. * Follow Up: 2 -4 Weeks * Electronic signature of BEVERLY Bartlett on 07/26/2025 at 01:42 AM PUBLIC INFORMATION RELATIONS MANAGER Sign off status: Pending * Provider: PARESH Reid Date: 09/24/2024 Generated for Guillermo ryan/Renee/Cindy on: 09/26/2024 01:42 AM PUBLIC INFORMATION RELATIONS MANAGER
[2025-07-25 23:16] VITALS: BP 86/48; PULSE 76; RESP 22; TEMP 36.6; O2SAT 96
[2025-07-25 23:23] VITALS: BP 86/48; PULSE 77; RESP 21; O2SAT 96
[2025-07-25 23:25] VITALS: O2SAT 95
[2025-07-25 23:31] VITALS: BP 86/52; PULSE 76; RESP 21; O2SAT 96
[2025-07-25 23:46] VITALS: BP 75/46; PULSE 73; RESP 18
[2025-07-26 00:16] VITALS: BP 70/47; PULSE 70; RESP 21; O2SAT 94
[2025-07-26 00:31] VITALS: BP 87/54; PULSE 75; RESP 23; O2SAT 92
[2025-07-26 01:01] VITALS: BP 71/42; PULSE 70; RESP 19; TEMP 36.6; O2SAT 91
--- OUTSIDE RECORDS SUMMARY | 2025-07-26 01:43 | XMS_ITS | Encounter Summary ---
Author Organization [facility] Address [address] [facility] [place] [address] Care Team Providers Care Supervisor Telephone Answering Service Name Role Phone Unavailable Primary Care Provider Unavailabl e Encounter Details Date Type Department Care Team (Late st Contact Info) Description 03/31/2024 Lab Requisition [facility] - DermPath Lab [address] [facility] [facility] [place] [id number] Kaylah Santiago MD [address] [facility] [address] [place] [address] Social History Tobacco Use Types Packs/Day Years Used Date Smoking Tobacco: Never Assessed Comments Unknown Sex and Gender Information Value Date Recorded Sex Assigned at Not on file Legal Sex Female 6:22 PM M1A1 TANK CREWMAN Gender Identity Not on file Sexual Orientation Not on file documented as of this encounter Plan of Treatment Not on file documented as of this encounter Procedures Procedure Name Priority Date/Time Associated Diagnosis Comments DERMATOPATHOLOGY Routine 03/31/2024 11:2 1 AM CDT documented in this encounter Results * DERMATOPATHOLOGY (03/31/2024 11:21 AM CDT) Case Report Dermatopathology Report Case: [id number] Authorizing Provider: Kaylah Santiago MD Collected: 03/31/2024 11:21 AM Ordering Location: [facility] - Received: 03/31/2024 05:01 PM [...] characteristic determined by the Dermatopathology Laboratory at [facility], directed by Dr. Chandu Guardado. These tests need not be, and therefore are not, approved by the [place] Food and Drug Administration. The tests are used for clinical purposes. Billing Codes Specimen Charges Stain Charges 32948 1 4 3:09 PM CDT DERMATOPATHOLOGY LABORATORY Embedded Images 4 3:09 PM CDT DERMATOPATHOLOGY LABORATORY Pathology/Cytolo gy TISSUE SPECIMEN FROM SKIN / Unknown 03/31/2024 11:21 AM CDT 03/31/2024 5:01 PM CDT us Kaylah Santiago MD LAB - PATHOLOGY/CYTOLOGY ORD ERABLES Final Result DERMATOPATHOLOGY LABORATORY [facility] - Department of Dermatology [address], [address] [phone] documented in this encounter Visit Diagnoses Not on filedocumented in this encounter
--- OUTSIDE RECORDS SUMMARY | 2025-07-26 01:43 | XMS_ITS | Encounter Summary ---
Author Organization [facility] Address [address] [place] [address] Care Team Providers Care Dock Builder Name Role Phone Sapna Dumont MD Primary Care Provider [phone] Encounter Details Date Type Department Care Team (Latest Contact Info) Description 06/20/2004 Outpatient Historical [facility] Umberto Rodriguez MD [address] [place] [address] MALIGN NEOPL BREAST NOS (CMS/HCC) (Primary Dx) Social History Tobacco Use Types Packs/Day Years Used Date Smoking Tobacco: Never Assessed Comments Unknown Sex and Gender Information Value Date Recorded Sex Assigned at Not on file Legal Sex Female 2:46 AM COMMUNITY SERVICE DIRECTOR Gender Identity Not on file Sexual Orientation Not on file documented as of this encounter Plan of Treatment Not on file documented as of this encounter Visit Diagnoses Diagnosis Malignant neoplasm of breast (female), unspecified site- Primary documented in this encounter Care Teams Dock Builder Relationship Specialty Start Date End Date Sapna Dumont MD [address] [place] [id number] PCP - General Family Practice 03/31/21 documented as of this encounter
--- OUTSIDE RECORDS SUMMARY | 2025-07-26 01:43 | XMS_ITS | Encounter Summary ---
Author Organization [facility] Address [address] [place] [address] Care Team Providers Care Lan Manager Name Role Phone Unavailable Primary Care Provider Unavailabl e Encounter Details Date Type Department Care Team (Late st Contact Info) Description 03/06/2018 Lab Requisition [facility] Care DermPath Lab [address] [facility] [place] [phone] Kaylah Santiago MD [address] [facility] [address] [place] [address] Social History Tobacco Use Types Packs/Day Years Used Date Smoking Tobacco: Never Assessed Comments Unknown Sex and Gender Information Value Date Recorded Sex Assigned at Not on file Legal Sex 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 Gender Identity Not on file Sexual Orientation Not on file documented as of this encounter Plan of Treatment Not on file documented as of this encounter Procedures Procedure Name Priority Date/Time Associated Diagnosis Comments DERMATOPATH TECHNICAL REPORT Routine 03/04/2018 12:00 AM CDT documented in this encounter Results * DERMATOPATH TECHNICAL REPORT (03/04/2018 12:00 AM CDT) Case Report Dermatopathology Report Case: [id number] Authorizing Provider: Kaylah Santiago MD Collected: 03/04/2018 12:00 AM Pathologist: Brandon Guardado MD Received: 03/06/2018 07:29 AM Specimen: Skin, right buttock 8 4:41 PM CDT DERMATOPATHOLOGY LABORATORY Addendum 1 At the request of the diagnosing physician, the technical component for [place] methenamine silver was performed by [facility] Dermatopathology. 8 4:41 PM CDT DERMATOPATHOLOGY LABORATORY Addendum electronically signed by Brandon Guardado MD on 03/08/2018 at 1641 CDT Clinical History Favor fixed drug vs ICD. 8 4:41 PM CDT DERMATOPATHOLOGY LABORATORY Gross Description Specimen A: Received is one formalin filled container labeled with the patient's name and designated right buttock. The specimen consists of a punch biopsy measuring 4x4x3 mm. Jar 0. [facility] Dermat[facility] Laboratory performed the technical component only. [...] characteristic determined by the Dermatopathology Laboratory at [facility]. These tests need not be, and therefore are not, approved by the [place] Food and Drug Administration. The tests are used for clinical purposes. 8 4:41 PM CDT DERMATOPATHOLOGY LABORATORY at 1028 CDT Pathology/Cytolog y TISSUE SPECIMEN FROM SKIN / Unknown 03/04/2018 03/06/2018 7:29 AM CDT Kaylah Santiago MD LAB - PATHOLOGY/CYTOLOGY ORD ERABLES Edited Result - Final DERMATOPATHOLOGY LABORATORY [facility] - Department of Dermatology [address] [place] [address], [address] [place] [address], [facility] [phone] documented in this encounter Visit Diagnoses Not on filedocumented in this encounter
--- OUTSIDE RECORDS SUMMARY | 2025-07-26 01:43 | XMS_ITS | Clinical Summary ---
[facility] Address [address] [place] [address] Phone Care Team Providers Care Trucker Hand Name Role Phone Sapna Dumont MD Primary Care Provider [phone] Allergies Active Allergy Reactions Criticality Noted Date Comments Sulfa (Sulfonamide Antibiotics) Rash Low 01/04 Medications CALCIUM CARBONATE (CALCIUM 600 ORAL) 600 mg daily. + D. Active atorvastatin (LIPITOR) 20 mg Oral tablet 20 mg daily. Active MULTIVITAMINS WITH FLUORIDE (MULTI-VITAMIN ORAL) Active sodium chloride (JOSE 128) 2 % OP solution 1 Drop PRN. Active carvedilol (COREG) 12.5 mg tabletIndication s:Breast cancer, right ([facility]) 03/09/2014 Act [place]all escitalopram oxalate (LEXAPRO) 10 mg tabletIndication s:Breast cancer, right ([facility]) 02/06/2014 Act marshall Active Problems Patient Care Coordination No te Formatting of this note migh t be different from the original. Primary Care: Beka Gonzales MD Referring Provider: Beka Gonzales MD [place] [address] Other: [facility] pharm# [phone] Problem Noted Date Diagnosed Date Breast Cancer- 01/17/2010 Overview (01/20/2011): DANN patient 07/27/03 Stage IIA (T2 N0 Mx) IDC RIGHT breast ER 35% OK - HER2/jamal 2.7 Ki67 65% BRCA 1/2 NEGATIVE S/p lumpectomy and SLND AC x 4 S/p Radiation December 2003 ARIMIDEX x 5 years (BMD 2009) Assessment & Plan (07/24/2013 2:07 PM CABLE REELER): 10 years out mammo january Assessment & Plan (07/19/2012 11:18 AM CABLE REELER): 9 years out tonya Trice Osteopenia ROV 1 year CM from chemo PPM being replaced in Aug Assessment & Plan (07/14/2011 10:00 AM CABLE REELER): 8 years out Mammo in January BMD [...] Abnormal mammogram of left breast 03/28/2017 04/02/2018 Family History Medical History Relation Name Comments [...] on file Legal Sex Female 2:46 AM CABLE REELER Gender Identity Not on file Sexual Orientation Not on file Occupation Industry Job Start Date Job End Date Not on file Not on file Not on file Not on file Last Filed Vital Signs Vital Sign Reading Time Taken Comments Blood Pressure 112/65 04/02/2018 11:41 AM CDT Pulse 76 04/02/2018 11:41 AM CDT Temperature 36.7 C (98.1 F) 07/24/2013 2:12 PM CABLE REELER Respiratory Rate 16 07/24/2013 2:12 PM CABLE REELER Oxygen Saturation - - Inhaled Oxygen Concentration [...] Completed 09/24/2021, 12/0 09/2020, 07/12/2012 Insurance [employer] PPO MCR Care Teams Trucker Hand Relationship Specialty Start Date End Date Sapna Dumont MD [address] [place] [address] PCP - General Family Practice 03/31/21
--- OUTSIDE RECORDS SUMMARY | 2025-07-26 01:43 | XMS_ITS | Encounter Summary ---
Author Organization [facility] Address [address] [place] [address] Phone Care Team Providers Care Wheel Setter Name Role Phone Beka Gonzales MD Primary Care Provider [phone] Myron Martinez MD Unavailable [phone] Susan Ramirez RN Unavailable [phone] Lisha Bob RN Unavailable [phone] Sara Ceballos Unavailable Unavailable Pooja Durán MD Primary Care Provider [phone] Sapna Dumont MD Primary Care Provider [phone] Shelly Thomason RN Unavailable Unavailable Shelly Thomason RN Unavailable Unavailable Shelly Thomason RN Unavailable Unavailable Kina Campbell RN Unavailable Unavailab Millie Garcia Unavailable Unavailable Encounter Details Date Type Department Care Team (Late st Contact Info) Description 10/22/2013 Orders Only [facility] Provider, MD Vijay [address] [place] [address] Social History Tobacco Use Types Packs/Day Years Used Date Smoking Tobacco: Never Assessed Comments Unknown Sex and Gender Information Value Date Recorded Sex Assigned at Not on file Legal Sex Female 12:32 AM ORDER ENTRY SPECIALIST Gender Identity Female 11/24/2020 8:34 AM [...] Narrative 10/22/2013 Ordered by an unspecified provider. Historical Provider [facility] JOHN REYNOLDS Final Result documented in this encounter Visit Diagnoses Not on filedocumented in this encounter Care Teams Wheel Setter Relationship Specialty Start Date End Date Beka Gonzales MD [address] [place] [address] PCP - General 12/12/16 10/20/18 Pooja Durán MD PCP - General Family Practice 10/21/18 12/27/20 Sapna Dumont MD PCP - General Family Medicine 12/28/20 Myron Martinez MD [address] [place] [address] Metallurgical Engineering Teacher Cardiology 06/18/18 Susan Ramirez, RN [address] [address] Registered Nurse Cardiology 06/18/18 08/23/23 Lisha Bob, RN [address] [address] Registered Nurse Cardiology 06/18/18 04/26/22 Sara Ceballos Primary Method Consultant Cardiology 06/18/18 Shelly Thomason, lead electricianLegal Service Specialist Cardiology 04/27/22 09/05/23 Shelly Thomason, freelance translator Failure Coordinator 08/23/23 4 Shelly Thomason, freelance translator Failure Coordinator Transplant 09/05/23 Kina Campbell freelance translator Failure Coordinator Cardiology 01/01/24 Millie Griffiths Primary Method Consultant 04/23/25 documented as of this encounter
--- OUTSIDE RECORDS SUMMARY | 2025-07-26 01:43 | XMS_ITS | Encounter Summary ---
Author Organization [facility] Address [address] [place] [place] [address] Care Team Providers Care Inspector Optical Instrument Name Role Phone Unavailable Primary Care Provider Unavailabl e Encounter Details Date Type Department Care Team (Late st Contact Info) Description 10/29/2023 Lab Requisition [facility] - DermPath Lab [address] 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 Gender Identity Not on file Sexual Orientation Not on file documented as of this encounter Plan of Treatment Not on file documented as of this encounter Procedures Procedure Name Priority Date/Time Associated Diagnosis Comments DERMATOPATHOLOGY Routine 10/29/2023 3:25 PM CDT documented in this encounter Results * DERMATOPATHOLOGY (10/29/2023 3:25 PM CDT) Case Report Dermatopathology Report Case: [id number] Authorizing Provider: Eusebia Bolivar DO Collected: 10/29/2023 03:25 PM Ordering Location: [facility] Phys[facility] - Received: 10/30/2023 01:46 PM DermPath Lab [...] by the Dermatopathology Laboratory at [facility], directed by Dr. Chandu Guardado. These tests need not be, and therefore are not, approved by the [place] Food and Drug Administration. The tests are used for clinical purposes. Billing Codes Specimen Charges Stain Charges 97897 1 2:22 PM CDT DERMATOPATHOLOGY LABORATORY Embedded Images 2:22 PM CDT DERMATOPATHOLOGY LABORATORY Pathology/Cytolo gy TISSUE SPECIMEN FROM SKIN / Unknown 10/29/2023 3:25 PM CDT 10/30/2023 1:46 PM CDT us Eusebia Bolivar DO LAB - PATHOLOGY/CYTOLOGY ORDERABLES Final Result DERMATOPATHOLOGY LABORATORY [facility] - Department of Dermatology [address] [place] [address], [facility] [phone] documented in this encounter Visit Diagnoses Not on filedocumented in this encounter
--- OUTSIDE RECORDS SUMMARY | 2025-07-26 01:43 | XMS_ITS | Encounter Summary ---
Author Organization [facility] Address [address] [facility] [place] [address] Care Team Providers Care Apartment Rental Clerk Name Role Phone Unavailable Primary Care Provider Unavailabl e Encounter Details Date Type Department Care Team (Late st Contact Info) Description 03/28/2023 Lab Requisition [facility] - DermPath Lab [address] [facility], [facility] [place] [address] Kaylah Santiago MD [address] [facility] 3 [place] [address] Social History Tobacco Use Types Packs/Day Years Used Date Smoking Tobacco: Never Assessed Comments Unknown Sex and Gender Information Value Date Recorded Sex Assigned at Not on file Legal Sex Female 6:22 PM CORE CHECKER Gender Identity Not on file Sexual Orientation Not on file documented as of this encounter Plan of Treatment Not on file documented as of this encounter Procedures Procedure Name Priority Date/Time Associated Diagnosis Comments DERMATOPATHOLOGY Routine 03/28/2023 2:37 PM CDT documented in this encounter Results * DERMATOPATHOLOGY (03/28/2023 2:37 PM CDT) Case Report Dermatopathology Report Case: [id number] Authorizing Provider: Kaylah Santiago MD Collected: 03/28/2023 02:37 PM Ordering Location: [facility] DermPath Lab Received: 03/30/2023 07:13 [...] characteristic determined by the Dermatopathology Laboratory at [facility], directed by Dr. Chandu Guardado. These tests need not be, and therefore are not, approved by the [place] Food and Drug Administration. The tests are used for clinical purposes. Billing Codes Specimen Charges Stain Charges 36932 1 3 3:57 PM CDT DERMATOPATHOLOGY LABORATORY Embedded Images 3 3:57 PM CDT DERMATOPATHOLOGY LABORATORY Pathology/Cytolo gy TISSUE SPECIMEN FROM SKIN / Unknown 03/28/2023 2:37 PM CDT 03/30/2023 7:13 AM CDT us Kaylah Santiago MD LAB - PATHOLOGY/CYTOLOGY ORD ERABLES Final Result DERMATOPATHOLOGY LABORATORY [facility] - Department of Dermatology [address], [address] [phone] documented in this encounter Visit Diagnoses Not on filedocumented in this encounter
--- OUTSIDE RECORDS SUMMARY | 2025-07-26 01:43 | XMS_ITS | Encounter Summary ---
Author Organization [facility] Address [address] [place] [address] Phone Care Team Providers Care Golf Range Attendant Name Role Phone Beka Gonzales MD Primary Care Provider [phone] Myron Martinez MD Unavailable [phone] Susan Ramirez RN Unavailable [phone] Lisha Bob RN Unavailable [phone] Sara Ceballos Unavailable Unavailable Pooja Durán MD Primary Care Provider [phone] Sapna Dumont MD Primary Care Provider [phone] Shelly Thomason RN Unavailable Unavailable Shelly Thomason RN Unavailable Unavailable Shelly Thomason RN Unavailable Unavailable Kina Campbell RN Unavailable Unavailab Millie Garcia Unavailable Unavailable Encounter Details Date Type Department Care Team (Late st Contact Info) Description 11/14/2017 Orders Only [facility] Provider, MD Vijay [address] [place] [address] Social History Tobacco Use Types Packs/Day Years Used Date Smoking Tobacco: Never Comments Unknown Sex and Gender Information Value Date Recorded Sex Assigned at Not on file Legal Sex Female 12:32 AM 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 Historical Provider [facility] JOHN REYNOLDS Final Result documented in this encounter Visit Diagnoses Not on filedocumented in this encounter Care Teams Golf Range Attendant Relationship Specialty Start Date End Date Beka Gonzales MD [address] [place] [address] PCP - General 12/12/16 10/20/18 Pooja Durán MD PCP - General Family Practice 10/21/18 12/27/20 Sapna Dumont MD PCP - General Family Medicine 12/28/20 Myron Martinez MD [address] [place] [address] Solar Consultant Cardiology 06/18/18 Susan Ramirez, RN [address] [address] Registered Nurse Cardiology 06/18/18 08/23/23 Lisha Bob, BROCK [address] [address] Registered Nurse Cardiology 06/18/18 04/26/22 Sara Ceballos Primary Planer Feeder Cardiology 06/18/18 Shelly Thomason, supervisor tumblersCone Former Cardiology 04/27/22 09/05/23 Shelly Thomason, floorperson Failure Coordinator 08/23/23 4 Shelly Thomason, floorperson Failure Coordinator Transplant 09/05/23 Kina Campbell floorperson Failure Coordinator Cardiology 01/01/24 Millie Griffiths Primary Planer Feeder 04/23/25 documented as of this encounter
--- OUTSIDE RECORDS SUMMARY | 2025-07-26 01:43 | XMS_ITS | Encounter Summary ---
Author Organization [facility] Address [address] [place] [address] Phone Care Team Providers Care Certified Meeting Professional Name Role Phone Beka Gonzales MD Primary Care Provider [phone] Myron Martinez MD Unavailable Susan Ramirez RN Unavailable [phone] Lisha Bob RN Unavailable Sara Ceballos Unavailable Unavailable Pooja Durán MD Primary Care Provider [phone] Sapna Dumont MD Primary Care Provider [phone] Shelly Thomason RN Unavailable Unavailable Shelly Thomason RN Unavailable Unavailable Shelly Thomason RN Unavailable Unavailable Kina Campbell RN Unavailable Unavailab Millie Garcia Unavailable Unavailable Encounter Details Date Type Department Care Team (Late st Contact Info) Description 11/04/2014 Orders Only [facility]INCONV Provider, MD Vijay [address] [place] [address] Social History Tobacco Use Types Packs/Day Years Used Date Smoking Tobacco: Never Assessed Comments Unknown Sex and Gender Information Value Date Recorded Sex Assigned at Not on file Legal Sex Female 12:32 AM CARBON LAMP 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 Gender Identity Female 11/24/2020 8:34 AM CDT [...] on filedocumented in this encounter Care Teams Certified Meeting Professional Relationship Specialty Start Date End Date Beka Gonzales MD [address] [place] [address] PCP - General 12/12/16 10/20/18 Pooja Durán MD PCP - General Family Practice 10/21/18 12/27/20 Sapna Dumont MD PCP - General Family Medicine 12/28/20 Myron Martinez MD [address] [place] [address] Griddle Cook Cardiology 06/18/18 Susan Ramirez, RN [address] [address] Registered Nurse Cardiology 06/18/18 08/23/23 Lisha Bob, RN [address] [address] Registered Nurse Cardiology 06/18/18 04/26/22 Sara Ceballos Primary Professional Development Manager Cardiology 06/18/18 Shelly Thomason, rolled materials workerCommunity Organization Worker Cardiology 04/27/22 09/05/23 Shelly Thomason, resource development director Failure Coordinator 08/23/23 4 Shelly Thomason, resource development director Failure Coordinator Transplant 09/05/23 Kina Campbell resource development director Failure Coordinator Cardiology 01/01/24 Millie Griffiths Primary Professional Development Manager 04/23/25 documented as of this encounter
--- OUTSIDE RECORDS SUMMARY | 2025-07-26 01:43 | XMS_ITS | Encounter Summary ---
Author Organization [facility] Address [address] [place] [address] Care Team Providers Care Well Testing Operator Name Role Phone Sapna Dumont MD Primary Care Provider [phone] Encounter Details Date Type Department Care Team (Latest Contact Info) Description 12/20/2007 Outpatient Historical [facility] Stoddard Jr., Emily Calderon MD [...] on file Legal Sex Female 2:46 AM HOSPITAL CNA Gender Identity Not on file Sexual Orientation [...] PM CDT Narrative 12/20/2007 7:52 PM CDT [facility] [address], [place] [address] Admit Date: 12/20/2007 KATARZYNA COHN Sex: F Admit Prov: EMILY STODDARD Date: 1945 Primary Care Prov: PCP , NONE CMRN: [id number] Room: [facility] SSN: [id number] IMAGING SERVICES Ordering Prov: EMILY STODDARD Accession Number: [id number] Interpretation BILATERAL FULL FIELD DIGITAL DIAGNOSTIC MAMMOGRAMS [...] DKT Procedure Note Tessy Mccormick - 12/20/2007 [facility] [address] [place], [place] [address] Admit Date: 12/20/2007 KATARZYNA COHN Sex: F Admit Prov: EMILY STODDARD Date: 1945 Primary Care Prov: PCP , NONE CMRN: [id number] Room: [facility] SSN: [id number] IMAGING SERVICES Ordering Prov: EMILY STODDARD Interpretation [...] PM CDT Narrative 01/01/2008 12:34 PM CDT [facility] [address] [place], [place] [address] Admit Date: 12/20/2007 KATARZYNA COHN Sex: F Admit Prov: EMILY STODDARD Date: 1945 Primary Care Prov: PCP , NONE CMRN: [id number] Room: [facility] SSN: [address] [place] [address] IMAGING SERVICES Ordering Prov: EMILY STODDARD Accession Number: [id number] Addendum ADDENDUM TO MAMMOGRAPHY REPORT OF 12/20/2007 The patient's outside films from [facility] dated March 2006 [...] DKT Procedure Note Tessy Mccormick - 01/01/2008 [facility] [address], [place] [address] Admit Date: 12/20/2007 KATARZYNA COHN Sex: F Admit Prov: EMILY STODDARD Date: 1945 Primary Care Prov: PCP , NONE CMRN: [id number] Room: [facility] SSN: [id number] IMAGING SERVICES Ordering Prov: EMILY STODDARD Addendum ADDENDUM TO MAMMOGRAPHY REPORT OF 12/20/2007 The patient's outside films [facility] dated March 2006 have just been made [...] MCCORMICK 12/20/2007 19:52 Transcribed: 12/20/2007 17:05 DKT Emily Stoddard Jr., MD MAMMO ORDERABLES Edited documented in this encounter Visit Diagnoses Diagnosis Malignant neoplasm of breast (female), unspecified site Lump or mass in breast Personal history of malignant neoplasm of breast Abnormal mammogram, unspecified documented in this encounter Care Teams Well Testing Operator Relationship Specialty Start Date End Date Sapna Dumont MD [address] [place] [address] PCP - General Family Practice 03/31/21 documented as of this encounter
--- OUTSIDE RECORDS SUMMARY | 2025-07-26 01:43 | XMS_ITS | Encounter Summary ---
Author Organization [facility] Address [address] [place] [address] Care Team Providers Care Poultry Scientist Name Role Phone Unavailable Primary Care Provider Unavailabl e Encounter Details Date Type Department Care Team (Late st Contact Info) Description 02/04/2020 Lab Requisition [facility] DermPath Lab [address] [facility] [place] [address] Kaylah Santiago MD [address] [facility] 3 [place] [address] Social History Tobacco Use Types Packs/Day Years Used Date Smoking Tobacco: Never Assessed Comments Unknown Sex and Gender Information Value Date Recorded Sex Assigned at Not on file Legal Sex Female 6:22 PM INTERVENTIONAL RADIOLOGIST Gender Identity Not on file Sexual Orientation Not on file documented as of this encounter Plan of Treatment Not on file documented as of this encounter Procedures Procedure Name Priority Date/Time Associated Diagnosis Comments DERMATOPATHOLOGY Routine 02/03/2020 12:0 0 AM CDT documented in this encounter Results * DERMATOPATHOLOGY (02/03/2020 12:00 AM CDT) Case Report Dermatopathology Report Case: [id number] Authorizing Provider: Kaylah Santiago MD Collected: 02/03/2020 12:00 AM Ordering Location: [facility] DermPath Lab Received: 02/04/2020 10:49 AM [...] characteristic determined by the Dermatopathology Laboratory at [facility], directed by Dr. Chandu Guardado. These tests need not be, and therefore are not, approved by the [place] Food and Drug Administration. The tests are used for clinical purposes. Billing Codes Specimen Charges Stain Charges 54426 1 0 1:39 PM CDT DERMATOPATHOLOGY LABORATORY Embedded Images 0 1:39 PM CDT DERMATOPATHOLOGY LABORATORY Pathology/Cytolog y TISSUE SPECIMEN FROM SKIN / Unknown 02/03/2020 02/04/2020 10:49 AM CDT us Kaylah Santiago MD LAB - PATHOLOGY/CYTOLOGY ORD ERABLES Final Result DERMATOPATHOLOGY LABORATORY [facility] - Department of Dermatology [employer] [address], [facility] [phone] documented in this encounter Visit Diagnoses Not on filedocumented in this encounter
--- OUTSIDE RECORDS SUMMARY | 2025-07-26 01:43 | XMS_ITS | Clinical Summary ---
Author Organization [facility] Address [address] [place] [address] Care Team Providers Care Otolaryngologist Name Role Phone Unavailable Primary Care Provider Unavailabl e Source Comments [facility],non-owned Affiliates and Associated Physician Practices is amultiple site organization consisting of ambulatory clinics and hospital sitesin [place], [place], [place] and [place]. This disclosure is being madepursuant to the Care Everywhere program and may not contain all information available regarding this patient. Last updated 18.[facility] Social History Tobacco Use Types Packs/Day Years Used Date Smoking Tobacco: Never Assessed Comments Unknown Sex and Gender Information Value Date Recorded Sex Assigned at Not on file Legal Sex Female 6:22 PM MANAGER RN CASE Gender Identity Not on file Sexual Orientation [...] yrs (1 - 1-dose 75+ series) 11/14/2022 DEPRESSION SCREENING 08/06/2024 MEDICARE AWV CALENDAR YEAR 2024 COVID-19 VACCINE ( - 2024-2 6 season) 2025 INFLUENZA VACCINE (#1) 2025 HEPATITIS B VACCINE [...]
--- OUTSIDE RECORDS SUMMARY | 2025-07-26 01:44 | XMS_ITS | Encounter Summary ---
Author Organization [facility] Address [address] [place] [address] Phone Care Team Providers Care Twister Tender Name Role Phone Beka Gonzales MD Primary Care Provider [phone] Myron Martinez MD Unavailable [phone] Susan Ramirez RN Unavailable [phone] Lisha Bob RN Unavailable [phone] Sara Ceballos Unavailable Unavailable Pooja Durán MD Primary Care Provider [phone] Sapna Dumont MD Primary Care Provider [phone] Shelly Thomason RN Unavailable Unavailable Shelly Thomason RN Unavailable Unavailable Shelly Thomason RN Unavailable Unavailable Kina Campbell RN Unavailable Unavailab Millie Garcia Unavailable Unavailable Encounter Details Date Type Department Care Team (Late st Contact Info) Description 11/10/2015 Orders Only [facility] IM CAR CLINCONV Provider, MD Vijay [address] [place] [address] Social History Tobacco Use Types Packs/Day Years Used Date Smoking Tobacco: Never Assessed Comments Unknown Sex and Gender Information Value Date Recorded Sex Assigned at Not on file Legal Sex Female 12:32 AM JEWISH HISTORY PROFESSOR Gender Identity Female 11/24/2020 8:34 AM CDT [...] on filedocumented in this encounter Care Teams Twister Tender Relationship Specialty Start Date End Date Beka Gonzales MD [address] [place] [address] PCP - General 12/12/16 10/20/18 Pooja Durán MD PCP - General Family Practice 10/21/18 12/27/20 Sapna Dumont MD PCP - General Family Medicine 12/28/20 Myron Martinez MD [address] [place] [address] Java Solutions Architect Cardiology 06/18/18 Susan Ramirez, RN [address] [address] Registered Nurse Cardiology 06/18/18 08/23/23 Lisha Bob, RN [address] [address] Registered Nurse Cardiology 06/18/18 04/26/22 Sara Ceballos Primary Roaster Supervisor Cardiology 06/18/18 Shelly Thomason, online merchandising coordinatorEngineering Faculty Cardiology 04/27/22 09/05/23 Shelly Thomason, quality process engineer Failure Coordinator 08/23/23 4 Shelly Thomason, quality process engineer Failure Coordinator Transplant 09/05/23 Kina Campbell quality process engineer Failure Coordinator Cardiology 01/01/24 Millie Griffiths Primary Roaster Supervisor 04/23/25 documented as of this encounter
--- OUTSIDE RECORDS SUMMARY | 2025-07-26 01:44 | XMS_ITS | Encounter Summary ---
Author Organization [facility] Address [address] [place] [address] Phone Care Team Providers Care Candy Dipper Name Role Phone Beka Gonzales MD Primary Care Provider [phone] Myron Martinez MD Unavailable Susan Ramirez RN Unavailable [phone] Lisha Bob RN Unavailable Sara Ceballos Unavailable Unavailable Pooja Durán MD Primary Care Provider [phone] Sapna Dumont MD Primary Care Provider [phone] Shelly Thomason RN Unavailable Unavailable Shelly Thomason RN Unavailable Unavailable Shelly Thomason RN Unavailable Unavailable Kina Campbell RN Unavailable Unavailab Millie Garcia Unavailable Unavailable Encounter Details Date Type Department Care Team (Late st Contact Info) Description 2016 Orders Only [facility] CAR CLINCONV Provider, MD Vijay [address] [place] [address] Social History Tobacco Use Types Packs/Day Years Used Date Smoking Tobacco: Never Assessed Comments Unknown Sex and Gender Information Value Date Recorded Sex Assigned at Not on file Legal Sex Female 12:32 AM DRAFTER (CAD) ELECTRICAL Gender Identity Female 11/24/2020 8:34 AM CDT [...] on filedocumented in this encounter Care Teams Candy Dipper Relationship Specialty Start Date End Date Beka Gonzales MD [address] [place] [address] PCP - General 12/12/16 10/20/18 Pooja Durán MD PCP - General Family Practice 10/21/18 12/27/20 Sapna Dumont MD PCP - General Family Medicine 12/28/20 Myron Martinez MD [address] [place] [address] Placement Specialist Cardiology 06/18/18 Susan Ramirez, RN [address] [address] Registered Nurse Cardiology 06/18/18 08/23/23 Lisha Bob, RN [address] [address] Registered Nurse Cardiology 06/18/18 04/26/22 Sara Ceballos Primary Cable Maintainer Cardiology 06/18/18 Shelly Thomason, buckle sorterBlending Kettle Tender Cardiology 04/27/22 09/05/23 Shelly Thomason, tab builder Failure Coordinator 08/23/23 4 Shelly Thomason, tab builder Failure Coordinator Transplant 09/05/23 Kina Campbell tab builder Failure Coordinator Cardiology 01/01/24 Millie Griffiths Primary Cable Maintainer 04/23/25 documented as of this encounter
--- OUTSIDE RECORDS SUMMARY | 2025-07-26 01:44 | XMS_ITS | Clinical Summary ---
Author Organization [facility] Address [address] [place] [address] Care Team Providers Care Scientific Illustrator Name Role Phone Myron Martinez MD Unavailable [phone] Sara Ceballos Unavailable Unavailable Sapna Dumont MD Primary Care Provider [phone] Shelly Thomason RN Unavailable Unavailable Kina Campbell RN Unavailable Unavailab Millie Garcia Unavailable Unavailable Allergies Active Allergy Reactions Criticality Noted Date [...] mg 24 hr tablet Oral [address] (CYMBALTA) 60 mg capsule [...] 07/23/2024 Assessment & Plan (10/08/2024 6:06 PM STAFF DEVELOPMENT NURSE): Mrs. Chambers is a very pleasant 78yo [...] antibody testing can be ordered or if [place] paraneoplastic panel is indicated. Plan: - Sleep study with sleep medicine - Continue levodopa 0.5 tabs TID - Start gabapentin: 300mg qHS 1 week -> 300mg BID 1 week , 300mg TID 1 week, touch base to discuss if it is working and any worsening lethargy - Exercise as able - IgLON5 antibody testing Assessment & Plan (07/23/2024 12:01 PM STAFF DEVELOPMENT NURSE): Mrs. Chambers is a very pleasant 78yo [...] (11/04/2021): Added automatically from request for surgery [id number] Essential hypertension 06/29/2020 Complete heart block 12/05/2017 NICM (nonischemic cardiomyopathy) 11/08/2015 Malignant neoplasm of breast 05/30/2010 Hyperlipidemia 05/30/2010 Chronic combined systolic and diastolic heart fa ilure 05/30/2010 Resolved Problems Problem Noted Date Diagnosed Date Resolved Date Parkinson's disease ([facility]) 11/07/2023 07/23/2024 Parkinson disease 02/02/2021 07/23/2024 Assessment [...] Encounters Date Type Department Care Team Description 06/25/[address] 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 - (Added by Conv) Cataract Cataract of both eyes - (Added by Conv) Cardiomyopathy Complete heart block (HCC) CHF [...] on file Legal Sex Female 12:32 AM STAFF DEVELOPMENT NURSE Gender Identity Female 11/24/2020 8:34 AM CDT [...] Vaccine (1 - Tdap) 03/02/2021 , 08/06/2011 Fall Risk Assessment 06/20/2024 06/20/2023 Covid-19 Vaccine (6 - 2024-2 6 season) 2025 07/17/2022, 12/07/2021, 06/03/2021, Additional history exists Influenza Vaccine (#1) 2025 3, 04/12/2020, 05/21/2014, Additional history exists Depression Screening 10/08/2025 10/08/2024 Pneumococcal vaccine 65+ Completed 017, 10/18/2015, 08/06/2009 Zoster Vaccine Completed 09/24/2021, 12/09/2020, 07/12/2012 Breast Cancer Screening-Mammogram Discontinued 04/16/2024, 04/16/2024, 04/05/2021, Additional history exists Medical Devices Implanted Type Area Emergency Vehicle Dispatcher Device Identifier Shelf Expiration Date Model / Serial / Lot [employer] C.R.M. G126 Defibrillator Cardiac Resynchronization Therapy Defibrillator Momentum Lv1 - [id number] - [id number] Implanted:Qty: 1 on 11/08/2021 by Sumeet Ortiz MD PhD at [facility] ICD [employer] C.R.M. 09/27/2023 G126 / [id number] / [employer] Ra Lead 4470 Lead Heart [employer] C.R.M. 4470 / [id number] / [employer] Rv Lead 0185 Lead Heart [employer] C.R.M. 0185 / [id number] / [employer] Lv Lead 4518 Lead Heart [employer] C.R.M. 4518 / [id number] / Synthes Implant Bone Plate Compression Locking 20 Hole Lcp 2.7mm [id number] - S0 - [id number] Implanted:Qty: 1 on 06/20/2023 by Primitivo Clayton MD at [facility] Plate Right: Olecranon Synthes I 04/05/2033 02.247.3 90S / 0 / [id number] Synthes Lcp 59mm 7 Hole Shaft Low Profile Cut To Length Condylar Plate 249.679 - S0 - [id number] Implanted:Qty: 1 on 06/20/2023 by Primitivo Clayton MD at [facility] Plate Right: Olecranon Synthes I 249.679 / 0 / Synthes 2.7mm 5mm 16mm 2.5mm Self Tap Stardrive Cortical T8 Screw Bone 202.876 - S0 - [id number] Implanted:Qty: 1 on 06/20/2023 by Primitivo Clayton MD at [facility] Screw Right: Olecranon Synthes I 202.876 / 0 / Synthes 2.7mm 5mm 14mm 2.5mm Self Tap Stardrive Cortical T8 Screw Bone 202.874 - S0 - [id number] Implanted:Qty: 1 on 06/20/2023 by Primitivo Clayton MD at [facility] Screw Right: Olecranon Synthes I 202.874 / 0 / Synthes 2.7mm 5mm 28mm 2.5mm Self Tap Stardrive Cortical T8 Screw Bone 202.888 - S0 - [id number] Implanted:Qty: 1 on 06/20/2023 by Primitivo Clayton MD at [facility] Screw Right: Olecranon Synthes I 202.888 / 0 / Synthes 2.4mm 18mm Self Tap Stardrive Cortex T8 Screw Bone 201.768 - S0 - [id number] Implanted:Qty: 3 on 06/20/2023 by Primitivo Clayton MD at [facility] Screw Right: Olecranon Synthes I 201.768 / 0 / Synthes 2.4mm 20mm Self Tap Stardrive Cortex T8 Screw Bone 201.770 - S0 - [id number] Implanted:Qty: 2 on 06/20/2023 by Primitivo Clayton MD at [facility] Screw Right: Olecranon Synthes I 201.770 / 0 / Synthes 2.4mm 1.9mm 20mm Self Tap Lock Stardrive Conical Head T8 Screw 212.820 - S0 - [id number] Implanted:Qty: 2 on 06/20/2023 by Primitivo Clayton MD at [facility] Screw Right: Olecranon Synthes I 212.820 / 0 / Synthes 2.4mm 1.9mm 28mm Self Tap Lock Stardrive Conical Head T8 Screw 212.828 - S0 - [id number] Implanted:Qty: 1 on 06/20/2023 by Primitivo Clayton MD at [facility] Screw Right: Olecranon Synthes I 212.828 / 0 / Synthes 2.4mm 1.9mm 18mm Self Tap Lock Stardrive Conical Head T8 Screw 212.818 - S0 - [id number] Implanted:Qty: 1 on 06/20/2023 by Primitivo Clayton MD at [facility] Screw Right: Olecranon Synthes I 212.818 / 0 / Synthes 2.4mm 1.9mm 10mm Self Tap Lock Stardrive Conical Head T8 Screw 212.810 - S0 - [id number] Implanted:Qty: 1 on 06/20/2023 by Primitivo Clayton MD at [facility] Screw Right: Olecranon Synthes I 212.810 / 0 / Synthes 2.7mm 5mm 44mm 2.5mm Self Tap Stardrive Cortical T8 Screw Bone 202.963 - S0 - [id number] Implanted:Qty: 1 on 06/20/2023 by Primitivo Claytno MD at [facility] Screw Right: Olecranon Synthes I 202.963 / 0 / Synthes Screw Bone Cortical Solid St Full Thread Locking 2.7x90mm 02.202.990 - S0 - [id number] Implanted:Qty: 1 on 06/20/2023 by Primitivo Clayton MD at [facility] Screw Right: Olecranon Synthes I 02.202.9 90 / 0 / Synthes 2.7mm 5mm 26mm 2.5mm Self Tap Stardrive Cortical T8 Screw Bone 202.886 - S0 - [id number] Implanted:Qty: 1 on 06/20/2023 by Primitivo Clayton MD at [facility] Screw Right: Olecranon Synthes I 202.886 / 0 / Synthes 2.7mm 5mm 20mm 2.5mm Self Tap Stardrive Cortical T8 Screw Bone 202.880 - S0 - [id number] Implanted:Qty: 1 on 06/20/2023 by Primitivo Clayton MD at [facility] Screw Right: Olecranon Synthes I 202.880 / 0 / Explanted Type Area Emergency Vehicle Dispatcher Device Identifier Shelf Expiration Date Model / Serial / Lot Pacemaker/Icd -10/07/2012 Implanted:Qty : 1 on 10/07/2012 Explanted:Qty : 1 on 11/08/2021 Left: Chest [employer] Synthes 2.4mm 1.9mm 20mm Self Tap Lock Stardrive Conical Head T8 Screw 212.820 - [id number] Explanted:Qty : 1 on 06/20/2023 at [facility] Right: Olecranon Synthes I 212.820 / / Insurance AETNA MEDICARE AETNA MEDICARE Advance Directives For more information, please contact: [phone] Documents on File Type Date Recorded Patient Patient Relations Liaison Expl anation ADVANCE DIRECTIVE 05/27/2015 12:00 AM [facility]ER OPERATOR FINANCIAL/MEDICAL ADVANCE DIRECTIVE 11/30/2014 12:00 AM [facility] Care Teams Scientific Illustrator Relationship Specialty Start Date End Date Sapna Dumont MD PCP - General Family Medicine 12/28/20 Myron Martinez MD [address] [place] [address] [facility] 06/18/18 Sara Ceballos Primary [facility] Cardiology 06/18/18 Shelly Thomason, motion and time study teacher Failure Coordinator Transplant 09/05/23 Kina Campbell motion and time study teacher Failure Coordinator Cardiology 01/01/24 Millie Griffiths Primary Pan Washer 04/23/25
--- OUTSIDE RECORDS SUMMARY | 2025-07-26 01:44 | XMS_ITS ---
Author Organization [facility] Address [address] [place] [address] Care Team Providers Care Structural Drafter Name Role Phone Myron Martinez MD Unavailable [phone] Sara Ceballos Unavailable Unavailable Sapna Dumont MD Primary Care Provider [phone] Shelly Thomason RN Unavailable Unavailable Kina Campbell RN Unavailable Unavailab Millie Garcia Unavailable Unavailable Active Problems Problem Noted Date Diagnosed Date Progressive supranuclear palsy 07/23/2024 Assessment & Plan (10/08/2024 6:06 PM CASINO CAGE SUPERVISOR): Mrs. Chambers is a very pleasant 78yo [...] antibody testing can be ordered or if [place] paraneoplastic panel is indicated. Plan: - Sleep study with sleep medicine - Continue levodopa 0.5 tabs TID - Start gabapentin: 300mg qHS 1 week -> 300mg BID 1 week , 300mg TID 1 week, touch base to discuss if it is working and any worsening lethargy - Exercise as able - IgLON5 antibody testing Assessment & Plan (07/23/2024 12:01 PM CASINO CAGE SUPERVISOR): Mrs. Chambers is a very pleasant 78yo [...] (11/04/2021): Added automatically from request for surgery [id number] Essential hypertension 06/29/2020 Complete heart block 12/05/2017 [...] Date Diagnosed Date Resolved Date Parkinson's disease ([facility]) 11/07/2023 07/23/2024 Parkinson [...]
[2025-07-26 02:01] VITALS: BP 79/46; PULSE 70; RESP 17; TEMP 36.6; O2SAT 91
--- NOTE | 2025-07-26 03:00 | PC.NURSE ---
Contacted [facility], awaiting return phone call.
[2025-07-26 03:01] VITALS: BP 106/53; PULSE 72; RESP 16; TEMP 36.8
--- NOTE | 2025-07-26 03:22 | ED.GENADULT ---
HPI - General Adult General Chief complaint: Shortness of Breath/Dyspnea Stated complaint: SOB, covid+, hospice Time Seen by Provider: 07/26/25 01:30 History of Present Illness HPI narrative: Patient is a 79-year-old female who presents emergency department with chief complaint of increased lethargy patient is recently COVID patient also underlying Parkinson's like disease for which she is under hospice care the patient apparently had a lower blood pressure reading at the facility and the facility stated that the patient needed to go emergency department despite hospice telling the facility that the patient could be cared for at the facility Related Data Home Medications ?Medication ?Instructions ?Recorded ?Confirmed ?Last Taken ?Type carvedilol 12.5 mg tablet 25 mg PO BID 08/14/19 05/13/25 03/13/22 History cholecalciferol (vitamin D3) 25 1,000 unit PO BID 08/14/19 05/13/25 03/13/22 History mcg (1,000 unit) capsule (Vitamin D3) sodium chloride 5 % eye drops 1 drop ophthalmic (eye) TID 08/15/19 05/13/25 03/13/22 History (Winnie 128) losartan 25 mg tablet 12.5 mg PO BID 09/14/20 05/13/25 03/13/22 History carbidopa 25 mg-levodopa 100 mg 1 tablet PO TID 04/07/21 05/13/25 03/13/22 History tablet trazodone 50 mg tablet 50 mg PO QHS PRN Insomnia 02/09/22 05/13/25 03/13/22 History mecobalamin (vitamin B12) 1,000 1,000 mcg sublingual DAILY 12/12/22 05/13/25 Unknown History mcg disintegrating tablet,sublingual oxybutynin chloride 5 mg 5 mg PO DAILY 04/30/24 05/13/25 Unknown History tablet,extended release 24 hr perfluorohexyloctane (PF) 100 % drp 04/30/24 05/13/25 Unknown History eye drops (Miebo (PF)) timolol maleate 0.5 % eye drops drp 04/30/24 05/13/25 Unknown History atorvastatin 40 mg tablet 40 mg PO .QD 08/17/24 05/13/25 Unknown History Allergies Allergy/AdvReac Type Severity Reaction Status Date / Time Penicillins Allergy Mild Rash Verified 05/13/25 09:32 Sulfa (Sulfonamide Allergy Mild Rash Verified 05/13/25 09:32 Antibiotics) Review of Systems Review of Systems: A 10 system review of systems was completed on the patient and is negative except for what is stated in the HPI. Nursing and ancillary documentation was reviewed. [facility] Past Medical History Medical History Closed fracture of right proximal humerus Fracture of olecranon process of right ulna with intraarticular extension Chronic diastolic CHF (congestive heart failure), NYHA class 2 Fatigue Parkinson's Disease Hypertension Hyperlipidemia Ovarian cyst Heart failure LBBB (left bundle branch block) Artificial pacemaker Replaced 2021, [facility] Breast cancer Surgical History Surgical History History of appendectomy Hx of removal of ovary History of lumpectomy Family History Family History Mother Breast cancer Goiter Father Diabetes mellitus Grandparent Diabetes mellitus Sibling Breast cancer Sibling Cancer of mouth Daughter Fuchs' corneal dystrophy of both eyes Diabetes mellitus Other Family history of thyroid disease Social History Social History Smoking status: Never smoker Second hand tobacco smoke exposure: No Alcohol intake: current Drinks per week: 5 Alcohol use details: Glass of wine daily. Substance use: never Substance use type: does not use Lack of Transportation: No Lack of Food: Never True Current Housing: I Have Housing Concerned About Future Housing: No Difficulty Paying Gas/Electric Bills: No Difficulty Paying for Meds: No Currently Unemployed: No Education: High School Diploma/GED Difficulty w/ Childcare or Family Care: No Living arrangements: with family Occupation/Education: retired Gender identity (if verbalized by the patient): Female Spiritual care concerns: No Agree to blood products: Yes Exam Narrative: GENERAL: Well-appearing, well-nourished, and in no acute distress. HEAD: Normocephalic, atraumatic. EYES: PERRLA and EOMI. ENT: Nares clear, no rhinorrhea or epistaxis. Mucous membranes moist. NECK: Supple. CHEST: Clear to auscultation. No respiratory distress. HEART: Regular rate and rhythm. No murmur heard. Normal peripheral pulses. ABDOMEN: Soft, nontender, nondistended, normal active bowel sounds. EXTREMITIES: Normal range of motion. No edema. SKIN: Warm, dry, no rash. NEURO: No focal deficits. Alert and oriented x3. PSYCH: Normal mood and affect. Course Vital Signs Vital signs: Vital Signs Temperature 36.6 C 07/25/25 23:16 Pulse Rate 76 07/25/25 23:16 Respiratory Rate 22 H 07/25/25 23:16 Blood Pressure 86/48 L 07/25/25 23:16 Pulse Oximetry 96 07/25/25 23:16 Temperature 36.8 C 07/26/25 03:01 Pulse Rate 72 07/26/25 03:01 Respiratory Rate 16 07/26/25 03:01 Blood Pressure 106/53 L 07/26/25 03:01 Pulse Oximetry 91 07/26/25 02:01 Oxygen Delivery Nasal Cannula 07/25/25 23:25 Oxygen Flow Rate 2 07/25/25 23:25 MDM Differential Diagnosis Differential Diagnosis: Covid-19, Parkinson's Like Disease Patient's family wants to continue hospice care the patient is currently stable at this point Patient's case was discussed with the hospitalist provider who recommended to continue hospice care at the facility and at this time the patient be transported back Discharge Plan Discharge Clinical Impression: COVID-19, Hospice care patient Patient Disposition: ID Longterm/Asst Living Condition: Stable Instructions: Antibiotic Form, COVID-19 (Coronavirus Disease 2019) (ED) Additional Instructions: Before transporting patient to the emergency department is recommended that you speak with hospice as most hospice care can be continued at the retirement. Patient Language: [place] Island[place] Prescriptions: No Action oxybutynin chloride 5 mg tablet extended release 24hr 5 mg PO DAILY timolol maleate 0.5 % drops Miebo (PF) 100 % drops atorvastatin 40 mg tablet 40 mg PO .QD azelastine 0.05 % drops 1 drp EACH EYE BID 7 Days Qty: 6 0RF trazodone 50 mg tablet 50 mg PO QHS PRN (Reason: Insomnia) mecobalamin (vitamin B12) 1,000 mcg tablet,disintegrating 1,000 mcg sublingual DAILY Rx Instructions: place tablet under tongue and allow to dissolve for at least30 secs before swallowing sodium chloride [Winnie 128] 5 % drops 1 drop EACH EYE TID carbidopa-levodopa 25-100 mg tablet 1 tablet PO TID oxycodone 5 mg tablet 5 mg PO Q4H PRN (Reason: pain) Qty: 14 0RF carvedilol 12.5 mg tablet 25 mg PO BID Rx Instructions: take 1 tablet by oral route 2 times every day with food cholecalciferol (vitamin D3) [Vitamin D3] 25 mcg (1,000 unit) capsule 1,000 unit PO BID Rx Instructions: One twice daily losartan 25 mg tablet 12.5 mg PO BID Patient Comments: 1/2 tablet bid per cardiology appt 06/29/2020 tramadol 50 mg tablet 50 mg PO Q6H PRN (Reason: pain) Qty: 30 0RF Follow-up/Referrals: Tim,MD Sapna [Primary Care Provider, Family Practice]
[2025-07-26 03:43] VITALS: BP 94/53; PULSE 70; RESP 22; TEMP 37.1; O2SAT 93
== END 2025-07-26 04:37 | disposition hospice, home (50) ==
PROVIDERS: Emergency Provider Emergency Medicine; PCP Family Medicine
DX: U07.1 COVID-19 (principal); Z51.5 Encounter for palliative care; I50.32 Chronic diastolic (congestive) heart failure; G20.A1 Parkinson's disease without dyskinesia, without mention of fluctuations; I11.0 Hypertensive heart disease with heart failure; E78.5 Hyperlipidemia, unspecified; Z85.3 Personal history of malignant neoplasm of breast; Z95.0 Presence of cardiac pacemaker; Z90.721 Acquired absence of ovaries, unilateral
CPT/HCPCS: 99281